=== PATIENT | female | born 1945 | race Caucasian/White ===

== ENCOUNTER 2019-08-15 11:58 | Outpatient (CLI) | payer MEDICARE, SELFPAY ==
--- NOTE | 2019-08-21 12:35 | WPDHOLTEREM ---
Holter/Event Monitor Holter/Event Monitor Date of procedure: 08/15/19 Procedure Type: 48 hour holter monitor Indications: Edema, weakness Conclusion: 1. 48 hour holter monitor on 08/15/19. 2. Predominant rhythm is sinus rhythm. HR range 50-121 bpm; average HR 71 bpm. 3. There are 1,362 premature supraventricular complexes, 82 supraventricular couplets, 32 supraventricular bigeminy and 55 supraventricular trigeminy. There are 37 runs of atrial tachycardia, fastest at 171 bpm and longest lasting 33 beats. 4. There are 56 premature ventricular complexes, 1 ventricular couplet and 1 ventricular triplet. No ventricular tachycardia. 5. No sinoatrial or atrioventricular blocks. No significant pauses greater than 2 seconds. 6. Patient reports lightheadedness/dizziness which demonstrate sinus rhythm at 63 bpm.
== END 2019-08-15 11:59 | disposition home or self-care (01) ==
PROVIDERS: PCP Family Medicine; Visit Provider Nurse Practitioner Family
DX: R60.9 Edema, unspecified (principal); R53.1 Weakness; R42 Dizziness and giddiness
CPT/HCPCS: 93225; 93226

== ENCOUNTER 2021-01-16 15:38 | Emergency (ER) | payer MEDICARE, SELFPAY ==
--- NOTE | ~2021-01-16 | XR_ITS ---
EXAMINATION: XR elbow RT min 3V DATE: 01/16/2021 17:23 INDICATION: Right elbow pain and limited range of motion post fall TECHNIQUE: Anteroposterior, two oblique and lateral views of the right elbow were obtained. COMPARISON: None. FINDINGS: Alignment is normal. No fracture or joint effusion. Joint spaces are normal. Mild soft tissue swellin g posterior to the proximal ulna. IMPRESSION: 1. No right elbow joint effusion or osseous abnormality. Reviewed, dictated and finalized at location A.
--- NOTE | ~2021-01-16 | CT_ITS ---
EXAMINATION: CT brain wo con DATE: 01/16/2021 17:18 INDICATION: Fall with head injury and laceration to the right eye TECHNIQUE: Computed tomography (CT) of the head was performed without intravenous contrast. Sagittal and coronal reconstructions were performed. The mA was adjusted according to patient size. Iterative reconstruction technique was employed. The dose-length product was 681.00 mGy-cm. COMPARISON: head CT dated 12/06/2016 FINDINGS: Small right supraorbital scalp hematoma. No fracture. No acute intracranial hemorrhage, acute infarct ion or abnormal extra axial fluid collection. There is mild to moderate scattered periventricular pre dominant white matter hypoattenuation. Symmetric prominence of the sulci and and subarachnoid spaces overlying the convexities consistent with mild to moderate age-appropriate diffuse cerebral volume lo ss. Ventricles are normal and symmetric. No mass/mass effect. Changes of bilateral intraocular lens r eplacement. The orbits, paranasal sinuses and mastoid air cells are normal. Intracranial calcified ce rebral atherosclerosis is noted. IMPRESSION: 1. No fracture or acute intracranial process. 2. Mild to moderate scattered white matter hypoattenuation consistent with chronic small vessel ische ninfa disease and/or multiple sclerosis. Reviewed, dictated and finalized at location A. IMPRESSION: 1. No fracture or acute intracranial process. 2. Mild to moderate scattered white matter hypoattenuation consistent with net ui [employer] alley small vessel ischemic disease and/or multiple sclerosis.
--- NOTE | ~2021-01-16 | CT_ITS ---
EXAMINATION: CT cervical spine wo con DATE: 01/16/2021 17:18 INDICATION: Neck pain post fall with head injury TECHNIQUE: Computed tomography (CT) of the cervical spine was performed without intravenous contrast. Automated exposure control and iterative reconstruction technique were employed. The dose-length pro duct was 110.55 mGy-cm. COMPARISON: 12/06/2016 FINDINGS: Mild cervical dextrocurvature. Unchanged 2 mm anterolisthesis C3 on C4. Vertebral body heights are no rmal. No fracture. Severe disc height loss at C4-C5, C5-C6 and T1-T2, moderate disc height loss at C 6-C7 and mild disc height loss at the remaining cervical levels. There is prominent ossification of t he posterior longitudinal ligament at C5 through C7 contributing to unchanged moderate central canal stenosis at C4-C5 and C5-6. Minimal change in multilevel bilateral moderate to severe uncovertebral a nd facet osteoarthritis resulting in mild to moderate neural foraminal stenosis throughout the cervic al spine atherosclerotic calcific lesions at the bilateral carotid bulbs and common carotid arteries. Chronic enlargement of the left thyroid lobe. Cervical soft tissues are otherwise unremarkable. Visu alized airway and apices of lungs are clear.. IMPRESSION: 1. Severe cervical spondylosis. No acute osseous abnormality. Reviewed, dictated and finalized at location A.
[2021-01-16 15:42] VITALS: BP 154/51; PULSE 72; RESP 16; TEMP 36.9; O2SAT 100
--- NOTE | 2021-01-16 18:24 | ED.FALL ---
HPI - Fall General Chief Complaint: Fall Stated Complaint: Fall Time Seen by Provider: 01/16/21 16:49 Source: patient Mode of arrival: EMS Limitations: no limitations History of Present Illness HPI Narrative: 75-year-old female Patient states that she has a history of balance troubles and was in her bathroom at home when she lost balance and stumbled and fell and hit the right side of her head on the vanity There was no loss of consciousness and she does not complain of any neck pain and did not injure anything else She reported no symptoms of dizziness or chest pain or weakness prior to falling She has not been ill She does have a small cut near her right eye and reports no vision issues Related Data Allergies Allergy/AdvReac Type Severity Reaction Status Date / Time codeine Allergy Unknown Unknown Verified 05/06/20 12:53 erythromycin base Allergy Unknown Unknown Verified 05/06/20 12:53 nitrofurantoin Allergy Unknown Unknown Verified 05/06/20 12:53 sulfisoxazole Allergy Unknown Unknown Verified 05/06/20 12:53 SULFISOXAZOLE ACETYL Allergy Unknown Unknown Uncoded 05/06/20 12:53 Review of Systems Review of Systems: All systems reviewed & are unremarkable except as noted in HPI and below Constitutional: Constitutional: Reports no additional constitutional complaints, Denies chills, Denies fatigue, Denies fever(s), Denies headache(s) and Denies weakness Eyes: Eyes: Reports no additional eye complaints and Denies change in vision ENT: Denies headache(s) and Denies sore throat Cardiovascular: Cardiovascular: Denies chest pain and Denies dyspnea Respiratory: Respiratory: Denies cough and Denies dyspnea Gastrointestinal: Gastrointestinal: Denies abdominal pain, Denies diarrhea and Denies vomiting Genitourinary: Genitourinary: Denies urinary frequency and Denies dysuria Musculoskeletal: Musculoskeletal: Reports back pain (chronic), Denies deformity, Denies arthralgias, Denies joint swelling and Denies numbness Integumentary/Breasts: Skin/Breast: Denies rash and Denies wounds Neurologic: Denies headache(s), Denies focal weakness and Denies numbness Psychiatric: Psychiatric: Reports no additional psychiatric complaints Endocrine: Endocrine: Reports no additional endocrine complaints Hematologic/Lymphatic: Hematologic/Lymphatic: Reports no additional hematologic/lymphatic complaints Allergic/Immunologic: Allergic/Immunologic: Reports no additional allergic/immunologic complaints PMFSH Past Medical History Medical History (Updated 01/16/21 @ 18:35 by Amrik Coats MD) Ataxia BMI 25.0-25.9,adult Spinal stenosis, lumbar Weight loss Family History Family History Son Diabetes mellitus Social History Social History (Updated 05/06/20 @ 12:58 by Hayley Alva CMA) Smoking status: Former smoker Second hand tobacco smoke exposure: No Alcohol intake: never Exam Const: General: cooperative, no acute distress and alert Orientation/consciousness: patient oriented x3 (alert) HENMT: Head: normocephalic, atraumatic, contusion and laceration Ears: external ears normal General nose exam: no epistaxis Other: Small contusion lateral to right eye, there is a approximately 2 mm laceration to the superior part of the eyelid which is well opposed and not gapping open or bleeding Eyes: Conjunctivae: conjunctivae normal Pupils: Equal, round and reactive pupils present EOM: EOMs intact bilaterally Neck: Neck: normal visual inspection, supple and no JVD Other: Nontender Resp: Effort & Inspection: normal respiratory effort and not labored Auscultation: clear to auscultation bilaterally and other (BS =) Cardio: Rate: regular rate Rhythm: regular rhythm Skin: General skin exam: normal color and no rashes or lesions noted Neuro: General: patient oriented x3 (alert) and moves all extremities Speech: normal speech Extrem: General: normal to inspecti
[2021-01-16] MEDS: ONDANSETRON HCL ODT 4 MG TABLET PO (18:36)
[2021-01-16] MEDS: TETANUS,DIPHTHERIA,AC PERTUSSIS ADULT (0.5 ML) BOOSTRIX IM (18:36)
[2021-01-16 19:21] VITALS: BP 161/56; PULSE 77; RESP 14; O2SAT 99
== END 2021-01-16 19:21 | disposition home or self-care (01) ==
PROVIDERS: Emergency Provider Emergency Medicine; PCP Family Medicine
DX: S01.111A Laceration without foreign body of right eyelid and periocular area, initial encounter (principal); Z23 Encounter for immunization; Z87.891 Personal history of nicotine dependence; W01.198A Fall on same level from slipping, tripping and stumbling with subsequent striking against other object, initial encounter
CPT/HCPCS: 70450; 72125; 73080; 90471; 90715; 99284; A9270

== ENCOUNTER 2021-04-08 10:34 | Outpatient (CLI) | payer MEDICARE, SELFPAY ==
--- NOTE | ~2021-04-08 | US_ITS ---
EXAMINATION: US venous doppler [facility] DATE: 04/08/2021 11:29 INDICATION: Right lower limb swelling TECHNIQUE: Grayscale ultrasound images without and with compression and Doppler ultrasound images of the bilateral lower extremity veins were obtained. COMPARISON: None. FINDINGS: The visualized portions of right common femoral vein, profunda (deep) femoral vein, femoral vein, pop liteal vein, posterior tibial veins, peroneal veins, gastrocnemius vein and greater saphenous vein ou tflow are patent. The visualized portions of left common femoral vein, profunda femoral vein, femoral vein, popliteal v ein, posterior tibial veins, peroneal veins, gastrocnemius vein and greater saphenous vein outflow ar e patent. IMPRESSION: 1. No deep venous thrombosis in either lower limb. Reviewed, dictated and finalized at location B.
== END 2021-04-08 10:35 | disposition home or self-care (01) ==
LOC: ANHIMG 10:39
PROVIDERS: PCP Family Medicine; Visit Provider Nurse Practitioner Family
DX: R22.41 Localized swelling, mass and lump, right lower limb (principal)
CPT/HCPCS: 93970

== ENCOUNTER 2021-04-10 11:52 | Inpatient (IN) | payer MEDICARE, SELFPAY ==
[2021-04-10] VITALS (17 sets, daily range): BP systolic 103–136; BP diastolic 48–84; PULSE 108–133; RESP 15–24; TEMP 36.2–36.6; O2SAT 91–98; BMI 25.7
--- NOTE | ~2021-04-10 | XR_ITS ---
XR chest 1V portable DATE: 04/10/2021 12:19 INDICATION: Multiple falls. Weakness. TECHNIQUE: Portable upright AP views on 04/20/2021 at 1211 and 1213 hours COMPARISON: 06/14/2013 two-view chest FINDINGS: There is mild/moderate right pleural effusion and right lower lung infiltrate and/or atelec tasis. Possible left upper lobe approximately 12 mm lung mass. Cardiac megaly. Aortic calcification and unfolding. No left pleural effusion. No pulmonary vascular congestion. No pneumothorax. Diffuse osteopenia. IMPRESSION: Right lower lung infiltrate and/atelectasis and mild to moderate right pleural effusion Possible approximately 12 mm left upper lobe mass Cardiac megaly, aortic atherosclerosis Diffuse osteopenia Reviewed, dictated and finalized at location A. IMPRESSION: Right lower lung infiltrate and/atelectasis and mild to moderate ri ght pleural effusion Possible approximately 12 mm left upper lobe mass Cardiac megaly, aortic atherosclerosis Diffuse osteopenia
--- NOTE | ~2021-04-10 | XR_ITS ---
EXAMINATION: XR chest 1V portable EXAM DATE: 04/14/2021 05:58 INDICATION: Right effusion. TECHNIQUE: Portable AP frontal chest x-ray was obtained. Comparison is made to prior examination from 04/13/2021. FINDINGS: Left upper lobe nodule, most consistent with lung cancer. There are layering pleural effusi ons causing some increased density over the lower lung zones. Superimposed atelectasis. Edema or pneu monia not excludable. Cardiomegaly and pulmonary vascular congestion. There are no osseous abnormalit ies identified. IMPRESSION: 1. Left upper lobe nodule. 2. Layering small to moderate pleural effusions, adjacent atelectasis. 3. Cardiomegaly, pulmonary vascular congestion. 4. Pneumonia and edema not excludable. Reviewed, dictated and finalized at location A.
--- NOTE | ~2021-04-10 | XR_ITS ---
XR chest 1V portable DATE: 04/12/2021 09:58 INDICATION: Right pleural effusion TECHNIQUE: Portable AP chest on 04/12/2021 at 0953 hours COMPARISON: 04/10/2021 CT pulmonary scan 04/10/2021 portable AP chest FINDINGS: Left upper lobe lung mass is again noted. Moderately large right pleural effusion and infiltrate and/atelectasis in the right mid and lower natalie g zones. No left pleural effusion is evident. Cardiomegaly. Aortic arch calcification. Diffuse osteopenia. IMPRESSION: Moderate right pleural effusion and right mid and lower lung infiltrate/atelectasis Left upper lobe lung mass, most likely primary lung carcinoma Cardiomegaly Aortic atherosclerosis Reviewed, dictated and finalized at location B. IMPRESSION: Moderate right pleural effusion and right mid and lower lung infilt rate/atelectasis Left upper lobe lung mass, most likely primary lung carcinoma Cardiomegaly Aortic atherosclerosis
--- NOTE | ~2021-04-10 | US_ITS ---
EXAMINATION: US thoracentesis DATE: 04/12/2021 12:55 INDICATION: Right pleural effusion TECHNIQUE: The procedure and its risks and benefits were discussed with the patient. Potential risks discussed included bleeding, infection, and pneumothorax. The patient understood the risks and agreed to proceed. The skin was prepped and draped in sterile fashion. 1% lidocaine was used for local anes thesia. Under ultrasound guidance, a 5 Fr catheter with trochar was advanced into the right pleural e ffusion. Fluid was aspirated. The catheter was removed, and a dressing was applied. There were no imm ediate complications. FINDINGS: Ultrasound images demonstrate a moderate-sized right pleural effusion and the catheter within the flu id. IMPRESSION: 1. Successful ultrasound-guided thoracentesis yielding 1000 mL of clear yellow fluid. Reviewed, dictated and finalized at location A.
--- NOTE | ~2021-04-10 | XR_ITS ---
XR chest 1V DATE: 04/13/2021 14:25 INDICATION: Biopsy of left upper lobe lung TECHNIQUE: Portable upright AP views on 04/13/2021 at 1420 hours COMPARISON: 04/13/2021 CT biopsy lung 04/12/2021 portable AP chest FINDINGS: There is no evidence of left pneumothorax following CT guided biopsy. The left upper lobe mass is somewhat ill-defined. There is increased density overlying the right mid and lower chest due to pleural effusion and atelectasis. IMPRESSION: No evidence of iatrogenic left [id number] percutaneous lung needle biopsy Reviewed, dictated and finalized at location B. IMPRESSION: No evidence of iatrogenic left [id number] percutaneous lung nee dle biopsy
--- NOTE | ~2021-04-10 | CT_ITS ---
EXAMINATION: CT brain wo con DATE: 04/13/2021 17:04 INDICATION: Confusion TECHNIQUE: Computed tomography (CT) of the head was performed without intravenous contrast. The mA wa s adjusted according to patient size. Iterative reconstruction technique was employed. Exam dose: 68 1.00 mGy-cm total exam DLP. COMPARISON: 01/16/2021 CT brain FINDINGS: There is cerebral and cerebellar volume loss. Prominent bilateral carotid siphon internal carotid artery calcification. No intracranial mass lesion or hemorrhage or cerebrovascular accident. No midline shift or mass effec t. No subdural or epidural hematoma. No fracture or bone destruction of the cranial vault. The mastoid air cells and paranasal sinuses are normally developed and aerated. IMPRESSION: Cerebral cerebellar volume loss Cerebral atherosclerosis No acute intracranial finding Reviewed, dictated and finalized at Location A. Reviewed, dictated and finalized at location B.
--- NOTE | ~2021-04-10 | CT_ITS ---
EXAMINATION: CT biopsy lung w/imaging DATE: 04/13/2021 14:23 INDICATION: Left lung nodule TECHNIQUE: The procedure including the risks and benefits was discussed with the patient's . R isks discussed included infection, approximately 1/20 risk of symptomatic hemorrhage beyond mild hemo ptysis, approximately 1/3 risk of pneumothorax, and approximately 1/10 risk of pneumothorax severe en ough to warrant chest tube placement. The patient understood the risks and agreed to proceed. The pat ient was placed prone. The skin overlying the posterior left upper chest was prepped and draped in s terile fashion. Anesthetic was administered with 1% lidocaine subcutaneously. A 19 gauge outer need le was advanced under CT guidance to the lesion of interest. A 20 gauge core biopsy needle was then u sed to obtain 4 core biopsy specimens. The needle was removed and the entry site was cleaned and dres sed. There were no immediate complications. The dose-length product was 109.67 mGy-cm. FINDINGS: CT images demonstrate the outer needle tip adjacent to a 2.4 cm spiculated nodule at the po sterior left upper lobe. There are anterior layering small right and [id number] left pleural e ffusions. IMPRESSION: 1. Successful CT-guided biopsy of a 2.4 cm spiculated left upper lobe nodule. 2. Small left and small to moderate right pleural effusions. Reviewed, dictated and finalized at location A.
--- NOTE | ~2021-04-10 | CT_ITS ---
EXAMINATION: CTA chest PE protocol DATE: 04/10/2021 14:04 INDICATION: Atrial fibrillation with rapid ventricular response TECHNIQUE: Computed tomography (CT) pulmonary angiogram of the chest was performed with 100 mL Omnipa que-350 intravenous contrast. Additional 3D reconstructions utilizing coronal maximum intensity proje ction (MIP) were performed. Automated exposure control and iterative reconstruction technique were em ployed. The dose-length product was 546.01 mGy-cm. COMPARISON: None FINDINGS: Excellent contrast opacification of the pulmonary arteries. There is mild streak artifact from dense contrast in the superior vena cava and right atrium. Mild scattered respiratory motion artifact which does not significantly limit evaluation. No pulmonary embolism. Moderate-sized right pleural effusio n with dependent compressive atelectasis in the right middle and lower lobes. Additional mild depende nt atelectasis in the left lower lobe. 2.7 x 1.8 cm spiculated mass in the posterior segment of the l eft upper lobe there is a second 13 x 7 mm solid nodule with 4 mm solid component also in the more ca udal posterior segment of the left upper lobe. Cardiomegaly with biatrial enlargement. Atheroscleroti c coronary artery calcifications. Thoracic aorta is normal in caliber with no dissection. 2 mm stone in upper pole calyx of the left kidney. Chronic mild anterior wedging at T11 and L1. Severe upper tho racic spondylosis including anterior fusion at T2-T3. IMPRESSION: 1. No pulmonary embolism. 2. 2.7 x 1.8 cm spiculated mass as well as a second 13 x 7 mm subtle solid nodule in the left upper l obe which are concerning for malignancy with differential including pneumonia. Would recommend CT-santhosh ded percutaneous biopsy when clinically improved. 3. Unilateral moderate-sized posterior layering right pleural effusion with compressive atelectasis i n the right middle and lower lobes. 4. Cardiomegaly with biatrial enlargement. 5. 2 mm nonobstructing left renal stone. Reviewed, dictated and finalized at location A. IMPRESSION: 1. No pulmonary embolism. 2. 2.7 x 1.8 cm spiculated mass as well as a second 13 x 7 mm subtle solid nodu le in the left upper lobe which are concerning for malignancy with differential including pneumonia. Would recommend CT-guided percutaneous biopsy when clinic ally improved. 3. Unilateral moderate-sized posterior layering right pleural effusion with com pressive atelectasis in the right middle and lower lobes. 4. Cardiomegaly with biatrial enlargement. 5. 2 mm nonobstructing left renal stone.
--- NOTE | ~2021-04-10 | XR_ITS ---
XR chest 2V DATE: 04/16/2021 10:33 INDICATION: Worsening cough TECHNIQUE: AP and lateral views COMPARISON: 04/14/2021 portable AP chest FINDINGS: There is persistent infiltrate or atelectasis in the right lower lung and: Mild right pleur al effusion. Cardiomegaly. Aortic calcification and tortuosity. Diffuse osteopenia. IMPRESSION: Right lower lobe infiltrate and/atelectasis and mild right pleural effusion Cardiomegaly, aortic atherosclerosis Diffuse osteopenia Reviewed, dictated and finalized at location A.
--- NOTE | ~2021-04-10 | XR_ITS ---
EXAMINATION: [id number] DATE: 04/12/2021 12:51 INDICATION: Status post thoracentesis for right pleural effusion. TECHNIQUE: frontal and lateral views of the chest were obtained. COMPARISON: Chest radiograph dated 04/10/2021 FINDINGS: Significant decrease in size of a now very small right pleural effusion. Persistent nodular opacity i n the left upper lung zone which is suspicious for lung cancer. No pulmonary edema, pneumothorax or l eft-sided pleural effusion. Cardiomegaly. IMPRESSION: 1. No pneumothorax or other acute cardiopulmonary disease post thoracentesis with very small residual right pleural effusion. 2. Left upper lobe nodule suspicious for malignancy. 3. Cardiomegaly. Reviewed, dictated and finalized at location A. IMPRESSION: 1. No pneumothorax or other acute cardiopulmonary disease post thoracentesis wi th very small residual right pleural effusion. 2. Left upper lobe nodule suspicious for malignancy. 3. Cardiomegaly.
--- NOTE | ~2021-04-10 | CT_ITS ---
EXAMINATION: CTA chest PE protocol DATE: 04/18/2021 16:12 INDICATION: Shortness of breath. TECHNIQUE: Computed tomography angiography (CTA) of the chest was performed with 100 mL Omnipaque-350 intravenous contrast timed to evaluate the pulmonary arteries. Coronal maximum intensity projection 3D-reconstructions were created by the technologist. Automated exposure control and iterative reconst ruction technique were employed. The dose-length product was 600.18 mGy-cm. COMPARISON: Chest CT 04/10/2021 FINDINGS: There is a 2.1 cm nodule in left lung upper lobe with nearby 5 mm nodule and groundglass op acities. There are moderate-sized right and small left pleural effusions. There is dependent atelecta sis bilaterally. There is biatrial enlargement of the heart. There are coronary artery calcifications . No pericardial effusion. There is no pulmonary embolus. There is a 9 mm cyst in right kidney. There is a 3 mm stone in left kidney. There are healing fractures of anterior right third-sixth ribs. Ther e is kyphosis of thoracic spine. There is severe thoracic spondylosis. IMPRESSION: 1. No pulmonary embolus. 2. 2.1 cm nodule in left lung upper lobe, consistent with biopsy-proven adenocarcinoma. 3. Moderate-sized right and small left pleural effusions. 4. Cardiomegaly. Reviewed, dictated and finalized at location A. IMPRESSION: 1. No pulmonary embolus. 2. 2.1 cm nodule in left lung upper lobe, consistent with biopsy-proven adenoca rcinoma. 3. Moderate-sized right and small left pleural effusions. 4. Cardiomegaly.
--- NOTE | 2021-04-10 12:07 | ECG_ITS ---
Measurements Intervals [place] Rate: 127 P: NM: 0 QRS: 99 QRSD: 84 T: 1 QT: 301 QTc: 438 Interpretive Statements ATRIAL FIBRILLATION WITH RAPID VENTRICULAR RESPONSE RIGHT AXIS DEVIATION INCOMPLETE RIGHT BUNDLE BRANCH BLOCK BORDERLINE T WAVE ABNORMALITY- INFERIOR LEADS BASELINE ARTIFACT- I, II, III, AVR, AVL, AVF, V1-V3, V5 ABNORMAL ECG Electronically Signed On 04-10-2021 13:56:40 CDT by Gunnar Aguilar D.O.
--- NOTE | 2021-04-10 12:09 | ED.WEAKNESS ---
HPI - Weakness General Chief complaint: Fall Stated complaint: falls, leg weakness Time Seen by Provider: 04/10/21 12:00 Source: patient Mode of arrival: EMS Limitations: no limitations History of Present Illness HPI Narrative: 75-year-old female with history of spinal stenosis frequent falls, usually uses a walker to get around cannot get out of bed this morning due to generalized weakness. On arrival patient was in A. fib with RVR with no previous history of same. No fever, no chest pain, no vomiting. No new onset of focal weakness, patient last saw her primary care doctor on the and diagnosed with a UTI. Currently taking antibiotics for same. Additionally patient states she has a history of MS for over 30 years she gets injections weekly. MD Complaint: generalized weakness Onset (ago): day(s) (1) Duration: constant Location: generalized Severity: severe Relieving factors: rest Exacerbating factors: movement and exertion Context: recent illness and history of similar Associated symptoms: denies other symptoms Related Data Home Medications Medication Instructions Recorded Confirmed cefuroxime axetil 500 mg PO TID 04/10/21 04/10/21 folic acid 1 mg PO TID 04/10/21 04/10/21 sulfasalazine 500 mg PO TID 04/10/21 04/10/21 glatiramer 40 mg SUBCUT QMWF 04/14/21 04/14/21 Allergies Allergy/AdvReac Type Severity Reaction Status Date / Time codeine Allergy Unknown Unknown Verified 04/10/21 12:22 erythromycin base Allergy Unknown Unknown Verified 04/10/21 12:22 nitrofurantoin Allergy Unknown Unknown Verified 04/10/21 12:22 sulfisoxazole Allergy Unknown Unknown Verified 04/10/21 12:22 Review of Systems Review of Systems: CONSTITUTIONAL: no fever,no confusion EYES: no vision changes, no eye pain, periorbital contusion ENT: no rhinorrhea, no sore throat, no difficulty swallowing CARDIOVASCULAR: no chest pain, denies palpitations RESPIRATORY: no cough, no shortness of breath, no hemoptysis GASTROINTESTINAL: no abdominal pain, no nausea, no vomiting, no diarrhea GENITOURINARY: no flank pain, no dysuria, no hematuria SKIN: no rash, no jaundice MUSCULOSKELETAL: no back pain, no trauma. NEUROLOGIC: No headache, no dizziness, no focal weakness PSYCHIATRIC: No hallucinations, no suicidal ideation PMFSH Past Medical History Medical History Anemia, unspecified Ataxia BMI 25.0-25.9,adult Crohn's disease Essential (primary) hypertension Mixed hyperlipidemia Multiple sclerosis Spinal stenosis, lumbar Weight loss Surgical History Surgical History History of carpal tunnel release History of cataract extraction History of colonoscopy Family History Family History Son Diabetes mellitus Father No problems noted. Mother No problems noted. Sibling Heart disease Social History Social History Social History: The patient is a former smoker. The patient stated that she never use marijuana but uses CBD. She only has 1 son. She lives with her . Her and son of the durable power sap bw consultant for healthcare. The patient is a full code. 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 ENT: dry mucous membranes, oropharynx patent, no rhinorrhea Neck: supple, trachea midline
[2021-04-10] MEDS: SODIUM CHLORIDE 0.9% IV 1,000 ML 999 ML IV CONT ×2 (12:24→16:10)
[2021-04-10 12:46] LABS: Basophils Percent Auto 0.5 % (0.2-1.2); Eosinophils Absolute Auto 0.2 K/mm3 (0-0.3); Eosinophils Percent Auto 2.8 % (0-4.4); Hematocrit 32.9 % (37.0-47.0); Hemoglobin 10.8 g/dL (12.0-15.0); Immature Granulocyte Absolute 0.01 K/mm3 (0.00-0.031); Immature Granulocyte Percent A 0.2 % (0-0.5); Lymphocytes Absolute Auto 1.87 K/mm3 (0.9-3.2); Mean Corpuscular HGB Conc 32.8 g/dl (32-36); Mean Corpuscular Hemoglobin 29.6 pg (26-34); Mean Corpuscular Volume 90.1 fl (80-100); Monocytes Absolute Auto 0.7 K/mm3 (0.1-0.6); Monocytes Percent Auto 10.1 % (2.6-8.5); Neutrophils Absolute Auto 3.7 K/mm3 (1.3-6.7); Neutrophils Percent Auto 57.4 % (45.5-73.1); Platelet Count Result 260 k/mm3 (150-375); Red Blood Count 3.65 M/mm3 (4.2-5.4); Red Cell Distribution Width 15.2 % (11.5-14.5); White Blood Count 6.5 K/mm3 (4.5-10.0)
[2021-04-10 12:56] LABS: Partial Thromboplastin Time 30.2 SECONDS (22.3-36.8); Prothrombin Time 12.9 Seconds (11.1-14.7)
[2021-04-10 13:01] LABS: Lactic Acid Reflex 1.1 mmol/L (0.7-2.1)
[2021-04-10 13:02] LABS: Alanine Aminotransferase 19 U/L (4-35); Albumin Level 4.3 g/dL (3.5-5.1); Alkaline Phosphatase 79 U/L (38-126); Anion Gap 8 mmol/L (8-16); Aspartate Amino Transferase 32 U/L (14-36); Bilirubin,Total 0.7 mg/dL (0.2-1.3); Blood Urea Nitrogen 12 mg/dL (7-17); Calcium 9.5 mg/dL (8.4-10.2); Carbon Dioxide 24 mmol/L (22-30); Chloride 104 mmol/L (98-107); Estimated CRCL calculation 48 ml/min; Estimated Glomerular Filt Rate > 60; Glucose 98 mg/dL (65-110); Magnesium 1.8 mg/dL (1.6-2.3); Potassium 3.7 mmol/L (3.4-5.0); Sodium 136 mmol/L (137-145)
[2021-04-10 13:12] LABS: Troponin I < 0.012 ng/mL (0.000-0.034)
[2021-04-10 13:18] LABS: Add Urine Microscopic? YES; Appearance Urine Cloudy (Clear); Bilirubin Urine Negative (Negative); Blood Urine Negative (Negative); Color Urine Yellow (Yellow); Glucose Urine UA Negative (Negative); Ketones Urine Negative (Negative); Leukocyte Esterase Ur 3+ LEU/UL (Negative); Mucus Urine Rare /lpf; Nitrate Urine Negative (Negative); Protein Urine 2+ mg/dL (Negative); RBC Urine 21-50 /hpf (0-2); Specific Grav Ur 1.017 (1.001-1.035); Squamous Epithelial Cell Urine Occasional /hpf (Few); Urobilinogen Urine Negative mg/dL (<2.0); WBC Urine >75 /hpf
[2021-04-10] MEDS: dilTIAZem HCl INJ 25 MG/5 ML VIAL 20 MG IV PUSH (16:07)
--- NOTE | 2021-04-10 18:26 | ADMGEN ---
This patient, Radha Pineda, was admitted to IMU Room 211-01. Patient/family oriented to hospital policies and general routines including ID bracelet, bed and alarms, visiting hours, pain management, procedures, bathroom and other care routines, personal items, smoking policy, room service/diet, and visiting hours. Information on how to activate the Rapid Response Team has been discussed. Patient/Family are encouraged to report perceived risks to care and to ask questions if they do not understand what they are told or what they should do.
[2021-04-10 18:36] LABS: Troponin I < 0.012 ng/mL (0.000-0.034)
--- NOTE | 2021-04-10 19:21 | PM.IMHP ---
H&P: HPI History of Present Illness Date/Time: 04/10/21 19:21 this is a 75-year-old female patient who has a history of MS. She does walk around with a walker. The patient has had multiple falls. She lives with her . She also has spinal stenosis. The patient stated that she could get out of bed this morning due to generalized weakness. The patient has no prior history of atrial fibrillation. Today she was found to have AFib with RVR. She had no fever chills or chest pain. No nausea vomiting or or diarrhea. The patient saw her primary care doctor diagnosed her with a urinary tract infection 2 days ago. The patient has a black eye to the left side of her face status purple. She said she did not have a fall today but it from a previous fall. She denies any abuse in the home. H&H is 10.8 and 32.9. Sodium 136. Her troponin is negative. Greater than 75 wbc's. The patient was started on ceftriaxone, IV fluids, and Cardizem IV push and then a Cardizem drip. Patient's heart rate remains in the 120s. Chest CTA was read as the following.: 1.No pulmonary embolism. 2. 2.7 x 1.8 cm spiculated mass as well as a second 13 x 7 mm subtle solid nodule in the left upper lobe which are concerning for malignancy with differential including pneumonia. Would recommend CT-guided percutaneous biopsy when clinically improved. 3. Unilateral moderate-sized posterior layering right pleural effusion with compressive atelectasis in the right middle and lower lobes. 4. Cardiomegaly with biatrial enlargement. 5. 2 mm nonobstructing left renal stone. I discussed the CT scan with the patient and she stated she did not know anything about any pulmonary nodules. I also discussed possibly getting a biopsy while she is here. Also we decided that we would wait till she is feeling somewhat better and perhaps have this done prior to her being discharged to home. She would like a biopsy however she would like to wait till she is feeling a little bit better. Patient is being admitted to observation status on 04/10/2021 Chief Complaint: Generalized weakness Review of Systems Review of Systems: All systems reviewed & are unremarkable except as noted in HPI and below Constitutional: Constitutional: Reports as per HPI and Reports no additional constitutional complaints Eyes: Eyes: Reports as per HPI and Reports no additional eye complaints ENT: Reports system reviewed and no additional complaints, except as documented and Reports Normal hearing present Cardiovascular: Cardiovascular: Reports no additional cardiovascular complaints Respiratory: Respiratory: Reports no additional respiratory complaints and Reports no additional respiratory complaints Gastrointestinal: Gastrointestinal: Reports as per HPI and Reports no additional gastrointestinal complaints Musculoskeletal: Musculoskeletal: Reports no additional musculoskeletal complaints Integumentary/Breasts: Skin/Breast: Reports system reviewed and no additional complaints, except as docu and Reports as per HPI Neurologic: Reports system reviewed and no additional complaints, except as documented, Reports as per HPI and Reports Normal hearing present Psychiatric: Psychiatric: Reports no additional psychiatric complaints and Reports as per HPI Endocrine: Endocrine: Reports no additional endocrine complaints Hematologic/Lymphatic: Hematologic/Lymphatic: Reports no additional hematologic/lymphatic complaints Allergic/Immunologic: Allergic/Immunologic: Reports no additional allergic/immunologic complaints [facility] Past Medical History Medical History (Updated 04/10/21 @ 19:33 by Sanaz Cardoza NP) Anemia, unspecified Ataxia BMI 25.0-25.9,adult Crohn's disease Essential (primary) hypertension Mixed hyperlipidemia Multiple sclerosis Spinal stenosis, lumbar Weight loss Surgical History Surgical History (Updated 04/10/21 @ 19:33 by Sanaz Cardoza NP) H
[2021-04-10] MEDS: FOLIC ACID 1 MG TABLET PO (22:57)
[2021-04-10] MEDS: sulfaSALAzine 500 MG TABLET PO (22:57)
[2021-04-10] MEDS: ENOXAPARIN 80 MG/0.8 ML SYRINGE 70 MG SUB-Q (22:58)
[2021-04-11] VITALS (20 sets, daily range): BP systolic 99–123; BP diastolic 38–62; PULSE 79–123; RESP 14–20; TEMP 36.1–37.1; O2SAT 92–98
[2021-04-11 04:53] LABS: Basophils Percent Auto 0.5 % (0.2-1.2); Eosinophils Absolute Auto 0.1 K/mm3 (0-0.3); Eosinophils Percent Auto 2.2 % (0-4.4); Hematocrit 29.2 % (37.0-47.0); Hemoglobin 9.5 g/dL (12.0-15.0); Immature Granulocyte Absolute 0.01 K/mm3 (0.00-0.031); Immature Granulocyte Percent A 0.2 % (0-0.5); Lymphocytes Absolute Auto 1.68 K/mm3 (0.9-3.2); Lymphocytes Percent Auto 26.9 % (18.3-44.2); Mean Corpuscular HGB Conc 32.5 g/dl (32-36); Mean Corpuscular Hemoglobin 29.4 pg (26-34); Mean Corpuscular Volume 90.4 fl (80-100); Mean Platelet Volume 10.9 fl (7.4-10.4); Monocytes Absolute Auto 0.6 K/mm3 (0.1-0.6); Monocytes Percent Auto 9.9 % (2.6-8.5); Neutrophils Absolute Auto 3.8 K/mm3 (1.3-6.7); Neutrophils Percent Auto 60.3 % (45.5-73.1); Platelet Count Result 221 k/mm3 (150-375); Red Blood Count 3.23 M/mm3 (4.2-5.4); Red Cell Distribution Width 15.3 % (11.5-14.5); White Blood Count 6.3 K/mm3 (4.5-10.0)
[2021-04-11 05:47] LABS: Alanine Aminotransferase 18 U/L (4-35); Albumin Level 3.6 g/dL (3.5-5.1); Alkaline Phosphatase 71 U/L (38-126); Anion Gap 10 mmol/L (8-16); Aspartate Amino Transferase 33 U/L (14-36); Bilirubin,Total 0.5 mg/dL (0.2-1.3); Blood Urea Nitrogen 7 mg/dL (7-17); Calcium 8.8 mg/dL (8.4-10.2); Carbon Dioxide 20 mmol/L (22-30); Chloride 106 mmol/L (98-107); Estimated CRCL calculation 60 ml/min; Estimated Glomerular Filt Rate > 60; Glucose 96 mg/dL (65-110); Magnesium 1.8 mg/dL (1.6-2.3); Potassium 3.6 mmol/L (3.4-5.0); Sodium 136 mmol/L (137-145)
[2021-04-11 05:58] LABS: Lactate Dehydrogenase 417 U/L (313-618)
[2021-04-11 06:30] LABS: Thyroid Stimulating Hormone Reflex 0.914 uIU/mL (0.465-4.68)
[2021-04-11] MEDS: ENOXAPARIN 80 MG/0.8 ML SYRINGE 70 MG SUB-Q ×2 (08:09→21:03)
[2021-04-11] MEDS: sulfaSALAzine 500 MG TABLET PO ×4 (08:09→21:03)
[2021-04-11] MEDS: FOLIC ACID 1 MG TABLET PO ×3 (08:09→16:33)
[2021-04-11] MEDS: ATORVASTATIN 20 MG TABLET PO (08:09)
[2021-04-11] MEDS: allopurinoL 100 MG TABLET PO (08:09)
--- NOTE | 2021-04-11 09:31 | PM.CNCAR ---
Assessment and Plan Assessment and plan (1) Atrial fibrillation with RVR: Code(s): I48.91 - Unspecified atrial fibrillation Status: Acute Assessment and Plan: AFib with RVR new diagnosis, duration unknown as patient is otherwise asymptomatic. Heart rate reasonably controlled low 80s to 100s on diltiazem infusion. Oral Toprol had not been restarted. Patient has multiple frequent falls with recurrent head injury and is not a reasonable candidate for systemic anticoagulation. Discussed at length embolic stroke risk with atrial fibrillation and bleeding complication. Patient agrees she is not a candidate for anticoagulation and admits that she has unstable with any activity despite using her Rollator and walker. Aspirin 325 mg daily as tolerated most reasonable option. Continue anticoagulation for the immediate time. Pending control her heart rate on oral medications. Patient is well aware of the stroke risk and accepts this due to unacceptably high bleeding risk due for her falls. Reduce diltiazem infusion with plan to discontinue with concomitant metoprolol tartrate 25 mg p.o. q.8 hours initially. Up titrate as BP and heart rate permit. Discussed at length pathophysiology with atrial fibrillation, embolic stroke risk. CHADS2 Vasc score at least 4. Electrolytes and TSH stable. Clearly, rate control strategy is best management for the patient given her history and tolerance of atrial fibrillation. Patient agrees with plan of care as discussed and outlined. 2D echocardiogram to assess LV size and function, valve pathology, chamber size, and pulmonary pressures. Recommendation to follow particularly given cardiomegaly and biatrial enlargement noted on CT of the chest. Patient does not appear to be in acute decompensated heart failure or and or symptoms of myocardial ischemia and with negative troponin thus far. (2) Frequent falls: Code(s): R29.6 - Repeated falls Status: Acute Assessment and Plan: As above, unfortunately patient is a poor candidate for anticoagulation due to frequent recurrent falls with head injury. (3) Lung mass: Code(s): R91.8 - Other nonspecific abnormal finding of lung field Status: Acute Assessment and Plan: New diagnosis. Workup per primary service. Findings concerning for malignancy. (4) Anemia, unspecified: Code(s): D64.9 - Anemia, unspecified Status: Chronic Assessment and Plan: Follow H& H. Stable at this time. No evidence of bleeding. (5) Essential (primary) hypertension: Code(s): I10 - Essential (primary) hypertension Status: Chronic Assessment and Plan: Stable at this time. Hold off on resumption of amlodipine and losartan now. (6) Mixed hyperlipidemia: Code(s): E78.2 - Mixed hyperlipidemia Status: Chronic Assessment and Plan: Continue atorvastatin. (7) Multiple sclerosis: Code(s): G35 - Multiple sclerosis Status: Chronic Assessment and Plan: Per primary service. History of Present Illness History of Present Illness Consult date/time: Date of service: 04/11/21 09:31 Cardiology consultation at the request of Sanaz Cardoza APN for opinion regarding atrial fibrillation with rapid ventricular response Requesting physician: Sanaz Cardoza NP Consult reason: atrial fibrillation Reason For Visit: atrial fibrillation with RVR, UTI, lung mass Narrative: Patient is a very pleasant 75-year-old female with a past medical history significant for multiple sclerosis, hypertension, dyslipidemia, Crohn disease, history of multiple frequent falls with head injury who presented to the emergency department due to generalized weakness and inability to get out of bed. She denies palpitations, rapid heart rate, chest pain, near-syncope or syncope. She denies recent illnesses, fevers or chills. She notes she has been dealing with a urinary tract infection for least the p
[2021-04-11] MEDS: METOPROLOL TARTRATE 25 MG TABLET PO ×3 (10:00→21:02)
--- NOTE | 2021-04-11 11:47 | PM.IMPN ---
Progress Note: A&P Assessment and Plan (1) Atrial fibrillation with RVR: Code(s): I48.91 - Unspecified atrial fibrillation Status: Acute Assessment and Plan: Currently on Cardizem drip. She is being transitioned to p.o. metoprolol with the a.m. for weaning her off Cardizem drip. Titrate metoprolol dose if blood pressure and heart rate allows. Patient's chads vas score is 4 which makes her at high risk for stroke. Considering her significant falls, she is not a candidate for long-term anticoagulation. I myself and orchid grower discuss it with her and she understand the risk for stroke but at the same time thinks that she may get life-threatening bleeding if she continues to fall. Continue Lovenox for the next few days but will not be discharged home on oral anticoagulation. She may need a CT-guided biopsy of the lung mass as well for which Lovenox will be stopped. She will be started on aspirin once she is getting off Lovenox. Cardiology consult recommendations appreciated. Echo is pending. Continue to monitor her on telemetry. (2) Acute UTI: Code(s): N39.0 - Urinary tract infection, site not specified Status: Acute Assessment and Plan: Continue with Rocephin. Follow cultures. (3) Anemia, unspecified: Code(s): D64.9 - Anemia, unspecified Status: Chronic Assessment and Plan: She is at her baseline. Continue to monitor. No active bleeding. (4) Essential (primary) hypertension: Code(s): I10 - Essential (primary) hypertension Status: Chronic Assessment and Plan: Currently on Cardizem drip. Metoprolol is being restarted at a dose of 25 mg p.o. q.8 hours. It will be titrated up based on her heart rate and blood pressure. She normally takes 100 mg extended release once a day. Some of the blood pressure readings were a bit on the lower side. Will hold amlodipine and losartan for now and resume if her blood pressure started to trend up. (5) Mixed hyperlipidemia: Code(s): E78.2 - Mixed hyperlipidemia Status: Chronic Assessment and Plan: Continue with atorvastatin (6) Multiple sclerosis: Code(s): G35 - Multiple sclerosis Status: Chronic Assessment and Plan: Consult neurology for significant weakness especially in the bilateral lower extremity. At baseline she is on glatiramer. (7) Crohn's disease: Code(s): K50.90 - Crohn's disease, unspecified, without complications Status: Chronic Assessment and Plan: Continue with home medications. (8) Lung mass: Code(s): R91.8 - Other nonspecific abnormal finding of lung field Status: Acute Assessment and Plan: We had a long discussion about a biopsy. I explained that she could have a fine needle biopsy while she is here. However the patient has a UTI in his AFib with RVR. The patient stated that she would like to wait until she feels better. Pulmonary has been consulted for their inputs for the left lung mass as well as right-sided pleural effusion. She is currently on Lovenox which will be put on hold before biopsy can be attempted. Additional Plan PT OT has been consulted because of her repeated falls. DVT prophylaxis with therapeutic Lovenox dose Subjective Date/time seen: 04/11/21 11:47 She remained on Cardizem drip with heart rate in 80s to 100s. She is started on metoprolol with the a.m. to wean off Cardizem drip. She is complaining of generalized weakness specially bilateral lower extremity. She does have some cough with postnasal drip. She denied have any shortness of breath. She denied have any hemoptysis. Does have some weight loss but attributed it to her not eating well. Review of Systems Review of Systems: All systems reviewed & are unremarkable except as noted in HPI and below Exam Narrative: General awake and alert not in acute distress chronic ill-looking phase Neck supple
[2021-04-12] VITALS (22 sets, daily range): BP systolic 93–138; BP diastolic 54–75; PULSE 89–126; RESP 16–24; TEMP 36.3–37.2; O2SAT 95–99
--- NOTE | 2021-04-12 | ECHO_ITS ---
Patient Info Name: Radha Pineda Age: 75 years : 1945 Gender: Female Ht: 65 in Wt: 157 lbs BSA: 1.82 m2 BP: 121 / 81 mmHg Heart Rhythm: Atrial Fibrillation Exam Date: 04/12/2021 9:17 AM Exam Location: [facility] Patient Status: Inpatient Admit Date: 04/10/2021 Staff Ordering Physician: Sanaz Cardoza NP Category Planner: Iam Willingham RDCS, RT Attending Provider: Radu Donovan MD Referring Physician: Nani COTTO; Exam Type: CA echo doppler color flow Study Info Indications I21.29 - ST elevation (STEMI) myocardial infarction involving other sites Complete two-dimensional, color flow and Doppler transthoracic echocardiogram is performed. Strain analysis performed. Summary 1. Complete two-dimensional, color flow and Doppler transthoracic echocardiogram is performed. 2. Left ventricular chamber dimension is normal. 3. Left ventricular systolic function is normal, estimated at 60-65%. 4. There is moderately increased left ventricular wall thickness. 5. There is mild mitral valve regurgitation. 6. There is mild to moderate tricuspid valve regurgitation. 7. Moderate pulmonary hypertension, estimated pulmonary arterial systolic pressure is 48 mmHg. Left Ventricle Left ventricular chamber dimension is normal. Left ventricular systolic function is normal, estimated at 60-65%. There is moderately increased left ventricular wall thickness. The left ventricular diastolic function is indeterminate. Global longitudinal strain is moderately elevated at -12 %. Right Ventricle Right ventricular chamber dimension is normal. Right ventricular systolic function is normal. Left Atria Left atrial chamber dimension is mildly enlarged. Right Atria Right atrial chamber dimension is mildly enlarged. Aortic Valve The aortic valve is trileaflet. There is mild aortic valve sclerosis. There is no aortic valve stenosis. There is no aortic valve regurgitation. Pulmonic Valve The pulmonic valve is not well visualized. Mitral Valve The mitral valve has normal leaflets. There is mild mitral valve regurgitation. Tricuspid Valve The tricuspid valve leaflets are normal. There is mild to moderate tricuspid valve regurgitation. Moderate pulmonary hypertension, estimated pulmonary arterial systolic pressure is 48 mmHg. Pericardium/Pleural The pericardium appears normal. There is small pericardial effusion. Inferior Vena Cava Normal inferior vena cava with <50% collapse upon inspiration consistent with elevated right atrial pressure, 10 mmHg. Aorta The aortic root size at the sinus of Valsalva is normal. There is mild aortic atherosclerosis. Left Ventricular Outflow Tract Name Value Normal LVOT 2D LVOT Diameter 2.0 cm LVOT Doppler LVOT Peak Gradient 5 mmHg LVOT Mean Gradient 3 mmHg LVOT VTI 22 cm LVOT VTI/AV VTI Ratio 0.6 LVOT Stroke Volume 70 ml LVOT CO 8.4 l/min LVOT CI
[2021-04-12 04:42] LABS: Basophils Percent Auto 0.3 % (0.2-1.2); Eosinophils Absolute Auto 0.2 K/mm3 (0-0.3); Eosinophils Percent Auto 2.5 % (0-4.4); Hematocrit 30.9 % (37.0-47.0); Immature Granulocyte Absolute 0.02 K/mm3 (0.00-0.031); Immature Granulocyte Percent A 0.3 % (0-0.5); Lymphocytes Absolute Auto 2.01 K/mm3 (0.9-3.2); Mean Corpuscular HGB Conc 32.4 g/dl (32-36); Mean Corpuscular Hemoglobin 29.7 pg (26-34); Mean Corpuscular Volume 91.7 fl (80-100); Mean Platelet Volume 10.8 fl (7.4-10.4); Monocytes Absolute Auto 0.8 K/mm3 (0.1-0.6); Monocytes Percent Auto 10.8 % (2.6-8.5); Neutrophils Percent Auto 57.1 % (45.5-73.1); Platelet Count Result 231 k/mm3 (150-375); Red Blood Count 3.37 M/mm3 (4.2-5.4); Red Cell Distribution Width 15.4 % (11.5-14.5); White Blood Count 6.9 K/mm3 (4.5-10.0)
[2021-04-12 05:00] LABS: Anion Gap 7 mmol/L (8-16); Blood Urea Nitrogen 8 mg/dL (7-17); Calcium 8.7 mg/dL (8.4-10.2); Carbon Dioxide 22 mmol/L (22-30); Chloride 105 mmol/L (98-107); Estimated CRCL calculation 52 ml/min; Estimated Glomerular Filt Rate > 60; Glucose 89 mg/dL (65-110); Magnesium 1.7 mg/dL (1.6-2.3); Potassium 3.3 mmol/L (3.4-5.0); Sodium 134 mmol/L (137-145)
[2021-04-12] MEDS: METOPROLOL TARTRATE 25 MG TABLET PO (05:59)
--- NOTE | 2021-04-12 08:14 | PM.IMPN ---
Progress Note: A&P Additional Plan START OF DOCTOR EMMIE?S PROGRESS NOTE Subjective: The patient offers no complaints at this time. She denies fever, rigors, nausea, vomiting, cough, wheeze, abdominal pain, chest pain, lightheadedness, dizziness, diaphoresis, palpitations, since rapid heartbeat, sensation irregular heartbeat. I have explained to the patient her current medical condition plan of care. I spoke with her further about her pulmonary mass and she has indicated that she would not like to undergo any further testing as she probably would not undergo surgery, chemotherapy, or radiation therapy. I have answered all the patient's questions Objective: General: -Alert -No acute distress -No dyspnea -No tachypnea Heart: -Regular rate -iRegular rhythm -No murmurs -No gallops -No rubs Lungs: -No wheeze -No rhonchi -trace bilateral rales present Abdomen: -Normal bowel sounds in all four quadrants -No rebound -No guarding -No tenderness Extremities: -2/4 pulse in all four extremities -No clubbing -No cyanosis -No edema Additional Details / Additional Findings / Exceptions / Miscellaneous: Pertinent Laboratory Results / Pertinent Radiology Results / Pertinent Diagnostic Results / Pertinent Vital Signs: Blood pressure 93/54, hemoglobin 10, sodium 134 Assessment / Plan: Left upper lobe pulmonary mass including 2.7 cm x 1.8 cm spiculated mass and 13 mm by 7 mm lesion. The patient has indicated that she 2 would not like to undergo any sort of treatment even if malignancy was detected in the stool we will cancel any request for biopsy Atrial fibrillation. Telemetry monitoring. TSH within normal limits. Magnesium level within normal limits. Echocardiogram pending. Metoprolol 25 mg p.o. q.8 hours plus Lovenox 70 mg subcutaneously q.12 hours plus IV Cardizem drip which we will attempt to wean the patient off of Urinary tract infection. Rocephin 1 g IV daily Multiple sclerosis. Outpatient follow-up with Neurology Nephrolithiasis, asymptomatic Crohn's disease. Sulfasalazine 500 mg p.o. q.i.d. Hypertension metoprolol 25 mg p.o. q.8 hours post IV Cardizem drip which will attempt to wean the patient off of Hyperlipidemia. Lipitor 20 mg p.o. q.h.s. Spinal stenosis Gout. Allopurinol 100 mg p.o. daily Anemia. Will monitor hemoglobin level intermittently. Check serum ferritin, iron panel, fecal occult blood Hyponatremia. Will monitor sodium levels intermittently Hypokalemia. Will monitor potassium levels intermittently supplements as necessary Right pleural effusion. Patient oxygenating adequately. Echocardiogram pending DVT prophylaxis. Lovenox 70 mg subcutaneously q.12 hours Disposition: Anticipate discharge within 24 hours if we are able to adequately control the patient's heart rate END OF DOCTOR EMMIE?S PROGRESS NOTE Subjective Date/time seen: 04/12/21 08:14 Objective Data Vital Signs Vital Signs: Vital Signs - 24 hr 04/11/21 09:08 04/11/21 10:00 04/11/21 12:00 Temperature 98.0 F Pulse Rate 111 H 85 Respiratory Rate 18 Blood Pressure 103/45 L Pulse Oximetry 98 95 04/11/21 14:00 04/11/21 14:47 04/11/21 16:00 Temperature 98.7 F Pulse Rate 96 85 80 Respiratory Rate 14 Blood Pressure 111/56 L Pulse Oximetry 92 04/11/21 17:29 04/11/21 18:00 04/11/21 20:00 Temperature 97.9 F Pulse Rate 88 123 H 93 Respiratory Rate 18 Blood Pressure 99/51 L Pulse Oximetry 97 04/11/21 21:02 04/11/21 22:00 04/11/21 23:48 Temperature 97.1 F L Pulse Rate 106 H 96 87 Respiratory Rate 18 Blood Pressure 123/62 Pulse Oximetry 97 04/11/21 23:57 04/12/21 01:41 04/12/21 03:12 Temperature Pulse Rate 100 110 H 107 H Respiratory Rate 18 Blood Pressure Pulse Oximetry 97 04/12/21 03:58 04/12/21 04:00 04/12/21 05:59 Temperature 97.4 F L Pulse Rate 102 H 111 H 94 Respiratory Rate 18 18
[2021-04-12 09:33] LABS: NT Pro B Type Natriuretic Pept 1900 pg/mL (5-100)
[2021-04-12 09:41] LABS: Iron 25 ug/dL (37-170)
[2021-04-12] MEDS: sulfaSALAzine 500 MG TABLET PO ×3 (09:46→21:10)
[2021-04-12] MEDS: POTASSIUM CHLORIDE 20 MEQ TABLET 40 MEQ PO (09:46)
[2021-04-12] MEDS: FOLIC ACID 1 MG TABLET PO ×2 (09:46→16:55)
[2021-04-12] MEDS: allopurinoL 100 MG TABLET PO (09:46)
[2021-04-12] MEDS: ATORVASTATIN 20 MG TABLET PO (09:46)
[2021-04-12 09:56] LABS: Percent Iron Saturation 11 % (20-50)
--- NOTE | 2021-04-12 10:53 | WPDNEURCNPN ---
Assessment and Plan Additional Plan 75 years old lady with gait dysfunction, documented pulmonary pathology suggestive of malignancy, with underlying atrial fibrillation and abnormal neurological examination will need of [facility] consultation on the long-term basis while being treated acutely here will need the scanning of the brain for further delineation Consult date: 04/12/21 Time Seen: 11:30 HPI: Radha Pineda is a 75 year old female admitted to the hospital with the ongoing diagnosis of multiple sclerosis. Patient has been walking around in the house with a walker with resultant multiple falls, she lives with her and also has history of spinal stenosis. Reportedly she was able to get out of the bed but not today because of the complaints of generalized weakness on evaluation she was found to have atrial fibrillation with rapid ventricular response she was seen by a primary care physician and was treated for the UTI about 2 days ago she was noted to have black eye on the left side though she was unable to say that whether she fell or not she was also found to have spiculated mass in the left upper lobe suggestive of underlying malignancy for which CT guided biopsy was suggested his spiculated mass 2.7x1.8 and a 2nd [id number] solid nodule in the left upper lobe she has been also noted to have unilateral moderate size posterior layering right pleural effusion compressive atelectasis in the right middle and lower lobes along with the cardiomegaly and biatrial enlargement, 5.2mm nonobstructing left renal stone, her additional past history is consistent with Crohn's disease, hypertension, multiple sclerosis, spinal stenosis of the lumbar spine, anemia, ataxia, and weight loss, she is a former smoker not a drinker Review of Systems Review of Systems: All systems reviewed & are unremarkable except as noted in HPI and below PMFSH Past Medical History Medical History Anemia, unspecified Ataxia BMI 25.0-25.9,adult Crohn's disease Essential (primary) hypertension Mixed hyperlipidemia Multiple sclerosis Spinal stenosis, lumbar Weight loss Surgical History Surgical History History of carpal tunnel release History of cataract extraction History of colonoscopy Family History Family History Son Diabetes mellitus Father No problems noted. Mother No problems noted. Sibling Heart disease Social History Social History Social History: The patient is a former smoker. The patient stated that she never use marijuana but uses CBD. She only has 1 son. She lives with her . Her and son of the durable power collections attorney for healthcare. The patient is a full code. 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 Gender identity (if verbalized by the patient): Female Spiritual care concerns: No Meds Home Medications and Allergies Home Medications Medication Instructions Recorded Confirmed Type furosemide 20 mg tablet 20 mg PO QAM #90 tablet 01/17/21 04/10/21 Rx losartan 50 mg tablet See Rx Instructions .ROUTE 01/17/21 04/10/21 Rx .COMPLEX #30 tablet allopurinol 100 mg tablet 100 mg PO DAILY #90 tablet 01/22/21 04/10/21 Rx atorvastatin 20 mg tablet 20 mg PO DAILY #90 tablet 01/22/21 04/10/21 Rx potassium chloride 10 mEq 10 meq PO DAILY #90 tablet 01/22/21 04/10/21 Rx tablet,extended release amlodipine 10 mg tablet 10 mg PO DAILY #90 tablet 01/27/21 04/10/21 Rx metoprolol succinate 100 mg See Rx Instructions .ROUTE 03/02/21 04/10/21 Rx tablet,extended release 24 hr .COMPLEX #30 tab
[2021-04-12 11:07] LABS: Lactate Dehydrogenase 414 U/L (313-618)
--- NOTE | 2021-04-12 11:42 | PM.CNPUL ---
Assessment and Plan Assessment and plan (1) Lung mass: Code(s): R91.8 - Other nonspecific abnormal finding of lung field Status: Acute Assessment and Plan: Patient is a former smoker who quit at the age of 35 but has been exposed to secondhand smoke through her . Currently she has no respiratory complaints and her saturations are 98% on room air. She does have a right pleural effusion and this will be sampled and sent for chemistries and cytology. The patient has no infectious complaints and I see no need for antibiotics at this time. The patient has no wheezing or evidence of a COPD exacerbation and I feel no need for systemic steroids or antibiotics. Patient has no respiratory limitations from her lung disease at this time and I feel no need to initiate bronchodilators. If the right pleural effusion is negative for cytology the patient is in agreement to undergo a CT-guided biopsy of the left upper lobe spiculated mass. (2) Pleural effusion, right: Code(s): J90 - Pleural effusion, not elsewhere classified Status: Acute Assessment and Plan: The only other chest imaging in our system is a chest x-ray from 06/14/2013 that demonstrates no right pleural effusion and known left upper lobe lung nodule. Patient has agreed to right ultrasound-guided thoracentesis and I have discontinued her Lovenox so that this procedure can't be performed later today. I have ordered serum LDH, pleural chemistries, cytology, cell count and bacterial, fungal and AFB cultures. Her TSH is 0.914 which is normal. Her BNP is 1900. Will follow with you. History of Present Illness History of Present Illness Consult date: 04/12/21 Requesting physician: Tyrell Rodriges DO Chief complaint: atrial fibrillation with RVR, UTI, lung mass Narrative: 75-year-old female patient who has a history of MS, Crohn's, HTN, spinal stenosis and cataracts extraction. She does walk around with a walker and has recent falls with a current black eye. Admitted to hospital on 04/10/2021 with weakness and falls and found to have AFib with RVR and a CT angiogram of the chest with no pulmonary embolism but a 2.7 x 1.8 cm spiculated mass as well as a second 13 x 7 mm subtle solid nodule in the left upper lobe which are concerning for malignancy with differential including pneumonia, Unilateral moderate-sized posterior layering right pleural effusion with compressive atelectasis in the right middle and lower lobes. Patient with an E coli UTI sensitive to ceftriaxone and has been on ceftriaxone. Repeat urine culture on 04/10 was negative. On 04/08/2021 patient had negative lower extremity Dopplers. Patient was started on full-dose Lovenox in the hospital and both the hospitalist and management development specialist agreed she would not be discharged on this medicine given her recent history of falls. Patient tells me she had no respiratory issues on admission or since admission and that her breathing is normal without any shortness of breath or dyspnea on exertion. She does state that she has had a dry cough for 6 months with only occasional clear white phlegm and no hemoptysis. At baseline she can walk 10-15 feet with a walker and then gets tired legs. Patient denies any pedal edema or abdominal swelling. At home she is on Lasix 20 mg p.o. q.a.m. but no inhalers. Patient tells me there is no family history of lung cancer. Patient has never been told she had fluid around her right lung or nodules in her left lung. Patient tells me she smokes cigarettes from age [age] at 1 pack per day for 19 pack years. Her does smoke and she is exposed to his secondhand smoke up until 5-6 months ago when she told him to smoke in the garage. Her parents did not smoke. 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 I dis
[2021-04-12 13:01] LABS: pH Pleural Fluid 7.494 (7.210-7.500)
[2021-04-12 13:59] LABS: Appearance Pleural Fluid Clear (Clear); Color Pleural Fluid Yellow (Colorless); Pleural fluid source Pleural fluid
[2021-04-12 14:00] LABS: Lymphocytes Pleural Fluid 67 %; Neutrophils Pleural Fluid 7 % (0-25)
[2021-04-12 14:01] LABS: Macrophages Pleural Fluid 23 %; Monocytes Pleural Fluid 3 %
--- NOTE | 2021-04-12 15:26 | PM.PNCARD ---
Progress Note: A&P Assessment and Plan (1) Atrial fibrillation with RVR: Code(s): I48.91 - Unspecified atrial fibrillation Status: Acute Assessment and Plan: AFib with RVR new diagnosis, duration unknown as patient is otherwise asymptomatic. Heart rate reasonably controlled low 80s to 100s on diltiazem infusion. Oral Toprol had not been restarted. Patient has multiple frequent falls with recurrent head injury and is not a reasonable candidate for systemic anticoagulation. Discussed at length embolic stroke risk with atrial fibrillation and bleeding complication. Patient agrees she is not a candidate for anticoagulation and admits that she has unstable with any activity despite using her Rollator and walker. Aspirin 325 mg daily as tolerated most reasonable option. Continue anticoagulation for the immediate time. Pending control her heart rate on oral medications. Patient is well aware of the stroke risk and accepts this due to unacceptably high bleeding risk due for her falls. Patient not tolerating down titration of diltiazem infusion. Up titrate oral beta-anjali likely will need to transition to oral diltiazem in addition to beta-anjali therapy for adequate heart rate control. Increase metoprolol 75 mg p.o. q.8 hours. Monitor BP closely. CHADS2 Vasc score at least 4. Electrolytes and TSH stable. Clearly, rate control strategy is best management for the patient given her history and tolerance of atrial fibrillation. Patient agrees with plan of care as discussed and outlined. far. (2) Frequent falls: Code(s): R29.6 - Repeated falls Status: Acute Assessment and Plan: As above, unfortunately patient is a poor candidate for anticoagulation due to frequent recurrent falls with head injury. (3) Lung mass: Code(s): R91.8 - Other nonspecific abnormal finding of lung field Status: Acute Assessment and Plan: New diagnosis. Workup per primary service. Findings concerning for malignancy. (4) Anemia, unspecified: Code(s): D64.9 - Anemia, unspecified Status: Chronic Assessment and Plan: Follow H& H. Stable at this time. No evidence of bleeding. (5) Essential (primary) hypertension: Code(s): I10 - Essential (primary) hypertension Status: Chronic Assessment and Plan: Stable at this time. Hold off on resumption of amlodipine and losartan now. (6) Mixed hyperlipidemia: Code(s): E78.2 - Mixed hyperlipidemia Status: Chronic Assessment and Plan: Continue atorvastatin. (7) Multiple sclerosis: Code(s): G35 - Multiple sclerosis Status: Chronic Assessment and Plan: Per primary service. Subjective Date/time seen: Date of service: 04/12/21 15:26 Follow-up for atrial fibrillation with rapid ventricular response, frequent falls Patient had thoracentesis today feels much better, breathing significantly improved. No palpitations. Remains in atrial fibrillation with rapid ventricular response. No chest pain. Review of Systems Review of Systems: All systems reviewed & are unremarkable except as noted in HPI and below Constitutional: Constitutional: Reports as per HPI, Reports no additional constitutional complaints, Reports fatigue and Reports weakness Eyes: Eyes: Reports as per HPI and Reports no additional eye complaints ENT: Reports system reviewed and no additional complaints, except as documented and Reports as per HPI Cardiovascular: Cardiovascular: Reports as per HPI, Reports no additional cardiovascular complaints, Denies chest pain, Denies diaphoresis, Reports leg edema, Denies lightheadedness, Denies palpitations, Reports dyspnea and Reports dyspnea on exertion Respiratory: Respiratory: Reports as per HPI, Reports no additional respiratory complaints, Denies hemoptysis, Reports dyspnea, Reports dyspnea on exertion and Denies wheezing Gastrointestinal: Gastrointestinal: Reports as per
[2021-04-12] MEDS: METOPROLOL TARTRATE 25 MG TABLET 75 MG PO ×2 (16:55→21:10)
[2021-04-13] VITALS (26 sets, daily range): BP systolic 108–132; BP diastolic 50–113; PULSE 82–154; RESP 13–24; TEMP 36.6–37.4; O2SAT 92–99
[2021-04-13 05:37] LABS: Anion Gap 9 mmol/L (8-16); Blood Urea Nitrogen 11 mg/dL (7-17); Calcium 8.8 mg/dL (8.4-10.2); Carbon Dioxide 21 mmol/L (22-30); Chloride 103 mmol/L (98-107); Estimated CRCL calculation 41 ml/min; Estimated Glomerular Filt Rate > 60; Glucose 120 mg/dL (65-110); Potassium 3.6 mmol/L (3.4-5.0); Sodium 133 mmol/L (137-145)
[2021-04-13] MEDS: METOPROLOL TARTRATE 25 MG TABLET 75 MG PO ×3 (05:37→20:26)
--- NOTE | 2021-04-13 07:58 | PM.PNPUL ---
Progress Note: A&P Assessment and Plan (1) Lung mass: Code(s): R91.8 - Other nonspecific abnormal finding of lung field Status: Acute Assessment and Plan: 04/12 Patient is a former smoker who quit at the age of 35 but has been exposed to secondhand smoke through her . Currently she has no respiratory complaints and her saturations are 98% on room air. She does have a right pleural effusion and this will be sampled and sent for chemistries and cytology. The patient has no infectious complaints and I see no need for antibiotics at this time. The patient has no wheezing or evidence of a COPD exacerbation and I feel no need for systemic steroids or antibiotics. Patient has no respiratory limitations from her lung disease at this time and I feel no need to initiate bronchodilators. If the right pleural effusion is negative for cytology the patient is in agreement to undergo a CT-guided biopsy of the left upper lobe spiculated mass. 04/13 Patient states she continues to breathe at her baseline. Room air saturations are 95%. Stable from pulmonary perspective, remains in AFIB with RVR on dilt drip. Cytospin was with no malignant cells. The cell block specimen should be available later today and if this is negative will proceed with CT-guided biopsy of the left upper lobe mass. (2) Pleural effusion, right: Code(s): J90 - Pleural effusion, not elsewhere classified Status: Acute Assessment and Plan: 04/12 The only other chest imaging in our system is a chest x-ray from 06/14/2013 that demonstrates no right pleural effusion and known left upper lobe lung nodule. Patient has agreed to right ultrasound-guided thoracentesis and I have discontinued her Lovenox so that this procedure can't be performed later today. I have ordered serum LDH, pleural chemistries, cytology, cell count and bacterial, fungal and AFB cultures. Her TSH is 0.914 which is normal. Her BNP is 1900. Later in day patient had right thoracentesis with 1000 mL of clear yellow fluid removed, Gram stain with few white blood cells and no organisms seen, pH 7.49. Cytospin was with no malignant cells. Cell count differential is neutrophils 7%, lymphocytes 67%, monocytes 3%, macrophages 23%. 04/13 There is no evidence of an empyema or a complicated parapneumonic process. Cell block specimen for malignancy is pending. Chemistries To determine if this is a transudate or an exudate are pending. Cultures on the pleural fluid are pending. Patient will need follow-up CXR prior to discharge to assess for reaccumulation of this right pleural effusion Will follow with you. Subjective Date/time seen: 04/13/21 07:58 Interval history: 04/12 New Pulmonary consult for left lung mass and right pleural effusion 75-year-old female patient who has a history of MS, Crohn's, HTN, spinal stenosis and cataracts extraction. She does walk around with a walker and has recent falls with a current black eye. Admitted to hospital on 04/10/2021 with weakness and falls and found to have AFib with RVR and a CT angiogram of the chest with no pulmonary embolism but a 2.7 x 1.8 cm spiculated mass as well as a second 13 x 7 mm subtle solid nodule in the left upper lobe which are concerning for malignancy with differential including pneumonia, Unilateral moderate-sized posterior layering right pleural effusion with compressive atelectasis in the right middle and lower lobes. Patient with an E coli UTI sensitive to ceftriaxone and has been on ceftriaxone. Repeat urine culture on 04/10 was negative. On 04/08/2021 patient had negative lower extremity Dopplers. Patient was started on full-dose Lovenox in the hospital and both the hospitalist and family and consumer sciences professor agreed she would not be discharged on this medicine given her recent history of falls. Patient tells me she had no respiratory issues on admission or since admission and that her breathing is normal without
[2021-04-13] MEDS: allopurinoL 100 MG TABLET PO (09:00)
[2021-04-13] MEDS: sulfaSALAzine 500 MG TABLET PO ×4 (09:00→20:25)
[2021-04-13] MEDS: FOLIC ACID 1 MG TABLET PO ×3 (09:00→17:43)
[2021-04-13] MEDS: ATORVASTATIN 20 MG TABLET PO (09:00)
--- NOTE | 2021-04-13 11:28 | PM.PNCARD ---
Progress Note: A&P Assessment and Plan (1) Atrial fibrillation with RVR: Code(s): I48.91 - Unspecified atrial fibrillation Status: Acute Assessment and Plan: AFib with RVR new diagnosis, duration unknown as patient is otherwise asymptomatic. Heart rate refractory necessitating continue diltiazem infusion at 15 milligram/hour as well as metoprolol 75 mg p.o. q.8 hours. Will further up titrate beta-anjali and down titrate diltiazem infusion anticipating initiation of oral diltiazem for adequate heart rate control. Will attempt to begin weaning after CT-guided biopsy as appropriate. This is a very difficult situation. -Cardioversion to restore sinus rhythm highly problematic given high fall risk and multiple falls an outpatient even if anticoagulation continue for 30 days post cardioversion. Patient has multiple frequent falls with recurrent head injury and is not a reasonable candidate for systemic anticoagulation. Discussed at length embolic stroke risk with atrial fibrillation and bleeding complication. -Enoxaparin discontinued yesterday morning. Begin ASA 325mg daily. She needs DVT prophylaxis. -CHADS2 Vasc score at least 4. Clearly, rate control strategy is best management for the patient given her history and tolerance of atrial fibrillation. Patient agrees with plan of care as discussed and outlined. Monitor renal function and electrolytes. Stable thus far. PT is at high risk for complications including bleeding and embolic stroke. Her management may be complicated further depending upon results of CT-guided biopsy and cytology. Prognosis guarded. (2) Frequent falls: Code(s): R29.6 - Repeated falls Status: Acute Assessment and Plan: As above, unfortunately patient is a poor candidate for anticoagulation due to frequent recurrent falls with head injury. (3) Altered mental status: Code(s): R41.82 - Altered mental status, unspecified Status: Acute Assessment and Plan: Worse yesterday and overnight but improving this morning. Antibiotics have been discontinued, UA suggestive of UTI presentation. Antibiotic/infectious management per primary service. If confusion continues or worsens without identified etiology, CT head should be considered. Defer to primary service. Pt at high risk for CVA. (4) Lung mass: Code(s): R91.8 - Other nonspecific abnormal finding of lung field Status: Acute Assessment and Plan: New diagnosis. Workup per primary service. Findings concerning for malignancy. CT-guided biopsy scheduled for later today. Pulmonary consultation appreciated. (5) Anemia, unspecified: Code(s): D64.9 - Anemia, unspecified Status: Chronic Assessment and Plan: Follow H& H. Stable at this time. No evidence of bleeding. Iron deficient. (6) Essential (primary) hypertension: Code(s): I10 - Essential (primary) hypertension Status: Chronic Assessment and Plan: Stable at this time. Hold off on resumption of amlodipine and losartan now. (7) Mixed hyperlipidemia: Code(s): E78.2 - Mixed hyperlipidemia Status: Chronic Assessment and Plan: Continue atorvastatin. (8) Multiple sclerosis: Code(s): G35 - Multiple sclerosis Status: Chronic Assessment and Plan: Per primary service. Subjective Date/time seen: Date of service: 04/13/21 11:28 Follow-up for atrial fibrillation with rapid ventricular response More confused overnight and this morning. Improved at this time but kept asking the nurse to get her back to bed as she had been standing all night when in fact she was lying in bed. She denies chest pain, shortness of breath or palpitations. She states she is tired, did not sleep well at all last night. She is scheduled for CT guided biopsy of lung mass later today. Heart rate sustained rapid ventricular response in AFib last night necessitating increase in diltiazem infusio
--- NOTE | 2021-04-13 13:24 | PCPTNOTE ---
Attempted to see patient for PT at this time, however unable to see patient due to patient leaving room for testing.
--- NOTE | 2021-04-13 15:04 | PCOTNOTE ---
Attempted to see pt. for OT treatment, pt. on bedrest orders for 4 hours pot biopsy. Will continue with plan of care tomorrow
--- NOTE | 2021-04-13 16:17 | PM.IMPN ---
Progress Note: A&P Assessment and Plan (1) Altered mental status: Code(s): R41.82 - Altered mental status, unspecified Status: Acute Assessment and Plan: The patient is a 75-year-old woman with a history of MS, who presented to the emergency room with multiple falls at home, generalized weakness, confusion and recently diagnosed with a UTI 2 days prior to arrival. She was started on oral antibiotics but continued to have issues and was brought to the emergency room by her family. Initial vitals showed blood pressure 124/74, tachycardic heart rate 124, afebrile, normal oxygenation on room air. Initial chest x-ray showed moderate right pleural effusion and right mid and lower lung infiltrate/atelectasis. 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 She was admitted into the hospital with IV antibiotics Rocephin for UTI and further workup and evaluation of her lung mass and pleural effusion. Patient continues to have some altered mental status changes even despite IV antibiotics, most likely hospital delirium Patient is not respiratory symptoms since to suggest pneumonia and has remained afebrile, normal respiratory rate and oxygenation on room air. Blood cultures are negative today. UTI from primaries office on 04/08/2021 grew greater than 100,000 E coli with sensitivity to Rocephin. Due to altered mental status possible slurred speech and decreased range of motion will order a stat CT brain Continue monitoring mental status (2) Pleural effusion, right: Code(s): J90 - Pleural effusion, not elsewhere classified Status: Acute Assessment and Plan: Patient had a right thoracentesis on 04/12/2021 which drained 1000 mils of clear yellow fluid. right pleural effusion is negative for cytology as per Pulmonology Pleural fluid shows no organisms seen, few white blood cells Aerobic culture shows no growth, anaerobic rare white blood cells seen, no organism seen Repeat chest x-ray showed mild pleural effusion and no pneumothorax after thoracentesis Continue monitoring. Appreciate accounts payable administrator input. (3) Lung mass: Code(s): R91.8 - Other nonspecific abnormal finding of lung field Status: Acute Assessment and Plan: Pulmonary ordered a biopsy of her lung mass today which was just completed. Lovenox was held (4) Atrial fibrillation with RVR: Code(s): I48.91 - Unspecified atrial fibrillation Status: Acute Assessment and Plan: Patient was found to be in atrial fibrillation with RVR and started on a diltiazem drip on arrival. Cardiology was consulted and are making adjustments to her metoprolol and Dilt drip Patient's chads vas score is 4 which makes her at high risk for stroke. Considering her significant falls, she is not a candidate for long-term anticoagulation. She will be started on aspirin once she is getting off Lovenox. Cardiology recommendations appreciated. Echo Left ventricular chamber dimension is normal. Left ventricular systolic function is normal, estimated at 60-65%. There is moderately increased left ventricular wall thickness. There is mild mitral valve regurgitation. There is mild to moderate tricuspid valve regurgitation. Moderate pulmonary hypertension, estimated pulmonary arterial systolic pressure is 48 mmHg. Continue to monitor her on telemetry. (5) Acute UTI: Code(s): N39.0 - Urinary tract infection, site not specified Status: Acute Assessment and Plan: Urine 04/08/21 grew E. coli, will continue with Rocephin. (6) Anemia, unspecified: Code(s): D64.9 - Anemia, unspecified Status: Chronic Assessment and Plan: She is at her baseline, Hgb 10. Continue to monitor. No active bleeding. (7) Essential (primary) hypertension: Code(s): I10 - Essential (primary) hypertension Status: Chronic Assessment and Plan: BP Stable 130/50. Currently on Cardizem drip and
[2021-04-14] VITALS (20 sets, daily range): BP systolic 99–145; BP diastolic 50–76; PULSE 63–109; RESP 12–20; TEMP 36.4–36.9; O2SAT 95–97
[2021-04-14 05:14] LABS: Hematocrit 32.2 % (37.0-47.0); Hemoglobin 10.5 g/dL (12.0-15.0); Mean Corpuscular HGB Conc 32.6 g/dl (32-36); Mean Corpuscular Hemoglobin 29.7 pg (26-34); Mean Corpuscular Volume 91.2 fl (80-100); Mean Platelet Volume 10.7 fl (7.4-10.4); Platelet Count Result 267 k/mm3 (150-375); Red Blood Count 3.53 M/mm3 (4.2-5.4); Red Cell Distribution Width 15.6 % (11.5-14.5); White Blood Count 7.4 K/mm3 (4.5-10.0)
[2021-04-14 05:23] LABS: Anion Gap 9 mmol/L (8-16); Blood Urea Nitrogen 8 mg/dL (7-17); Calcium 8.6 mg/dL (8.4-10.2); Carbon Dioxide 21 mmol/L (22-30); Chloride 102 mmol/L (98-107); Estimated CRCL calculation 46 ml/min; Estimated Glomerular Filt Rate > 60; Glucose 101 mg/dL (65-110); Magnesium 1.6 mg/dL (1.6-2.3); Potassium 3.6 mmol/L (3.4-5.0); Sodium 132 mmol/L (137-145)
[2021-04-14] MEDS: METOPROLOL TARTRATE 25 MG TABLET 75 MG PO ×3 (05:31→21:00)
--- NOTE | 2021-04-14 08:27 | PM.PNPUL ---
Progress Note: A&P Assessment and Plan (1) Lung mass: Code(s): R91.8 - Other nonspecific abnormal finding of lung field Status: Acute Assessment and Plan: 04/12 Patient is a former smoker who quit at the age of 35 but has been exposed to secondhand smoke through her . Currently she has no respiratory complaints and her saturations are 98% on room air. She does have a right pleural effusion and this will be sampled and sent for chemistries and cytology. The patient has no infectious complaints and I see no need for antibiotics at this time. The patient has no wheezing or evidence of a COPD exacerbation and I feel no need for systemic steroids or antibiotics. Patient has no respiratory limitations from her lung disease at this time and I feel no need to initiate bronchodilators. If the right pleural effusion is negative for cytology the patient is in agreement to undergo a CT-guided biopsy of the left upper lobe spiculated mass. 04/13 Patient states she continues to breathe at her baseline. Room air saturations are 95%. Stable from pulmonary perspective, remains in AFIB with RVR on dilt drip. Cytospin was with no malignant cells. The cell block specimen should be available later today and if this is negative will proceed with CT-guided biopsy of the left upper lobe mass. Cell block specimen was negative for malignancy and underwent CT-guided biopsy later in the day. 04/[address]-guided biopsy is pending. (2) Pleural effusion, right: Code(s): J90 - Pleural effusion, not elsewhere classified Status: Acute Assessment and Plan: 04/12 The only other chest imaging in our system is a chest x-ray from 06/14/2013 that demonstrates no right pleural effusion and known left upper lobe lung nodule. Patient has agreed to right ultrasound-guided thoracentesis and I have discontinued her Lovenox so that this procedure can't be performed later today. I have ordered serum LDH, pleural chemistries, cytology, cell count and bacterial, fungal and AFB cultures. Her TSH is 0.914 which is normal. Her BNP is 1900. Later in day patient had right thoracentesis with 1000 mL of clear yellow fluid removed Gram stain with few white blood cells and no organisms seen pH 7.49. Cytospin was with no malignant cells. Cell block with no malignant cells Cell count differential is neutrophils 7%, lymphocytes 67%, monocytes 3%, macrophages 23%. Fungal stain negative 04/13 There is no evidence of an empyema or a complicated parapneumonic process. Cell block specimen for malignancy is pending. Chemistries To determine if this is a transudate or an exudate are pending. Cultures on the pleural fluid are pending. Patient will need follow-up CXR prior to discharge to assess for reaccumulation of this right pleural effusion. 04/14 Culture pleural fluid is negative. Repeat chest x-ray shows minimal increase in right pleural effusion. Chemistries to determine transudate versus exudate are pending. Will follow with you. Subjective Date/time seen: 04/14/21 08:27 Interval history: 04/12 New Pulmonary consult for left lung mass and right pleural effusion 75-year-old female patient who has a history of MS, Crohn's, HTN, spinal stenosis and cataracts extraction. She does walk around with a walker and has recent falls with a current black eye. Admitted to hospital on 04/10/2021 with weakness and falls and found to have AFib with RVR and a CT angiogram of the chest with no pulmonary embolism but a 2.7 x 1.8 cm spiculated mass as well as a second 13 x 7 mm subtle solid nodule in the left upper lobe which are concerning for malignancy with differential including pneumonia, Unilateral moderate-sized posterior layering right pleural effusion with compressive atelectasis in the right middle and lower lobes. Patient with an E coli UTI sensitive to ceftriaxone and has been on ceftriaxone. Repeat urine culture on
[2021-04-14] MEDS: ATORVASTATIN 20 MG TABLET PO (09:22)
[2021-04-14] MEDS: methylPREDNISolone SOD SUCC 40 MG VIAL IV PUSH ×3 (09:22→21:01)
[2021-04-14] MEDS: FOLIC ACID 1 MG TABLET PO ×3 (09:22→17:21)
[2021-04-14] MEDS: sulfaSALAzine 500 MG TABLET PO ×4 (09:22→21:00)
[2021-04-14] MEDS: allopurinoL 100 MG TABLET PO (09:22)
[2021-04-14] MEDS: MAGNESIUM SULFATE 3GM/D5W100ML 3 GM/100 ML BAG IVPB (11:13)
--- NOTE | 2021-04-14 11:22 | PM.PNCARD ---
Progress Note: A&P Assessment and Plan (1) Atrial fibrillation with RVR: Code(s): I48.91 - Unspecified atrial fibrillation Status: Acute Assessment and Plan: AFib with RVR new diagnosis, duration unknown as patient is otherwise asymptomatic. -Heart rate refractory necessitating continue diltiazem infusion at 15 milligram/hour as well as metoprolol 75 mg p.o. q.8 hours. -Reduce diltiazem to 10 milligram/hour, add oral diltiazem 60 mg p.o. q.8 hours, wean diltiazem infusion off today as heart rate permits. Monitor BP very closely to avoid symptomatic hypotension. Will simplify beta-anjali regimen once off diltiazem infusion. Change to long-acting diltiazem as tolerated prior to discharge. -Unable to safely proceed with Cardioversion to restore sinus rhythm given inability to safely anticoagulate as she is a high fall risk with multiple falls including recurrent head injury. Patient is aware and agrees with plan of care. - Begin ASA 325mg daily. She needs DVT prophylaxis. Resume enoxaparin at 40 mg subcutaneous daily. -CHADS2 Vasc score at least 4 but she is not a candidate for anticoagulation. Clearly, rate control strategy is best management for the patient given her history and tolerance of atrial fibrillation. Patient agrees with plan of care as discussed and outlined. Monitor renal function and electrolytes. Stable thus far. PT is at high risk for complications including bleeding and embolic stroke. Her management may be complicated further depending upon results of CT-guided biopsy and cytology. Prognosis guarded. (2) Frequent falls: Code(s): R29.6 - Repeated falls Status: Acute Assessment and Plan: As above, unfortunately patient is a poor candidate for anticoagulation due to frequent recurrent falls with head injury. (3) Altered mental status: Code(s): R41.82 - Altered mental status, unspecified Status: Acute Assessment and Plan: Much improved. CT head negative for acute intracranial process. Further management per primary service. (4) Lung mass: Code(s): R91.8 - Other nonspecific abnormal finding of lung field Status: Acute Assessment and Plan: New diagnosis. Workup per primary service. Findings concerning for malignancy pro fluid cytology negative for malignancy thus far. Awaiting pathology from CT-guided biopsy of left lung. Pulmonary consultation appreciated. (5) Anemia, unspecified: Code(s): D64.9 - Anemia, unspecified Status: Chronic Assessment and Plan: Follow H& H. Stable at this time. No evidence of bleeding. Iron deficient. (6) Essential (primary) hypertension: Code(s): I10 - Essential (primary) hypertension Status: Chronic Assessment and Plan: Stable at this time. Hold off on resumption of amlodipine and losartan now. (7) Mixed hyperlipidemia: Code(s): E78.2 - Mixed hyperlipidemia Status: Chronic Assessment and Plan: Continue atorvastatin. (8) Multiple sclerosis: Code(s): G35 - Multiple sclerosis Status: Chronic Assessment and Plan: Per primary service. Subjective Date/time seen: Date of service: 04/14/21 11:22 Follow-up for atrial fibrillation with rapid ventricular response, status post fall, UTI Feels much better this morning. Much more alert. She believes steroids helped her tremendously. She remains in atrial fibrillation heart rate reasonably controlled 90s-100 in general on diltiazem 15 milligrams/hour and oral metoprolol tartrate 75 mg q.[address]-guided biopsy of left lung yesterday. Cytology negative for malignancy, pathology pending. She denies palpitations, shortness of breath or chest pain. She notes she still somewhat fatigued but improving now. She even asked me about clarification a prescription for her he received from another physician. Review of Systems Review of Systems: All syste
--- NOTE | 2021-04-14 11:55 | PM.IMPN ---
Progress Note: A&P Assessment and Plan (1) Altered mental status: Code(s): R41.82 - Altered mental status, unspecified Status: Acute Assessment and Plan: The patient is a 75-year-old woman with a history of MS, who presented to the emergency room with multiple falls at home, generalized weakness, confusion and recently diagnosed with a UTI 2 days prior to arrival. She was started on oral antibiotics but continued to have issues and was brought to the emergency room by her family. Initial vitals showed blood pressure 124/74, tachycardic heart rate 124, afebrile, normal oxygenation on room air. Initial chest x-ray showed moderate right pleural effusion and right mid and lower lung infiltrate/atelectasis. 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 She was admitted into the hospital with IV antibiotics Rocephin for UTI and further workup and evaluation of her lung mass and pleural effusion. Patient is feeling much better today, started IV Solu-medrol 40 mg Q6hr for MS flare and will get her started on her MS medications Copaxone (Glatiramer) three times per week, and family has brought this medication in and hope to be restarted today. Patient is not having respiratory symptoms to suggest pneumonia and has remained afebrile, normal respiratory rate and oxygenation on room air, 97%. Blood cultures are negative today. UTI from [facility] office on 04/08/2021 grew greater than 100,000 E coli with sensitivity to Rocephin. CT Brain showed Cerebral cerebellar volume loss, Cerebral atherosclerosis, No acute intracranial finding. Continue monitoring mental status (2) Pleural effusion, right: Code(s): J90 - Pleural effusion, not elsewhere classified Status: Acute Assessment and Plan: Patient had a right thoracentesis on 04/12/2021 which drained 1000 mils of clear yellow fluid. right pleural effusion is negative for cytology as per Pulmonology Pleural fluid shows no organisms seen, few white blood cells Aerobic culture shows no growth, anaerobic rare white blood cells seen, no organism seen Repeat chest x-ray showed mild pleural effusion and no pneumothorax after thoracentesis Continue monitoring. Appreciate environmental services worker input. (3) Lung mass: Code(s): R91.8 - Other nonspecific abnormal finding of lung field Status: Acute Assessment and Plan: Pulmonary ordered a biopsy of her lung mass 04/13/21 which was just completed. Lovenox was held (4) Atrial fibrillation with RVR: Code(s): I48.91 - Unspecified atrial fibrillation Status: Acute Assessment and Plan: Patient was found to be in atrial fibrillation with RVR and started on a diltiazem drip on arrival. Cardiology was consulted and are making adjustments to her metoprolol and Dilt drip Patient's chads vas score is 4 which makes her at high risk for stroke. Considering her significant falls, she is not a candidate for long-term anticoagulation. She will be started on aspirin once she is getting off Lovenox. Cardiology recommendations appreciated. Echo Left ventricular chamber dimension is normal. Left ventricular systolic function is normal, estimated at 60-65%. There is moderately increased left ventricular wall thickness. There is mild mitral valve regurgitation. There is mild to moderate tricuspid valve regurgitation. Moderate pulmonary hypertension, estimated pulmonary arterial systolic pressure is 48 mmHg. Continue to monitor her on telemetry. (5) Acute UTI: Code(s): N39.0 - Urinary tract infection, site not specified Status: Acute Assessment and Plan: Urine 04/08/21 grew E. coli, will continue with Rocephin. (6) Anemia, unspecified: Code(s): D64.9 - Anemia, unspecified Status: Chronic Assessment and Plan: She is at her baseline, Hgb 10. Continue to monitor. No active bleeding. (7) Essential (primary) hypertension: Code(s): I
--- NOTE | 2021-04-14 13:17 | PHAR ---
HOMEMED VERIFIED = GLATIRAMER 40 MG 1 ML SC PREFILLED SYRINGE. NO RX LABEL
[2021-04-14] MEDS: dilTIAZem HCL 60 MG TABLET PO ×2 (13:33→21:00)
[2021-04-14] MEDS: PHARMACIST COMMUNICATION ORDER 1 EACH XX (14:57)
[2021-04-14] MEDS: FERROUS SULFATE 324 MG TABLET PO (17:20)
[2021-04-14] MEDS: PANTOPRAZOLE SODIUM IV 40 MG VIAL IV PUSH (21:00)
[2021-04-14 21:17] LABS: Glucose Pleural Fluid 129 mg/dL; LDH Pleural Fluid 139 U/L; Total Protein Pleural Fluid <3.0 g/dL
[2021-04-15] VITALS (19 sets, daily range): BP systolic 109–134; BP diastolic 47–61; PULSE 63–123; RESP 18–20; TEMP 36.1–36.6; O2SAT 80–99
[2021-04-15] MEDS: methylPREDNISolone SOD SUCC 40 MG VIAL IV PUSH ×4 (01:23→21:26)
[2021-04-15 05:11] LABS: Hematocrit 32.4 % (37.0-47.0); Hemoglobin 10.7 g/dL (12.0-15.0); Mean Corpuscular Hemoglobin 29.8 pg (26-34); Mean Corpuscular Volume 90.3 fl (80-100); Mean Platelet Volume 11.1 fl (7.4-10.4); Platelet Count Result 321 k/mm3 (150-375); Red Blood Count 3.59 M/mm3 (4.2-5.4); Red Cell Distribution Width 15.4 % (11.5-14.5); White Blood Count 9.3 K/mm3 (4.5-10.0)
[2021-04-15 05:28] LABS: Anion Gap 8 mmol/L (8-16); Blood Urea Nitrogen 13 mg/dL (7-17); Calcium 8.8 mg/dL (8.4-10.2); Carbon Dioxide 22 mmol/L (22-30); Chloride 103 mmol/L (98-107); Estimated CRCL calculation 41 ml/min; Estimated Glomerular Filt Rate > 60; Glucose 188 mg/dL (65-110); Magnesium 2.2 mg/dL (1.6-2.3); Potassium 4.3 mmol/L (3.4-5.0); Sodium 133 mmol/L (137-145)
[2021-04-15] MEDS: dilTIAZem HCL 60 MG TABLET PO ×3 (05:43→21:27)
[2021-04-15] MEDS: METOPROLOL TARTRATE 25 MG TABLET 75 MG PO (05:43)
--- NOTE | 2021-04-15 08:59 | PM.PNPUL ---
Progress Note: A&P Assessment and Plan (1) Lung mass: Code(s): R91.8 - Other nonspecific abnormal finding of lung field Status: Acute Assessment and Plan: 04/12 Patient is a former smoker who quit at the age of 35 but has been exposed to secondhand smoke through her . Currently she has no respiratory complaints and her saturations are 98% on room air. She does have a right pleural effusion and this will be sampled and sent for chemistries and cytology. The patient has no infectious complaints and I see no need for antibiotics at this time. The patient has no wheezing or evidence of a COPD exacerbation and I feel no need for systemic steroids or antibiotics. Patient has no respiratory limitations from her lung disease at this time and I feel no need to initiate bronchodilators. If the right pleural effusion is negative for cytology the patient is in agreement to undergo a CT-guided biopsy of the left upper lobe spiculated mass. 04/13 Patient states she continues to breathe at her baseline. Room air saturations are 95%. Stable from pulmonary perspective, remains in AFIB with RVR on dilt drip. Cytospin was with no malignant cells. The cell block specimen should be available later today and if this is negative will proceed with CT-guided biopsy of the left upper lobe mass. Cell block specimen was negative for malignancy and underwent CT-guided biopsy later in the day. 04/[address]-guided biopsy is pending. 04/[address]-guided biopsy left upper lobe mass is pending (2) Pleural effusion, right: Code(s): J90 - Pleural effusion, not elsewhere classified Status: Acute Assessment and Plan: 04/12 The only other chest imaging in our system is a chest x-ray from 06/14/2013 that demonstrates no right pleural effusion and known left upper lobe lung nodule. Patient has agreed to right ultrasound-guided thoracentesis and I have discontinued her Lovenox so that this procedure can't be performed later today. I have ordered serum LDH, pleural chemistries, cytology, cell count and bacterial, fungal and AFB cultures. Her TSH is 0.914 which is normal. Her BNP is 1900. Later in day patient had right thoracentesis with 1000 mL of clear yellow fluid removed Gram stain with few white blood cells and no organisms seen pH 7.49. Cytospin was with no malignant cells. Cell block with no malignant cells Cell count differential is neutrophils 7%, lymphocytes 67%, monocytes 3%, macrophages 23%. Fungal stain negative LDH pleural 139:serum 414, ratio 0.36 T prot <3.0:serum 6.0, ratio < 0.5 Glucose 129, Tg 15. 04/13 There is no evidence of an empyema or a complicated parapneumonic process. Cell block specimen for malignancy is pending. Chemistries To determine if this is a transudate or an exudate are pending. Cultures on the pleural fluid are pending. Patient will need follow-up CXR prior to discharge to assess for reaccumulation of this right pleural effusion. 04/14 Culture pleural fluid is negative. Repeat chest x-ray shows minimal increase in right pleural effusion. Chemistries to determine transudate versus exudate are pending. 04/15 Patient with right transudative effusion, was on lasix 20 PO Q day at home, BNP now 1900, diuresis per cardiology and hospitalist teams. Will follow with you. time spent 28 minutes Subjective Date/time seen: 04/15/21 08:59 Interval history: 04/12 New Pulmonary consult for left lung mass and right pleural effusion 75-year-old female patient who has a history of MS, Crohn's, HTN, spinal stenosis and cataracts extraction. She does walk around with a walker and has recent falls with a current black eye. Admitted to hospital on 04/10/2021 with weakness and falls and found to have AFib with RVR and a CT angiogram of the chest with no pulmonary embolism but a 2.7 x 1.8 cm spiculated mass as well as a second 13 x 7 mm subtle solid nodule in th
[2021-04-15] MEDS: FERROUS SULFATE 324 MG TABLET PO ×2 (09:32→18:03)
[2021-04-15] MEDS: sulfaSALAzine 500 MG TABLET PO ×4 (09:33→21:27)
[2021-04-15] MEDS: ASPIRIN 325 MG ENTERIC TABLET PO (09:34)
[2021-04-15] MEDS: FOLIC ACID 1 MG TABLET PO ×3 (09:34→18:04)
[2021-04-15] MEDS: ATORVASTATIN 20 MG TABLET PO (09:34)
[2021-04-15] MEDS: PANTOPRAZOLE SODIUM IV 40 MG VIAL IV PUSH ×2 (09:35→21:27)
[2021-04-15] MEDS: allopurinoL 100 MG TABLET PO (09:35)
[2021-04-15] MEDS: ENOXAPARIN 40 MG/0.4 ML SYRINGE SUB-Q (10:02)
--- NOTE | 2021-04-15 12:43 | PM.PNCARD ---
Progress Note: A&P Assessment and Plan (1) Atrial fibrillation with RVR: Code(s): I48.91 - Unspecified atrial fibrillation Status: Acute Assessment and Plan: AFib with RVR new diagnosis, duration unknown as patient is otherwise asymptomatic. - She has been quite refractory to medical therapy. She is now off diltiazem infusion. -Will change metoprolol tartrate to 150 mg p.o. q.12 hours today. Given additional 75 mg p.o. x1 this morning to equal 150 mg. -Transition to long-acting diltiazem CD 180 mg daily and Toprol XL 150 mg daily starting tomorrow morning to simplify her medical therapy as heart rate and BP permit. - ASA 325mg daily. DVT prophylaxis Enoxaparin at 40 mg subcutaneous daily. -CHADS2 Vasc score at least 4 but she is not a candidate for anticoagulation. Clearly, rate control strategy is best management for the patient. PT is at high risk for complications including bleeding and embolic stroke. (2) Frequent falls: Code(s): R29.6 - Repeated falls Status: Acute Assessment and Plan: As above, unfortunately patient is a poor candidate for anticoagulation due to frequent recurrent falls with head injury. (3) Altered mental status: Code(s): R41.82 - Altered mental status, unspecified Status: Acute Assessment and Plan: Resolved. CT head negative for acute intracranial process. Further management per primary service. (4) Lung mass: Code(s): R91.8 - Other nonspecific abnormal finding of lung field Status: Acute Assessment and Plan: New diagnosis. Workup per primary service. 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 This is very disappointing. (5) Anemia, unspecified: Code(s): D64.9 - Anemia, unspecified Status: Chronic Assessment and Plan: Follow H& H. Stable at this time. No evidence of bleeding. Iron deficient. (6) Essential (primary) hypertension: Code(s): I10 - Essential (primary) hypertension Status: Chronic Assessment and Plan: Stable at this time. Hold off on resumption of amlodipine and losartan now. (7) Mixed hyperlipidemia: Code(s): E78.2 - Mixed hyperlipidemia Status: Chronic Assessment and Plan: Continue atorvastatin. (8) Multiple sclerosis: Code(s): G35 - Multiple sclerosis Status: Chronic Assessment and Plan: Per primary service. Subjective Date/time seen: date of service:04/15/21 12:43 Follow-up for atrial fibrillation with rapid ventricular response patient states again she feels much better today. Was able to stand on the 1st try with physical therapy. Patient is currently off diltiazem infusion tolerating oral medications. Atrial fibrillation persists with heart rates in the low 100s generally. She denies shortness of breath, dizziness or chest pain. At time of my interview she was awaiting results CT-guided biopsy performed. Review of Systems Review of Systems: All systems reviewed & are unremarkable except as noted in HPI and below Constitutional: Constitutional: Reports as per HPI, Reports no additional constitutional complaints, Reports difficulty sleeping, Reports fatigue and Reports weakness Eyes: Eyes: Reports as per HPI and Reports no additional eye complaints ENT: Reports system reviewed and no additional complaints, except as documented and Reports as per HPI Cardiovascular: Cardiovascular: Reports as per HPI, Reports no additional cardiovascular complaints, Denies chest pain, Denies diaphoresis, Reports leg edema, Denies lightheadedness, Denies palpitations, Denies dyspnea and Denies dyspnea on exertion Respiratory: Respiratory: Reports as per HPI, Reports no additional respiratory complaints, Denies hemoptysis, Denies dyspnea, Denies dyspnea on exertion and Denies wheezing Gastrointestinal: Gastrointestinal: Reports as per HPI, Reports n
[2021-04-15] MEDS: METOPROLOL TARTRATE TAB 25 MG, METOPROLOL TARTRATE TAB 50 MG 75 MG PO (13:20)
--- NOTE | 2021-04-15 13:37 | PM.IMPN ---
Progress Note: A&P Assessment and Plan (1) Atrial fibrillation with RVR: Code(s): I48.91 - Unspecified atrial fibrillation Status: Acute Assessment and Plan: The patient is a 75-year-old woman with a history of MS, who presented to the emergency room with multiple falls at home, generalized weakness, confusion and recently diagnosed with a UTI 2 days prior to arrival. She was started on oral antibiotics but continued to have issues and was brought to the emergency room by her family. Initial vitals showed blood pressure 124/74, tachycardic heart rate 124, afebrile, normal oxygenation on room air. Initial chest x-ray showed moderate right pleural effusion and right mid and lower lung infiltrate/atelectasis. 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 She was admitted into the hospital with IV antibiotics Rocephin for UTI and further workup and evaluation of her lung mass and pleural effusion. Patient was found to be in atrial fibrillation with RVR and started on a diltiazem drip on arrival. Cardiology was consulted and are making adjustments to her metoprolol and diltiazem. Patient's chads vas score is 4 which makes her at high risk for stroke. Considering her significant falls, she is not a candidate for long-term anticoagulation. She will be started on aspirin and Lovenox for DVT prophylaxis while here. Cardiology recommendations appreciated. Echo Left ventricular chamber dimension is normal. Left ventricular systolic function is normal, estimated at 60-65%. There is moderately increased left ventricular wall thickness. There is mild mitral valve regurgitation. There is mild to moderate tricuspid valve regurgitation. Moderate pulmonary hypertension, estimated pulmonary arterial systolic pressure is 48 mmHg. May be able to be discharged tomorrow if HR stable. Continue to monitor her on telemetry. (2) Lung mass: Code(s): R91.8 - Other nonspecific abnormal finding of lung field Status: Acute Assessment and Plan: Pulmonary ordered a biopsy of her lung mass 04/13/21 Biopsy results shows Adenocarcinoma Oncology was consulted Dr. Almodovar who will evaluate the patient and come up with a plan after discharge. (3) Altered mental status: Code(s): R41.82 - Altered mental status, unspecified Status: Acute Assessment and Plan: Patient is feeling much better today, started IV Solu-medrol 40 mg Q6hr for MS flare and will get her started on her MS medications Copaxone (Glatiramer) three times per week (continued on 04/14/21 - given MWF) Patient is not having respiratory symptoms to suggest pneumonia and has remained afebrile, normal respiratory rate and oxygenation on room air, 97%. Blood cultures are negative today. UTI from primary's office on 04/08/2021 grew greater than 100,000 E coli with sensitivity to Rocephin. CT Brain showed Cerebral cerebellar volume loss, Cerebral atherosclerosis, No acute intracranial finding. Continue monitoring mental status (4) Pleural effusion, right: Code(s): J90 - Pleural effusion, not elsewhere classified Status: Acute Assessment and Plan: Patient had a right thoracentesis on 04/12/2021 which drained 1000 mils of clear yellow fluid. right pleural effusion is negative for cytology as per Pulmonology Pleural fluid shows TRANSUDATIVE effusion, no organisms seen, few white blood cells Aerobic culture shows no growth, anaerobic rare white blood cells seen, no organism seen Repeat chest x-ray showed mild pleural effusion and no pneumothorax after thoracentesis (5) Acute UTI: Code(s): N39.0 - Urinary tract infection, site not specified Status: Acute Assessment and Plan: Urine 04/08/21 grew E. coli, will continue with Rocephin #6, last dose tomorrow prior to discharge . (6) Anemia, unspecified: Code(s): D64.9 - Anemia, unspecified Status: Chronic Assessment and
[2021-04-15] MEDS: FUROSEMIDE INJ 40 MG/4 ML VIAL 20 MG IV PUSH (18:08)
--- NOTE | 2021-04-15 18:40 | PDONCCN ---
HPI - Date of Consult Date/Time: 04/15/21 18:40 Requesting Physician: Rima Bowers PA-C Primary Care Provider: Jerome Owusu MD - Consult Narrative Reason for consult: Non-small cell lung cancer Narrative: Radha Pineda is a 75 year old female with history of smoking but quit almost 35 years ago along with history of hypertension, multiple sclerosis and hyperlipidemia came into the hospital status post fall. Patient has been complaining of generalized weakness. She has lost intentionally about 35 lb weight in last 3 months duration. She does have some cough without any hemoptysis. Denies any fevers and chills. No nausea vomiting. CTA chest was done that showed no evidence of pulmonary embolism but 2.7 x 1.8 cm mass as well as 13 x 7 mm solid nodule in the left upper lobe concerning for malignancy. There was unilateral moderate size right-sided pleural effusion. Patient had right-sided thoracentesis done and showed no evidence of malignancy. Patient had CT-guided biopsy of the left upper lobe lung mass done on April 13 that showed moderately differentiated adenocarcinoma of lung. She denies any previous history of malignancy. Patient is also my patient. Review of Systems - Review of Systems All systems reviewed & are unremarkable except as noted in HPI and bel - Neurologic Reports system reviewed and no additional complaints, except as documented, Reports hearing normal, Reports abnormal gait, Reports confusion, Reports sensory deficit, Reports weakness PMFSH Medical History: Medical History (Last Reviewed 04/12/21 @ 10:58 by Marcel Sterling MD) Anemia, unspecified Ataxia BMI 25.0-25.9,adult Crohn's disease Essential (primary) hypertension Mixed hyperlipidemia Multiple sclerosis Spinal stenosis, lumbar Weight loss Surgical History: Surgical History (Last Reviewed 04/12/21 @ 10:58 by Marcel Sterling MD) History of carpal tunnel release History of cataract extraction History of colonoscopy Family History: Family History (Last Reviewed 04/12/21 @ 10:58 by Marcel Sterling MD) Son Diabetes mellitus Father No problems noted. Mother No problems noted. Sibling Heart disease - Social History Social History: Social History (Last Reviewed 04/12/21 @ 10:58 by Marcel Sterling MD) Gender Identity: Gender identity (if verbalized by the patient): Female Alcohol Use: Alcohol intake: never Substance Use: Substance use: never Substance use type: does not use Others: Spiritual care concerns: No Smoking Status: Smoking status: Former smoker Tobacco type: cigarettes Second hand tobacco smoke exposure: No Meds Home Medications Medication Instructions Recorded Confirmed Type furosemide 20 mg tablet 20 mg PO QAM #90 tablet 01/17/21 04/10/21 Rx losartan 50 mg tablet See Rx Instructions .ROUTE 01/17/21 04/10/21 Rx .COMPLEX #30 tablet allopurinol 100 mg tablet 100 mg PO DAILY #90 tablet 01/22/21 04/10/21 Rx atorvastatin 20 mg tablet 20 mg PO DAILY #90 tablet 01/22/21 04/10/21 Rx potassium chloride 10 mEq 10 meq PO DAILY #90 tablet 01/22/21 04/10/21 Rx tablet,extended release amlodipine 10 mg tablet 10 mg PO DAILY #90 tablet 01/27/21 04/10/21 Rx metoprolol succinate 100 mg See Rx Instructions .ROUTE 03/02/21 04/10/21 Rx tablet,extended release 24 hr .COMPLEX #30 tablet cefuroxime axetil 500 mg PO TID 04/10/21 04/10/21 History folic acid 1 mg PO TID 04/10/21 04/10/21 History sulfasalazine 500 mg PO TID 04/10/21 04/10/21 History glatiramer 40 mg SUBCUT QMWF 04/14/21 04/14/21 History Allergies Allergy/AdvReac Type Severity Reaction Status Date / Time codeine Allergy Unknown Unknown Verified 04/10/21 12:22 erythromycin base Allergy Unknown Unknown Verified 04/10/21 12:22 nitrofurantoin Allergy Unknown Unknown Verified 04/10/21 12:22 sulfisoxazole Allergy Unknown Unknown Verified 04/10/21 12:22
[2021-04-15] MEDS: METOPROLOL TARTRATE 50 MG TAB 150 MG PO (21:26)
[2021-04-15] MEDS: MELATONIN 5 MG TABLET PO (23:59)
[2021-04-16] VITALS (20 sets, daily range): BP systolic 95–123; BP diastolic 53–83; PULSE 78–132; RESP 16–28; TEMP 36.1–36.9; O2SAT 96–99
[2021-04-16] MEDS: methylPREDNISolone SOD SUCC 40 MG VIAL IV PUSH (01:25)
[2021-04-16 06:35] LABS: Hematocrit 31.1 % (37.0-47.0); Hemoglobin 10.3 g/dL (12.0-15.0); Mean Corpuscular HGB Conc 33.1 g/dl (32-36); Mean Corpuscular Hemoglobin 29.9 pg (26-34); Mean Corpuscular Volume 90.1 fl (80-100); Mean Platelet Volume 11.1 fl (7.4-10.4); Platelet Count Result 355 k/mm3 (150-375); Red Blood Count 3.45 M/mm3 (4.2-5.4); Red Cell Distribution Width 15.5 % (11.5-14.5); White Blood Count 13.2 K/mm3 (4.5-10.0)
[2021-04-16 06:46] LABS: Anion Gap 11 mmol/L (8-16); Blood Urea Nitrogen 22 mg/dL (7-17); Carbon Dioxide 23 mmol/L (22-30); Chloride 102 mmol/L (98-107); Estimated CRCL calculation 37 ml/min; Estimated Glomerular Filt Rate 54; Glucose 155 mg/dL (65-110); Potassium 3.9 mmol/L (3.4-5.0); Sodium 136 mmol/L (137-145)
[2021-04-16] MEDS: PANTOPRAZOLE SODIUM IV 40 MG VIAL IV PUSH ×2 (09:19→21:15)
[2021-04-16] MEDS: sulfaSALAzine 500 MG TABLET PO ×4 (09:19→21:15)
[2021-04-16] MEDS: METOPROLOL SUCCINATE EXT REL 50 MG TABCR 150 MG PO (09:19)
[2021-04-16] MEDS: FERROUS SULFATE 324 MG TABLET PO ×2 (09:48→16:44)
[2021-04-16] MEDS: ATORVASTATIN 20 MG TABLET PO (09:48)
[2021-04-16] MEDS: allopurinoL 100 MG TABLET PO (09:48)
[2021-04-16] MEDS: ASPIRIN 325 MG ENTERIC TABLET PO (09:48)
[2021-04-16] MEDS: ENOXAPARIN 40 MG/0.4 ML SYRINGE SUB-Q (09:48)
[2021-04-16 09:49] LABS: Lymphocytes Absolute Manual 0.39 K/mm3 (1.1-4.5); Monocytes Absolute Manual 0.26 K/mm3 (0.1-0.90); Monocytes Percent Manual 2 % (3-9); Neutrophils Percent Manual 95 % (46-73); Platelet Estimate Adequate (Adequate); Total Cells Counted 100
[2021-04-16] MEDS: dilTIAZem HCL CD 180 MG CAP.ER.24H PO (09:49)
[2021-04-16] MEDS: FOLIC ACID 1 MG TABLET PO ×3 (09:49→16:44)
[2021-04-16] MEDS: methylPREDNISolone (MEDROL) DOSEPACK 4 MG TABLETS PO ×4 (10:50→21:15)
[2021-04-16] MEDS: DIGOXIN INJ 250 MCG/ML 2 ML AMP (*BKC) IV PUSH (12:04)
--- NOTE | 2021-04-16 12:13 | PM.PNCARD ---
Progress Note: A&P Assessment and Plan (1) Atrial fibrillation with RVR: Code(s): I48.91 - Unspecified atrial fibrillation Status: Acute Assessment and Plan: AFib with RVR new diagnosis, duration unknown as patient is otherwise asymptomatic. - She has been quite refractory to medical therapy. -Diltiazem CD 180 mg daily and Toprol XL 150 mg daily not controlling heart rate. Up titrate as tolerated although relatively hypotensive at times. Unfortunately, will need to add digoxin to regimen. I explained my concern with regards to concomitant use of BB, CCB, and digoxin with regards to bradycardia and or higher grade AV block. Preference to use amiodarone, however, given inability anticoagulate and unknown duration elevated risk for embolic stroke if chemical cardioversion discussed at length. Contraindication anticoagulation. Fortunately, patient is tolerating well. Concern with regards to tachycardia induced cardiomyopathy if AFib rate is not adequately controlled. -Will load digoxin 0.25 mg IV x1 then repeat in 6 hours to start 0.125 mg daily beginning tomorrow morning. -Monitor electrolytes and renal function closely. Check BMP, magnesium in a.m.. -She is currently stable otherwise and not in decompensated heart failure at this time. - ASA 325mg daily. DVT prophylaxis Enoxaparin at 40 mg subcutaneous daily. -CHADS2 Vasc score at least 4 but she is not a candidate for anticoagulation. Clearly, rate control strategy is best management for the patient. PT is at high risk for complications including bleeding and embolic stroke. (2) Frequent falls: Code(s): R29.6 - Repeated falls Status: Acute Assessment and Plan: As above, unfortunately patient is a poor candidate for anticoagulation due to frequent recurrent falls with head injury. (3) Altered mental status: Code(s): R41.82 - Altered mental status, unspecified Status: Acute Assessment and Plan: Resolved. CT head negative for acute intracranial process. Further management per primary service. (4) Lung mass: Code(s): R91.8 - Other nonspecific abnormal finding of lung field Status: Acute Assessment and Plan: New diagnosis. Workup per primary service. 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 This is very disappointing. (5) Anemia, unspecified: Code(s): D64.9 - Anemia, unspecified Status: Chronic Assessment and Plan: Follow H& H. Stable at this time. No evidence of bleeding. Iron deficient. (6) Essential (primary) hypertension: Code(s): I10 - Essential (primary) hypertension Status: Chronic Assessment and Plan: Stable at this time. Hold off on resumption of amlodipine and losartan now. (7) Mixed hyperlipidemia: Code(s): E78.2 - Mixed hyperlipidemia Status: Chronic Assessment and Plan: Continue atorvastatin. (8) Multiple sclerosis: Code(s): G35 - Multiple sclerosis Status: Chronic Assessment and Plan: Per primary service. Subjective Date/time seen: Date of service: 04/16/21 12:13 Follow-up for atrial fibrillation with rapid ventricular response Patient feels fine this morning. Denies palpitations, chest pain or shortness of breath. Despite bed news with adenocarcinoma of the lung biopsy she is very thankful that we convinced her to proceed with biopsy at this time. No new issues overnight. However, nursing notes that yesterday she choked on chicken while eating that was dislodged with variant Heimlich successfully. Heart rate remains rapid with heart rates in low 100s to 140s rarely up to 160 with activity. Review of Systems Review of Systems: All systems reviewed & are unremarkable except as noted in HPI and below Constitutional: Constitutional: Reports as per HPI, Reports no additional constitutional complaints, Reports difficult
--- NOTE | 2021-04-16 13:28 | PM.IMPN ---
Progress Note: A&P Assessment and Plan (1) Atrial fibrillation with RVR: Code(s): I48.91 - Unspecified atrial fibrillation Status: Acute Assessment and Plan: The patient is a 75-year-old woman with a history of MS, who presented to the emergency room with multiple falls at home, generalized weakness, confusion and recently diagnosed with a UTI 2 days prior to arrival. She was started on oral antibiotics but continued to have issues and was brought to the emergency room by her family. Initial vitals showed blood pressure 124/74, tachycardic heart rate 124, afebrile, normal oxygenation on room air. Initial chest x-ray showed moderate right pleural effusion and right mid and lower lung infiltrate/atelectasis. 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 She was admitted into the hospital with IV antibiotics Rocephin for UTI and further workup and evaluation of her lung mass and pleural effusion. Patient was found to be in atrial fibrillation with RVR and started on a diltiazem drip on arrival. Cardiology was consulted and are making adjustments to her metoprolol and diltiazem. Patient's chads vas score is 4 which makes her at high risk for stroke. Considering her significant falls, she is not a candidate for long-term anticoagulation. She will be started on aspirin and Lovenox for DVT prophylaxis while here. Cardiology recommendations appreciated. Echo Left ventricular chamber dimension is normal. Left ventricular systolic function is normal, estimated at 60-65%. There is moderately increased left ventricular wall thickness. There is mild mitral valve regurgitation. There is mild to moderate tricuspid valve regurgitation. Moderate pulmonary hypertension, estimated pulmonary arterial systolic pressure is 48 mmHg. May be able to be discharged tomorrow if HR stable. Continue to monitor her on telemetry. (2) Lung mass: Code(s): R91.8 - Other nonspecific abnormal finding of lung field Status: Acute Assessment and Plan: Pulmonary ordered a biopsy of her lung mass 04/13/21 Biopsy results shows Adenocarcinoma Oncology Dr. Almodovar evaluated the patient who will set up PET Scan as outpatient and have her follow up in the office. (3) Altered mental status: Code(s): R41.82 - Altered mental status, unspecified Status: Acute Assessment and Plan: Believe from mild MS flare and UTI. Patient is not having respiratory symptoms to suggest pneumonia and has remained afebrile, normal respiratory rate and oxygenation on room air, 97%. Blood cultures are negative today. UTI from primary's office on 04/08/2021 grew greater than 100,000 E coli with sensitivity to Rocephin, last dose of IV Rocephin 04/16/21 CT Brain showed Cerebral cerebellar volume loss, Cerebral atherosclerosis, No acute intracranial finding. Continue monitoring mental status (4) Pleural effusion, right: Code(s): J90 - Pleural effusion, not elsewhere classified Status: Acute Assessment and Plan: Patient had a right thoracentesis on 04/12/2021 which drained 1000 mils of clear yellow fluid. right pleural effusion is negative for cytology as per Pulmonology Pleural fluid shows TRANSUDATIVE effusion, no organisms seen, few white blood cells Aerobic culture shows no growth, anaerobic rare white blood cells seen, no organism seen 04/16/21 Repeat chest x-ray showed mild pleural effusion (5) Acute UTI: Code(s): N39.0 - Urinary tract infection, site not specified Status: Acute Assessment and Plan: Urine 04/08/21 grew E. coli, will continue with Rocephin #7, last dose tonight. (6) Anemia, unspecified: Code(s): D64.9 - Anemia, unspecified Status: Chronic Assessment and Plan: She is at her baseline, Hgb 10. Continue to monitor. No active bleeding. (7) Essential (primary) hypertension: Code(s): I10 - Essential (primary) hype
[2021-04-16] MEDS: METOPROLOL SUCCINATE EXT REL 50 MG TABCR PO (14:24)
[2021-04-16 16:21] LABS: Amylase, Pleural Fluid 13 U/L
[2021-04-17] VITALS (15 sets, daily range): BP systolic 108–129; BP diastolic 57–95; PULSE 54–138; RESP 16–22; TEMP 35.5–36.6; O2SAT 96–98
[2021-04-17 05:28] LABS: Anion Gap 7 mmol/L (8-16); Blood Urea Nitrogen 27 mg/dL (7-17); Calcium 8.9 mg/dL (8.4-10.2); Carbon Dioxide 29 mmol/L (22-30); Chloride 100 mmol/L (98-107); Estimated CRCL calculation 41 ml/min; Estimated Glomerular Filt Rate > 60; Glucose 132 mg/dL (65-110); Potassium 4.3 mmol/L (3.4-5.0); Sodium 136 mmol/L (137-145)
[2021-04-17] MEDS: methylPREDNISolone (MEDROL) DOSEPACK 4 MG TABLETS PO ×4 (05:50→20:38)
[2021-04-17] MEDS: sulfaSALAzine 500 MG TABLET PO ×4 (08:25→20:38)
[2021-04-17] MEDS: ATORVASTATIN 20 MG TABLET PO (08:26)
[2021-04-17] MEDS: ASPIRIN 325 MG ENTERIC TABLET PO (08:26)
[2021-04-17] MEDS: allopurinoL 100 MG TABLET PO (08:26)
[2021-04-17] MEDS: DIGOXIN TAB 125 MCG TABLET PO (08:26)
[2021-04-17] MEDS: FERROUS SULFATE 324 MG TABLET PO ×2 (08:26→17:29)
[2021-04-17] MEDS: dilTIAZem HCL CD 180 MG CAP.ER.24H PO (08:27)
[2021-04-17] MEDS: FOLIC ACID 1 MG TABLET PO ×3 (08:28→17:29)
[2021-04-17] MEDS: PANTOPRAZOLE SODIUM IV 40 MG VIAL IV PUSH ×2 (08:28→20:38)
[2021-04-17] MEDS: METOPROLOL SUCCINATE EXT REL 100 MG TABCR 200 MG PO (08:28)
[2021-04-17] MEDS: ENOXAPARIN 40 MG/0.4 ML SYRINGE SUB-Q (08:31)
--- NOTE | 2021-04-17 11:47 | PM.PNCARD ---
Progress Note: A&P Additional Plan 75-year-old lady with: Atrial fibrillation appears to be chronically this will be accepted and she is being treated with rate control. As detailed above in my partner's notes she is not a safe candidate for anticoagulation. Sadly the patient was also found to have adenocarcinoma over the long during this hospitalization. Was a smoker in the remote past exposed to secondhand smoke with her for many years however. Would continue the regimen of metoprolol diltiazem and digoxin at this time. She has good rate control and no cardiac adjustments are necessary today. I have no cardiac reason she cannot be dismissed to the rehab facility whenever the primary team determines that is appropriate Emily CHAKRABORTY [facility] Subjective Date/time seen: Date of service: 04/17/21 11:48 Interval history: Follow-up visit in this 75-year-old lady with: Atrial fibrillation of unknown chronicity. Asked to see the patient on admission for assistance with treatment. Rate control strategy was recommended as she is asymptomatic and not hemodynamically embarrassed of this arrhythmia. She is currently taking a regimen of high-dose metoprolol, diltiazem and digoxin that was started yesterday. Heart rate is in the low 100s which is acceptable she is certainly not embarrassed by this. She is not felt to be a candidate for anticoagulation because of frequent falling. 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 Oncology follow-up of this is being arranged after discharge. Patient states she is anticipating going to [facility] for rehab before going home with her . Exam Narrative: General: Very pleasant elderly female, well developed, alert and oriented x3 much more alert and interactive. No apparent distress, comfortable, and cooperative. Head: bruising above L eye, normocephalic Eyes: EOM intact, sclerae anicteric, conjunctivae unremarkable Ears/Nose: external inspection of ears and nose were grossly normal Mouth/Throat: oral mucosa pink and moist Neck: supple, normal range of motion, no jugular venous distention or carotid bruits, thyroid nonpalpable, trachea midline. Cardiac: Tachycardic, irregularly irregular rate and rhythm, normal S1-S2, Lungs: Diminished breath sounds at bases, no rales, wheezes, or rhonchi. Abdomen: Soft, nontender, nondistended, positive bowel sounds throughout. No appreciable hepatosplenomegaly, no rebound guarding or rigidity noted. Abdominal aorta nonpalpable, no appreciable bruits. Extremities: trace RLE edema, no clubbing, and or cyanosis. Extremities warm and well perfused. Skin: Warm and dry with ecchymoses and bruising over L eye, hands, arms, no rashes, and/or petechiae. Musculoskeletal: Muscle strength and tone intact throughout without obvious deformities. Vascular: Carotid upstrokes 2+ bilaterally, radial pulses 2+ bilaterally, dorsalis pedis pulses 2+ bilaterally, Neurologic: Cranial nerves 2-12 grossly intact, examination grossly nonfocal Pscyhiatric: Mood calm and appropriate. Const: General: confusion Orientation/consciousness: confusion Neuro: General: confusion Objective Data Vital Signs Vital Signs: Vital Signs - 24 hr 04/16/21 12:00 04/16/21 12:04 04/16/21 12:43 Temperature 36.6 C Pulse Rate 113 H 122 H 102 H Respiratory Rate 20 Blood Pressure 105/83 Pulse Oximetry 98 98 04/16/21 14:00 04/16/21 14:24 04/16/21 16:00 Temperature Pulse Rate 123 H 123 H 111 H Respiratory Rate 16 Blood Pressure Pulse Oximetry 99 04/16/21 17:31 04/16/21 18:00 04/16/21 20:00 Temperature 36.9 C 36.1 C L Pulse Rate 83 94 90 Respiratory Rate 20 16 Blood Pressure 123/69 118/73 Pulse Oximetry 99 99 04/16/21 21:06 04/16/21 22:00 04/17/21 00:00 Temperature 36.2 C L Pulse Rate 90 80 77 Respiratory Rate 18 16 Blood Pr
--- NOTE | 2021-04-17 17:10 | P.PNIM_ITS ---
Progress Note: A&P Assessment and Plan (1) Atrial fibrillation with RVR: Code(s): I48.91 - Unspecified atrial fibrillation Status: Acute Assessment and Plan: The patient is a 75-year-old woman with a history of MS, who presented to the emergency room with multiple falls at home, generalized weakness, confusion and recently diagnosed with a UTI 2 days prior to arrival. She was started on oral antibiotics but continued to have issues and was brought to the emergency room by her family. Initial vitals showed blood pressure 124/74, tachycardic heart rate 124, afebrile, normal oxygenation on room air. Initial chest x-ray showed moderate right pleural effusion and right mid and lower lung infiltrate/atelectasis. 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 She was admitted into the hospital with IV antibiotics Rocephin for UTI and further workup and evaluation of her lung mass and pleural effusion. Patient was found to be in atrial fibrillation with RVR and started on a diltiaz em drip on arrival. * Cardiology was consulted and are making adjustments to her metoprolol and diltiazem and increasing Digoxin to 250 mcg. * Patient's chads vas score is 4 which makes her at high risk for stroke. Considering her significant falls, she is not a candidate for long-term anticoagulation. * She will be started on aspirin and Lovenox for DVT prophylaxis while here. * Cardiology recommendations appreciated. * Echo Left ventricular chamber dimension is normal. Left ventricular systolic function is normal, estimated at 60-65%. There is moderately increased left ventricular wall thickness. There is mild mitral valve regurgitation. There is mild to moderate tricuspid valve regurgitation. Moderate pulmonary hypertension, estimated pulmonary arterial systolic pressure is 48 mmHg. * May be able to be discharged tomorrow if HR stable. Continue to monitor her on telemetry. (2) Lung mass: Code(s): R91.8 - Other nonspecific abnormal finding of lung field Status: Acute Assessment and Plan: Pulmonary ordered a biopsy of her lung mass 04/13/21 * Biopsy results shows Adenocarcinoma * Oncology Dr. Almodovar evaluated the patient who will set up PET Scan as outpatient and have her follow up in the office. (3) Altered mental status: Code(s): R41.82 - Altered mental status, unspecified Status: Acute Assessment and Plan: * Believe from mild MS flare and UTI. * Patient is not having respiratory symptoms to suggest pneumonia and has remained afebrile, normal respiratory rate and oxygenation on room air, 97%. * Blood cultures are negative today. * UTI from primary's office on 04/08/2021 grew greater than 100,000 E coli with sensitivity to Rocephin, last dose of IV Rocephin 04/16/21 * CT Brain showed Cerebral cerebellar volume loss, Cerebral atherosclerosis, No acute intracranial finding. Continue monitoring mental status (4) Pleural effusion, right: Code(s): J90 - Pleural effusion, not elsewhere classified Status: Acute Assessment and Plan: Patient had a right thoracentesis on 04/12/2021 which drained 1000 mils of clear yellow fluid. * right pleural effusion is negative for cytology as per Pulmonology * Pleural fluid shows TRANSUDATIVE effusion, no organisms seen, few white blood cells * Aerobic culture shows no growth, anaerobic rare white blood cells seen, no organism seen * 04/16/21 Repeat chest x-ray showed mild pleural effusion (5) Acute UTI: Code(s): N39.0 - Urinary tract infection, site not specified Status: Acute A
[2021-04-17 20:31] LABS: Albumin Pleural Fluid 1.6 g/dL
[2021-04-18] VITALS (18 sets, daily range): BP systolic 108–129; BP diastolic 48–94; PULSE 66–141; RESP 16–20; TEMP 36.2–36.8; O2SAT 96–98
[2021-04-18] MEDS: methylPREDNISolone (MEDROL) DOSEPACK 4 MG TABLETS PO ×4 (06:06→20:24)
[2021-04-18] MEDS: allopurinoL 100 MG TABLET PO (09:55)
[2021-04-18] MEDS: METOPROLOL SUCCINATE EXT REL 100 MG TABCR 200 MG PO (09:55)
[2021-04-18] MEDS: dilTIAZem HCL CD 180 MG CAP.ER.24H PO (09:55)
[2021-04-18] MEDS: DIGOXIN 250 MCG TABLET PO ×2 (09:55→15:35)
[2021-04-18] MEDS: FOLIC ACID 1 MG TABLET PO ×3 (10:17→17:07)
[2021-04-18] MEDS: ATORVASTATIN 20 MG TABLET PO (10:17)
[2021-04-18] MEDS: ASPIRIN 325 MG ENTERIC TABLET PO (10:17)
[2021-04-18] MEDS: FERROUS SULFATE 324 MG TABLET PO ×2 (10:17→17:07)
[2021-04-18] MEDS: sulfaSALAzine 500 MG TABLET PO ×4 (10:17→20:26)
[2021-04-18] MEDS: FUROSEMIDE 20 MG TABLET PO (10:17)
[2021-04-18] MEDS: ENOXAPARIN 40 MG/0.4 ML SYRINGE SUB-Q (10:17)
[2021-04-18] MEDS: PANTOPRAZOLE SODIUM IV 40 MG VIAL IV PUSH ×2 (10:17→20:26)
--- NOTE | 2021-04-18 11:26 | PM.PNCARD ---
Progress Note: A&P Additional Plan Follow-up visit in this 75-year-old lady with complex situation cardiac problem is atrial fibrillation with RVR. Plan is rate control without anticoagulation because of fall risk. Despite high dose of metoprolol, starting digoxin and moderate dose of diltiazem heart rate control is not optimal. Today I will increase her diltiazem dosage to 360 mg and give her an extra 60 mg this morning. She is not hemodynamically unstable with this but we need to achieve better heart rate control than this before she is a reasonable candidate for going to rehab. Waqas Diaz MD [facility] Subjective Date/time seen: Date of service: 04/18/21 11:26 Interval history: Follow-up visit in this 75-year-old lady with: Atrial fibrillation of unknown chronicity. Asked to see the patient on admission for assistance with treatment. Rate control strategy was recommended as she is asymptomatic and not hemodynamically embarrassed of this arrhythmia. She is currently taking a regimen of high-dose metoprolol, diltiazem and digoxin that was started yesterday. Heart rate is in the low 100s which is acceptable she is certainly not embarrassed by this. She is not felt to be a candidate for anticoagulation because of frequent falling. 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 Oncology follow-up of this is being arranged after discharge. Patient states she is anticipating going to [place] for rehab before going home with her . Date of service 04/18/2021: Patient comfortable asymptomatic sitting in her chair watching television. Telemetry still shows that her average heart rate control is not good with heart rates between 120-130 much of the time. Exam Narrative: General: Very pleasant elderly female, well developed, alert and oriented x3 much more alert and interactive. No apparent distress, comfortable, and cooperative. Head: bruising above L eye, normocephalic Eyes: EOM intact, sclerae anicteric, conjunctivae unremarkable Ears/Nose: external inspection of ears and nose were grossly normal Mouth/Throat: oral mucosa pink and moist Neck: supple, normal range of motion, no jugular venous distention or carotid bruits, thyroid nonpalpable, trachea midline. Cardiac: Tachycardic, irregularly irregular rate and rhythm, normal S1-S2, Lungs: Diminished breath sounds at bases, no rales, wheezes, or rhonchi. Abdomen: Soft, nontender, nondistended, positive bowel sounds throughout. No appreciable hepatosplenomegaly, no rebound guarding or rigidity noted. Abdominal aorta nonpalpable, no appreciable bruits. Extremities: trace RLE edema, no clubbing, and or cyanosis. Extremities warm and well perfused. Skin: Warm and dry with ecchymoses and bruising over L eye, hands, arms, no rashes, and/or petechiae. Musculoskeletal: Muscle strength and tone intact throughout without obvious deformities. Vascular: Carotid upstrokes 2+ bilaterally, radial pulses 2+ bilaterally, dorsalis pedis pulses 2+ bilaterally, Neurologic: Cranial nerves 2-12 grossly intact, examination grossly nonfocal Pscyhiatric: Mood calm and appropriate. Const: General: confusion Orientation/consciousness: confusion Neuro: General: confusion Objective Data Vital Signs Vital Signs: Vital Signs - 24 hr 04/17/21 12:00 04/17/21 14:00 04/17/21 16:00 Temperature 36.6 C 35.5 C L Pulse Rate 54 L 118 H 117 H Respiratory Rate 20 22 H Blood Pressure 127/86 129/95 H Pulse Oximetry 97 98 04/17/21 18:00 04/17/21 19:46 04/17/21 20:00 Temperature 35.9 C L Pulse Rate 118 H 101 H 108 H Respiratory Rate 16 Blood Pressure 129/57 L Pulse Oximetry 96 96 04/17/21 22:00 04/18/21 00:00 04/18/21 02:00 Temperature 36.2 C L Pulse Rate 97 66 100 Respiratory Rate 16 Blood Pressure 123/59 L Pulse Oximetry 97 04/18/21 04:00
[2021-04-18] MEDS: dilTIAZem HCL 60 MG TABLET PO (12:28)
--- NOTE | 2021-04-18 12:54 | P.PNIM_ITS ---
Progress Note: A&P Assessment and Plan (1) Atrial fibrillation with RVR: Code(s): I48.91 - Unspecified atrial fibrillation Status: Acute Assessment and Plan: The patient is a 75-year-old woman with a history of MS, who presented to the emergency room with multiple falls at home, generalized weakness, confusion and recently diagnosed with a UTI 2 days prior to arrival. She was started on oral antibiotics but continued to have issues and was brought to the emergency room by her family. Initial vitals showed blood pressure 124/74, tachycardic heart rate 124, afebrile, normal oxygenation on room air. Initial chest x-ray showed moderate right pleural effusion and right mid and lower lung infiltrate/atelectasis. 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 She was admitted into the hospital with IV antibiotics Rocephin for UTI and further workup and evaluation of her lung mass and pleural effusion. Patient was found to be in atrial fibrillation with RVR and started on a diltiaz em drip on arrival. * Cardiology was consulted and are making adjustments to her metoprolol and increasing diltiazem 360 mg and Digoxin to 250 mcg. * Patient's chads vas score is 4 which makes her at high risk for stroke. Considering her significant falls, she is not a candidate for long-term anticoagulation. * She will be started on aspirin and Lovenox for DVT prophylaxis while here. * Cardiology recommendations appreciated. * Echo Left ventricular chamber dimension is normal. Left ventricular systolic function is normal, estimated at 60-65%. There is moderately increased left ventricular wall thickness. There is mild mitral valve regurgitation. There is mild to moderate tricuspid valve regurgitation. Moderate pulmonary hypertension, estimated pulmonary arterial systolic pressure is 48 mmHg. * May be able to be discharged tomorrow if HR stable. * * Since the patients AFIB RVR is still a problem will order a D-dimer to make sure we are not missing a PE/DVT that could make her heart rate more difficult to control. * Continue to monitor her on telemetry. (2) Lung mass: Code(s): R91.8 - Other nonspecific abnormal finding of lung field Status: Acute Assessment and Plan: Pulmonary ordered a biopsy of her lung mass 04/13/21 * Biopsy results shows Adenocarcinoma * Oncology Dr. Almodovar evaluated the patient who will set up PET Scan as outpatient and have her follow up in the office. (3) Altered mental status: Code(s): R41.82 - Altered mental status, unspecified Status: Acute Assessment and Plan: * Believe from mild MS flare and UTI. * Patient is not having respiratory symptoms to suggest pneumonia and has remained afebrile, normal respiratory rate and oxygenation on room air, 97%. * Blood cultures are negative today. * UTI from primary's office on 04/08/2021 grew greater than 100,000 E coli with sensitivity to Rocephin, last dose of IV Rocephin 04/16/21 * CT Brain showed Cerebral cerebellar volume loss, Cerebral atherosclerosis, No acute intracranial finding. Continue monitoring mental status (4) Pleural effusion, right: Code(s): J90 - Pleural effusion, not elsewhere classified Status: Acute Assessment and Plan: Patient had a right thoracentesis on 04/12/2021 which drained 1000 mils of clear yellow fluid. * right pleural effusion is negative for cytology as per Pulmonology * Pleural fluid shows TRANSUDATIVE effusion, no organisms seen, few white blood cells * Aerobic culture shows no growth, anaerobic rare white blood cells seen, no organism seen
[2021-04-18 13:20] LABS: D Dimer 0.91 ug/mL (<0.48)
[2021-04-19] VITALS (15 sets, daily range): BP systolic 115–133; BP diastolic 48–94; PULSE 69–132; RESP 18–24; TEMP 36.2–36.9; O2SAT 96–100
[2021-04-19 04:55] LABS: Basophils Percent Auto 0.1 % (0.2-1.2); Eosinophils Percent Auto 0.2 % (0-4.4); Hematocrit 38.3 % (37.0-47.0); Hemoglobin 12.5 g/dL (12.0-15.0); Immature Granulocyte Absolute 0.07 K/mm3 (0.00-0.031); Immature Granulocyte Percent A 0.8 % (0-0.5); Lymphocytes Absolute Auto 1.32 K/mm3 (0.9-3.2); Mean Corpuscular HGB Conc 32.6 g/dl (32-36); Mean Corpuscular Hemoglobin 29.2 pg (26-34); Mean Corpuscular Volume 89.5 fl (80-100); Mean Platelet Volume 11.8 fl (7.4-10.4); Monocytes Percent Auto 11.5 % (2.6-8.5); Neutrophils Absolute Auto 6.4 K/mm3 (1.3-6.7); Neutrophils Percent Auto 72.4 % (45.5-73.1); Platelet Count Result 304 k/mm3 (150-375); Red Blood Count 4.28 M/mm3 (4.2-5.4); Red Cell Distribution Width 15.8 % (11.5-14.5); White Blood Count 8.8 K/mm3 (4.5-10.0)
[2021-04-19 05:16] LABS: Anion Gap 6 mmol/L (8-16); Blood Urea Nitrogen 24 mg/dL (7-17); Calcium 8.6 mg/dL (8.4-10.2); Carbon Dioxide 31 mmol/L (22-30); Chloride 98 mmol/L (98-107); Estimated CRCL calculation 46 ml/min; Estimated Glomerular Filt Rate > 60; Glucose 99 mg/dL (65-110); Potassium 4.6 mmol/L (3.4-5.0); Sodium 135 mmol/L (137-145)
[2021-04-19] MEDS: methylPREDNISolone (MEDROL) DOSEPACK 4 MG TABLETS PO ×3 (05:57→20:32)
[2021-04-19] MEDS: FOLIC ACID 1 MG TABLET PO ×2 (08:15→18:31)
[2021-04-19] MEDS: PANTOPRAZOLE SODIUM IV 40 MG VIAL IV PUSH ×2 (08:15→20:33)
[2021-04-19] MEDS: dilTIAZem HCL CD 180 MG CAP.ER.24H 360 MG PO (08:15)
[2021-04-19] MEDS: FUROSEMIDE 20 MG TABLET PO (08:15)
[2021-04-19] MEDS: METOPROLOL SUCCINATE EXT REL 100 MG TABCR 200 MG PO (08:15)
[2021-04-19] MEDS: allopurinoL 100 MG TABLET PO (08:16)
[2021-04-19] MEDS: ASPIRIN 325 MG ENTERIC TABLET PO (08:16)
[2021-04-19] MEDS: ATORVASTATIN 20 MG TABLET PO (08:16)
[2021-04-19] MEDS: sulfaSALAzine 500 MG TABLET PO ×4 (08:16→20:30)
[2021-04-19] MEDS: FERROUS SULFATE 324 MG TABLET PO ×2 (08:16→18:32)
[2021-04-19] MEDS: ENOXAPARIN 40 MG/0.4 ML SYRINGE SUB-Q (08:16)
[2021-04-19] MEDS: DIGOXIN 250 MCG TABLET PO (08:16)
--- NOTE | 2021-04-19 09:14 | PCDIET ---
Weekly nutritional screen. Patient is tolerating current diet with adequate intake (average ~80% of meals since admission with Ensure Compact BID). No weight loss reported. No nutritional needs at this time.
--- NOTE | 2021-04-19 13:30 | PM.IMPN ---
Progress Note: A&P Assessment and Plan (1) Atrial fibrillation with RVR: Code(s): I48.91 - Unspecified atrial fibrillation Status: Acute Assessment and Plan: The patient is a 75-year-old woman with a history of MS, who presented to the emergency room with multiple falls at home, generalized weakness, confusion and recently diagnosed with a UTI 2 days prior to arrival. She was started on oral antibiotics but continued to have issues and was brought to the emergency room by her family. Initial vitals showed blood pressure 124/74, tachycardic heart rate 124, afebrile, normal oxygenation on room air. Initial chest x-ray showed moderate right pleural effusion and right mid and lower lung infiltrate/atelectasis. 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 She was admitted into the hospital with IV antibiotics Rocephin for UTI and further workup and evaluation of her lung mass and pleural effusion. Patient was found to be in atrial fibrillation with RVR and started on a diltiazem drip on arrival. Cardiology was consulted and are making adjustments to her metoprolol and increasing diltiazem 360 mg and Digoxin to 250 mcg. Patient's chads vas score is 4 which makes her at high risk for stroke. Considering her significant falls, she is not a candidate for long-term anticoagulation. She will be started on aspirin and Lovenox for DVT prophylaxis while here. Cardiology recommendations appreciated. Echo Left ventricular chamber dimension is normal. Left ventricular systolic function is normal, estimated at 60-65%. There is moderately increased left ventricular wall thickness. There is mild mitral valve regurgitation. There is mild to moderate tricuspid valve regurgitation. Moderate pulmonary hypertension, estimated pulmonary arterial systolic pressure is 48 mmHg. May be able to be discharged tomorrow if HR stable. Since the patients AFIB RVR is still a problem will order a D-dimer to make sure we are not missing a PE/DVT that could make her heart rate more difficult to control. Continue to monitor her on telemetry. (2) Lung mass: Code(s): R91.8 - Other nonspecific abnormal finding of lung field Status: Acute Assessment and Plan: Pulmonary ordered a biopsy of her lung mass 04/13/21 Biopsy results shows Adenocarcinoma Oncology Dr. Almodovar evaluated the patient who will set up PET Scan as outpatient and have her follow up in the office. (3) Altered mental status: Code(s): R41.82 - Altered mental status, unspecified Status: Acute Assessment and Plan: Believe from mild MS flare and UTI. Patient is not having respiratory symptoms to suggest pneumonia and has remained afebrile, normal respiratory rate and oxygenation on room air, 97%. Blood cultures are negative today. UTI from primary's office on 04/08/2021 grew greater than 100,000 E coli with sensitivity to Rocephin, last dose of IV Rocephin 04/16/21 CT Brain showed Cerebral cerebellar volume loss, Cerebral atherosclerosis, No acute intracranial finding. Continue monitoring mental status (4) Pleural effusion, right: Code(s): J90 - Pleural effusion, not elsewhere classified Status: Acute Assessment and Plan: Patient had a right thoracentesis on 04/12/2021 which drained 1000 mils of clear yellow fluid. right pleural effusion is negative for cytology as per Pulmonology Pleural fluid shows TRANSUDATIVE effusion, no organisms seen, few white blood cells Aerobic culture shows no growth, anaerobic rare white blood cells seen, no organism seen 04/16/21 Repeat chest x-ray showed mild pleural effusion (5) Acute UTI: Code(s): N39.0 - Urinary tract infection, site not specified Status: Acute Assessment and Plan: Urine 04/08/21 grew E. coli, received Rocephin #7, completed. (6) Anemia, unspecified: Code(s): D64.9 - Anemia, unspecified Status: [facility]
--- NOTE | 2021-04-19 15:14 | PM.PNCARD ---
Progress Note: A&P Additional Plan 75-year-old lady with: Persistent atrial fibrillation being managed with conservative rate control. We have the patient on 3 drug therapy with some improvement in heart rate but still too tachycardic at rest to consider her a good candidate for discharge. I am going to try transitioning her from diltiazem to verapamil. We will start that tomorrow and hopefully this will more effectively potentiate her AV node so that her heart rate improves. For now continue the beta-anjali and digoxin as well. Waqas Diaz MD [facility] Subjective Date/time seen: Date of service: 04/19/21 15:14 Interval history: Follow-up visit in this 75-year-old lady with: Atrial fibrillation of unknown chronicity. Asked to see the patient on admission for assistance with treatment. Rate control strategy was recommended as she is asymptomatic and not hemodynamically embarrassed of this arrhythmia. She is currently taking a regimen of high-dose metoprolol, diltiazem and digoxin that was started yesterday. Heart rate is in the low 100s which is acceptable she is certainly not embarrassed by this. She is not felt to be a candidate for anticoagulation because of frequent falling. 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 Oncology follow-up of this is being arranged after discharge. Patient states she is anticipating going to [place] for rehab before going home with her . Date of service 04/18/2021: Patient comfortable asymptomatic sitting in her chair watching television. Telemetry still shows that her average heart rate control is not good with heart rates between 120-130 much of the time. Date of service 04/19/2021: Patient continues to be stable clinically is asymptomatic in her room but still has no significant improvement in her average heart rate. Exam Narrative: General: Very pleasant elderly female, well developed, alert and oriented x3 much more alert and interactive. No apparent distress, comfortable, and cooperative. Head: bruising above L eye, normocephalic Eyes: EOM intact, sclerae anicteric, conjunctivae unremarkable Ears/Nose: external inspection of ears and nose were grossly normal Mouth/Throat: oral mucosa pink and moist Neck: supple, normal range of motion, no jugular venous distention or carotid bruits, thyroid nonpalpable, trachea midline. Cardiac: Tachycardic, irregularly irregular rate and rhythm, normal S1-S2, Lungs: Diminished breath sounds at bases, no rales, wheezes, or rhonchi. Abdomen: Soft, nontender, nondistended, positive bowel sounds throughout. No appreciable hepatosplenomegaly, no rebound guarding or rigidity noted. Abdominal aorta nonpalpable, no appreciable bruits. Extremities: trace RLE edema, no clubbing, and or cyanosis. Extremities warm and well perfused. Skin: Warm and dry with ecchymoses and bruising over L eye, hands, arms, no rashes, and/or petechiae. Musculoskeletal: Muscle strength and tone intact throughout without obvious deformities. Vascular: Carotid upstrokes 2+ bilaterally, radial pulses 2+ bilaterally, dorsalis pedis pulses 2+ bilaterally, Neurologic: Cranial nerves 2-12 grossly intact, examination grossly nonfocal Pscyhiatric: Mood calm and appropriate. Const: General: confusion Orientation/consciousness: confusion Neuro: General: confusion Objective Data Vital Signs Vital Signs: Vital Signs - 24 hr 04/18/21 15:35 04/18/21 16:00 04/18/21 18:00 Temperature 36.3 C L Pulse Rate 123 H 127 H 115 H Respiratory Rate 20 Blood Pressure 108/49 L Pulse Oximetry 98 04/18/21 19:37 04/18/21 20:00 04/18/21 20:36 Temperature 36.5 C Pulse Rate 112 H 104 H 103 H Respiratory Rate 18 20 Blood Pressure 115/48 L Pulse Oximetry 96 96 96 04/18/21 22:00 04/18/21 23:38 04/19/21 00:00 Temperature 36.7 C Pulse Rate 11
[2021-04-20] VITALS (15 sets, daily range): BP systolic 111–137; BP diastolic 48–87; PULSE 62–129; RESP 14–20; TEMP 36.2–36.6; O2SAT 97–100
[2021-04-20 05:53] LABS: Anion Gap 9 mmol/L (8-16); Blood Urea Nitrogen 27 mg/dL (7-17); Carbon Dioxide 29 mmol/L (22-30); Chloride 97 mmol/L (98-107); Estimated CRCL calculation 46 ml/min; Estimated Glomerular Filt Rate > 60; Glucose 102 mg/dL (65-110); Potassium 4.3 mmol/L (3.4-5.0); Sodium 135 mmol/L (137-145)
[2021-04-20] MEDS: methylPREDNISolone (MEDROL) DOSEPACK 4 MG TABLETS PO ×2 (06:15→21:08)
[2021-04-20] MEDS: ATORVASTATIN 20 MG TABLET PO (09:26)
[2021-04-20] MEDS: ASPIRIN 325 MG ENTERIC TABLET PO (09:26)
[2021-04-20] MEDS: FUROSEMIDE 20 MG TABLET PO (09:26)
[2021-04-20] MEDS: METOPROLOL SUCCINATE EXT REL 100 MG TABCR 200 MG PO (09:26)
[2021-04-20] MEDS: FERROUS SULFATE 324 MG TABLET PO ×2 (09:26→16:40)
[2021-04-20] MEDS: FOLIC ACID 1 MG TABLET PO ×3 (09:26→16:40)
[2021-04-20] MEDS: DIGOXIN 250 MCG TABLET PO (09:26)
[2021-04-20] MEDS: sulfaSALAzine 500 MG TABLET PO ×3 (09:27→16:40)
[2021-04-20] MEDS: VERAPAMIL HCL ER 240 MG TABLET.ER PO (09:27)
[2021-04-20] MEDS: PANTOPRAZOLE SODIUM IV 40 MG VIAL IV PUSH ×2 (09:27→21:08)
[2021-04-20] MEDS: allopurinoL 100 MG TABLET PO (09:27)
[2021-04-20] MEDS: ENOXAPARIN 40 MG/0.4 ML SYRINGE SUB-Q (09:27)
--- NOTE | 2021-04-20 11:53 | PCOTNOTE ---
Attempted OT treatment, patient reports does not want to participate with therapy at this time due to not feeling well and feeling light headed, RN notified.
--- NOTE | 2021-04-20 15:12 | PM.PNCARD ---
Progress Note: A&P Assessment and Plan (1) Atrial fibrillation with RVR: Code(s): I48.91 - Unspecified atrial fibrillation Status: Acute Assessment and Plan: AFib with RVR new diagnosis, duration unknown as patient is otherwise asymptomatic, probably persistent AFib. - She has been quite refractory to medical therapy, currently taking high-dose verapamil, metoprolol and digoxin. Verapamil is new this morning, will give it a couple of days to see how it works. -Monitor electrolytes and renal function closely. Check BMP, magnesium in a.m.. -She is currently stable otherwise and not in decompensated heart failure at this time. - ASA 325mg daily. DVT prophylaxis Enoxaparin at 40 mg subcutaneous daily. -CHADS2 Vasc score at least 4 but she is not a candidate for anticoagulation. -Clearly, rate control strategy is best management for the patient. -PT is at high risk for complications including bleeding and embolic stroke. -may need to try amiodarone simply for rate control other there is always the concern of a pharmacologic conversion and cardioembolic event in a patient was not anticoagulated. -Pt also c/o lightheadedness on current multirug tx, though her BP is not particularly low. (2) Frequent falls: Code(s): R29.6 - Repeated falls Status: Acute Assessment and Plan: As above, unfortunately patient is a poor candidate for anticoagulation due to frequent recurrent falls with head injury. (3) Altered mental status: Code(s): R41.82 - Altered mental status, unspecified Status: Acute Assessment and Plan: Resolved. CT head negative for acute intracranial process. Further management per primary service. (4) Lung mass: Code(s): R91.8 - Other nonspecific abnormal finding of lung field Status: Acute Assessment and Plan: New diagnosis. Workup per primary service. 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 This is very disappointing. (5) Anemia, unspecified: Code(s): D64.9 - Anemia, unspecified Status: Chronic Assessment and Plan: Follow H& H. Stable at this time. No evidence of bleeding. Iron deficient. (6) Essential (primary) hypertension: Code(s): I10 - Essential (primary) hypertension Status: Chronic Assessment and Plan: Stable at this time. Hold off on resumption of amlodipine and losartan now. (7) Mixed hyperlipidemia: Code(s): E78.2 - Mixed hyperlipidemia Status: Chronic Assessment and Plan: Continue atorvastatin. (8) Multiple sclerosis: Code(s): G35 - Multiple sclerosis Status: Chronic Assessment and Plan: Per primary service. (9) Pleural cavity effusion: Code(s): J90 - Pleural effusion, not elsewhere classified Status: Acute Assessment and Plan: Chest x-ray on the looked clear but the CT scan on the showed a moderate pleural effusion on the right despite furosemide 20 mg daily. Will increase furosemide to 20 mg BID for a few days for volume overload. Subjective Date/time seen: 04/20/21 15:12 Interval history: Follow-up visit in this 75-year-old lady with: Atrial fibrillation of unknown chronicity. Asked to see the patient on admission for assistance with treatment. Rate control strategy was recommended as she is asymptomatic and not hemodynamically embarrassed of this arrhythmia. She is currently taking a regimen of high-dose metoprolol, diltiazem and digoxin that was started yesterday. Heart rate is in the low 100s which is acceptable she is certainly not embarrassed by this. She is not felt to be a candidate for anticoagulation because of frequent falling. 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 Oncology follow-up of this is being arranged after discharge. Patient states she is anticipating going t
--- NOTE | 2021-04-20 16:21 | PM.IMPN ---
Progress Note: A&P Assessment and Plan (1) Atrial fibrillation with RVR: Code(s): I48.91 - Unspecified atrial fibrillation Status: Acute Assessment and Plan: The patient is a 75-year-old woman with a history of MS, who presented to the emergency room with multiple falls at home, generalized weakness, confusion and recently diagnosed with a UTI 2 days prior to arrival. She was started on oral antibiotics but continued to have issues and was brought to the emergency room by her family. Initial vitals showed blood pressure 124/74, tachycardic heart rate 124, afebrile, normal oxygenation on room air. Initial chest x-ray showed moderate right pleural effusion and right mid and lower lung infiltrate/atelectasis. 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 She was admitted into the hospital with IV antibiotics Rocephin for UTI and further workup and evaluation of her lung mass and pleural effusion. Patient was found to be in atrial fibrillation with RVR and started on a diltiazem drip on arrival. Cardiology was consulted and are making adjustments to her medications. She is maxed out on metoprolol, Cardizem, and digoxin. Cardiology plans to switch diltiazem to verapamil and re assess tomorrow. Patient's chads vas score is 4 which makes her at high risk for stroke. Considering her significant falls, she is not a candidate for long-term anticoagulation. She will be started on aspirin and Lovenox for DVT prophylaxis while here. Cardiology recommendations appreciated. Echo Left ventricular chamber dimension is normal. Left ventricular systolic function is normal, estimated at 60-65%. There is moderately increased left ventricular wall thickness. There is mild mitral valve regurgitation. There is mild to moderate tricuspid valve regurgitation. Moderate pulmonary hypertension, estimated pulmonary arterial systolic pressure is 48 mmHg. D-dimer positive. CTA negative for PE. May be able to be discharged tomorrow if HR stable. Continue to monitor her on telemetry. (2) Lung mass: Code(s): R91.8 - Other nonspecific abnormal finding of lung field Status: Acute Assessment and Plan: Pulmonary ordered a biopsy of her lung mass 04/13/21 Biopsy results shows Adenocarcinoma Oncology Dr. Almodovar evaluated the patient who will set up PET Scan as outpatient and have her follow up in the office. (3) Altered mental status: Code(s): R41.82 - Altered mental status, unspecified Status: Acute Assessment and Plan: Believe from mild MS flare and UTI. Patient is not having respiratory symptoms to suggest pneumonia and has remained afebrile, normal respiratory rate and oxygenation on room air, 97%. Blood cultures are negative today. UTI from primary's office on 04/08/2021 grew greater than 100,000 E coli with sensitivity to Rocephin, last dose of IV Rocephin 04/16/21 CT Brain showed Cerebral cerebellar volume loss, Cerebral atherosclerosis, No acute intracranial finding. Continue monitoring mental status (4) Pleural effusion, right: Code(s): J90 - Pleural effusion, not elsewhere classified Status: Acute Assessment and Plan: Patient had a right thoracentesis on 04/12/2021 which drained 1000 mils of clear yellow fluid. right pleural effusion is negative for cytology as per Pulmonology Pleural fluid shows TRANSUDATIVE effusion, no organisms seen, few white blood cells Aerobic culture shows no growth, anaerobic rare white blood cells seen, no organism seen 04/16/21 Repeat chest x-ray showed mild pleural effusion (5) Acute UTI: Code(s): N39.0 - Urinary tract infection, site not specified Status: Acute Assessment and Plan: Urine 04/08/21 grew E. coli, received Rocephin x7 days, completed. No urinary symptoms. (6) Anemia, unspecified: Code(s): D64.9 - Anemia, unspecified Status: Chronic Assessment and Pl
[2021-04-21] VITALS (10 sets, daily range): BP systolic 103–132; BP diastolic 40–75; PULSE 56–117; RESP 16–20; TEMP 36.3–36.5; O2SAT 97–99
[2021-04-21] MEDS: methylPREDNISolone (MEDROL) DOSEPACK 4 MG TABLETS PO (05:51)
[2021-04-21] MEDS: DIGOXIN 250 MCG TABLET PO (10:40)
[2021-04-21] MEDS: METOPROLOL SUCCINATE EXT REL 100 MG TABCR 200 MG PO (10:40)
[2021-04-21] MEDS: ASPIRIN 325 MG ENTERIC TABLET PO (10:40)
[2021-04-21] MEDS: FERROUS SULFATE 324 MG TABLET PO ×2 (10:40→17:35)
[2021-04-21] MEDS: FOLIC ACID 1 MG TABLET PO ×3 (10:40→17:35)
[2021-04-21] MEDS: allopurinoL 100 MG TABLET PO (10:40)
[2021-04-21] MEDS: ATORVASTATIN 20 MG TABLET PO (10:40)
[2021-04-21] MEDS: VERAPAMIL HCL ER 240 MG TABLET.ER PO (10:40)
[2021-04-21] MEDS: ENOXAPARIN 40 MG/0.4 ML SYRINGE SUB-Q (10:41)
[2021-04-21] MEDS: FUROSEMIDE 20 MG TABLET PO (10:41)
[2021-04-21] MEDS: PANTOPRAZOLE SODIUM IV 40 MG VIAL IV PUSH ×2 (10:41→20:31)
--- NOTE | 2021-04-21 10:51 | PM.IMPN ---
Progress Note: A&P Assessment and Plan (1) Atrial fibrillation with RVR: Code(s): I48.91 - Unspecified atrial fibrillation Status: Acute Assessment and Plan: The patient is a 75-year-old woman with a history of MS, who presented to the emergency room with multiple falls at home, generalized weakness, confusion and recently diagnosed with a UTI 2 days prior to arrival. She was started on oral antibiotics but continued to have issues and was brought to the emergency room by her family. Initial vitals showed blood pressure 124/74, tachycardic heart rate 124, afebrile, normal oxygenation on room air. Initial chest x-ray showed moderate right pleural effusion and right mid and lower lung infiltrate/atelectasis. 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 She was admitted into the hospital with IV antibiotics Rocephin for UTI and further workup and evaluation of her lung mass and pleural effusion. Patient was found to be in atrial fibrillation with RVR and started on a diltiazem drip on arrival. Cardiology was consulted and are making adjustments to her medications. She is maxed out on metoprolol, Cardizem, and digoxin. Cardiology plans to switch diltiazem to verapamil and re assess tomorrow. Patient's chads vas score is 4 which makes her at high risk for stroke. Considering her significant falls, she is not a candidate for long-term anticoagulation. She will be started on aspirin and Lovenox for DVT prophylaxis while here. Cardiology recommendations appreciated. Echo Left ventricular chamber dimension is normal. Left ventricular systolic function is normal, estimated at 60-65%. There is moderately increased left ventricular wall thickness. There is mild mitral valve regurgitation. There is mild to moderate tricuspid valve regurgitation. Moderate pulmonary hypertension, estimated pulmonary arterial systolic pressure is 48 mmHg. D-dimer positive. CTA negative for PE. May be able to be discharged tomorrow if HR stable. Continue to monitor her on telemetry. 04/21/21 Pt switched from diltiazem to verapamil w/ mild improvement in HR. Tele monitor showed bradycardia down to 49 last night, during the day yesterday had been up to 149. Today on my interview she was 115 bmp. Evaluated by cardiology today who is going to continue the verapamil today and re assess tomorrow. Hopefully she will continue to improve and will be set up to wear a home monitor. If she does not improve significantly, cardiology will consider pacemaker and AV node ablation. (2) Lung mass: Code(s): R91.8 - Other nonspecific abnormal finding of lung field Status: Acute Assessment and Plan: Pulmonary ordered a biopsy of her lung mass 04/13/21 Biopsy results shows Adenocarcinoma Oncology Dr. Almodovar evaluated the patient who will set up PET Scan as outpatient and have her follow up in the office. (3) Altered mental status: Code(s): R41.82 - Altered mental status, unspecified Status: Acute Assessment and Plan: Believe from mild MS flare and UTI. Patient is not having respiratory symptoms to suggest pneumonia and has remained afebrile, normal respiratory rate and oxygenation on room air, 97%. Blood cultures are negative today. UTI from primary's office on 04/08/2021 grew greater than 100,000 E coli with sensitivity to Rocephin, last dose of IV Rocephin 04/16/21 CT Brain showed Cerebral cerebellar volume loss, Cerebral atherosclerosis, No acute intracranial finding. Continue monitoring mental status 04/21/21 Pt A/Ox3 today. Slightly slowed speech but AMS has seemed to resolved at this time. (4) Pleural effusion, right: Code(s): J90 - Pleural effusion, not elsewhere classified Status: Acute Assessment and Plan: Patient had a right thoracentesis on 04/12/2021 which drained 1000 mils of clear yellow fluid. right pleural effusion is negative for cytology as
--- NOTE | 2021-04-21 11:03 | PM.PNCARD ---
Progress Note: A&P Assessment and Plan (1) Atrial fibrillation with RVR: Code(s): I48.91 - Unspecified atrial fibrillation Status: Acute Assessment and Plan: AFib with RVR new diagnosis, duration unknown as patient is otherwise asymptomatic, probably persistent AFib. - She has been quite refractory to medical therapy, currently taking high-dose verapamil, metoprolol and digoxin. Verapamil was started on 04/20/2021. -She is currently stable otherwise and not in decompensated heart failure at this time. - ASA 325mg daily. DVT prophylaxis Enoxaparin at 40 mg subcutaneous daily. -CHADS2 Vasc score at least 4 but she is not a candidate for anticoagulation. -Clearly, rate control strategy is best management for the patient. -PT is at high risk for complications including bleeding and embolic stroke. -tolerating multidrug therapy without significant bradycardia. Not perfect heart rate control but reasonable particularly in view of the patient's very sedentary lifestyle. Can be discharged tomorrow, and I will try to get outpatient monitoring so we can follow patient at [place]. -check digoxin level tomorrow (2) Frequent falls: Code(s): R29.6 - Repeated falls Status: Acute Assessment and Plan: As above, unfortunately patient is a poor candidate for anticoagulation due to frequent recurrent falls with head injury. (3) Altered mental status: Code(s): R41.82 - Altered mental status, unspecified Status: Acute Assessment and Plan: Resolved. CT head negative for acute intracranial process. Further management per primary service. 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 This is very disappointing. (5) Anemia, unspecified: Code(s): D64.9 - Anemia, unspecified Status: Chronic Assessment and Plan: Follow H& H. Stable at this time. No evidence of bleeding. Iron deficient. (6) Essential (primary) hypertension: Code(s): I10 - Essential (primary) hypertension Status: Chronic Assessment and Plan: Stable at this time. Hold off on resumption of amlodipine and losartan now. (7) Mixed hyperlipidemia: Code(s): E78.2 - Mixed hyperlipidemia Status: Chronic Assessment and Plan: Continue atorvastatin. (8) Multiple sclerosis: Code(s): G35 - Multiple sclerosis Status: Chronic Assessment and Plan: Per primary service. (9) Pleural cavity effusion: Code(s): J90 - Pleural effusion, not elsewhere classified Status: Acute Assessment and Plan: Chest x-ray on the looked clear but the CT scan on the showed a moderate pleural effusion on the right despite furosemide 20 mg daily. Increased furosemide to 20 mg BID on 04/20/2021 for a few days for volume overload. Subjective Date/time seen: 04/21/21 11:03 Interval history: Follow-up visit in this 75-year-old lady with: Atrial fibrillation of unknown chronicity. Asked to see the patient on admission for assistance with treatment. Rate control strategy was recommended as she is asymptomatic and not hemodynamically embarrassed of this arrhythmia. She is currently taking a regimen of high-dose metoprolol, diltiazem and digoxin that was started yesterday. Heart rate is in the low 100s which is acceptable she is certainly not embarrassed by this. She is not felt to be a candidate for anticoagulation because of frequent falling. 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 Oncology follow-up of this is being arranged after discharge. Patient states she is anticipating going to [place] for rehab before going home with her . Date of service 04/18/2021: Patient comfortable asymptomatic sitting in her chair watc
[2021-04-21 13:18] LABS: Digoxin 1.1 ng/mL (0.8-2.0)
[2021-04-22] VITALS: BP 125/39; PULSE 65; PULSE 74; RESP 18; TEMP 36.6; O2SAT 100
[2021-04-22 04:00] VITALS: BP 130/42; PULSE 64; PULSE 65; RESP 18; TEMP 36.4; O2SAT 97
[2021-04-22 08:00] VITALS: BP 111/44; PULSE 83; PULSE 87; RESP 20; TEMP 36.5; O2SAT 100
[2021-04-22 08:33] VITALS: PULSE 71; PULSE 78
[2021-04-22] MEDS: FERROUS SULFATE 324 MG TABLET PO (08:33)
[2021-04-22] MEDS: ASPIRIN 325 MG ENTERIC TABLET PO (08:33)
[2021-04-22] MEDS: PANTOPRAZOLE SODIUM IV 40 MG VIAL IV PUSH (08:33)
[2021-04-22] MEDS: DIGOXIN 250 MCG TABLET PO (08:33)
[2021-04-22] MEDS: FOLIC ACID 1 MG TABLET PO (08:33)
[2021-04-22] MEDS: ATORVASTATIN 20 MG TABLET PO (08:33)
[2021-04-22] MEDS: METOPROLOL SUCCINATE EXT REL 100 MG TABCR 200 MG PO (08:33)
[2021-04-22] MEDS: FUROSEMIDE 20 MG TABLET PO (08:33)
[2021-04-22] MEDS: VERAPAMIL HCL ER 240 MG TABLET.ER PO (08:33)
[2021-04-22] MEDS: ENOXAPARIN 40 MG/0.4 ML SYRINGE SUB-Q (08:33)
[2021-04-22] MEDS: allopurinoL 100 MG TABLET PO (08:33)
--- NOTE | 2021-04-22 11:02 | PM.PNCARD ---
Progress Note: A&P Assessment and Plan (1) Atrial fibrillation with RVR: Code(s): I48.91 - Unspecified atrial fibrillation Status: Acute Assessment and Plan: AFib with RVR new diagnosis, duration unknown as patient is otherwise asymptomatic, probably persistent AFib. - She has been quite refractory to medical therapy, currently taking high-dose verapamil, metoprolol and digoxin. Verapamil was started on 04/20/2021. -She is currently stable otherwise and not in decompensated heart failure at this time. - ASA 325mg daily. DVT prophylaxis Enoxaparin at 40 mg subcutaneous daily. -CHADS2 Vasc score at least 4 but she is not a candidate for anticoagulation. -tolerating multidrug therapy though some pauses were noted overnight. Heart rate control is much better. -I will reduce the metoprolol to: 150 mg daily I will try to get outpatient monitoring so we can follow patient at [place]. -digoxin level was in the therapeutic range -okay for discharge -recommend outpatient monitoring; if she can stop by our office on the way out we can provide a 30 day monitor. -Ordered a BMP and another digoxin level for 2 weeks (2) Frequent falls: Code(s): R29.6 - Repeated falls Status: Acute Assessment and Plan: As above, unfortunately patient is a poor candidate for anticoagulation due to frequent recurrent falls with head injury. (3) Altered mental status: Code(s): R41.82 - Altered mental status, unspecified Status: Acute Assessment and Plan: Resolved. CT head negative for acute intracranial process. Further management per primary service. 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 This is very disappointing. (5) Anemia, unspecified: Code(s): D64.9 - Anemia, unspecified Status: Chronic Assessment and Plan: Follow H& H. Stable at this time. No evidence of bleeding. Iron deficient. (6) Essential (primary) hypertension: Code(s): I10 - Essential (primary) hypertension Status: Chronic Assessment and Plan: Stable at this time. Hold off on resumption of amlodipine and losartan now. (7) Mixed hyperlipidemia: Code(s): E78.2 - Mixed hyperlipidemia Status: Chronic Assessment and Plan: Continue atorvastatin. (8) Multiple sclerosis: Code(s): G35 - Multiple sclerosis Status: Chronic Assessment and Plan: Per primary service. (9) Pleural cavity effusion: Code(s): J90 - Pleural effusion, not elsewhere classified Status: Acute Assessment and Plan: Chest x-ray on the looked clear but the CT scan on the showed a moderate pleural effusion on the right despite furosemide 20 mg daily. Increased furosemide to 20 mg BID on 04/20/2021 for a few days for volume overload. Will reduce to 20 mg Subjective Date/time seen: 04/22/21 11:02 Interval history: Follow-up visit in this 75-year-old lady with: Atrial fibrillation of unknown chronicity. Asked to see the patient on admission for assistance with treatment. Rate control strategy was recommended as she is asymptomatic and not hemodynamically embarrassed of this arrhythmia. She is currently taking a regimen of high-dose metoprolol, diltiazem and digoxin that was started yesterday. Heart rate is in the low 100s which is acceptable she is certainly not embarrassed by this. She is not felt to be a candidate for anticoagulation because of frequent falling. 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 Oncology follow-up of this is being arranged after discharge. Patient states she is anticipating going to [place] for rehab before going home with her . Date of service 04/18/2021: Patient comfortable asymptomatic si
--- NOTE | 2021-04-22 11:38 | PM.DS ---
DS: Admitting Diagnosis Discharge Date 04/22/21 Admitting Diagnosis UTI DS: Discharge Diagnosis Discharge Diagnosis (1) Atrial fibrillation with RVR: Code(s): I48.91 - Unspecified atrial fibrillation Status: Acute Assessment and Plan: The patient is a 75-year-old woman with a history of MS, who presented to the emergency room with multiple falls at home, generalized weakness, confusion and recently diagnosed with a UTI 2 days prior to arrival. She was started on oral antibiotics but continued to have issues and was brought to the emergency room by her family. Initial vitals showed blood pressure 124/74, tachycardic heart rate 124, afebrile, normal oxygenation on room air. Initial chest x-ray showed moderate right pleural effusion and right mid and lower lung infiltrate/atelectasis. 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 She was admitted into the hospital with IV antibiotics Rocephin for UTI and further workup and evaluation of her lung mass and pleural effusion. Patient was found to be in atrial fibrillation with RVR and started on a diltiazem drip on arrival. Cardiology was consulted and are making adjustments to her medications. She is maxed out on metoprolol, Cardizem, and digoxin. Cardiology plans to switch diltiazem to verapamil and re assess tomorrow. Patient's chads vas score is 4 which makes her at high risk for stroke. Considering her significant falls, she is not a candidate for long-term anticoagulation. She will be started on aspirin and Lovenox for DVT prophylaxis while here. Cardiology recommendations appreciated. Echo Left ventricular chamber dimension is normal. Left ventricular systolic function is normal, estimated at 60-65%. There is moderately increased left ventricular wall thickness. There is mild mitral valve regurgitation. There is mild to moderate tricuspid valve regurgitation. Moderate pulmonary hypertension, estimated pulmonary arterial systolic pressure is 48 mmHg. D-dimer positive. CTA negative for PE. May be able to be discharged tomorrow if HR stable. Continue to monitor her on telemetry. 04/21/21 Pt switched from diltiazem to verapamil w/ mild improvement in HR. Tele monitor showed bradycardia down to 49 last night, during the day yesterday had been up to 149. Today on my interview she was 115 bmp. Evaluated by cardiology today who is going to continue the verapamil today and re assess tomorrow. Hopefully she will continue to improve and will be set up to wear a home monitor. If she does not improve significantly, cardiology will consider pacemaker and AV node ablation. 04/22/21 Per cardiology: AFib with RVR new diagnosis, duration unknown as patient is otherwise asymptomatic, probably persistent AFib. - She has been quite refractory to medical therapy, currently taking high-dose verapamil, metoprolol and digoxin. Verapamil was started on 04/20/2021. -She is currently stable otherwise and not in decompensated heart failure at this time. - ASA 325mg daily. DVT prophylaxis Enoxaparin at 40 mg subcutaneous daily. -CHADS2 Vasc score at least 4 but she is not a candidate for anticoagulation. -tolerating multidrug therapy though some pauses were noted overnight. Heart rate control is much better. -I will reduce the metoprolol to: 150 mg daily I will try to get outpatient monitoring so we can follow patient at [place]. -digoxin level was in the therapeutic range -okay for discharge -recommend outpatient monitoring; if she can stop by our office on the way out we can provide a 30 day monitor. -Ordered a BMP and another digoxin level for 2 weeks (2) Lung mass: Code(s): R91.8 - Other nonspecific abnormal finding of lung field Status: Acute Assessment and Plan: Pulmonary ordered a biopsy of her lung mass 04/13/21 Biopsy results shows Adenocarcinoma Oncology Dr. Almodovar evaluated the patient who will set up PET Scan as outpatient a
[2021-04-22 12:00] VITALS: BP 121/56; PULSE 75; PULSE 90; RESP 20; TEMP 36.1; O2SAT 99
== END 2021-04-22 14:14 | DRG 309 ==
LOC: ANHED 16:37 → ANHIMU 17:32
PROVIDERS: Internal Medicine; Internal Medicine Cardiovascular Disease; Internal Medicine Pulmonary Disease; Nurse Practitioner; Physician Assistant; Admitting Provider Internal Medicine Critical Care Medicine; Emergency Provider Emergency Medicine; PCP Family Medicine; Visit Provider Physician Assistant
DX: I48.19 Other persistent atrial fibrillation (principal); C34.12 Malignant neoplasm of upper lobe, left bronchus or lung; N39.0 Urinary tract infection, site not specified; J90 Pleural effusion, not elsewhere classified; K50.90 Crohn's disease, unspecified, without complications; E87.1 Hypo-osmolality and hyponatremia; D64.9 Anemia, unspecified; I10 Essential (primary) hypertension; E78.2 Mixed hyperlipidemia; G35 Multiple sclerosis; R29.6 Repeated falls; M48.061 Spinal stenosis, lumbar region without neurogenic claudication; N20.0 Calculus of kidney; E87.6 Hypokalemia; Z98.42 Cataract extraction status, left eye; Z98.41 Cataract extraction status, right eye; Z87.891 Personal history of nicotine dependence
CPT/HCPCS: 32408; 32555; 36415; 70450; 71045; 71046; 71275; 80048; 80053; 80162; 81001; 82042; 82150; 82728; 82945; 83540; 83550; 83605; 83615; 83735; 83880; 83986; 84157; 84443; 84478; 84484; 85025; 85027; 85380; 85610; 85730; 87015; 87040; 87070; 87075; 87086; 87102; 87116; 87205; 87206; 88104; 88108; 88184; 88305; 88313; 88342; 89051; 93005; 93306; 96361; 96365; 96366; 96367; 96372; 96376; 97110; 97163; 97165; 97530; 97535; 99285; A9270; C9113; G0378; J0696; J1160; J1650; J1940; J2920; J3475; J7030; Q9967

== ENCOUNTER 2021-05-04 07:16 | Outpatient (CLI) | payer MEDICARE, SELFPAY ==
--- NOTE | ~2021-05-04 | PE_ITS ---
EXAMINATION: PET skull to mid thigh DATE: 05/04/2021 09:13 INDICATION: Lung cancer TECHNIQUE: Blood glucose level was 92 mg/dL. 10.523 mCi of 18-fluorodeoxyglucose (18-FDG) was adminis tered i.v. Low dose computed tomography (CT) images were acquired from the base of the brain to the p roximal thighs for attenuation correction and anatomic localization. Positron emission tomography (PE T) images were acquired in the same distribution beginning 51 minutes after injection. Images includi ng fused PET/CT images were reconstructed in axial, coronal, and sagittal planes. Automated exposure control technique was employed. The dose-length product was 567.74mGy-cm. COMPARISON: Chest CT dated 04/18/2021 FINDINGS: Head/neck: There is symmetric increased activity in the oral cavity, longus capitis, laryngeal and ocular muscle s without CT correlate, likely physiologic. Asymmetric enlargement of the left thyroid suggesting pre sence of a large nodule without abnormal FDG uptake. No pathologically enlarged cervical lymphadenopa thy or suspicious foci of increased FDG uptake in the visualized head or neck. Moderate cervical spon dylosis. Chest: Prominent increased FDG uptake associated with the 2 cm left apical nodule with maximal SUV of 9.3 an d biopsy-proven adenocarcinoma. No other suspicious pulmonary nodules, pathologically enlarged thorac ic lymphadenopathy or other abnormal FDG avid lesions in the thorax. Posterior layering small right p leural effusion with dependent atelectasis in the right lower lobe. Biatrial enlargement of the heart . Atherosclerotic coronary artery calcific location. No pericardial effusion. Increased FDG uptake in some of the muscles of the left shoulder girdle most prominent with maximal SUV of 3.9 extending ann ng the left supraspinatus muscle belly, all without radiologic correlate which is likely physiologic. Healing fractures of the anterior right third-sixth ribs. Moderate thoracic spondylosis. Abdomen/pelvis/proximal thighs: Physiologic renal accumulation and excretion of FDG activity in the kidneys, bladder and along portio ns of ureters. Normal degree and heterogenous pattern of increased uptake throughout the liver withou t radiologic correlate or dominant FDG avid lesion. The gallbladder, pancreas, spleen and bilateral a drenal glands are normal. Mild uptake scattered throughout the bowels without radiologic correlate, a lso likely physiologic. No other abnormal foci of increased FDG uptake or pathologically enlarged lym phadenopathy in the abdomen, pelvis or proximal thighs. Chronic L1 compression fracture. IMPRESSION: 1. Prominent FDG uptake associated with a 2 cm left upper lobe nodule consistent with biopsy-proven a denocarcinoma. No evident metastatic disease. 2. Small right pleural effusion. 3. Enlarged left thyroid lobe suggesting an underlying nodule but without evident increased FDG uptak e. Could consider thyroid ultrasound for risk stratification. Reviewed, dictated and finalized at location A. IMPRESSION: 1. Prominent FDG uptake associated with a 2 cm left upper lobe nodule consisten t with biopsy-proven adenocarcinoma. No evident metastatic disease. 2. Small right pleural effusion. 3. Enlarged left thyroid lobe suggesting an underlying nodule but without evide nt increased FDG uptake. Could consider thyroid ultrasound for risk stratificat ion.
[2021-05-04 07:54] LABS: Glucose Point of Care 92 mg/dl (65-105)
== END 2021-05-04 07:17 | disposition home or self-care (01) ==
PROVIDERS: PCP Family Medicine; Visit Provider Internal Medicine Hematology & Oncology
DX: C34.12 Malignant neoplasm of upper lobe, left bronchus or lung (principal); J90 Pleural effusion, not elsewhere classified
CPT/HCPCS: 78815; A9552

== ENCOUNTER 2021-05-20 09:25 | Outpatient (CLI) | payer MEDICARE, SELFPAY ==
[2021-05-20 10:30] LABS: Digoxin 1.6 ng/mL (0.8-2.0)
== END 2021-05-20 09:26 | disposition home or self-care (01) ==
PROVIDERS: PCP Family Medicine; Visit Provider Family Medicine
DX: T46.0X1A Poisoning by cardiac-stimulant glycosides and drugs of similar action, accidental (unintentional), initial encounter (principal)
CPT/HCPCS: 36415; 80162

== ENCOUNTER 2021-08-11 08:07 | Outpatient (CLI) | payer MEDICARE, SELFPAY ==
--- NOTE | ~2021-08-11 | CT_ITS ---
EXAMINATION: CT diagnostic chest w con EXAM DATE: 08/11/2021 08:58 INDICATION: Left upper lobe lung cancer. TECHNIQUE: Spiral CT of the chest following intravenous injection of 75 mL Omnipaque 350. Axial, cor onal and sagittal images of the chest were reviewed. Coronal maximum intensity pixel images of chest reviewed. The dose-length product (DLP) for this examination was 140.98 mGy-cm. The exposure was t ailored according to patient size (auto mA exposure control), and iterative reconstruction (ASIR) was used as additional dose reduction technique. Comparison is made to prior examination from 04/18/2021 . FINDINGS: Left upper lobe spiculated approximately 2 cm nodule appears stable or minimally decreased in volume compared to prior study, correlate with any history of radiation treatment. Mild emphysem a. No central pulmonary emboli. Trace bilateral pleural effusions, significant improvement compared t o prior study. Tracheobronchial tree is patent. There is no mediastinal, hilar or axillary lymphadenopathy. Ther e is no pneumothorax. Heart normal in size. There is mild to moderate coronary arterial calcifica tion, arterial sclerosis. Upper abdomen is unremarkable. There is mild to moderate thoracic spondy losis without osteoblastic or osteolytic lesions identified. IMPRESSION: 1. Left upper lobe adenocarcinoma, stable or very minimally decreased in volume. 2. Mild emphysema. 3. Trace pleural effusions. Reviewed, dictated and finalized at location B. T ASSIGNER IMPRESSION: 1. Left upper lobe adenocarcinoma, stable or very minimally decreased in volum e. 2. Mild emphysema. 3. Trace pleural effusions.
[2021-08-11 08:48] LABS: Estimated Glomerular Filt Rate > 60
== END 2021-08-11 08:08 | disposition home or self-care (01) ==
PROVIDERS: PCP Family Medicine; Visit Provider Internal Medicine Hematology & Oncology
DX: C34.12 Malignant neoplasm of upper lobe, left bronchus or lung (principal); J43.9 Emphysema, unspecified; I25.10 Atherosclerotic heart disease of native coronary artery without angina pectoris; M47.814 Spondylosis without myelopathy or radiculopathy, thoracic region
CPT/HCPCS: 71260; Q9967

== ENCOUNTER 2021-09-15 05:51 | Emergency (ER) | payer MEDICARE, SELFPAY ==
--- NOTE | ~2021-09-15 | XR_ITS ---
EXAMINATION: XR chest 2V DATE: 09/15/2021 06:49 INDICATION: Chest pain and shortness of breath TECHNIQUE: frontal and lateral views of the chest were obtained. COMPARISON: Chest radiograph dated 04/16/[address] dated 08/11/2021 FINDINGS: Again seen is a subtle approximately 2 cm left upper lobe nodule, biopsy-proven lung adenocarcinoma. Very small bilateral pleural effusions the posterior sulci. No other airspace opacities, pulmonary ed rickey or pneumothorax. The cardiomediastinal silhouette is normal. IMPRESSION: 1. 2 cm left upper lobe nodule consistent with biopsy-proven lung adenocarcinoma. 2. Very small bilateral pleural effusions. Reviewed, dictated and finalized at location A. IMPRESSION: 1. 2 cm left upper lobe nodule consistent with biopsy-proven lung adenocarcinom a. 2. Very small bilateral pleural effusions.
--- NOTE | ~2021-09-15 | CT_ITS ---
EXAMINATION: CTA chest PE protocol DATE: 09/15/2021 06:40 INDICATION: Tachycardia and stabbing chest pain TECHNIQUE: Computed tomography (CT) pulmonary angiogram of the chest was performed with 100 mL Omnipa que-350 intravenous contrast. Additional 3D reconstructions utilizing coronal maximum intensity proje ction (MIP) were performed. Automated exposure control and iterative reconstruction technique were em ployed. The dose-length product was 253.56 mGy-cm. COMPARISON: 08/11/2021 FINDINGS: Excellent contrast opacification of the pulmonary arteries. There is mild streak artifact from dense contrast in the superior vena cava and right atrium. Mild respiratory motion artifact at the lung bas es which mildly decreases sensitivity in some of the basilar subsegmental pulmonary arteries. No pulm onary embolism. Small bilateral pleural effusions. 1.9 x 1.3 cm left upper lobe nodule with lobular a nd spiculated margins concerning for primary bronchogenic carcinoma. Near this is a smaller more yuri pheral 10 x 6 mm nodule also in the left upper lobe. No pneumonia, pulmonary edema or pneumothorax. M ild cardiomegaly with mild biatrial enlargement. No pericardial effusion. Thoracic aorta is normal in caliber. No pathologically enlarged thoracic lymphadenopathy. Margin of the left thyroid lobe is sug gestion of a 3.9 x 2.6 cm mass. A few subcentimeter low-attenuation hepatic cysts. A few old healed a nterior rib fractures. Severe thoracic and lower cervical spondylosis. IMPRESSION: 1. No pulmonary embolism. 2. No significant change in a 1.9 x 1.3 cm left upper lobe mass, biopsy-proven adenocarcinoma with ad jacent 10 x 6 mm satellite nodule. 3. Very small bilateral pleural effusions. 4. Suspected 3.9 cm left thyroid mass. Consider thyroid ultrasound for confirmation and risk stratifi cation. Reviewed, dictated and finalized at location A. IMPRESSION: 1. No pulmonary embolism. 2. No significant change in a 1.9 x 1.3 cm left upper lobe mass, biopsy-proven adenocarcinoma with adjacent 10 x 6 mm satellite nodule. 3. Very small bilateral pleural effusions. 4. Suspected 3.9 cm left thyroid mass. Consider thyroid ultrasound for confirma tion and risk stratification.
[2021-09-15 05:55] VITALS: BP 120/70; PULSE 136; RESP 21; O2SAT 97
--- NOTE | 2021-09-15 06:01 | ECG_ITS ---
Measurements Intervals [place] Rate: 120 P: MD: 0 QRS: 52 QRSD: 79 T: -14 QT: 319 QTc: 451 Interpretive Statements ATRIAL FIBRILLATION WITH RAPID VENTRICULAR RESPONSE POSSIBLE RIGHT VENTRICULAR CONDUCTION DELAY [RSR (QR) IN V1/V2] NONSPECIFIC ST AND T ABNORMALITY ABNORMAL ECG COMPARED WITH 04/10/2021, NO DIFFERENCE Electronically Signed On 09-15-2021 7:34:14 CDT by Waqas Diaz M.D.
[2021-09-15 06:06] LABS: Basophils Percent Auto 0.4 % (0.2-1.2); Eosinophils Absolute Auto 0.3 K/mm3 (0-0.3); Eosinophils Percent Auto 2.3 % (0-4.4); Hematocrit 30.8 % (37.0-47.0); Hemoglobin 10.2 g/dL (12.0-15.0); Immature Granulocyte Absolute 0.03 K/mm3 (0.00-0.031); Immature Granulocyte Percent A 0.3 % (0-0.5); Lymphocytes Absolute Auto 2.18 K/mm3 (0.9-3.2); Lymphocytes Percent Auto 20.1 % (18.3-44.2); Mean Corpuscular HGB Conc 33.1 g/dl (32-36); Mean Corpuscular Hemoglobin 33.1 pg (26-34); Mean Platelet Volume 10.1 fl (7.4-10.4); Monocytes Percent Auto 9.1 % (2.6-8.5); Neutrophils Absolute Auto 7.4 K/mm3 (1.3-6.7); Neutrophils Percent Auto 67.8 % (45.5-73.1); Platelet Count Result 264 k/mm3 (150-375); Red Blood Count 3.08 M/mm3 (4.2-5.4); Red Cell Distribution Width 14.8 % (11.5-14.5); White Blood Count 10.9 K/mm3 (4.5-10.0)
[2021-09-15 06:16] LABS: Alanine Aminotransferase 10 U/L (4-35); Albumin Level 3.4 g/dL (3.5-5.1); Alkaline Phosphatase 74 U/L (38-126); Anion Gap 5 mmol/L (8-16); Aspartate Amino Transferase 31 U/L (14-36); Bilirubin,Total 0.5 mg/dL (0.2-1.3); Blood Urea Nitrogen 13 mg/dL (7-17); Calcium 8.5 mg/dL (8.4-10.2); Carbon Dioxide 25 mmol/L (22-30); Chloride 106 mmol/L (98-107); Estimated CRCL calculation 56 ml/min; Estimated Glomerular Filt Rate > 60; Glucose 85 mg/dL (65-110); Lipase 137 U/L (23-300); Potassium 3.9 mmol/L (3.4-5.0); Sodium 136 mmol/L (137-145)
[2021-09-15 06:26] LABS: Troponin I < 0.012 ng/mL (0.000-0.034)
[2021-09-15] MEDS: SODIUM CHLORIDE 0.9% IV 1,000 ML 999 ML IV CONT (06:28)
[2021-09-15 06:32] LABS: Prothrombin Time 12.8 Seconds (11.1-14.7)
[2021-09-15 06:33] LABS: Partial Thromboplastin Time 30.3 SECONDS (22.3-36.8)
[2021-09-15 07:48] VITALS: PULSE 99; RESP 18; O2SAT 100
[2021-09-15 07:50] VITALS: PULSE 116
[2021-09-15] MEDS: METOPROLOL SUCCINATE EXT REL 50 MG TABCR PO (07:50)
--- NOTE | 2021-09-15 07:59 | ED.CHESTPAIN ---
HPI - Chest Pain General Chief Complaint: Chest Pain Stated Complaint: CHEST PAIN Time Seen by Provider: 09/15/21 06:12 Source: patient History of Present Illness HPI narrative: Patient presents with left-sided chest pain that started this morning. Pain is sharp worse with deep inspiration is on the left side of her chest no radiation no change with physical activity. She denies any lightheadedness or shortness of breath denies any nausea vomiting or diarrhea she denies any fevers, cough, congestion. She does have a known malignancy which she has received radiation therapy for it on that area. Reports her lung masses have been stable. Related Data Home Medications Medication Instructions Recorded Confirmed glatiramer 40 mg SUBCUT QMWF 04/14/21 09/15/21 Allergies Allergy/AdvReac Type Severity Reaction Status Date / Time codeine Allergy Unknown Unknown Verified 09/15/21 07:52 erythromycin base Allergy Unknown Unknown Verified 09/15/21 07:52 nitrofurantoin Allergy Unknown Unknown Verified 09/15/21 07:52 sulfisoxazole Allergy Unknown Unknown Verified 09/15/21 07:52 Review of Systems Review of Systems: CONSTITUTIONAL: Denies fever, chills, or sweats. EYES: Denies visual changes, redness, or discharge. ENT: Denies rhinorrhea, congestion, sore throat, or otalgia. CARDIOVASCULAR: Denies chest pain, palpitations, or edema. RESPIRATORY: Denies cough or dyspnea. GASTROINTESTINAL: Denies abdominal pain, nausea, vomiting, or diarrhea. GENITOURINARY: Denies dysuria or hematuria. SKIN: Denies rash or itching. MUSCULOSKELETAL: Denies back pain, joint pain, or myalgia. NEUROLOGIC: Denies headache, numbness, dizziness, or weakness. PSYCHIATRIC: Denies anxiety or depression. All systems reviewed & are unremarkable except as noted in HPI and below PMFSH Past Medical History Medical History Anemia, unspecified Ataxia BMI 25.0-25.9,adult BMI 26.0-26.9,adult Crohn's disease Digoxin toxicity Essential (primary) hypertension Eustachian tube dysfunction FH: radiation therapy Left knee DJD Malignant neoplasm of upper lobe, left bronchus or lung Medication monitoring encounter Mixed hyperlipidemia Multiple sclerosis Otitis media Pleural cavity effusion Right knee DJD Spinal stenosis, lumbar Weight loss Surgical History Surgical History History of carpal tunnel release History of cataract extraction History of colonoscopy Family History Family History Son Diabetes mellitus Father Mother Sibling Heart disease Social History Social History Social History: The patient is a former smoker. The patient stated that she never use marijuana but uses CBD. She only has 1 son. She lives with her . Her and son of the durable power banking attorney for healthcare. The patient is a full code. 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 EYES: Denies visual changes, redness, or discharge. ENT: Denies rhinorrhea, congestion, sore throat, or otalgia. CARDIOVASCULAR: Denies palpitations, or edema. RESPIRATORY: Denies cough or dyspnea. GASTROINTESTINAL: Denies abdominal pain, nausea, vomiting, or diarrhea. GENITOURINARY: Denies dysuria or hematuria. SKIN: Denies rash or itching. MUSCULOSKELETAL: Denies back
== END 2021-09-15 08:35 ==
PROVIDERS: Emergency Provider Emergency Medicine; PCP Family Medicine
DX: R07.9 Chest pain, unspecified (principal); I48.91 Unspecified atrial fibrillation; Z87.891 Personal history of nicotine dependence; D64.9 Anemia, unspecified; I10 Essential (primary) hypertension; K50.90 Crohn's disease, unspecified, without complications; G35 Multiple sclerosis; C34.12 Malignant neoplasm of upper lobe, left bronchus or lung
CPT/HCPCS: 36415; 71046; 71275; 80053; 83690; 84484; 85025; 85610; 85730; 93005; 96360; 99284; A9270; J7030; Q9967

== ENCOUNTER 2021-09-24 10:22 | Outpatient (CLI) | payer MEDICARE, SELFPAY ==
[2021-09-24 10:43] LABS: Basophils Percent Auto 0.6 % (0.2-1.2); Eosinophils Absolute Auto 0.2 K/mm3 (0-0.3); Eosinophils Percent Auto 2.5 % (0-4.4); Hematocrit 37.1 % (37.0-47.0); Hemoglobin 11.3 g/dL (12.0-15.0); Immature Granulocyte Absolute 0.02 K/mm3 (0.00-0.031); Immature Granulocyte Percent A 0.3 % (0-0.5); Lymphocytes Absolute Auto 1.72 K/mm3 (0.9-3.2); Lymphocytes Percent Auto 25.3 % (18.3-44.2); Mean Corpuscular HGB Conc 30.5 g/dl (32-36); Mean Corpuscular Hemoglobin 32.7 pg (26-34); Mean Corpuscular Volume 107.2 fl (80-100); Mean Platelet Volume 10.9 fl (7.4-10.4); Monocytes Absolute Auto 0.6 K/mm3 (0.1-0.6); Monocytes Percent Auto 8.7 % (2.6-8.5); Neutrophils Absolute Auto 4.3 K/mm3 (1.3-6.7); Neutrophils Percent Auto 62.6 % (45.5-73.1); Platelet Count Result 269 k/mm3 (150-375); Red Blood Count 3.46 M/mm3 (4.2-5.4); Red Cell Distribution Width 14.6 % (11.5-14.5); White Blood Count 6.8 K/mm3 (4.5-10.0)
[2021-09-24 10:49] LABS: Blood Urea Nitrogen 9 mg/dL (8-26); Carbon Dioxide 29 mmol/L (22-30); Chloride 101 mmol/L (98-109); Estimated Glomerular Filt Rate > 60; Glucose 87 mg/dL (70-105); Potassium 3.8 mmol/L (3.5-4.9); Sodium 139 mmol/L (138-146)
[2021-09-24 11:58] LABS: Alanine Aminotransferase 16 U/L (4-35); Alkaline Phosphatase 83 U/L (38-126); Anion Gap 10 mmol/L (8-16); Aspartate Amino Transferase 35 U/L (14-36); Bilirubin,Total 0.5 mg/dL (0.2-1.3); Blood Urea Nitrogen 10 mg/dL (7-17); Calcium 8.9 mg/dL (8.4-10.2); Carbon Dioxide 25 mmol/L (22-30); Chloride 102 mmol/L (98-107); Estimated Glomerular Filt Rate > 60; Glucose 85 mg/dL (65-110); Potassium 3.8 mmol/L (3.4-5.0); Sodium 137 mmol/L (137-145)
[2021-09-24 12:02] LABS: Digoxin 1.3 ng/mL (0.8-2.0)
[2021-09-24 16:38] LABS: Free T4 Free Thyroxine 1.13 ng/mL (0.78-2.19)
[2021-09-26 05:27] LABS: Triiodothyronine T3 Free 2.4 pg/mL (2.3-4.2)
== END 2021-09-24 10:23 | disposition home or self-care (01) ==
PROVIDERS: Nurse Practitioner Adult Health; PCP Family Medicine; Visit Provider Internal Medicine Hematology & Oncology
DX: C34.12 Malignant neoplasm of upper lobe, left bronchus or lung (principal); I48.19 Other persistent atrial fibrillation
CPT/HCPCS: 36415; 80053; 80162; 84439; 84443; 84481; 85025

== ENCOUNTER 2021-10-09 22:19 | Emergency (ER) | payer MEDICARE, SELFPAY ==
[2021-10-09] VITALS (11 sets, daily range): BP systolic 117–140; BP diastolic 54–88; PULSE 85–107; RESP 14–20; TEMP 36.2; O2SAT 98–99
[2021-10-09 22:41] LABS: Basophils Percent Auto 0.7 % (0.2-1.2); Eosinophils Absolute Auto 0.2 K/mm3 (0-0.3); Eosinophils Percent Auto 3.1 % (0-4.4); Hematocrit 31.7 % (37.0-47.0); Hemoglobin 10.2 g/dL (12.0-15.0); Immature Granulocyte Absolute 0.02 K/mm3 (0.00-0.031); Immature Granulocyte Percent A 0.3 % (0-0.5); Lymphocytes Absolute Auto 1.89 K/mm3 (0.9-3.2); Mean Corpuscular HGB Conc 32.2 g/dl (32-36); Mean Corpuscular Volume 99.4 fl (80-100); Mean Platelet Volume 10.5 fl (7.4-10.4); Monocytes Absolute Auto 0.7 K/mm3 (0.1-0.6); Neutrophils Absolute Auto 3.3 K/mm3 (1.3-6.7); Neutrophils Percent Auto 53.9 % (45.5-73.1); Platelet Count Result 266 k/mm3 (150-375); Red Blood Count 3.19 M/mm3 (4.2-5.4); Red Cell Distribution Width 14.8 % (11.5-14.5); White Blood Count 6.1 K/mm3 (4.5-10.0)
[2021-10-09 22:51] LABS: Alanine Aminotransferase 12 U/L (4-35); Alkaline Phosphatase 88 U/L (38-126); Anion Gap 9 mmol/L (8-16); Aspartate Amino Transferase 32 U/L (14-36); Bilirubin,Total 0.8 mg/dL (0.2-1.3); Blood Urea Nitrogen 19 mg/dL (7-17); Calcium 9.1 mg/dL (8.4-10.2); Carbon Dioxide 23 mmol/L (22-30); Chloride 103 mmol/L (98-107); Estimated CRCL calculation 45 ml/min; Estimated Glomerular Filt Rate > 60; Glucose 86 mg/dL (65-110); INR 2.5; Potassium 3.7 mmol/L (3.4-5.0); Prothrombin Time 26.1 Seconds (11.1-14.7); Sodium 135 mmol/L (137-145)
[2021-10-09 22:52] LABS: Partial Thromboplastin Time 52.2 SECONDS (22.3-36.8)
--- NOTE | 2021-10-09 23:00 | PC.NURSE ---
Report from Sabrina LOPEZ
--- NOTE | 2021-10-09 23:09 | ED.GENADULT ---
HPI - General Adult General Chief complaint: GI Bleed Stated complaint: blood in stool Time Seen by Provider: 10/09/21 22:42 Source: patient and RN notes reviewed Mode of arrival: EMS Limitations: no limitations History of Present Illness HPI narrative: 76-year-old female presented to the emergency department for evaluation of blood in her stool. Patient states that she has had issues with constipation and describes her stool as rocks . Patient states that prior to arrival she had a hard bowel movement and had blood on the paper when she wiped. Patient denies passing any significant clots and denies any blood in the bowl. Patient denies any associate abdominal pain. Patient denied having any pain with the bowel movement. Patient states she was started on a blood thinner approximately [address] Almodovar. Related Data Home Medications Medication Instructions Recorded Confirmed allopurinol 100 mg PO DAILY 10/09/21 10/09/21 aspirin 325 mg PO DAILY 10/09/21 10/09/21 atorvastatin 20 mg PO HS 10/09/21 10/09/21 cefdinir 300 mg PO Q12H 10/09/21 10/09/21 digoxin 250 mcg PO DAILY 10/09/21 10/09/21 ferrous sulfate 325 mg PO BID 10/09/21 10/09/21 folic acid 1 mg PO TID 10/09/21 10/09/21 furosemide [Lasix] 20 mg PO DAILY 10/09/21 10/09/21 glatiramer 40 mg SUBCUT 3XW 10/09/21 10/09/21 metoprolol succinate 150 mg PO DAILY 10/09/21 10/09/21 Allergies Allergy/AdvReac Type Severity Reaction Status Date / Time codeine Allergy Confusion Verified 10/09/21 22:51 erythromycin base Allergy Difficulty Verified 10/09/21 22:51 Breathing Sulfa (Sulfonamide Allergy Itching Verified 10/09/21 22:51 Antibiotics) Review of Systems Review of Systems: CONSTITUTIONAL: Denies fever, chills, or sweats. EYES: Denies visual changes, redness, or discharge. ENT: Denies rhinorrhea, congestion, sore throat, or otalgia. CARDIOVASCULAR: Denies chest pain, palpitations, or edema. RESPIRATORY: Denies cough or dyspnea. GASTROINTESTINAL: See HPI GENITOURINARY: Denies dysuria or hematuria. SKIN: Denies rash or itching. MUSCULOSKELETAL: Denies back pain, joint pain, or myalgia. NEUROLOGIC: Denies headache, numbness, or weakness. All systems reviewed & are unremarkable except as noted in HPI and below Exam Narrative: APPEARANCE: Well appearing, no pain, no distress, well-nourished. HEAD: normocephalic, atraumatic. EYES: PERRLA/EOMI, conjunctivae clear. NOSE: Normal no drainage NECK: Supple. No adenopathy, no masses. RESPIRATORY: Airway patent, respirations nonlabored. Clear to auscultation bilaterally, no rales, rhonchi, wheezing. CARDIOVASCULAR: Regular rate and rhythm without murmurs rubs or gallops. ABDOMINAL: Soft, nontender, nondistended, normal bowel sounds. On digital rectal exam patient had formed stool in the vault. No external hemorrhoids. No blood in her diaper. Hemoccult negative, with brown nonmelanotic stool MUSCULOSKELETAL: Moves all extremities. Strength/ROM intact, No edema, No calf tenderness. NEURO: Alert. Cranial nerves II through XII intact. Good gait. Good coordination SKIN: Warm, dry. Normal Color Course Course Emergency Course: Patient's hemoglobin is 10.2. No prior hemoglobin on file. Patient's vital signs are within normal limits. Patient denies any pain. Patient was seen negative from below. No evidence of acute GI bleed. Patient describes blood on the toilet paper when she wiped. Story is most consistent with internal hemorrhoids secondary to constipation. Patient will be encouraged to take MiraLAX to help soften her stools. Vital Signs Vital signs: Vital Signs Temperature 97.2 F L 10/09/21 22:20 Respiratory Rate 14 10/09/21 22:20 Blood Pressure 140/77 10/09/21 22:20 Pulse Oximetry 98 10/09/21 22:20 Temperature 97.2 F L 10/09/21 22:20 Pulse Rate 104 H 10/10/21 02:30 Respiratory Rate 19 10/10/21 02:30 Blood Pressure 124/67 10/10/21 02:30 Pulse Oximetry 99 10/10/21 02:30 M
--- NOTE | 2021-10-09 23:13 | PC.NURSE ---
ERP performed rectal exam. RN in to assist. Pt tolerated well. Pts depens noted to be soiled. Pericare performed pt changed into new depens. Pt has no needs.
--- NOTE | 2021-10-09 23:52 | PC.NURSE ---
called [facility] to request transport. ETA [id number] called [facility], [facility], and [facility] to request transport. All declined.
[2021-10-10] VITALS (14 sets, daily range): BP systolic 121–136; BP diastolic 50–80; PULSE 90–123; RESP 15–22; O2SAT 98–100
--- NOTE | 2021-10-10 02:22 | PC.NURSE ---
called [facility] for ETA update. ETA [id number]
--- NOTE | 2021-10-10 03:20 | PC.NURSE ---
Pt called out stating she voided. RN changed pts depens. Pt tolerated well. No stool or blood noted.
== END 2021-10-10 03:35 ==
LOC: ANHED 23:42
PROVIDERS: Emergency Provider Emergency Medicine; PCP Family Medicine
DX: K62.5 Hemorrhage of anus and rectum (principal); K59.00 Constipation, unspecified; I48.91 Unspecified atrial fibrillation; E78.00 Pure hypercholesterolemia, unspecified; I10 Essential (primary) hypertension; K50.90 Crohn's disease, unspecified, without complications; G35 Multiple sclerosis; D64.9 Anemia, unspecified; Z87.440 Personal history of urinary (tract) infections; Z79.82 Long term (current) use of aspirin; Z79.01 Long term (current) use of anticoagulants
CPT/HCPCS: 36415; 80053; 85025; 85610; 85730; 86850; 86900; 86901; 99283

== ENCOUNTER 2021-12-20 10:04 | Outpatient (CLI) | payer MEDICARE, SELFPAY ==
--- NOTE | ~2021-12-20 | CT_ITS ---
EXAMINATION: CT diagnostic chest wo con DATE: 12/20/2021 10:53 INDICATION: Malignant neoplasm of the left upper lobe TECHNIQUE: Computed tomography (CT) of the chest was performed without intravenous contrast. The dose -length product (DLP) was 171.58 mGy-cm. Automated exposure control and iterative reconstruction tech nique were employed. COMPARISON: 09/15/2021 FINDINGS: There is a 2 cm nodule of the right lung apex which is not significant change since the com parison examination. Minimal surrounding airspace opacities have developed. There are no new pulmonar y nodules. There are small stable groundglass nodules of the right lung. No pleural effusion or pneum othorax. No pathologically enlarged thoracic lymph nodes are identified. The heart size is normal. Ca lcified coronary artery atherosclerosis is noted. There is severe thoracic spondylosis. IMPRESSION: 1. Stable right upper lobe nodule with surrounding airspace opacities, consistent with biopsy-proven malignancy and likely surrounding radiation change. Attention on subsequent examinations is recommend ed. Reviewed, dictated and finalized at location A. IMPRESSION: 1. Stable right upper lobe nodule with surrounding airspace opacities, consiste nt with biopsy-proven malignancy and likely surrounding radiation change. Atten tion on subsequent examinations is recommended.
--- NOTE | ~2021-12-20 | US_ITS ---
EXAMINATION: US soft tissue head and neck DATE: 12/20/2021 11:23 INDICATION: Thyroid nodule. TECHNIQUE: Multiple ultrasound images of the thyroid were obtained. COMPARISON: Thyroid ultrasound 07/04/2013 FINDINGS: The right thyroid lobe measures 3.9 x 1.8 x 1.8 cm. The left thyroid lobe measures 5.6 x 2.5 x 3.5 c m. In the left thyroid lobe, there is a 3.6 cm solid, hypoechoic, taller than wide nodule with rohit h margin without echogenic foci (TI-RADS TR5), increased in size from 07/12/13 when biopsy was benign. In the left thyroid lobe, there is a 9 mm mixed cystic and solid, isoechoic, wider than tall nodule with smooth margin without echogenic foci (TR2). IMPRESSION: 1. Multinodular goiter. Consider ultrasound-guided fine-needle aspiration of the larger left thyroid lobe nodule if clinically indicated given the patient's comorbidities. Reviewed, dictated and finalized at location A. IMPRESSION: 1. Multinodular goiter. Consider ultrasound-guided fine-needle aspiration of th e larger left thyroid lobe nodule if clinically indicated given the patient's c omorbidities.
== END 2021-12-20 10:05 | disposition home or self-care (01) ==
PROVIDERS: PCP Family Medicine; Visit Provider Internal Medicine Hematology & Oncology
DX: C34.12 Malignant neoplasm of upper lobe, left bronchus or lung (principal); E04.2 Nontoxic multinodular goiter
CPT/HCPCS: 71250; 76536

== ENCOUNTER 2021-12-31 10:14 | Outpatient (CLI) | payer MEDICARE, SELFPAY ==
[2021-12-31 10:37] LABS: Basophils Percent Auto 0.5 % (0.2-1.2); Eosinophils Absolute Auto 0.1 K/mm3 (0-0.3); Eosinophils Percent Auto 1.1 % (0-4.4); Hematocrit 33.9 % (37.0-47.0); Hemoglobin 10.8 g/dL (12.0-15.0); Immature Granulocyte Absolute 0.03 K/mm3 (0.00-0.031); Immature Granulocyte Percent A 0.4 % (0-0.5); Lymphocytes Percent Auto 21.1 % (18.3-44.2); Mean Corpuscular HGB Conc 31.9 g/dl (32-36); Mean Corpuscular Volume 97.4 fl (80-100); Mean Platelet Volume 10.3 fl (7.4-10.4); Monocytes Absolute Auto 0.7 K/mm3 (0.1-0.6); Monocytes Percent Auto 8.4 % (2.6-8.5); Neutrophils Absolute Auto 5.5 K/mm3 (1.3-6.7); Neutrophils Percent Auto 68.5 % (45.5-73.1); Platelet Count Result 280 k/mm3 (150-375); Red Blood Count 3.48 M/mm3 (4.2-5.4); White Blood Count 8.1 K/mm3 (4.5-10.0)
[2021-12-31 10:41] LABS: Blood Urea Nitrogen 22 mg/dL (8-26); Carbon Dioxide 25 mmol/L (22-30); Chloride 100 mmol/L (98-109); Estimated Glomerular Filt Rate > 60; Glucose 98 mg/dL (70-105); Ionized Calcium (POC) 1.06 mmol/L (1.11-1.31); Sodium 135 mmol/L (138-146)
[2021-12-31 14:51] LABS: Alanine Aminotransferase 14 U/L (6-35); Alkaline Phosphatase 70 U/L (38-126); Anion Gap 8 mmol/L (8-16); Aspartate Amino Transferase 28 U/L (14-36); Bilirubin,Total 0.4 mg/dL (0.2-1.3); Blood Urea Nitrogen 24 mg/dL (7-17); Carbon Dioxide 25 mmol/L (22-30); Chloride 100 mmol/L (98-107); Estimated Glomerular Filt Rate > 60; Glucose 96 mg/dL (65-110); Potassium 4.2 mmol/L (3.4-5.0); Sodium 133 mmol/L (137-145)
[2021-12-31 15:24] LABS: Thyroid Stimulating Hormone 0.681 uIU/mL (0.465-4.680)
[2022-01-04 20:53] LABS: Triiodothyronine T3 Free 2.7 pg/mL (2.3-4.2)
== END 2021-12-31 10:15 | disposition home or self-care (01) ==
PROVIDERS: PCP Family Medicine; Visit Provider Internal Medicine Hematology & Oncology
DX: E04.1 Nontoxic single thyroid nodule (principal); C34.12 Malignant neoplasm of upper lobe, left bronchus or lung
CPT/HCPCS: 36415; 80047; 80053; 84439; 84443; 84481; 85025

== ENCOUNTER 2022-02-10 12:40 | Inpatient (IN) | payer MEDICARE, SELFPAY ==
[2022-02-10] VITALS (15 sets, daily range): BP systolic 102–128; BP diastolic 43–76; PULSE 66–92; RESP 15–25; TEMP 36.4–36.6; O2SAT 97–100; BMI 20.7
--- NOTE | ~2022-02-10 | CT_ITS ---
EXAMINATION: CT brain wo con DATE: 02/10/2022 13:46 INDICATION: Worsening weakness. TECHNIQUE: Computed tomography (CT) of the head was performed without intravenous contrast. The mA wa s adjusted according to patient size. Iterative reconstruction technique was employed. The dose-lengt h product was 315.48 mGy-cm. COMPARISON: Head CT 04/13/2021 FINDINGS: There are scattered areas of low attenuation in the cerebral white matter. There is no intr acranial hemorrhage, acute infarction, or abnormal intracranial mass lesion. The ventricles are isma l in size. The mastoid air cells are normal. The paranasal sinuses are clear. There are likely change s of ocular lens replacement surgeries. IMPRESSION: 1. Stable moderate nonspecific cerebral white matter disease, which likely represents chronic small v essel ischemic disease. Reviewed, dictated and finalized at location A. IMPRESSION: 1. Stable moderate nonspecific cerebral white matter disease, which likely repr esents chronic small vessel ischemic disease.
--- NOTE | ~2022-02-10 | CT_ITS ---
EXAMINATION: CT abdomen pelvis wo/w con DATE: 02/11/2022 10:57 INDICATION: Microhematuria. Chronic urinary tract infection. TECHNIQUE: Computed tomography (CT) of the abdomen and pelvis was performed without and with intraven ous contrast using a total of 130 mL Omnipaque-350 intravenous contrast with a double-bolus technique for simultaneous opacification of the renal parenchyma and renal collecting system. Automated exposu re control and iterative reconstruction technique were employed. The dose-length product was 754.88 m Gy-cm. COMPARISON: Chest CT 12/20/2021 FINDINGS: The visualized portions of the lung bases demonstrate small pleural effusions, right worse than left. There is mild dependent atelectasis on the right. The heart size is normal. No pericardial effusion. There are coronary artery calcifications. There are cysts in the liver measuring up to 6 mm. The gal lbladder is normal. Calcifications in the spleen are consistent with old granulomatous disease. The p ancreas and adrenal glands are normal. There are cysts in the kidneys measuring up to 17 mm on the ri ght. There is no urolithiasis. The right ureter is not well opacified distally, but is normal. The le ft ureter is not well opacified distally, but is normal. The bladder is not well distended. There are small masses within the urine in the bladder, consistent with hematoma. There are no dilated loops o f bowel. The appendix is normal. There are no pathologically enlarged lymph nodes. There is no free i ntraperitoneal fluid. There is thoracolumbar levoscoliosis and severe lumbar spondylosis. There is mi ld chronic height loss of multiple vertebral bodies. IMPRESSION: 1. Small volume of hematoma in the bladder. Reviewed, dictated and finalized at location A.
--- NOTE | ~2022-02-10 | XR_ITS ---
XR chest 1V DATE: 02/10/2022 13:47 INDICATION: Weakness. Smoker. Malignant neoplasm of left upper lobe TECHNIQUE: AP view COMPARISON: 12/20/2021 CT chest FINDINGS: Persistent mass density and infiltrate is noted in the left apical area; history of biopsy- proven adenocarcinoma of the lung. The lungs otherwise appear clear. No pleural effusion or pulmonary vascular congestion or pneumothora x. Normal heart size. Aortic calcification and mild unfolding. IMPRESSION: Left apical lung mass consistent with biopsy-proven adenocarcinoma Reviewed, dictated and finalized at location B.
--- NOTE | 2022-02-10 12:46 | ECG_ITS ---
Measurements Intervals [place] Rate: 71 P: [place]: 0 QRS: 59 QRSD: 84 T: 40 QT: 378 QTc: 411 Interpretive Statements ATRIAL FIBRILLATION POSSIBLE RIGHT VENTRICULAR CONDUCTION DELAY [RSR (QR) IN V1/V2] ABNORMAL RHYTHM ECG COMPARED TO ECG 09/15/2021 06:01:01 THE RATE IS SLOWER Electronically Signed On 02-10-2022 18:33:26 CDT by Cynthia Butt M.D.
--- NOTE | 2022-02-10 12:58 | PC.NURSE ---
Dr. Atwood at bedside to assess pt.
[2022-02-10 13:03] LABS: Basophils Percent Auto 0.5 % (0.2-1.2); Eosinophils Absolute Auto 0.2 K/mm3 (0-0.3); Eosinophils Percent Auto 3.2 % (0-4.4); Hematocrit 28.7 % (37.0-47.0); Hemoglobin 8.6 g/dL (12.0-15.0); Immature Granulocyte Absolute 0.02 K/mm3 (0.00-0.031); Immature Granulocyte Percent A 0.3 % (0-0.5); Lymphocytes Percent Auto 23.9 % (18.3-44.2); Mean Corpuscular Hemoglobin 29.8 pg (26-34); Mean Corpuscular Volume 99.3 fl (80-100); Mean Platelet Volume 9.9 fl (7.4-10.4); Monocytes Absolute Auto 0.8 K/mm3 (0.1-0.6); Monocytes Percent Auto 10.5 % (2.6-8.5); Neutrophils Absolute Auto 4.6 K/mm3 (1.3-6.7); Neutrophils Percent Auto 61.6 % (45.5-73.1); Platelet Count Result 518 k/mm3 (150-375); Red Blood Count 2.89 M/mm3 (4.2-5.4); White Blood Count 7.5 K/mm3 (4.5-10.0)
[2022-02-10 13:17] LABS: Alanine Aminotransferase 26 U/L (6-35); Albumin Level 4.1 g/dL (3.5-5.1); Alkaline Phosphatase 80 U/L (38-126); Anion Gap 8 mmol/L (8-16); Aspartate Amino Transferase 44 U/L (14-36); Bilirubin,Total 0.5 mg/dL (0.2-1.3); Blood Urea Nitrogen 11 mg/dL (7-17); Calcium 8.8 mg/dL (8.4-10.2); Carbon Dioxide 28 mmol/L (22-30); Chloride 98 mmol/L (98-107); Estimated CRCL calculation 55 ml/min; Estimated Glomerular Filt Rate > 60; Glucose 83 mg/dL (65-110); Potassium 3.8 mmol/L (3.4-5.0); Sodium 134 mmol/L (137-145)
--- NOTE | 2022-02-10 13:30 | ED.GENADULT ---
HPI - General Adult General Chief complaint: Urogenital-Female Stated complaint: UTI Time Seen by Provider: 02/10/22 12:44 Source: patient, family, RN notes reviewed and old records reviewed Mode of arrival: wheelchair History of Present Illness HPI narrative: This is a 76 year old female with history of Multiple sclerosis, atrial fibrillation on chronic anticoagulation who presents with family for concern of antibiotic resistant UTI. Patient's family states starting 4 weeks ago patient had brief episode of confusion so they requested urinalysis to be performed. They states her confusion has resolved. Her son states that patient seems to be getting progressively weaker on past 4 weeks. She is having difficulty transferred herself now.She has been on 2 rounds of antibiotics. It is reports she was on antibiotics that were initially sensitive but most recent urine is EBSL klebsiella. Patient denies nausea, vomiting, abdominal pain, back pain, dysuria. Related Data Home Medications Medication Instructions Recorded Confirmed rivaroxaban 20 mg tablet (Xarelto) 20 mg PO DAILY 09/21/21 02/10/22 digoxin 250 mcg (0.25 mg) tablet 125 mcg PO DAILY 10/09/21 02/10/22 ferrous sulfate 325 mg (65 mg 65 mg PO DAILY 10/09/21 02/10/22 iron) tablet glatiramer 40 mg/mL subcutaneous 40 mg subcut QMWF 10/09/21 02/10/22 syringe acetaminophen 325 mg tablet 500 mg PO DAILY 02/10/22 02/10/22 (Tylenol) allopurinol 100 mg tablet 100 mg PO HS 02/10/22 02/10/22 ammonium lactate 5 % lotion 1 applic topical PRN PRN Dry Skin 02/10/22 02/10/22 atorvastatin 20 mg tablet 20 mg PO HS 02/10/22 02/10/22 cholecalciferol (vitamin D3) 50 50 mcg PO DAILY 02/10/22 02/10/22 mcg (2,000 unit) tablet cyanocobalamin (vitamin B-12) 250 250 mcg PO DAILY 02/10/22 02/10/22 mcg tablet metoprolol succinate 50 mg 150 mg PO DAILY 02/10/22 02/10/22 tablet,extended release 24 hr sulfasalazine 500 mg tablet 0.5 g PO DAILY 02/10/22 02/10/22 thiamine HCl (vitamin B1) 100 mg 100 mg PO DAILY 02/10/22 02/10/22 tablet verapamil 240 mg tablet,extended 240 mg PO DAILY 02/10/22 02/10/22 release Allergies Allergy/AdvReac Type Severity Reaction Status Date / Time codeine Allergy Unknown Unknown Verified 02/09/22 08:53 erythromycin base Allergy Unknown Unknown Verified 02/09/22 08:53 nitrofurantoin Allergy Unknown Unknown Verified 02/09/22 08:53 sulfisoxazole Allergy Unknown Unknown Verified 02/09/22 08:53 Sulfa (Sulfonamide Allergy Itching Verified 02/09/22 08:53 Antibiotics) Review of Systems Review of Systems: All systems reviewed & are unremarkable except as noted in HPI and below Constitutional: Constitutional: Denies chills, Reports fatigue and Denies fever(s) Cardiovascular: Cardiovascular: Denies chest pain and Denies rapid heart rate Gastrointestinal: Gastrointestinal: Denies abdominal pain and Denies nausea Genitourinary: Genitourinary: Denies hematuria, Denies nocturia and Denies dysuria Musculoskeletal: Musculoskeletal: Denies back pain Neurologic: Denies headache(s) [facility] Past Medical History Medical History Anemia, unspecified Crohn's disease Degenerative joint disease Essential (primary) hypertension FH: radiation therapy Malignant neoplasm of upper lobe, left bronchus or lung Mixed hyperlipidemia Multiple sclerosis Spinal stenosis, lumbar Vancomycin resistant Enterococcus Weight loss Surgical History Surgical History History of carpal tunnel release History of cataract extraction History of colonoscopy Family History Family History Son Diabetes mellitus Father Hypertension Mother Emphysema lung Sibling Heart disease History of quadruple bypass Social History Social History (Updated 02/10/22 @ 15:0
[2022-02-10 13:33] LABS: Appearance Urine Clear (Clear); Bilirubin Urine Negative (Negative); Blood Urine Trace-lysed (Negative); Color Urine Yellow (Yellow); Glucose Urine UA Negative (Negative); Ketones Urine Negative (Negative); Leukocyte Esterase Ur Trace LEU/UL (Negative); Nitrate Urine Negative (Negative); Protein Urine Negative (Negative); Specific Grav Ur 1.015 (1.001-1.035); Urobilinogen Urine 0.2 mg/dL (<2.0); pH Urine 5.5 (5.0-9.0)
--- NOTE | 2022-02-10 13:39 | PC.NURSE ---
Patient off unit to CT.
[2022-02-10 13:41] LABS: Mucus Urine Rare /lpf; WBC Clumps Urine Present /HPF
[2022-02-10 13:43] LABS: Add Urine Microscopic? YES
[2022-02-10 13:45] LABS: Digoxin 1.3 ng/mL (0.8-2.0)
[2022-02-10] MEDS: PANTOPRAZOLE SODIUM IV 40 MG VIAL IV PUSH ×2 (14:41→16:57)
--- NOTE | 2022-02-10 14:41 | PC.NURSE ---
Per patient's family she wears dentures and they need to be removed at night.
--- NOTE | 2022-02-10 15:00 | PM.IMHP ---
H&P: HPI History of Present Illness Date/Time: 02/10/22 15:00 Chief Complaint: Weakness. Narrative: This is a 76-year-old female with multiple sclerosis, atrial fibrillation on long-term anticoagulation, hypertension, Crohn's disease, and anemia who presented to the ED via EMS from [facility] for evaluation of weakness. Nearly 4 weeks ago she was treated with antibiotics for urinary tract infection with improvement in her symptoms though she has remained weaker than normal. A repeat UA and culture were obtained a week or so thereafter to ensure that the infection had resolved and it is my understanding that the urine was still abnormal and she was started on a another antibiotic. 2 days ago a urine culture (obtained on 02/02/2022) came back positive for ESBL Klebsiella oxytoca sensitive only to imipenem and she was sent to the ER today. She has been afebrile and her other vital signs have been stable. Her hemoglobin and hematocrit were 8.6 and 28.7% respectively, and that hemoglobin is 2.2 g lower than on labs drawn just over a month ago. With further questioning she does mention that she had issues with her hemorrhoids a couple of weeks ago with a small amount of bleeding only, however. She has not noticed any dark stools though her stool was Hemoccult positive on rectal exam done in the emergency department. At the time my evaluation she reports that she just has no energy and in fact she is not even able to participate much in her PT/OT due to fatigue. She denies syncope, presyncope, chest pain, pleuritic pain, shortness of breath, abdominal/epigastric pain, nausea, vomiting, blowing, and diarrhea. Review of Systems Review of Systems: Twelve systems were reviewed and are negative except for as per HPI. [facility] Past Medical History Medical History (Updated 02/10/22 @ 21:09 by Xochitl Howard PA-C) Anemia, unspecified Arthritis Atrial fibrillation Chronic anticoagulation Crohn's disease Degenerative joint disease Essential (primary) hypertension Malignant neoplasm of upper lobe, left bronchus or lung Status post radiation. Patient of Dr. Almodovar and Dr. Latif. Mixed hyperlipidemia Multiple sclerosis Spinal stenosis, lumbar Vancomycin resistant Enterococcus Surgical History Surgical History History of carpal tunnel release History of cataract extraction History of colonoscopy Family History Family History Son Diabetes mellitus Father Hypertension Mother Emphysema lung Sibling Heart disease History of quadruple bypass Social History Social History (Updated 02/10/22 @ 21:06 by Xochitl Howard PA-C) Social History: Surrogate medical decision maker: Braden Pineda, son. Code status: Full code. Smoking packs per day: 1 Smoking cigarettes per day: 20.0 Years smoked: 30 Smoking pack-years: 30.00 Smoking status: Former smoker Tobacco type: cigarettes Second hand tobacco smoke exposure: Yes Alcohol intake: never Substance use: never Substance use type: marijuana Additional living arrangements comments: Assisted living at [facility]. 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 Spiritual care concerns: No Meds Home Medications and Allergies Home Medications Medication Instructions Recorded Confirmed Type rivaroxaban 20 mg tablet (Xarelto) 20 mg PO DAILY 09/21/21 02/10/22 History digoxin 250 mcg (0.25 mg) tablet 125 mcg PO DAILY 10/09/21 02/10/22 History ferrous sulfate 325 mg (65 mg 65 mg PO DAILY 10/09/21 02/10/22 History iron) tablet glatiramer 40 mg/mL subcutaneous 40 mg subcut QMWF 10/09/21 02/10/22 History syringe pantoprazole 40 mg tablet,delayed 40 mg PO HS 4 weeks #30 tabs 12/03/21 02/10/22 Rx release folic acid 1 mg tablet 1 mg PO TID #27
[2022-02-10 15:17] LABS: Hematocrit 26.2 % (37.0-47.0); Hemoglobin 8.2 g/dL (12.0-15.0)
[2022-02-10 15:18] LABS: SARS-CoV-2 RNA PCR Negative
--- NOTE | 2022-02-10 15:35 | PC.NURSE ---
This patient, Radha Pineda, was admitted to [facility] Surg Room 326-01. Patient/family oriented to hospital policies and general routines including ID bracelet, bed and alarms, visiting hours, pain management, procedures, bathroom and other care routines, personal items, smoking policy, room service/diet, and visiting hours. Information on how to activate the Rapid Response Team has been discussed. Patient/Family are encouraged to report perceived risks to care and to ask questions if they do not understand what they are told or what they should do. arrived at 1535, report received from [facility].
--- NOTE | 2022-02-10 16:33 | PC.NURSE ---
family report pt uses w/c at assisted living
--- NOTE | 2022-02-10 16:34 | PC.NURSE ---
Braden Pineda POQuynh to bring in Copaxone Sq injections tomorrow 02/11/22 all with living well paperwork
--- NOTE | 2022-02-10 17:55 | PC.NURSE ---
pt reported L toe nail removed by at [place].
[2022-02-10 19:41] LABS: Iron 43 ug/dL (37-170)
[2022-02-10 19:51] LABS: Percent Iron Saturation 21 % (20-50)
[2022-02-10 20:09] LABS: Folic Acid > 20.0 ng/mL (2.76->20)
[2022-02-10 20:13] LABS: Thyroid Stimulating Hormone Reflex 0.559 uIU/mL (0.465-4.68)
[2022-02-10 20:47] LABS: Hematocrit 25.1 % (37.0-47.0); Hemoglobin 7.7 g/dL (12.0-15.0)
[2022-02-11] VITALS (8 sets, daily range): BP systolic 100–136; BP diastolic 46–86; PULSE 50–110; RESP 16–20; TEMP 36.2–36.9; O2SAT 93–99; BMI 21.7
[2022-02-11 02:30] LABS: Hematocrit 26.6 % (37.0-47.0); Hemoglobin 8.2 g/dL (12.0-15.0); Mean Corpuscular HGB Conc 30.8 g/dl (32-36); Mean Corpuscular Hemoglobin 29.9 pg (26-34); Mean Corpuscular Volume 97.1 fl (80-100); Mean Platelet Volume 9.4 fl (7.4-10.4); Platelet Count Result 430 k/mm3 (150-375); Red Blood Count 2.74 M/mm3 (4.2-5.4); Red Cell Distribution Width 17.9 % (11.5-14.5); White Blood Count 6.7 K/mm3 (4.5-10.0)
[2022-02-11 02:38] LABS: Alanine Aminotransferase 25 U/L (6-35); Albumin Level 3.7 g/dL (3.5-5.1); Alkaline Phosphatase 83 U/L (38-126); Anion Gap 9 mmol/L (8-16); Aspartate Amino Transferase 46 U/L (14-36); Bilirubin,Total 0.5 mg/dL (0.2-1.3); Blood Urea Nitrogen 10 mg/dL (7-17); Calcium 8.7 mg/dL (8.4-10.2); Carbon Dioxide 26 mmol/L (22-30); Chloride 100 mmol/L (98-107); Estimated CRCL calculation 49 ml/min; Estimated Glomerular Filt Rate > 60; Glucose 94 mg/dL (65-110); Magnesium 1.8 mg/dL (1.6-2.3); Potassium 3.8 mmol/L (3.4-5.0); Sodium 135 mmol/L (137-145)
[2022-02-11 08:37] LABS: Hematocrit 27.7 % (37.0-47.0); Hemoglobin 8.8 g/dL (12.0-15.0)
--- NOTE | 2022-02-11 10:35 | PC.NURSE ---
Pt's son, Braden Pineda, called asking for an update. I answered his questions. Braden stated that he is going to be bringing a copy of the POA with him to put in pt's chart when he visits this evening. Braden further stated that he was going to be bringing pt's Copaxone shot from the assisted living facility where pt resides so that it can be administered this evening. Braden clarified that Copaxone must be refrigerated and pt takes it sub-q on Monday, Monday, and Monday.
[2022-02-11] MEDS: DIGOXIN TAB 125 MCG TABLET PO (11:42)
[2022-02-11] MEDS: CHOLECALCIFEROL 1,000 UNITS TABLET 2000 UNITS PO (11:43)
[2022-02-11] MEDS: POTASSIUM CHLORIDE 10 MEQ TABLET.ER PO (11:43)
[2022-02-11] MEDS: CYANOCOBALAMIN 250 MCG TABLET PO (11:43)
[2022-02-11] MEDS: sulfaSALAzine 500 MG TABLET PO (11:43)
[2022-02-11] MEDS: FUROSEMIDE 20 MG TABLET PO (11:43)
[2022-02-11] MEDS: FERROUS SULFATE 324 MG TABLET PO (11:44)
[2022-02-11] MEDS: PANTOPRAZOLE 40 MG TABLET PO (11:44)
[2022-02-11] MEDS: METOPROLOL SUCCINATE EXT REL 50 MG TABCR 150 MG PO (11:44)
[2022-02-11] MEDS: THIAMINE HCL 100 MG TABLET PO (11:44)
[2022-02-11] MEDS: FOLIC ACID 1 MG TABLET PO ×2 (11:44→16:51)
[2022-02-11] MEDS: VERAPAMIL HCL ER 240 MG TABLET.ER PO (11:45)
--- NOTE | 2022-02-11 12:00 | WPDGICN ---
Assessment and Plan Assessment and plan (1) Anemia: Code(s): D64.9 - Anemia, unspecified Status: Acute Assessment and Plan: although her hemoglobin has dropped from 10.8-7.7, she has had no gross bleeding except that she said about a month ago she saw a large amount of red blood in her diaper that she had assumed was because a hemorrhoid had ruptured. Otherwise she does not have blood in her stools on a regular basis. Hemoccult done in the emergency room was positive. (2) Guaiac positive stools: Code(s): R19.5 - Other fecal abnormalities Status: Acute Assessment and Plan: This was done in the ER and was positive. She will be scheduled for EGD and colonoscopy. I will prep her over the weekend and anticipate procedure done Monday morning (3) Chronic anticoagulation: Code(s): Z79.01 - long-term (current) use of anticoagulants Status: Acute Assessment and Plan: Because of atrial fibrillation she has been on a Xarelto 20 mg daily (4) Atrial fibrillation: Code(s): I48.91 - Unspecified atrial fibrillation Status: Acute Assessment and Plan: she is not symptomatic now. She is on Xarelto daily she is also on metoprolol, 150 mg per day (5) Crohn's disease: Code(s): K50.90 - Crohn's disease, unspecified, without complications Status: Acute Assessment and Plan: by her history, it does not sound like she has had a significant flare up of Crohn's disease process SPECT this may contribute to her anemia. (6) Multiple sclerosis: Code(s): G35 - Multiple sclerosis Status: Chronic Assessment and Plan: This has impaired her speech to some extent but she has seems fairly alert. GI Consult Note Consult date/time: 02/11/22 12:00 HPI: Radha Pineda is a 76 year old female Who presented to the emergency room yesterday because of increasing weakness, fatigue and felt that it was actually difficult for her to walk around. She had recently been treated for urinary tract infection with 2 rounds of antibiotics. She did have diarrhea with the 2nd round but normally her bowel movements are fairly regular. He has not seen blood in her stools recently. She does take Xarelto for chronic atrial fibrillation. Her hemoglobin was 10.8 month ago it dropped to 8.2 and then 7.7 on this hospitalization. She states that she has a long history of Crohn's disease she had originally been under the care of Dr. Jignesh Fabian; her last colonoscopy was at least [address] Alas. She has been on sulfasalazine for many years and she was told never to stop it. She has not had recent abdominal pain weight loss nausea vomiting dysphagia or heartburn. She denies any history of liver disease or pancreatic disease. She is a resident of [facility] living in [place]. Review of Systems Review of Systems: All systems reviewed & are unremarkable except as noted in HPI and below PMFSH Past Medical History Medical History Anemia, unspecified Arthritis Atrial fibrillation Chronic anticoagulation Crohn's disease Degenerative joint disease Essential (primary) hypertension Malignant neoplasm of upper lobe, left bronchus or lung Status post radiation. Patient of Dr. Almodovar and Dr. Latif. Mixed hyperlipidemia Multiple sclerosis Spinal stenosis, lumbar Vancomycin resistant Enterococcus Surgical History Surgical History History of carpal tunnel release History of cataract extraction History of colonoscopy Family History Family History Son Diabetes mellitus Father Hypertension Mother Emphysema lung Sibling Heart disease History of quadruple bypass Social History Social History (Reviewed 02/11/22 @ 12:
--- NOTE | 2022-02-11 12:21 | PM.IMPN ---
Progress Note: A&P Assessment and Plan (1) Anemia: Code(s): D64.9 - Anemia, unspecified Status: Acute Assessment and Plan: Hemoglobin is 2.2 g lower when compared to labs drawn just 5 weeks ago. I suspect this may be the cause of her lack of energy and fatigue. Iron studies have been obtained and they are pending. Trend hemoglobin and hematocrit and consider transfusion given her symptomatology. (2) Guaiac positive stools: Code(s): R19.5 - Other fecal abnormalities Status: Acute Assessment and Plan: Aside from a small amount of bright red blood per rectum a couple of weeks ago due to hemorrhoids, she has not noticed any gross blood though stool was positive for occult blood on rectal exam done per ED physician. Rivaroxaban will be placed on hold and we will consult GI for further recommendations. (3) Atrial fibrillation: Code(s): I48.91 - Unspecified atrial fibrillation Status: Acute Assessment and Plan: Rate controlled with metoprolol and digoxin (therapeutic level today). Continue. (4) Chronic anticoagulation: Code(s): Z79.01 - half-way (current) use of anticoagulants Status: Acute Assessment and Plan: Rivaroxaban on hold in light of the above. (5) Crohn's disease: Code(s): K50.90 - Crohn's disease, unspecified, without complications Status: Chronic Assessment and Plan: No recent issues according to the patient. Continue sulfasalazine. (6) Essential (primary) hypertension: Code(s): I10 - Essential (primary) hypertension Status: Chronic Assessment and Plan: Blood pressures were reviewed and they are stable. Antihypertensives will be reviewed and resumed as appropriate. (7) Multiple sclerosis: Code(s): G35 - Multiple sclerosis Status: Chronic Assessment and Plan: Subcutaneous glatiramer 3 times weekly. (8) Abnormal urinalysis: Code(s): R82.90 - Unspecified abnormal findings in urine Status: Acute Assessment and Plan: She has completed 2 rounds of antibiotics in the last month and she has no further symptoms to suggest active UTI. Urine culture obtained last week did grew out ESBL Klebsiella oxytoca. This is either a colonizer or a contaminated specimen (patient is incontinent and wears briefs which are frequently saturated; it does not sound as though she receives good yuri care). Long discussion with the patient and her family regarding yuri care. Due to her multiple sclerosis and bladder issues, she has had recurrent UTIs in the past and family requests urology consultation. Subjective Date/time seen: 02/11/22 12:21 no complaints Exam Narrative: General: Thin, frail, chronically ill-appearing female in the semi-Taylor position in bed in no acute distress. She is nontoxic in appearance. Weight: 54.8 kg. BMI: 20.7. HEENT: Wearing glasses. PERRL, EOMI. Tacky mucous membranes. Neck: Supple. Respiratory: Respirations are nonlabored. Lungs are clear to auscultation bilaterally. Cardiovascular: Irregularly irregular rate and rhythm. Gastrointestinal: Abdomen is soft, nontender, and nondistended with positive bowel sounds. No CVA tenderness. Skin: Warm and dry. No rash or lesions on limited exam. Extremities: No cyanosis, clubbing, or edema. Radial and pedal pulses intact. Neurological: Alert and oriented Cranial nerves 2-12 are grossly intact. No gross focal deficits to casual conversation. Psychiatric: Pleasant and cooperative with appropriate mood and affect. Objective Data Vital Signs Vital Signs: Vital Signs - 24 hr 02/10/22 12:48 02/10/22 12:47 02/10/22 12:48 Temperature 97.9 F Pulse Rate 73 Respiratory Rate 16 Blood Pressure 128/76 128/67 Pulse Oximetry 100 98 Oxygen Delivery Room Air 02/10/22 13:00 02/10/22 13:01 02/10/22 13:15 Temperature Pulse Rate 81 92 Respiratory Rate 17 22 H Blood Pressure
[2022-02-11 12:57] LABS: IFOB Positive Control Positive; Immunochemical Fecal Occult Bl Negative (N)
--- NOTE | 2022-02-11 15:24 | PHAR ---
HOME MED VERIFIED GLATIRAMER ACETATE 40MG/ML SUBQ ON MONDAY, MONDAY AND FRIDAYS
--- NOTE | 2022-02-11 16:25 | WPDURCON ---
Assessment and Plan Assessment and plan (1) Infection with ESBL Klebsiella oxytoca: Code(s): A49.8 - Other bacterial infections of unspecified site; Z16.12 - Extended spectrum beta lactamase (ESBL) resistance Status: Acute Assessment and Plan: Repeat culture is pending, however patient is asymptomatic. I would not recommend treating her unless she becomes symptomatic as she likely just has asymptomatic bacteruria. We had a long discussion about this, if she has symptoms of a UTI in the future, d/t her incontinence, I would recommend a straight cath sample for less likeliness of contamination. Since this has only been a short term problem, I would not recommend prophylaxis. Increase water intake, as dehydration can be a contributor and she admits to not drinking enough fluids. (2) Recurrent UTI: Code(s): N39.0 - Urinary tract infection, site not specified Status: Acute Assessment and Plan: CT scan shows no abnormalities or sources of infections. She has a small bladder hematoma which may be from her previous infection and will resolve over a few weeks time. We can get a JUAN in a month to ensure it resolves. Patient is wheelchair bound, but we can set up a Cysto in the OR as an outpatient after discharge to finish workup for recurrent UTI. (3) Urinary incontinence: Code(s): R32 - Unspecified urinary incontinence Status: Acute Assessment and Plan: Bladder Scan to ensure proper emptying and no retention is present as a source of infection, although CT doesn't show any hydronephrosis or bladder distention. If her residuals are >350cc, insert a catheter, otherwise ok to remain in depends. (4) Hematoma of bladder wall: Code(s): S37.22XA - Contusion of bladder, initial encounter Status: Acute Assessment and Plan: Repeat JUAN in one month to ensure resolution. (5) Renal cyst: Code(s): N28.1 - Cyst of kidney, acquired Status: Acute Assessment and Plan: Benign, not of concern. Urology Consult Note HPI Date Seen: 02/11/22 Time Seen: 16:25 Requesting Physician: Waqas Burgos MD Primary Care Provider: Jerome Owusu MD Consult Narrative Reason for consult: Chronic UTI's. Narrative: Radha Pineda is a 76 year old female who presented to the hospital ER yesterday for increasing weakness and confusion after two failed antibiotic courses to treat an antibiotic resistant UTI. Her Culture grew Klebsiella ESBL a few weeks ago. She is now asymptomatic, but reports dysuria, confusion, weakness and urine malodor during infection. She no longer has those symptoms. Her WBC is 6.7, creatinine is 0.70. A CT scan was ordered today that showed a few benign renal cysts and a small hematoma in the bladder. She denies feeling of incomplete emptying and has total incontinence of urine d/t history of MS. She states her UTI has been a problem for the last six weeks and before that she hasn't had an infection for years. She denies gross hematuria, difficulty with urination or fevers. Her family has requested that we see her for her recent persistent UTI. Her UA does show some RBC's and leukocytes but a urine culture is pending and she is asymptomatic at this time. Review of Systems Constitutional: Constitutional: Reports fatigue Cardiovascular: Cardiovascular: Denies chest pain Respiratory: Respiratory: Reports no additional respiratory complaints Gastrointestinal: Gastrointestinal: Denies abdominal pain, Denies nausea and Denies vomiting Genitourinary: Genitourinary: Denies hematuria, Denies dysuria, Denies pelvic pain, Denies flank pain, Reports urinary incontinence, Denies urinary hesitancy and Denies urinary urgency [facility] Past Medical History Medical History Anemia, unspecified Arthritis Atrial fibrillation Chronic anticoagulation Crohn's disease Degenerative joint disease Essential (primary) h
[2022-02-11] MEDS: ATORVASTATIN 20 MG TABLET PO (21:01)
[2022-02-11] MEDS: allopurinoL 100 MG TABLET PO (21:01)
[2022-02-12 05:41] VITALS: BP 122/58; PULSE 77; RESP 14; TEMP 37.4; O2SAT 97
[2022-02-12 08:00] VITALS: BP 114/71; PULSE 94; RESP 16; TEMP 37; O2SAT 97
--- NOTE | 2022-02-12 08:55 | WPDGIPROGNO ---
Progress Note: A&P Assessment and Plan (1) Anemia: Code(s): D64.9 - Anemia, unspecified Status: Acute Assessment and Plan: although her hemoglobin has dropped from 10.8-7.7, she has had no gross bleeding except that she said about a month ago she saw a large amount of red blood in her diaper that she had assumed was because a hemorrhoid had ruptured. Otherwise she does not have blood in her stools on a regular basis. Hemoccult done in the emergency room was positive. She will be scheduled for EGD and colonoscopy on Monday (2) Guaiac positive stools: Code(s): R19.5 - Other fecal abnormalities Status: Acute Assessment and Plan: This was done in the ER and was positive. She will be scheduled for EGD and colonoscopy. I will prep her over the weekend and anticipate procedure done Monday morning (3) Chronic anticoagulation: Code(s): Z79.01 - intermediate manager (current) use of anticoagulants Status: Acute Assessment and Plan: Because of atrial fibrillation she has been on a Xarelto 20 mg daily. This is being held at the present time. (4) Atrial fibrillation: Code(s): I48.91 - Unspecified atrial fibrillation Status: Acute Assessment and Plan: she is not symptomatic now. She is on Xarelto daily she is also on metoprolol, 150 mg per day (5) Crohn's disease: Code(s): K50.90 - Crohn's disease, unspecified, without complications Status: Acute Assessment and Plan: by her history, it does not sound like she has had a significant flare up of Crohn's disease process SPECT this may contribute to her anemia. (6) Multiple sclerosis: Code(s): G35 - Multiple sclerosis Status: Chronic Assessment and Plan: This has impaired her speech to some extent but she has seems fairly alert. Subjective Date/time seen: Radha Pineda is a 76 year old female ? who presented to the emergency room Two days ago because of increasing weakness, fatigue and felt that it was actually difficult for her to walk around.? She had recently been treated for urinary tract infection with 2 rounds of antibiotics.? She did have diarrhea with the 2nd round but normally her bowel movements are fairly regular.? She has not seen blood in her stools recently.? She does take Xarelto for chronic atrial fibrillation.? Her hemoglobin was 10.8 month ago it dropped to 8.2 and then 7.7 on this hospitalization.? She states that she has a long history of Crohn's disease she had originally been under the care of Dr. Jignesh Fabian;? her last colonoscopy was at least 20 years? ago? by Dr. Alas.? She has been on sulfasalazine for many years and she was told never to stop it.? She has not had recent abdominal pain weight loss nausea vomiting dysphagia or heartburn.? She denies any history of liver disease or pancreatic disease.? She is a resident of [facility] living in [place]. 02/12/22 08:55 there are no new complaints. Urology has seen her regarding her recurrent urinary tract infections. Exam Const: General: alert Orientation/consciousness: patient oriented x3 HENMT: Teeth and gingiva: dentures Resp: Auscultation: clear to auscultation bilaterally Cardio: Rhythm: regular rhythm GI: Auscultation: normal bowel sounds Neuro: General: patient oriented x3 Objective Data Vital Signs Vital Signs: Vital Signs - 24 hr 02/11/22 09:39 02/11/22 11:42 02/11/22 11:44 Temperature Pulse Rate 76 76 Respiratory Rate Blood Pressure 132/58 L Pulse Oximetry Oxygen Delivery 02/11/22 14:00 02/11/22 21:27 02/11/22 21:00 Temperature 36.2 C L 36.9 C Pulse Rate 110 H 50 L Respiratory Rate 20 16 Blood Pressure 136/86 114/50 L Pulse Oximetry 93 99 Oxygen Delivery Room Air 02/12/22 05:41 Temperature 37.4 C Pulse Rate 77 Respiratory Rate 14 Blood Pressure 122/58 L Pulse Oximetry 97 Oxygen Delivery Intake/Output Intak
[2022-02-12 09:47] VITALS: PULSE 76
[2022-02-12] MEDS: CHOLECALCIFEROL 1,000 UNITS TABLET 2000 UNITS PO (09:47)
[2022-02-12] MEDS: METOPROLOL SUCCINATE EXT REL 50 MG TABCR 150 MG PO (09:47)
[2022-02-12] MEDS: FOLIC ACID 1 MG TABLET PO ×3 (09:47→17:05)
[2022-02-12] MEDS: DIGOXIN TAB 125 MCG TABLET PO (09:47)
[2022-02-12] MEDS: VERAPAMIL HCL ER 240 MG TABLET.ER PO (09:48)
[2022-02-12] MEDS: FUROSEMIDE 20 MG TABLET PO (09:48)
[2022-02-12] MEDS: PANTOPRAZOLE 40 MG TABLET PO (09:48)
--- NOTE | 2022-02-12 10:58 | PM.IMPN ---
Progress Note: A&P Assessment and Plan (1) Anemia: Code(s): D64.9 - Anemia, unspecified Status: Acute Assessment and Plan: Plan for scope on Monday (2) Guaiac positive stools: Code(s): R19.5 - Other fecal abnormalities Status: Acute Assessment and Plan: See above (3) Atrial fibrillation: Code(s): I48.91 - Unspecified atrial fibrillation Status: Acute Assessment and Plan: Rate controlled with metoprolol and digoxin (therapeutic level today). Continue. (4) Chronic anticoagulation: Code(s): Z79.01 - custodial (current) use of anticoagulants Status: Acute Assessment and Plan: Rivaroxaban on hold in light of the above. (5) Crohn's disease: Code(s): K50.90 - Crohn's disease, unspecified, without complications Status: Chronic Assessment and Plan: No recent issues according to the patient. Continue sulfasalazine. (6) Essential (primary) hypertension: Code(s): I10 - Essential (primary) hypertension Status: Chronic Assessment and Plan: Blood pressures were reviewed and they are stable. Antihypertensives will be reviewed and resumed as appropriate. (7) Multiple sclerosis: Code(s): G35 - Multiple sclerosis Status: Chronic Assessment and Plan: Subcutaneous glatiramer 3 times weekly. (8) Abnormal urinalysis: Code(s): R82.90 - Unspecified abnormal findings in urine Status: Acute Assessment and Plan: She has completed 2 rounds of antibiotics in the last month and she has no further symptoms to suggest active UTI. Urine culture obtained last week did grew out ESBL Klebsiella oxytoca. This is either a colonizer or a contaminated specimen (patient is incontinent and wears briefs which are frequently saturated; it does not sound as though she receives good yuri care). Long discussion with the patient and her family regarding yuri care. Due to her multiple sclerosis and bladder issues, she has had recurrent UTIs in the past and family requests urology consultation. Subjective Date/time seen: 02/12/22 10:58 No complaints Exam Narrative: General: Thin, frail, chronically ill-appearing female in the semi-Taylor position in bed in no acute distress. She is nontoxic in appearance. Weight: 54.8 kg. BMI: 20.7. HEENT: Wearing glasses. PERRL, EOMI. Tacky mucous membranes. Neck: Supple. Respiratory: Respirations are nonlabored. Lungs are clear to auscultation bilaterally. Cardiovascular: Irregularly irregular rate and rhythm. Gastrointestinal: Abdomen is soft, nontender, and nondistended with positive bowel sounds. No CVA tenderness. Skin: Warm and dry. No rash or lesions on limited exam. Extremities: No cyanosis, clubbing, or edema. Radial and pedal pulses intact. Neurological: Alert and oriented Cranial nerves 2-12 are grossly intact. No gross focal deficits to casual conversation. Psychiatric: Pleasant and cooperative with appropriate mood and affect. Objective Data Vital Signs Vital Signs: Vital Signs - 24 hr 02/11/22 11:42 02/11/22 11:44 02/11/22 14:00 Temperature 97.2 F L Pulse Rate 76 76 110 H Respiratory Rate 20 Blood Pressure 136/86 Pulse Oximetry 93 Oxygen Delivery 02/11/22 21:27 02/11/22 21:00 02/12/22 05:41 Temperature 98.5 F 99.3 F Pulse Rate 50 L 77 Respiratory Rate 16 14 Blood Pressure 114/50 L 122/58 L Pulse Oximetry 99 97 Oxygen Delivery Room Air 02/12/22 08:00 02/12/22 09:47 02/12/22 09:47 Temperature 98.6 F Pulse Rate 94 76 76 Respiratory Rate 16 Blood Pressure 114/71 Pulse Oximetry 97 Oxygen Delivery Intake/Output Intake/Output: Intake & Output 02/09/22 02/10/22 02/11/22 02/12/22 23:59 23:59 23:59 23:59 Intake Total 240 1260 972 Balance 240 1260 972 Meds/Results Medications: Active Medications Generic Name Dose Route Start Last Admin Trade Name Freq PRN Re
[2022-02-12] MEDS: POTASSIUM CHLORIDE 10 MEQ TABLET.ER PO (12:28)
[2022-02-12] MEDS: sulfaSALAzine 500 MG TABLET PO (12:28)
[2022-02-12] MEDS: CYANOCOBALAMIN 250 MCG TABLET PO (12:28)
[2022-02-12] MEDS: THIAMINE HCL 100 MG TABLET PO (12:28)
--- NOTE | 2022-02-12 12:39 | PCPTNOTE ---
Attempted physical therapy initial evaluation, per chart review, discussion with patient, and discussion with nurse, pt is dependent with transfers at baseline. Due to medial status pt is not appropriate for skilled therapy services. Discussed with nurse and hospitalist about d/c'ing therapy orders, that will be done at this time.
--- NOTE | 2022-02-12 13:46 | PC.NURSE ---
I contacted Dr. Winston regarding the bowel prep for pt's colonoscopy on Wednesday 02/14. Dr. Winston had it divided between two days. I made him aware of pt being bedbound and will have to be using the bed allison; additionally, pt yells in pain anytime she is moved. I expressed concern over having to put pt through this for two days. Dr. Winston instructed me to change the orders to have bowel prep for Monday only.
[2022-02-12 14:00] VITALS: BP 121/50; PULSE 67; RESP 16; TEMP 36.8; O2SAT 98
[2022-02-12 20:00] VITALS: PULSE 67; RESP 16; O2SAT 98
[2022-02-12] MEDS: allopurinoL 100 MG TABLET PO (20:31)
[2022-02-12] MEDS: ATORVASTATIN 20 MG TABLET PO (20:31)
[2022-02-12 22:00] VITALS: BP 121/55; PULSE 96; RESP 14; TEMP 36.3; O2SAT 96
[2022-02-13] VITALS (7 sets, daily range): BP systolic 106–127; BP diastolic 48–63; PULSE 59–83; RESP 14–18; TEMP 36.1–36.9; O2SAT 96–100
[2022-02-13] MEDS: ACETAMINOPHEN 325 MG TABLET 650 MG PO (01:00)
[2022-02-13] MEDS: METOPROLOL SUCCINATE EXT REL 50 MG TABCR 150 MG PO (09:11)
[2022-02-13] MEDS: FOLIC ACID 1 MG TABLET PO ×3 (09:13→16:43)
[2022-02-13] MEDS: PANTOPRAZOLE 40 MG TABLET PO (09:13)
[2022-02-13] MEDS: FUROSEMIDE 20 MG TABLET PO (09:13)
[2022-02-13] MEDS: CHOLECALCIFEROL 1,000 UNITS TABLET 2000 UNITS PO (09:13)
[2022-02-13] MEDS: DIGOXIN TAB 125 MCG TABLET PO (09:14)
[2022-02-13] MEDS: VERAPAMIL HCL ER 240 MG TABLET.ER PO (09:14)
--- NOTE | 2022-02-13 09:48 | WPDGIPROGNO ---
Progress Note: A&P Assessment and Plan (1) Anemia: Code(s): D64.9 - Anemia, unspecified Status: Acute Assessment and Plan: although her hemoglobin has dropped from 10.8-7.7, she has had no gross bleeding except that she said about a month ago she saw a large amount of red blood in her diaper that she had assumed was because a hemorrhoid had ruptured. Otherwise she does not have blood in her stools on a regular basis. Hemoccult done in the emergency room was positive. She will be scheduled for EGD and colonoscopy on Monday02/13/2022 after her hemoglobin dropped down to 7.7, it has been gradually increasing and now is 8.8 (2) Guaiac positive stools: Code(s): R19.5 - Other fecal abnormalities Status: Acute Assessment and Plan: This was done in the ER and was positive. She will be scheduled for EGD and colonoscopy. I will prep her over the weekend and anticipate procedure done Monday02/13/2022 I discussed the prep with her. She has had endoscopic procedures in the past and is familiar with them. (3) Chronic anticoagulation: Code(s): Z79.01 - senior care (current) use of anticoagulants Status: Acute Assessment and Plan: Because of atrial fibrillation she has been on a Xarelto 20 mg daily. This is being held at the present time. (4) Atrial fibrillation: Code(s): I48.91 - Unspecified atrial fibrillation Status: Acute Assessment and Plan: she is not symptomatic now. She is on Xarelto daily she is also on metoprolol, 150 mg per day (5) Crohn's disease: Code(s): K50.90 - Crohn's disease, unspecified, without complications Status: Acute Assessment and Plan: by her history, it does not sound like she has had a significant flare up of Crohn's disease however I suspect this may contribute to her anemia. (6) Multiple sclerosis: Code(s): G35 - Multiple sclerosis Status: Chronic Assessment and Plan: This has impaired her speech to some extent but she has seems fairly alert. Subjective Date/time seen: Radha Pineda is a 76 year old female ? who presented to the emergency room ? Two days ago because of increasing weakness, fatigue and felt that it was actually difficult for her to walk around.? She had recently been treated for urinary tract infection with 2 rounds of antibiotics.? She did have diarrhea with the 2nd round but normally her bowel movements are fairly regular.? She has not seen blood in her stools recently.? She does take Xarelto for chronic atrial fibrillation.? Her hemoglobin was 10.8 month ago it dropped to 8.2 and then 7.7 on this hospitalization.? She states that she has a long history of Crohn's disease she had originally been under the care of Dr. Jignesh young? Rui;? her last colonoscopy was at least 20 years? ago? by Dr. Alas.? She has been on sulfasalazine for many years and she was told never to stop it.? She has not had recent abdominal pain weight loss nausea vomiting dysphagia or heartburn.? She denies any history of liver disease or pancreatic disease.? She is a resident of [facility] living in [place]. 02/13/22 09:48 she is feeling good today. She has no complaints. She will be prepped today for endoscopy and colonoscopy to be done tomorrow to investigate her gastrointestinal blood loss. Exam Narrative: General: Thin, frail, chronically ill-appearing female in the semi-Taylor position in bed in no acute distress. She is nontoxic in appearance. Weight: 54.8 kg. BMI: 20.7. HEENT: Wearing glasses. PERRL, EOMI. Tacky mucous membranes. Neck: Supple. Respiratory: Respirations are nonlabored. Lungs are clear to auscultation bilaterally. Cardiovascular: Irregularly irregular rate and rhythm. Gastrointestinal: Abdomen is soft, nontender, and nondistended with positive bowel sounds. No CVA tenderness. Skin: Warm and dry. No rash or lesions on limited exam. Extremities
--- NOTE | 2022-02-13 10:17 | PM.IMPN ---
Progress Note: A&P Assessment and Plan (1) Anemia: Code(s): D64.9 - Anemia, unspecified Status: Acute Assessment and Plan: Plan for scope on Monday (2) Guaiac positive stools: Code(s): R19.5 - Other fecal abnormalities Status: Acute Assessment and Plan: See above (3) Atrial fibrillation: Code(s): I48.91 - Unspecified atrial fibrillation Status: Acute Assessment and Plan: Rate controlled with metoprolol and digoxin (therapeutic level today). Continue. (4) Chronic anticoagulation: Code(s): Z79.01 - nursing home (current) use of anticoagulants Status: Acute Assessment and Plan: Rivaroxaban on hold in light of the above. (5) Crohn's disease: Code(s): K50.90 - Crohn's disease, unspecified, without complications Status: Chronic Assessment and Plan: No recent issues according to the patient. Continue sulfasalazine. (6) Essential (primary) hypertension: Code(s): I10 - Essential (primary) hypertension Status: Chronic Assessment and Plan: Blood pressures were reviewed and they are stable. Antihypertensives will be reviewed and resumed as appropriate. (7) Multiple sclerosis: Code(s): G35 - Multiple sclerosis Status: Chronic Assessment and Plan: Subcutaneous glatiramer 3 times weekly. (8) Abnormal urinalysis: Code(s): R82.90 - Unspecified abnormal findings in urine Status: Acute Assessment and Plan: She has completed 2 rounds of antibiotics in the last month and she has no further symptoms to suggest active UTI. Urine culture obtained last week did grew out ESBL Klebsiella oxytoca. This is either a colonizer or a contaminated specimen (patient is incontinent and wears briefs which are frequently saturated; it does not sound as though she receives good yuri care). Long discussion with the patient and her family regarding yuri care. Due to her multiple sclerosis and bladder issues, she has had recurrent UTIs in the past and family requests urology consultation. Subjective Date/time seen: 02/13/22 10:17 No complaints, no bleeding Exam Narrative: General: Thin, frail, chronically ill-appearing female in the semi-Taylor position in bed in no acute distress. She is nontoxic in appearance. Weight: 54.8 kg. BMI: 20.7. HEENT: Wearing glasses. PERRL, EOMI. Tacky mucous membranes. Neck: Supple. Respiratory: Respirations are nonlabored. Lungs are clear to auscultation bilaterally. Cardiovascular: Irregularly irregular rate and rhythm. Gastrointestinal: Abdomen is soft, nontender, and nondistended with positive bowel sounds. No CVA tenderness. Skin: Warm and dry. No rash or lesions on limited exam. Extremities: No cyanosis, clubbing, or edema. Radial and pedal pulses intact. Neurological: Alert and oriented Cranial nerves 2-12 are grossly intact. No gross focal deficits to casual conversation. Psychiatric: Pleasant and cooperative with appropriate mood and affect. Objective Data Vital Signs Vital Signs: Vital Signs - 24 hr 02/12/22 14:00 02/12/22 20:00 02/12/22 22:00 Temperature 98.3 F 97.3 F L Pulse Rate 67 67 96 Respiratory Rate 16 16 14 Blood Pressure 121/50 L 121/55 L Pulse Oximetry 98 98 96 Oxygen Delivery Room Air 02/13/22 05:54 02/13/22 09:11 02/13/22 09:14 Temperature 96.9 F L Pulse Rate 69 83 83 Respiratory Rate 14 Blood Pressure 127/63 Pulse Oximetry 96 Oxygen Delivery 02/13/22 09:31 Temperature Pulse Rate Respiratory Rate Blood Pressure Pulse Oximetry 96 Oxygen Delivery Room Air Intake/Output Intake/Output: Intake & Output 02/10/22 02/11/22 02/12/22 02/13/22 23:59 23:59 23:59 23:59 Intake Total 240 1260 1332 620 Balance 240 1260 1332 620 Meds/Results Medications: Active Medications Generic Name Dose Route Start Last Admin Trade Name Freq PRN Reason Stop Dose Admin Acetaminop
[2022-02-13] MEDS: BISACODYL 5 MG TABLET EC 20 MG PO (13:25)
[2022-02-13] MEDS: POTASSIUM CHLORIDE 10 MEQ TABLET.ER PO (13:25)
[2022-02-13] MEDS: CYANOCOBALAMIN 250 MCG TABLET PO (13:25)
[2022-02-13] MEDS: polyethylene glycoL 3350 238 GM BOTTLE PO (13:26)
[2022-02-13] MEDS: THIAMINE HCL 100 MG TABLET PO (13:26)
[2022-02-13] MEDS: sulfaSALAzine 500 MG TABLET PO (13:26)
[2022-02-13] MEDS: polyethylene glycoL 3350 238 GM BOTTLE 119 GM PO (19:51)
[2022-02-13] MEDS: allopurinoL 100 MG TABLET PO (22:13)
[2022-02-13] MEDS: ATORVASTATIN 20 MG TABLET PO (22:13)
[2022-02-14] VITALS (9 sets, daily range): BP systolic 91–121; BP diastolic 43–59; PULSE 69–114; RESP 17–25; TEMP 36.4–36.9; O2SAT 94–100
[2022-02-14 06:25] LABS: Hematocrit 29.4 % (37.0-47.0); Hemoglobin 9.2 g/dL (12.0-15.0); Mean Corpuscular HGB Conc 31.3 g/dl (32-36); Mean Corpuscular Hemoglobin 30.2 pg (26-34); Mean Corpuscular Volume 96.4 fl (80-100); Platelet Count Result 447 k/mm3 (150-375); Red Blood Count 3.05 M/mm3 (4.2-5.4); Red Cell Distribution Width 18.7 % (11.5-14.5); White Blood Count 8.2 K/mm3 (4.5-10.0)
[2022-02-14] MEDS: DIGOXIN TAB 125 MCG TABLET PO (08:49)
[2022-02-14] MEDS: VERAPAMIL HCL ER 240 MG TABLET.ER PO (08:49)
[2022-02-14] MEDS: CHOLECALCIFEROL 1,000 UNITS TABLET 2000 UNITS PO (08:49)
[2022-02-14] MEDS: METOPROLOL SUCCINATE EXT REL 50 MG TABCR 150 MG PO (08:50)
[2022-02-14] MEDS: FUROSEMIDE 20 MG TABLET PO (08:50)
[2022-02-14] MEDS: FOLIC ACID 1 MG TABLET PO ×2 (08:50→17:02)
[2022-02-14] MEDS: PANTOPRAZOLE 40 MG TABLET PO (08:51)
--- NOTE | 2022-02-14 10:22 | PM.IMPN ---
Progress Note: A&P Assessment and Plan (1) Anemia: Code(s): D64.9 - Anemia, unspecified Status: Acute Assessment and Plan: Plan for scope on Monday (2) Guaiac positive stools: Code(s): R19.5 - Other fecal abnormalities Status: Acute Assessment and Plan: See above (3) Atrial fibrillation: Code(s): I48.91 - Unspecified atrial fibrillation Status: Acute Assessment and Plan: Rate controlled with metoprolol and digoxin (therapeutic level today). Continue. (4) Chronic anticoagulation: Code(s): Z79.01 - senior care (current) use of anticoagulants Status: Acute Assessment and Plan: Rivaroxaban on hold in light of the above. (5) Crohn's disease: Code(s): K50.90 - Crohn's disease, unspecified, without complications Status: Chronic Assessment and Plan: No recent issues according to the patient. Continue sulfasalazine. (6) Essential (primary) hypertension: Code(s): I10 - Essential (primary) hypertension Status: Chronic Assessment and Plan: Blood pressures were reviewed and they are stable. Antihypertensives will be reviewed and resumed as appropriate. (7) Multiple sclerosis: Code(s): G35 - Multiple sclerosis Status: Chronic Assessment and Plan: Subcutaneous glatiramer 3 times weekly. (8) Abnormal urinalysis: Code(s): R82.90 - Unspecified abnormal findings in urine Status: Acute Assessment and Plan: She has completed 2 rounds of antibiotics in the last month and she has no further symptoms to suggest active UTI. Urine culture obtained last week did grew out ESBL Klebsiella oxytoca. This is either a colonizer or a contaminated specimen (patient is incontinent and wears briefs which are frequently saturated; it does not sound as though she receives good yuri care). Long discussion with the patient and her family regarding yuri care. Due to her multiple sclerosis and bladder issues, she has had recurrent UTIs in the past and family requests urology consultation. Subjective Date/time seen: 02/14/22 10:22 No complaints Exam Narrative: General: Thin, frail, chronically ill-appearing female in the semi-Taylor position in bed in no acute distress. She is nontoxic in appearance. Weight: 54.8 kg. BMI: 20.7. HEENT: Wearing glasses. PERRL, EOMI. Tacky mucous membranes. Neck: Supple. Respiratory: Respirations are nonlabored. Lungs are clear to auscultation bilaterally. Cardiovascular: Irregularly irregular rate and rhythm. Gastrointestinal: Abdomen is soft, nontender, and nondistended with positive bowel sounds. No CVA tenderness. Skin: Warm and dry. No rash or lesions on limited exam. Extremities: No cyanosis, clubbing, or edema. Radial and pedal pulses intact. Neurological: Alert and oriented Cranial nerves 2-12 are grossly intact. No gross focal deficits to casual conversation. Psychiatric: Pleasant and cooperative with appropriate mood and affect. Objective Data Vital Signs Vital Signs: Vital Signs - 24 hr 02/13/22 14:00 02/13/22 22:00 02/13/22 20:00 Temperature 98.0 F 98.5 F Pulse Rate 67 59 L 59 L Respiratory Rate 18 17 17 Blood Pressure 106/48 L 108/54 L Pulse Oximetry 100 96 96 Oxygen Delivery Room Air 02/14/22 05:55 02/14/22 08:49 02/14/22 08:50 Temperature 97.6 F Pulse Rate 100 110 H 114 H Respiratory Rate 17 Blood Pressure 107/48 L Pulse Oximetry 94 Oxygen Delivery Intake/Output Intake/Output: Intake & Output 02/11/22 02/12/22 02/13/22 02/14/22 23:59 23:59 23:59 23:59 Intake Total 1260 1332 620 240 Balance 1260 1332 620 240 Meds/Results Medications: Active Medications Generic Name Dose Route Start Last Admin Trade Name Freq PRN Reason Stop Dose Admin Acetaminophen 650 mg 02/10/22 21:17 02/13/22 01:00 Acetaminophen 325 Mg Tablet PO 650 mg Q6H PRN Administration Mild Pain (1
--- NOTE | 2022-02-14 12:54 | PC.NURSE ---
To GI Lab per [stretcher ], IV [ ]. Report given.
[2022-02-14] MEDS: LACTATED RINGERS 1,000 ML 150 ML IV CONT (13:11)
--- NOTE | 2022-02-14 13:13 | WPDANESEPPF ---
Anes - Initial Pre Proc Eval Procedure: Operation Date: 02/14/22 14:00 Proposed Procedures p Esophagogastroduodenoscopy & Colonoscopy - Rey Winston MD Date/Time: 02/14/22 13:13 Surgeon: Waqas Burgos MD Pre Op Diagnosis: weakness,anemia,abnormal urinalysis Patient Data Age: 76 Gender: F Height: 1.63 m Weight: 54.8 kg Last Vital Signs Temp 36.9 C 02/14/22 13:00 Pulse 81 02/14/22 13:00 Resp 18 02/14/22 13:00 BP 121/46 L 02/14/22 13:00 Pulse Ox 98 02/14/22 13:00 O2 Del Method Room Air 02/14/22 13:00 Allergies Allergy/AdvReac Type Severity Reaction Status Date / Time codeine Allergy Unknown Unknown Verified 02/14/22 13:06 erythromycin base Allergy Unknown Unknown Verified 02/14/22 13:06 nitrofurantoin Allergy Unknown Unknown Verified 02/14/22 13:06 sulfisoxazole Allergy Unknown Unknown Verified 02/14/22 13:06 Sulfa (Sulfonamide Allergy Itching Verified 02/14/22 13:06 Antibiotics) Home Medications Medication Instructions Recorded Confirmed Type rivaroxaban 20 mg tablet (Xarelto) 20 mg PO DAILY 09/21/21 02/14/22 History digoxin 250 mcg (0.25 mg) tablet 125 mcg PO DAILY 10/09/21 02/14/22 History ferrous sulfate 325 mg (65 mg 65 mg PO DAILY 10/09/21 02/14/22 History iron) tablet glatiramer 40 mg/mL subcutaneous 40 mg subcut QMWF 10/09/21 02/14/22 History syringe pantoprazole 40 mg tablet,delayed 40 mg PO HS 4 weeks #30 tabs 12/03/21 02/14/22 Rx release folic acid 1 mg tablet 1 mg PO TID #270 tabs 12/08/21 02/14/22 Rx furosemide 20 mg tablet (Lasix) 20 mg PO QAM #90 tabs 01/11/22 02/14/22 Rx potassium chloride 10 mEq 10 meq PO DAILY #90 tabs 02/07/22 02/14/22 Rx tablet,extended release (Klor-Con) acetaminophen 325 mg tablet 500 mg PO DAILY 02/10/22 02/14/22 History (Tylenol) allopurinol 100 mg tablet 100 mg PO HS 02/10/22 02/14/22 History ammonium lactate 5 % lotion 1 applic topical PRN PRN Dry Skin 02/10/22 02/14/22 History atorvastatin 20 mg tablet 20 mg PO HS 02/10/22 02/14/22 History cholecalciferol (vitamin D3) 50 50 mcg PO DAILY 02/10/22 02/14/22 History mcg (2,000 unit) tablet cyanocobalamin (vitamin B-12) 250 250 mcg PO DAILY 02/10/22 02/14/22 History mcg tablet metoprolol succinate 50 mg 150 mg PO DAILY 02/10/22 02/14/22 History tablet,extended release 24 hr sulfasalazine 500 mg tablet 0.5 g PO DAILY 02/10/22 02/14/22 History thiamine HCl (vitamin B1) 100 mg 100 mg PO DAILY 02/10/22 02/14/22 History tablet verapamil 240 mg tablet,extended 240 mg PO DAILY 02/10/22 02/14/22 History release Laboratory Tests 02/10/22 02/14/22 18:34 05:46 WBC 8.2 K/mm3 K/mm3 (4.5-10.0) RBC 3.05 M/mm3 L M/mm3 (4.2-5.4) Hgb 9.2 g/dL L g/dL (12.0-15.0) Hct 29.4 % L % (37.0-47.0) MCV 96.4 fl fl (80-100) MCH 30.2 pg pg (26-34) MCHC 31.3 g/dl L g/dl (32-36) RDW 18.7 % H % (11.5-14.5) Plt Count 447 k/mm3 H k/mm3 (150-375) MPV 10.0 fl fl (7.4-10.4) Crossmatch See Detail Patient hx anesthesia problems: none Family hx anesthesia problems: none Results Review: All pre-operative results and documents have been reviewed as part of the pre-operative evaluation. FOR[facility]LY [facility] Past Medical History Medical History Anemia, unspecified Arthritis Atrial fibrillation Chronic anticoagulation Crohn's disease Degenerative joint disease Essential (primary) hypertension Malignant neoplasm of upper lobe, left bronchus or lung Status post radiation. Patient of Dr. Almodovar and Dr. Latif. Mixed hyperlipidemia Multiple sclerosis Spinal stenosis, lumbar Vancomycin resistant Enterococcus Surgical History Surgical History History of carpal tunnel release History of cataract extraction History of colonoscopy Family History Family History (Review
[2022-02-14] MEDS: ATORVASTATIN 20 MG TABLET PO (21:35)
[2022-02-14] MEDS: allopurinoL 100 MG TABLET PO (21:35)
[2022-02-15 05:44] VITALS: BP 100/49; PULSE 100; RESP 18; TEMP 36.4; O2SAT 100
--- NOTE | 2022-02-15 07:03 | WPDGIPROGNO ---
Progress Note: A&P Assessment and Plan (1) Anemia: Code(s): D64.9 - Anemia, unspecified Status: Acute Assessment and Plan: although her hemoglobin has dropped from 10.8-7.7, she has had no gross bleeding except that she said about a month ago she saw a large amount of red blood in her diaper that she had assumed was because a hemorrhoid had ruptured. Otherwise she does not have blood in her stools on a regular basis. Hemoccult done in the emergency room was positive. She will be scheduled for EGD and colonoscopy on Monday02/13/2022 after her hemoglobin dropped down to 7.7, it has been gradually increasing and now is 8.8 02/15/22 07:03 no complaints this morning. She has had no stool since the procedures yesterday. I discussed with her the findings, specifically the fact that she had a fairly good size gastric AVM which was cauterized. This was most likely the source of her recent bleeding and her anemia. She is tolerating regular diet. She can be discharged from my perspective. I would like to hold off on restarting Xarelto until tomorrow at the earliest. (2) Guaiac positive stools: Code(s): R19.5 - Other fecal abnormalities Status: Acute Assessment and Plan: This was done in the ER and was positive. She will be scheduled for EGD and colonoscopy. I will prep her over the weekend and anticipate procedure done Monday02/13/2022 I discussed the prep with her. She has had endoscopic procedures in the past and is familiar with them. 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 This is being held at the present time. 02/15/2022 okay to restart Xarelto tomorrow (4) Atrial fibrillation: Code(s): I48.91 - Unspecified atrial fibrillation Status: Acute Assessment and Plan: she is not symptomatic now. She is on Xarelto daily she is also on metoprolol, 150 mg per day (5) Crohn's disease: Code(s): K50.90 - Crohn's disease, unspecified, without complications Status: Acute Assessment and Plan: by her history, it does not sound like she has had a significant flare up of Crohn's disease however I suspect this may contribute to her anemia. 02/16/2020 to colonoscopy did not reveal any evidence of active Crohn's disease. (6) Multiple sclerosis: Code(s): G35 - Multiple sclerosis Status: Chronic Assessment and Plan: This has impaired her speech to some extent but she has seems fairly alert. Subjective Date/time seen: Radha Pineda is a 76 year old female ? who presented to the emergency room ? Two days ago because of increasing weakness, fatigue and felt that it was actually difficult for her to walk around.? She had recently been treated for urinary tract infection with 2 rounds of antibiotics.? She did have diarrhea with the 2nd round but normally her bowel movements are fairly regular.? She has not seen blood in her stools recently.? She does take Xarelto for chronic atrial fibrillation.? Her hemoglobin was 10.8 month ago it dropped to 8.2 and then 7.7 on this hospitalization.? She states that she has a long history of Crohn's disease she had originally been under the care of Dr. Jignesh Fabian;? her last colonoscopy was at least 20 years? ago? by Dr. Alas.? She has been on sulfasalazine for many years and she was told never to stop it.? She has not had recent abdominal pain weight loss nausea vomiting dysphagia or heartburn.? She denies any history of liver disease or pancreatic disease.? She is a resident of [facility] living in [place]. 02/13/22? 09:48? she is feeling good today.? She has no complaints.? She will be prepped today for endoscopy and colonoscopy to be done tomorrow to investigate her gastrointestinal blood loss. 02/15/22 07:0
--- NOTE | 2022-02-15 08:56 | WPDANESPN ---
Anes - Prog Note Post-Op Date/Time: 02/15/22 08:56 Vital Signs: Last Vital Signs Temp 36.4 C 02/15/22 05:44 Pulse 100 02/15/22 05:44 Resp 18 02/15/22 05:44 BP 100/49 L 02/15/22 05:44 Pulse Ox 100 02/15/22 05:44 O2 Del Method Room Air 02/14/22 20:00 Pain Score (VAS): 0 I/O: Intake & Output 02/14/22 02/15/22 02/15/22 23:59 07:59 15:59 Intake Total 340 50 0 Balance 340 50 0 Laboratory Tests 02/14/22 05:46 02/11/22 02:23 Patient Feedback: Patient satisfied with anesthetic care.
[2022-02-15 10:07] VITALS: PULSE 102
[2022-02-15] MEDS: METOPROLOL SUCCINATE EXT REL 50 MG TABCR 150 MG PO (10:07)
[2022-02-15] MEDS: PANTOPRAZOLE 40 MG TABLET PO (10:07)
[2022-02-15] MEDS: FOLIC ACID 1 MG TABLET PO ×2 (10:07→11:59)
--- NOTE | 2022-02-15 10:07 | PM.DS ---
DS: Admitting Diagnosis Discharge Date February 15, 2022 Admitting Diagnosis GI bleed DS: Discharge Diagnosis Discharge Diagnosis (1) Anemia: Code(s): D64.9 - Anemia, unspecified Status: Acute Assessment and Plan: C scope results. (2) Guaiac positive stools: Code(s): R19.5 - Other fecal abnormalities Status: Acute Assessment and Plan: See above (3) Atrial fibrillation: Code(s): I48.91 - Unspecified atrial fibrillation Status: Acute Assessment and Plan: Rate controlled with metoprolol and digoxin (therapeutic level today). Continue. (4) Chronic anticoagulation: Code(s): Z79.01 - alf (current) use of anticoagulants Status: Acute Assessment and Plan: Rivaroxaban on hold in light of the above. (5) Crohn's disease: Code(s): K50.90 - Crohn's disease, unspecified, without complications Status: Chronic Assessment and Plan: No recent issues according to the patient. Continue sulfasalazine. (6) Essential (primary) hypertension: Code(s): I10 - Essential (primary) hypertension Status: Chronic Assessment and Plan: Blood pressures were reviewed and they are stable. Antihypertensives will be reviewed and resumed as appropriate. (7) Multiple sclerosis: Code(s): G35 - Multiple sclerosis Status: Chronic Assessment and Plan: Subcutaneous glatiramer 3 times weekly. (8) Abnormal urinalysis: Code(s): R82.90 - Unspecified abnormal findings in urine Status: Acute Assessment and Plan: She has completed 2 rounds of antibiotics in the last month and she has no further symptoms to suggest active UTI. Urine culture obtained last week did grew out ESBL Klebsiella oxytoca. This is either a colonizer or a contaminated specimen (patient is incontinent and wears briefs which are frequently saturated; it does not sound as though she receives good yuri care). Long discussion with the patient and her family regarding yuri care. Due to her multiple sclerosis and bladder issues, she has had recurrent UTIs in the past and family requests urology consultation. DS: Summary Hospital Course Hospital Course: Patient is a 76-year-old female came into the hospital with dropped hemoglobin and found have positive stool blood. She underwent EGD and colonoscopy which only showed an AVM which is likely the source of her bleeding. This was cauterized. Her GI notes patient can be resumed on her Xarelto and be sent home. She has no complaints and is otherwise stable Time Spent with Patient Time attestation: Total time spent providing and/or coordinating discharge services: Exam Narrative: General: Thin, frail, chronically ill-appearing female in the semi-Taylor position in bed in no acute distress. She is nontoxic in appearance. Weight: 54.8 kg. BMI: 20.7. HEENT: Wearing glasses. PERRL, EOMI. Tacky mucous membranes. Neck: Supple. Respiratory: Respirations are nonlabored. Lungs are clear to auscultation bilaterally. Cardiovascular: Irregularly irregular rate and rhythm. Gastrointestinal: Abdomen is soft, nontender, and nondistended with positive bowel sounds. No CVA tenderness. Skin: Warm and dry. No rash or lesions on limited exam. Extremities: No cyanosis, clubbing, or edema. Radial and pedal pulses intact. Neurological: Alert and oriented Cranial nerves 2-12 are grossly intact. No gross focal deficits to casual conversation. Psychiatric: Pleasant and cooperative with appropriate mood and affect. Discharge Plan Discharge Attending physician on discharge: Waqas Burgos Consulting providers: Rey Winston ; Nelson Baker Discharging Clinician: Waqas Burgos Patient Disposition: [facility] Activity: no preference Diet: as tolerated Discharge Instructions: Urology Instructions: Call the office to schedule your Cystoscopy in th
[2022-02-15 10:08] VITALS: PULSE 102
[2022-02-15] MEDS: FUROSEMIDE 20 MG TABLET PO (10:08)
[2022-02-15] MEDS: DIGOXIN TAB 125 MCG TABLET PO (10:08)
[2022-02-15] MEDS: VERAPAMIL HCL ER 240 MG TABLET.ER PO (10:08)
[2022-02-15] MEDS: CHOLECALCIFEROL 1,000 UNITS TABLET 2000 UNITS PO (10:08)
[2022-02-15] MEDS: POTASSIUM CHLORIDE 10 MEQ TABLET.ER PO (11:58)
[2022-02-15] MEDS: sulfaSALAzine 500 MG TABLET PO (11:58)
[2022-02-15] MEDS: THIAMINE HCL 100 MG TABLET PO (11:59)
[2022-02-15] MEDS: CYANOCOBALAMIN 250 MCG TABLET PO (11:59)
== END 2022-02-15 14:10 | DRG 378 ==
LOC: ANHED 13:06 → ANH3MEDSUR 15:09
PROVIDERS: Internal Medicine Gastroenterology; Physician Assistant; Admitting Provider Chiropractor; Emergency Provider General Practice; PCP Family Medicine; Visit Provider Chiropractor
PROC: 0DJ08ZZ Inspection of Upper Intestinal Tract, Via Natural or Artificial Opening Endoscopic (ICD-10-PCS; CPT 43235; principal; 2022-02-14 14:00)
DX: K31.811 Angiodysplasia of stomach and duodenum with bleeding (principal); D62 Acute posthemorrhagic anemia; K50.90 Crohn's disease, unspecified, without complications; I48.20 Chronic atrial fibrillation, unspecified; S37.22XA Contusion of bladder, initial encounter; Z16.12 Extended spectrum beta lactamase (ESBL) resistance; Z20.822 Contact with and (suspected) exposure to COVID-19; K64.8 Other hemorrhoids; K57.30 Diverticulosis of large intestine without perforation or abscess without bleeding; K21.9 Gastro-esophageal reflux disease without esophagitis; G35 Multiple sclerosis; I10 Essential (primary) hypertension; N28.1 Cyst of kidney, acquired; R32 Unspecified urinary incontinence; R82.90 Unspecified abnormal findings in urine; M19.90 Unspecified osteoarthritis, unspecified site; E78.2 Mixed hyperlipidemia; M48.061 Spinal stenosis, lumbar region without neurogenic claudication; X58.XXXA Exposure to other specified factors, initial encounter; Z22.39 Carrier of other specified bacterial diseases; Z85.118 Personal history of other malignant neoplasm of bronchus and lung; Z79.01 Long term (current) use of anticoagulants; Z87.891 Personal history of nicotine dependence
CPT/HCPCS: 36415; 51701; 70450; 71045; 74178; 80053; 80162; 81001; 82274; 82607; 82728; 82746; 83540; 83550; 83735; 84443; 85014; 85018; 85025; 85027; 86850; 86900; 86901; 86920; 87086; 93005; 96374; 96375; 97166; 99285; A9270; C9113; C9803; G0378; J2704; J7120; Q9967; U0003; U0005

== ENCOUNTER 2022-05-17 09:18 | Outpatient (CLI) | payer MEDICARE, SELFPAY ==
--- NOTE | ~2022-05-17 | CT_ITS ---
EXAMINATION: CT diagnostic chest wo con DATE: 05/17/2022 09:49 INDICATION: Malignant neoplasm of the left upper lobe TECHNIQUE: Computed tomography (CT) of the chest was performed without intravenous contrast. The dose -length product (DLP) was 148.52 mGy-cm. Automated exposure control iterative reconstruction techniqu e were employed. COMPARISON: 12/20/2021 FINDINGS: There are increasing airspace opacities of the left lung apex. A confluent masslike opacity measures 4.4 x 3.3 cm now crosses the major fissure, involving the superior segment of the left lowe r lobe. There are stable small groundglass nodules of the right lung. There is a small right pleural effusion. No pathologically enlarged thoracic lymph nodes are identified. The heart size is normal. T here is a multinodular goiter. There is no pneumothorax. There is severe thoracic spondylosis. IMPRESSION: 1. Confluent left upper lobe airspace opacities with interval increase, likely worsening malignancy. Reviewed, dictated and finalized at location F. CAL OFFICE RECEPTIONIST
== END 2022-05-17 09:19 | disposition home or self-care (01) ==
PROVIDERS: PCP Family Medicine; Visit Provider Internal Medicine Hematology & Oncology
DX: C34.12 Malignant neoplasm of upper lobe, left bronchus or lung (principal)
CPT/HCPCS: 71250

== ENCOUNTER 2022-05-27 08:56 | Emergency (ER) | payer MEDICARE, SELFPAY ==
[2022-05-27] VITALS (10 sets, daily range): BP systolic 125–137; BP diastolic 62–74; PULSE 83–121; RESP 14–23; TEMP 37; O2SAT 97–100
--- NOTE | ~2022-05-27 | XR_ITS ---
XR chest 1V portable DATE: 05/27/2022 09:49 INDICATION: Weakness. History of left lung cancer, hypertension TECHNIQUE: Portable AP chest on 05/27/2022 at 0939 hours COMPARISON: 05/17/2022 CT chest FINDINGS: Ill-defined pulmonary mass density, left upper lobe, likely corresponding to clinically reported lung cancer. The lungs are clear of infiltrate or consolidation otherwise. No pleural effusion or pulmonary vascul ar congestion or pneumothorax. There is thoracic aortic calcification and mild unfolding. No hilar or mediastinal enlargement is evident. No suspicious osteolytic or osteoblastic lesions are noted. IMPRESSION: Left upper lobe lung mass, likely due to lung cancer Reviewed, dictated and finalized at location A. FEEDER
--- NOTE | 2022-05-27 09:03 | ECG_ITS ---
Measurements Intervals [place] Rate: 110 P: DE: 0 QRS: 31 QRSD: 78 T: -35 QT: 285 QTc: 387 Interpretive Statements ATRIAL FIBRILLATION WITH RAPID VENTRICULAR RESPONSE RSR' IN V1 OR V2, CONSIDER RIGHT VENTRICULAR HYPERTROPHY OR RIGHT VCD NONSPECIFIC ST & T-WAVE ABNORMALITY- INF/LAT LEADS BASELINE ARTIFACT- I, II, III, AVR, AVF, V1 ABNORMAL ECG COMPARED TO ECG 02/10/2022 13:51:39 HEART RATE HAS INCREASED Electronically Signed On 05-27-2022 9:57:14 CIVIL RIGHTS INVESTIGATOR by Gunnar Aguilar D.O.
--- NOTE | 2022-05-27 09:10 | PC.NURSE ---
pt. stuck multiple times for blood, unsuccessful
[2022-05-27 10:03] LABS: Basophils Percent Auto 0.6 % (0.2-1.2); Eosinophils Percent Auto 0.2 % (0-4.4); Hematocrit 35.5 % (37.0-47.0); Hemoglobin 11.2 g/dL (12.0-15.0); Immature Granulocyte Absolute 0.01 K/mm3 (0.00-0.031); Immature Granulocyte Percent A 0.2 % (0-0.5); Lymphocytes Absolute Auto 1.01 K/mm3 (0.9-3.2); Lymphocytes Percent Auto 20.7 % (18.3-44.2); Mean Corpuscular HGB Conc 31.5 g/dl (32-36); Mean Corpuscular Hemoglobin 30.7 pg (26-34); Mean Corpuscular Volume 97.3 fl (80-100); Monocytes Absolute Auto 0.4 K/mm3 (0.1-0.6); Monocytes Percent Auto 7.2 % (2.6-8.5); Neutrophils Absolute Auto 3.5 K/mm3 (1.3-6.7); Neutrophils Percent Auto 71.1 % (45.5-73.1); Platelet Count Result 201 k/mm3 (150-375); Red Blood Count 3.65 M/mm3 (4.2-5.4); Red Cell Distribution Width 17.5 % (11.5-14.5); White Blood Count 4.9 K/mm3 (4.5-10.0)
--- NOTE | 2022-05-27 10:10 | ED.ARRPALP ---
HPI - Arrhythmia/Palpitations General Chief Complaint: Arrhythmia/Palpitations Stated Complaint: elevated HR Time Seen by Provider: 05/27/22 09:09 Source: patient, family, EMS, RN notes reviewed and old records reviewed Mode of arrival: EMS History of Present Illness HPI narrative: This is a 76 year old female with history of atrial fibrillation, MS, Uti who presents from [facility] for evaluation of an elevated heart rate. PAtient states this morning when they checked her vitals her heart rate was bouncing around and it was high. She does not feel like her heart is racing. She has not taken any of her morning medications. 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 Her director of digital technology is Dr. Diaz. She denies chest pain or sob or dizziness. She denies nausea, vomiting, diarrhea. She does report poor appetite Related Data Home Medications Medication Instructions Recorded Confirmed rivaroxaban 20 mg tablet (Xarelto) 20 mg PO DAILY 09/21/21 02/14/22 digoxin 250 mcg (0.25 mg) tablet 125 mcg PO DAILY 10/09/21 02/14/22 ferrous sulfate 325 mg (65 mg 65 mg PO DAILY 10/09/21 02/14/22 iron) tablet glatiramer 40 mg/mL subcutaneous 40 mg subcut QMWF 10/09/21 02/14/22 syringe acetaminophen 325 mg tablet 500 mg PO DAILY 02/10/22 02/14/22 (Tylenol) ammonium lactate 5 % lotion 1 applic topical PRN PRN Dry Skin 02/10/22 02/14/22 cholecalciferol (vitamin D3) 50 50 mcg PO DAILY 02/10/22 02/14/22 mcg (2,000 unit) tablet cyanocobalamin (vitamin B-12) 250 250 mcg PO DAILY 02/10/22 02/14/22 mcg tablet thiamine HCl (vitamin B1) 100 mg 100 mg PO DAILY 02/10/22 02/14/22 tablet Allergies Allergy/AdvReac Type Severity Reaction Status Date / Time codeine Allergy Unknown Unknown Verified 05/27/22 09:02 erythromycin base Allergy Unknown Unknown Verified 05/27/22 09:02 nitrofurantoin Allergy Unknown Unknown Verified 05/27/22 09:02 sulfisoxazole Allergy Unknown Unknown Verified 05/27/22 09:02 Sulfa (Sulfonamide Allergy Itching Verified 05/27/22 09:02 Antibiotics) Review of Systems Review of Systems: All systems reviewed & are unremarkable except as noted in HPI and below Constitutional: Constitutional: Denies chills, Reports fatigue and Denies fever(s) ENT: Denies nasal congestion Cardiovascular: Cardiovascular: Denies chest pain and Denies radiating jaw, neck or arm pain Respiratory: Respiratory: Denies chest congestion, Denies cough and Denies dyspnea Gastrointestinal: Gastrointestinal: Denies abdominal pain, Denies bloating, Denies nausea and Denies vomiting Genitourinary: Genitourinary: Denies genital lesions and Denies dysuria [facility] Past Medical History Medical History Anemia, unspecified Arthritis Atrial fibrillation Chronic anticoagulation Crohn's disease Degenerative joint disease Essential (primary) hypertension Malignant neoplasm of upper lobe, left bronchus or lung Status post radiation. Patient of Dr. Almodovar and Dr. Latif. Mixed hyperlipidemia Multiple sclerosis Spinal stenosis, lumbar Vancomycin resistant Enterococcus Surgical History Surgical History History of carpal tunnel release History of cataract extraction History of colonoscopy Family History Family History Son Diabetes mellitus Father Hypertension Mother Emphysema lung Sibling Heart disease History of quadruple bypass Social History Social History Social History: Surrogate medical decision maker: Braden Pineda, son. Code status: Full code. Smoking packs per day: 1 Smoking cigarettes per day: 20.0 Years smoked: 30 Smoking pack-years: 30.00 Smoking s
[2022-05-27 10:13] LABS: Alanine Aminotransferase 22 U/L (6-35); Albumin Level 4.2 g/dL (3.5-5.1); Alkaline Phosphatase 91 U/L (38-126); Anion Gap 10 mmol/L (8-16); Aspartate Amino Transferase 40 U/L (14-36); Bilirubin,Total 0.6 mg/dL (0.2-1.3); Blood Urea Nitrogen 12 mg/dL (7-17); Calcium 9.4 mg/dL (8.4-10.2); Carbon Dioxide 25 mmol/L (22-30); Chloride 101 mmol/L (98-107); Estimated Glomerular Filt Rate > 60; Glucose 88 mg/dL (65-110); Lipase 88 U/L (23-300); Potassium 4.5 mmol/L (3.4-5.0); Sodium 136 mmol/L (137-145)
[2022-05-27 10:17] LABS: INR 1.6; Prothrombin Time 18.4 Seconds (11.1-14.7)
[2022-05-27 10:18] LABS: Partial Thromboplastin Time 38.6 SECONDS (22.3-36.8)
[2022-05-27 10:25] LABS: NT Pro B Type Natriuretic Pept 4020 pg/mL (5-100); Troponin I < 0.012 ng/mL (0.000-0.034)
[2022-05-27 11:00] LABS: Digoxin 0.8 ng/mL (0.8-2.0)
[2022-05-27] MEDS: METOPROLOL SUCCINATE EXT REL 100 MG TABCR PO (12:24)
[2022-05-27] MEDS: DIGOXIN TAB 125 MCG TABLET PO (12:27)
[2022-05-27] MEDS: VERAPAMIL HCL ER 240 MG TABLET.ER PO (12:39)
[2022-05-27 13:41] LABS: Troponin I < 0.012 ng/mL (0.000-0.034)
[2022-05-27] MEDS: METOPROLOL SUCCINATE EXT REL 50 MG TABCR PO (14:18)
[2022-05-27] MEDS: METOPROLOL TARTRATE INJ 5 MG/5 ML VIAL IV PUSH (15:45)
== END 2022-05-27 17:45 ==
PROVIDERS: Emergency Provider General Practice; PCP Family Medicine
DX: I48.20 Chronic atrial fibrillation, unspecified (principal); E78.2 Mixed hyperlipidemia; G35 Multiple sclerosis; D64.9 Anemia, unspecified; I10 Essential (primary) hypertension; M19.90 Unspecified osteoarthritis, unspecified site; K50.90 Crohn's disease, unspecified, without complications; Z85.118 Personal history of other malignant neoplasm of bronchus and lung; Z98.49 Cataract extraction status, unspecified eye; Z87.891 Personal history of nicotine dependence; Z79.01 Long term (current) use of anticoagulants; R94.31 Abnormal electrocardiogram [ECG] [EKG]; R91.8 Other nonspecific abnormal finding of lung field
CPT/HCPCS: 36415; 71045; 80053; 80162; 83690; 83880; 84484; 85025; 85610; 85730; 93005; 96374; 99284; A9270

== ENCOUNTER 2022-06-17 12:51 | Outpatient (CLI) | payer MEDICARE, SELFPAY ==
[2022-06-17 13:05] LABS: Basophils Percent Auto 0.7 % (0.2-1.2); Eosinophils Absolute Auto 0.1 K/mm3 (0-0.3); Eosinophils Percent Auto 2.2 % (0-4.4); Hematocrit 34.6 % (37.0-47.0); Hemoglobin 10.8 g/dL (12.0-15.0); Immature Granulocyte Absolute 0.01 K/mm3 (0.00-0.031); Immature Granulocyte Percent A 0.2 % (0-0.5); Lymphocytes Absolute Auto 1.84 K/mm3 (0.9-3.2); Lymphocytes Percent Auto 30.6 % (18.3-44.2); Mean Corpuscular HGB Conc 31.2 g/dl (32-36); Mean Corpuscular Hemoglobin 30.9 pg (26-34); Mean Corpuscular Volume 98.9 fl (80-100); Mean Platelet Volume 12.8 fl (7.4-10.4); Monocytes Absolute Auto 0.6 K/mm3 (0.1-0.6); Monocytes Percent Auto 9.5 % (2.6-8.5); Neutrophils Absolute Auto 3.4 K/mm3 (1.3-6.7); Neutrophils Percent Auto 56.8 % (45.5-73.1); Platelet Count Result 76 k/mm3 (150-375); Red Cell Distribution Width 16.6 % (11.5-14.5)
[2022-06-17 13:10] LABS: Blood Urea Nitrogen 16 mg/dL (8-26); Carbon Dioxide 24 mmol/L (22-30); Chloride 102 mmol/L (98-109); Estimated Glomerular Filt Rate > 60; Glucose 131 mg/dL (70-105); Ionized Calcium (POC) 1.07 mmol/L (1.11-1.31); Potassium 3.9 mmol/L (3.5-4.9); Sodium 136 mmol/L (138-146)
[2022-06-17 15:19] LABS: Alanine Aminotransferase 39 U/L (6-35); Albumin Level 4.3 g/dL (3.5-5.1); Alkaline Phosphatase 82 U/L (38-126); Anion Gap 11 mmol/L (8-16); Aspartate Amino Transferase 53 U/L (14-36); Bilirubin,Total 0.5 mg/dL (0.2-1.3); Blood Urea Nitrogen 16 mg/dL (7-17); Calcium 8.5 mg/dL (8.4-10.2); Carbon Dioxide 22 mmol/L (22-30); Chloride 103 mmol/L (98-107); Estimated Glomerular Filt Rate > 60; Glucose 128 mg/dL (65-110); Potassium 3.9 mmol/L (3.4-5.0); Sodium 136 mmol/L (137-145)
== END 2022-06-17 12:52 | disposition home or self-care (01) ==
LOC: ANHLAB 12:53
PROVIDERS: PCP Family Medicine; Visit Provider Internal Medicine Hematology & Oncology
DX: C34.12 Malignant neoplasm of upper lobe, left bronchus or lung (principal)
CPT/HCPCS: 36415; 80047; 80053; 85025

== ENCOUNTER 2022-06-28 07:56 | Outpatient (CLI) | payer MEDICARE, SELFPAY ==
--- NOTE | ~2022-06-28 | PE_ITS ---
EXAMINATION: PET skull to mid thigh DATE: 06/28/2022 11:06 INDICATION: Malignant neoplasm of the left upper lobe TECHNIQUE: Blood glucose level was 90 mg/dL. 8.833 mCi of 18-fluorodeoxyglucose (18-FDG) was administ ered i.v. Low dose computed tomography (CT) images were acquired from the base of the brain to the pr oximal thighs for attenuation correction and anatomic localization. Positron emission tomography (PET ) images were acquired in the same distribution beginning 59 minutes after injection. The dose-length product (DLP) was 271.05 mGy-cm. COMPARISON: 05/04/[address] of the chest dated 05/17/2022 and 12/20/2021 FINDINGS: Head/neck: No abnormal FDG uptake is identified. Minimal FDG uptake in the oral cavity and vocal cord s is likely physiologic. Chest: There is a 4.4 x 3.5 cm masslike opacity in the left upper lobe. There is more confluent area of subpleural soft tissue density which crosses the major fissure, involving the superior segment of the left lower lobe. There is associated FDG uptake, particularly in the subpleural component, with a n SUV max of 3.2. A stable 4 mm groundglass nodule of the right upper lobe does not demonstrate defin ite FDG uptake. There is a small right pleural effusion. No pneumothorax is identified. No pathologic ally enlarged thoracic lymph nodes are identified. The heart size is normal. There is calcified coron bharath artery atherosclerosis. Multinodular goiter is noted. Abdomen/pelvis/proximal thighs: Physiologic FDG activity is present in the bowel and urinary tract. N o abnormal FDG uptake is identified. There is calcified atherosclerosis of the aorta and many of the other arteries. The liver, spleen, pancreas, gallbladder, and adrenal glands are normal. No pathologi tommy enlarged abdominal or pelvic lymph nodes are identified. There is no free intraperitoneal gas o r evidence of bowel obstruction. Musculoskeletal: No abnormal FDG uptake is identified. There is severe thoracic and lumbar spondylosi s. IMPRESSION: 1. Masslike opacity of the left lung apex with mild associated FDG uptake, likely treated malignancy and radiation change. Reviewed, dictated and finalized at location L. ETIC RESONANCE IMAGING COORDINATOR IMPRESSION: 1. Masslike opacity of the left lung apex with mild associated FDG uptake, like ly treated malignancy and radiation change.
[2022-06-28 08:14] LABS: Glucose Point of Care 90 mg/dl (65-105)
== END 2022-06-28 07:57 | disposition home or self-care (01) ==
LOC: ANHIMG 07:57
PROVIDERS: PCP Family Medicine; Visit Provider Internal Medicine Hematology & Oncology
DX: C34.12 Malignant neoplasm of upper lobe, left bronchus or lung (principal)
CPT/HCPCS: 78815; A9552

== ENCOUNTER 2022-07-20 11:46 | Emergency (ER) | payer MEDICARE, SELFPAY ==
[2022-07-20 12:10] VITALS: BP 135/70; PULSE 77; RESP 16; TEMP 36.6; O2SAT 98
[2022-07-20 13:24] LABS: Appearance Urine Cloudy (Clear); Bilirubin Urine Negative (Negative); Blood Urine 2+ (Negative); Color Urine Yellow (Yellow); Glucose Urine UA Negative (Negative); Ketones Urine Negative (Negative); Leukocyte Esterase Ur 3+ LEU/UL (Negative); Nitrate Urine Negative (Negative); Protein Urine 1+ mg/dL (Negative); Urobilinogen Urine 0.2 mg/dL (<2.0); pH Urine 5.5 (5.0-9.0)
[2022-07-20 13:31] LABS: Add Urine Microscopic? YES; Mucus Urine Rare /lpf; RBC Urine >75 /hpf (0-2); WBC Urine >75 /hpf
--- NOTE | 2022-07-20 15:24 | ED.FEMALEGU ---
HPI - Female Genitourinary General Chief complaint: Urogenital-Female Stated complaint: hematuria X1-2 weeks-denies pain Time Seen by Provider: 07/20/22 15:20 Source: patient Mode of arrival: EMS Limitations: no limitations History of Present Illness HPI Narrative: Patient is 76 years old white female came from custodial because of blood in urine with dysuria for a while. Patient denies any fever, chills, nausea, vomiting, diarrhea, constipation, abdominal pain, chest pain, shortness of breath, headache, lightheadedness or dizziness. Related Data Home Medications Medication Instructions Recorded Confirmed rivaroxaban 20 mg tablet (Xarelto) 20 mg PO DAILY 09/21/21 07/14/22 digoxin 250 mcg (0.25 mg) tablet 125 mcg PO DAILY 10/09/21 07/14/22 ferrous sulfate 325 mg (65 mg 65 mg PO DAILY 10/09/21 07/14/22 iron) tablet glatiramer 40 mg/mL subcutaneous 40 mg subcut QMWF 10/09/21 07/14/22 syringe acetaminophen 325 mg tablet 500 mg PO DAILY 02/10/22 07/14/22 (Tylenol) ammonium lactate 5 % lotion 1 applic topical PRN PRN Dry Skin 02/10/22 07/14/22 cholecalciferol (vitamin D3) 50 50 mcg PO DAILY 02/10/22 07/14/22 mcg (2,000 unit) tablet cyanocobalamin (vitamin B-12) 250 250 mcg PO DAILY 02/10/22 07/14/22 mcg tablet thiamine HCl (vitamin B1) 100 mg 100 mg PO DAILY 02/10/22 07/14/22 tablet Allergies Allergy/AdvReac Type Severity Reaction Status Date / Time codeine Allergy Unknown Unknown Verified 07/20/22 15:30 erythromycin base Allergy Unknown Unknown Verified 07/20/22 15:30 nitrofurantoin Allergy Unknown Unknown Verified 07/20/22 15:30 sulfisoxazole Allergy Unknown Unknown Verified 07/20/22 15:30 Sulfa (Sulfonamide Allergy Itching Verified 07/20/22 15:30 Antibiotics) Review of Systems Review of Systems: All systems reviewed & are unremarkable except as noted in HPI and below PMFSH Past Medical History Medical History Anemia, unspecified Arthritis Atrial fibrillation Chronic anticoagulation Crohn's disease Degenerative joint disease Essential (primary) hypertension Malignant neoplasm of upper lobe, left bronchus or lung Status post radiation. Patient of Dr. Almodovar and Dr. Latif. Mixed hyperlipidemia Multiple sclerosis Spinal stenosis, lumbar Vancomycin resistant Enterococcus Surgical History Surgical History History of carpal tunnel release History of cataract extraction History of colonoscopy Family History Family History Son Diabetes mellitus Father Hypertension Mother Emphysema lung Sibling Heart disease History of quadruple bypass Social History Social History Social History: Surrogate medical decision maker: Braden iPneda, son. Code status: Full code. Smoking packs per day: 1 Smoking cigarettes per day: 20.0 Years smoked: 30 Smoking pack-years: 30.00 Smoking status: Former smoker Tobacco type: cigarettes Second hand tobacco smoke exposure: Yes Alcohol intake: never Substance use: never Substance use type: marijuana Additional living arrangements comments: Assisted living at [facility]. 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 Spiritual care concerns: No Exam Narrative: General appearance: Well-developed, well-nourished Skin: Normal color Head: Normocephalic, nontraumatic Eyes: Clear conjunctiva ENT: Oropharynx normal, ears normal, nose normal Neck: Supple, nontender Chest and respiratory: Airway patent, no respiratory distress, no accessory muscle use Heart: Regular rate/rhythm Abdomen: Soft, nontender, no organomegaly, quiet bowel sounds Vascular: Normal peripheral pulses, normal capillary refill. Musculoskeletal: Normal range of motion, nontender back
[2022-07-20 15:30] VITALS: BP 125/53; PULSE 91; RESP 18; O2SAT 99
[2022-07-20] MEDS: CIPROFLOXACIN 500 MG TAB PO (15:30)
[2022-07-20 15:46] LABS: Basophils Absolute Auto 0.1 K/mm3 (0.0-0.1); Basophils Percent Auto 0.8 % (0.2-1.2); Eosinophils Absolute Auto 0.1 K/mm3 (0-0.3); Eosinophils Percent Auto 1.7 % (0-4.4); Hematocrit 36.4 % (37.0-47.0); Hemoglobin 11.4 g/dL (12.0-15.0); Immature Granulocyte Absolute 0.02 K/mm3 (0.00-0.031); Immature Granulocyte Percent A 0.3 % (0-0.5); Lymphocytes Absolute Auto 2.07 K/mm3 (0.9-3.2); Mean Corpuscular HGB Conc 31.3 g/dl (32-36); Mean Corpuscular Hemoglobin 30.1 pg (26-34); Mean Platelet Volume 9.6 fl (7.4-10.4); Monocytes Absolute Auto 0.5 K/mm3 (0.1-0.6); Monocytes Percent Auto 8.4 % (2.6-8.5); Neutrophils Absolute Auto 3.7 K/mm3 (1.3-6.7); Neutrophils Percent Auto 56.8 % (45.5-73.1); Platelet Count Result 276 k/mm3 (150-375); Red Blood Count 3.79 M/mm3 (4.2-5.4); Red Cell Distribution Width 16.5 % (11.5-14.5); White Blood Count 6.5 K/mm3 (4.5-10.0)
[2022-07-20 15:56] LABS: Anion Gap 5 mmol/L (8-16); Blood Urea Nitrogen 16 mg/dL (7-17); Calcium 9.1 mg/dL (8.4-10.2); Carbon Dioxide 33 mmol/L (22-30); Chloride 100 mmol/L (98-107); Estimated Glomerular Filt Rate > 60; Glucose 88 mg/dL (65-110); Potassium 3.8 mmol/L (3.4-5.0); Sodium 138 mmol/L (137-145)
[2022-07-20 16:58] VITALS: BP 130/66; PULSE 61; RESP 18; O2SAT 99
== END 2022-07-20 17:36 ==
PROVIDERS: Family Medicine; Emergency Provider Emergency Medicine; PCP Family Medicine
DX: N39.0 Urinary tract infection, site not specified (principal); I48.91 Unspecified atrial fibrillation; I10 Essential (primary) hypertension; E78.2 Mixed hyperlipidemia; Z85.118 Personal history of other malignant neoplasm of bronchus and lung; Z79.01 Long term (current) use of anticoagulants; Z87.891 Personal history of nicotine dependence
CPT/HCPCS: 36415; 51701; 80048; 81001; 85025; 87086; 87088; 96365; 99284; A9270; J0696

== ENCOUNTER 2022-10-10 08:20 | Outpatient (CLI) | payer MEDICARE, SELFPAY ==
--- NOTE | ~2022-10-10 | CT_ITS ---
EXAMINATION: CT diagnostic chest wo con DATE: 10/10/2022 08:53 INDICATION: Malignant neoplasm of the upper lobe. TECHNIQUE: Computed tomography (CT) of the chest was performed without intravenous contrast. The dose -length product was 166.49 mGy-cm. Automated exposure control and iterative reconstruction technique were employed. COMPARISON: CT dated 05/17/2022 FINDINGS: Small right pleural effusion. Heart size normal. No significant pericardial effusion. No th oracic lymphadenopathy. Trace left pleural effusion. No significant change to left upper lobe mass me asuring 4.4 x 3.3 cm. There are are internal air bronchograms. There are small upper lobe nodules juju suring 3 mm or less. Moderate thoracic and upper lumbar spondylosis. Chronic L1 superior endplate com pression deformity. No focal lytic or blastic lesions. No endobronchial lesions. No pneumothorax. IMPRESSION: 1. No significant change to left upper lobe mass, likely known treated malignancy. Stable small bilat eral pulmonary nodules measuring 3 mm or less. 2: Stable small pleural effusions. Reviewed, dictated and finalized at location B. IMPRESSION: 1. No significant change to left upper lobe mass, likely known treated malignan cy. Stable small bilateral pulmonary nodules measuring 3 mm or less. 2: Stable small pleural effusions.
== END 2022-10-10 08:21 | disposition home or self-care (01) ==
LOC: ANHIMG 08:25
PROVIDERS: PCP Family Medicine; Visit Provider Radiology Radiation Oncology
DX: C34.12 Malignant neoplasm of upper lobe, left bronchus or lung (principal); J90 Pleural effusion, not elsewhere classified
CPT/HCPCS: 71250

== ENCOUNTER 2022-10-14 16:22 | Emergency (ER) | payer MEDICARE, SELFPAY ==
[2022-10-14 16:23] VITALS: BP 118/53; PULSE 51; RESP 16; TEMP 36.7; O2SAT 100
--- NOTE | 2022-10-14 17:32 | ED.FEMALEGU ---
HPI - Female Genitourinary General Chief complaint: Urogenital-Female Stated complaint: blood in urine Time Seen by Provider: 10/14/22 16:55 Source: patient Mode of arrival: ambulatory Limitations: no limitations History of Present Illness HPI Narrative: This is a 77-year-old female with PMH of lumbar stenosis, multiple sclerosis, lung cancer, A-fib who presents to the ED via EMS from her assisted living facility for hematuria. They spotted puddles of blood in her seat. Her son is here and supplementing history. Patient tells me that she is asymptomatic at this time. She denies any urinary frequency or burning. Patient denies abdominal pain, chest pain, shortness of breath, fevers, new onset fatigue. States she is always tired with her MS. Family states that she is completely at her mental status baseline. Related Data Home Medications Medication Instructions Recorded Confirmed rivaroxaban 20 mg tablet (Xarelto) 20 mg PO DAILY 09/21/21 10/13/22 digoxin 250 mcg (0.25 mg) tablet 125 mcg PO DAILY 10/09/21 10/13/22 ferrous sulfate 325 mg (65 mg 65 mg PO DAILY 10/09/21 10/13/22 iron) tablet glatiramer 40 mg/mL subcutaneous 40 mg subcut QMWF 10/09/21 10/13/22 syringe acetaminophen 325 mg tablet 500 mg PO DAILY 02/10/22 10/13/22 (Tylenol) ammonium lactate 5 % lotion 1 applic topical PRN PRN Dry Skin 02/10/22 10/13/22 cyanocobalamin (vitamin B-12) 250 250 mcg PO DAILY 02/10/22 10/13/22 mcg tablet thiamine HCl (vitamin B1) 100 mg 100 mg PO DAILY 02/10/22 10/13/22 tablet ascorbic acid (vitamin C) 500 mg 500 mg PO .QD 07/25/22 10/13/22 tablet cholecalciferol (vitamin D3) 125 125 mcg PO .QD 07/25/22 10/13/22 mcg (5,000 unit) capsule Allergies Allergy/AdvReac Type Severity Reaction Status Date / Time codeine Allergy Unknown Unknown Verified 10/13/22 10:15 erythromycin base Allergy Unknown Unknown Verified 10/13/22 10:15 nitrofurantoin Allergy Unknown Unknown Verified 10/13/22 10:15 sulfisoxazole Allergy Unknown Unknown Verified 10/13/22 10:15 Sulfa (Sulfonamide Allergy Itching Verified 10/13/22 10:15 Antibiotics) Review of Systems Review of Systems: CONSTITUTIONAL: Denies fever, chills, or sweats. EYES: Denies visual changes, redness, or discharge. ENT: Denies rhinorrhea, congestion, sore throat, or otalgia. CARDIOVASCULAR: Denies chest pain, palpitations, or edema. RESPIRATORY: Denies cough or dyspnea. GASTROINTESTINAL: Denies abdominal pain, nausea, vomiting, or diarrhea. GENITOURINARY: See HPI SKIN: Denies rash or itching. MUSCULOSKELETAL: Denies back pain, joint pain, or myalgia. NEUROLOGIC: Denies headache, numbness, dizziness, or weakness. PSYCHIATRIC: Denies anxiety or depression. [facility] Past Medical History Medical History (Updated 10/14/22 @ 18:03 by Matheus Rodriguez PA-C) Anemia, unspecified Arthritis Atrial fibrillation Chronic anticoagulation Crohn's disease Degenerative joint disease Dysphagia Essential (primary) hypertension Malignant neoplasm of upper lobe, left bronchus or lung Status post radiation. Patient of Dr. Almodovar and Dr. Latif. Mixed hyperlipidemia Multiple sclerosis Spinal stenosis, lumbar Vancomycin resistant Enterococcus Surgical History Surgical History History of carpal tunnel release History of cataract extraction History of colonoscopy Family History Family History Son Diabetes mellitus Father Hypertension Mother Emphysema lung Sibling Heart disease History of quadruple bypass Social History Social History Social History: Surrogate medical decision maker: Braden Pineda, son. Code status: Full code. Smoking packs per day: 1 Smoking cigarettes per day: 20.0 Years smoked: 30 Smoking pack-years: 30.00 Smoking status: Former smoker Tobacco type:
[2022-10-14 17:42] LABS: Appearance Urine Turbid (Clear); Bacteria Urine None Seen /hpf; Bilirubin Urine 1+ (Negative); Blood Urine 3+ (Negative); Color Urine Dark Yellow (Yellow); Glucose Urine UA Negative (Negative); Ketones Urine Negative (Negative); Leukocyte Esterase Ur 2+ LEU/UL (Negative); Need Manual Microscopic Reviewed; Nitrate Urine Negative (Negative); Protein Urine 2+ mg/dL (Negative); RBC Urine >100 /hpf (0-2); Specific Grav Ur 1.019 (1.001-1.035); Squamous Epithelial Cell Urine Occasional /hpf (Few)
[2022-10-14 17:46] LABS: Add Urine Microscopic? YES
== END 2022-10-14 20:05 ==
PROVIDERS: Emergency Provider Physician Assistant; PCP Family Medicine
DX: N30.01 Acute cystitis with hematuria (principal); G35 Multiple sclerosis; I48.91 Unspecified atrial fibrillation; I10 Essential (primary) hypertension; E78.2 Mixed hyperlipidemia; K50.90 Crohn's disease, unspecified, without complications; Z86.2 Personal history of diseases of the blood and blood-forming organs and certain disorders involving the immune mechanism; Z85.118 Personal history of other malignant neoplasm of bronchus and lung; Z87.891 Personal history of nicotine dependence; Z98.49 Cataract extraction status, unspecified eye; Z79.01 Long term (current) use of anticoagulants
CPT/HCPCS: 81001; 87086; 99283

== ENCOUNTER 2022-11-05 11:20 | Emergency (ER) | payer MEDICARE, SELFPAY ==
[2022-11-05] VITALS (9 sets, daily range): BP systolic 101–127; BP diastolic 48–68; PULSE 92–130; RESP 12–17; TEMP 36.5; O2SAT 96–99
--- NOTE | ~2022-11-05 | CT_ITS ---
EXAMINATION: CT abdomen pelvis w con DATE: 11/05/2022 14:24 INDICATION: Hematuria. TECHNIQUE: Computed tomography (CT) of the abdomen and pelvis was performed with 100 mL Omnipaque 350 intravenous contrast. Automated exposure control and iterative reconstruction technique were employe d. The dose-length product was 539.28 mGy-cm. COMPARISON: CT abdomen and pelvis 02/11/2022 FINDINGS: The visualized portions of the lung bases demonstrate small pleural effusions, right worse than left. There is dependent atelectasis bilaterally. Cardiomegaly is noted. There are coronary moiz ry calcifications. No pericardial effusion. There are cysts in the liver measuring up to 3 mm. The ga llbladder, spleen, pancreas, and adrenal glands are normal. There are cysts in the kidneys measuring up to 11 mm on the right. There is no urolithiasis. There is a large volume of stool in the colon. Th ere are no dilated loops of bowel. The appendix is not visualized. There is calcified atherosclerosis of the aorta and many of the other arteries. There are no pathologically enlarged lymph nodes. There is no free intraperitoneal fluid. There is severe lumbar spondylosis. IMPRESSION: 1. Small pleural effusions. Reviewed, dictated and finalized at location A. IMPRESSION: 1. Small pleural effusions.
--- NOTE | 2022-11-05 12:04 | ED.FEMALEGU ---
HPI - Female Genitourinary General Chief complaint: Urogenital-Female <Evon Mac PA-C - Last Filed: 11/05/22 18:44> Stated complaint: hematuria <Evon Mac PA-C - Last Filed: 11/05/22 18:44> Time Seen by Provider: 11/05/22 11:46 <Evon Mac PA-C - Last Filed: 11/05/22 18:44> History of Present Illness HPI Narrative: Patient is a 77-year-old female with a history of MS here for evaluation of hematuria x1 day. Patient states that while staff was changing her diaper this morning they noticed a small amount of blood in her urine. Has a history of self-reported UTIs that have presented with hematuria, most recently at the beginning of October. Per chart review her cultures have never grown any bacteria. She states that she seen Dr. Baxter, urology, in the past and was told that her hematuria/frequent UTI may be due to MS. She does take Xarelto for A-fib. She denies any back pain, abdominal pain, fevers, chills, nausea or vomiting. No chest pain, shortness of breath, fevers or chills. She feels well. <Evon Mac PA-C - Last Filed: 11/05/22 18:44> Related Data Home medications: Home Medications Medication Instructions Recorded Confirmed rivaroxaban 20 mg tablet (Xarelto) 20 mg PO DAILY 09/21/21 10/13/22 digoxin 250 mcg (0.25 mg) tablet 125 mcg PO DAILY 10/09/21 10/13/22 ferrous sulfate 325 mg (65 mg 65 mg PO DAILY 10/09/21 10/13/22 iron) tablet glatiramer 40 mg/mL subcutaneous 40 mg subcut QMWF 10/09/21 10/13/22 syringe acetaminophen 325 mg tablet 500 mg PO DAILY 02/10/22 10/13/22 (Tylenol) ammonium lactate 5 % lotion 1 applic topical PRN PRN Dry Skin 02/10/22 10/13/22 cyanocobalamin (vitamin B-12) 250 250 mcg PO DAILY 02/10/22 10/13/22 mcg tablet thiamine HCl (vitamin B1) 100 mg 100 mg PO DAILY 02/10/22 10/13/22 tablet ascorbic acid (vitamin C) 500 mg 500 mg PO .QD 07/25/22 10/13/22 tablet cholecalciferol (vitamin D3) 125 125 mcg PO .QD 07/25/22 10/13/22 mcg (5,000 unit) capsule <Evon Mac PA-C - Last Filed: 11/05/22 18:44> Allergies/Adverse reactions: Allergies Allergy/AdvReac Type Severity Reaction Status Date / Time codeine Allergy Unknown Unknown Verified 10/13/22 10:15 erythromycin base Allergy Unknown Unknown Verified 10/13/22 10:15 nitrofurantoin Allergy Unknown Unknown Verified 10/13/22 10:15 sulfisoxazole Allergy Unknown Unknown Verified 10/13/22 10:15 Sulfa (Sulfonamide Allergy Itching Verified 10/13/22 10:15 Antibiotics) <Evon Mac PA-C - Last Filed: 11/05/22 18:44> Review of Systems Review of Systems: Gen.: Denies fevers or chills Eyes: Denies eye pain or visual change ENT: Denies congestion Respiratory: Denies shortness of breath or cough CV: Denies chest pain or palpitations GI: Denies abdominal pain nausea, emesis or diarrhea reports hematuria. Denies burning, urgency, frequency or hematuria Musculoskeletal: Denies back pain or muscle pain Neuro: Denies numbness, tingling, weakness or focal weakness Skin: Denies rash Except as documented, all other systems reviewed and negative <Evon Mac PA-C - Last Filed: 11/05/22 18:44> [facility] Past Medical History Medical History: Medical History Anemia, unspecified Arthritis Atrial fibrillation Chronic anticoagulation Crohn's disease Degenerative joint disease Dysphagia Essential (primary) hypertension Malignant neoplasm of upper lobe, left bronchus or lung Status post radiation. Patient of Dr. Almodovar and Dr. Latif. Mixed hyperlipidemia Multiple sclerosis Spinal stenosis, lumbar Vancomycin resistant Enterococcus <Evon Mac PA-C - Last Filed: 11/05/22 18:44> Surgical History Surgical History: Surgical History History of carpal tunnel release History of c
[2022-11-05 12:31] LABS: Appearance Urine Clear (Clear); Bacteria Urine None Seen /hpf; Bilirubin Urine Negative (Negative); Blood Urine 3+ (Negative); Color Urine Yellow (Yellow); Glucose Urine UA Negative (Negative); Ketones Urine Negative (Negative); Leukocyte Esterase Ur Trace LEU/UL (Negative); Need Manual Microscopic Reviewed; Nitrate Urine Negative (Negative); Non Pathogenic Casts 0-2; Protein Urine Trace mg/dL (Negative); RBC Urine >100 /hpf (0-2); Specific Grav Ur 1.007 (1.001-1.035); Squamous Epithelial Cell Urine None seen /hpf (Few); Urobilinogen Urine 0.2 mg/dL (<2.0); WBC Urine 0-5 /hpf
[2022-11-05 12:44] LABS: Basophils Percent Auto 0.7 % (0.2-1.2); Eosinophils Absolute Auto 0.1 K/mm3 (0-0.3); Hematocrit 33.9 % (37.0-47.0); Hemoglobin 10.7 g/dL (12.0-15.0); Immature Granulocyte Absolute 0.01 K/mm3 (0.00-0.031); Immature Granulocyte Percent A 0.2 % (0-0.5); Lymphocytes Absolute Auto 1.29 K/mm3 (0.9-3.2); Lymphocytes Percent Auto 21.6 % (18.3-44.2); Mean Corpuscular HGB Conc 31.6 g/dl (32-36); Mean Corpuscular Hemoglobin 32.3 pg (26-34); Mean Corpuscular Volume 102.4 fl (80-100); Mean Platelet Volume 10.4 fl (7.4-10.4); Monocytes Absolute Auto 0.6 K/mm3 (0.1-0.6); Monocytes Percent Auto 10.5 % (2.6-8.5); Platelet Count Result 282 k/mm3 (150-375); Red Blood Count 3.31 M/mm3 (4.2-5.4); Red Cell Distribution Width 17.8 % (11.5-14.5)
[2022-11-05 12:44] LABS: Add Urine Microscopic? YES
--- NOTE | 2022-11-05 12:54 | PC.NURSE ---
lab called for redraw of green and woo top.
[2022-11-05 12:55] LABS: INR 1.3; Prothrombin Time 17.4 Seconds (11.1-14.7)
[2022-11-05 12:56] LABS: Partial Thromboplastin Time 37.3 SECONDS (22.3-36.8)
[2022-11-05] MEDS: HYDROcodone/acetaminophen (*CRX) 5-325 MG TABLET 1 TAB PO (13:01)
[2022-11-05] MEDS: SODIUM CHLORIDE 0.9% IV 1,000 ML 999 ML IV CONT (13:03)
[2022-11-05 13:26] LABS: Alanine Aminotransferase 29 U/L (6-35); Albumin Level 3.7 g/dL (3.5-5.1); Alkaline Phosphatase 73 U/L (38-126); Anion Gap 6 mmol/L (8-16); Aspartate Amino Transferase 57 U/L (14-36); Bilirubin,Total 0.7 mg/dL (0.2-1.3); Blood Urea Nitrogen 14 mg/dL (7-17); Calcium 8.4 mg/dL (8.4-10.2); Carbon Dioxide 27 mmol/L (22-30); Chloride 103 mmol/L (98-107); Creatine Kinase 121 U/L (30-135); Estimated CRCL calculation 53 ml/min; Estimated Glomerular Filt Rate > 60; Glucose 101 mg/dL (65-110); Potassium 3.7 mmol/L (3.4-5.0); Sodium 136 mmol/L (137-145)
[2022-11-05 13:30] LABS: Lactic Acid Reflex 2.3 mmol/L (0.7-2.0)
--- NOTE | 2022-11-05 14:28 | ECG_ITS ---
Measurements Intervals [place] Rate: 98 P: MO: 0 QRS: 66 QRSD: 83 T: 9 QT: 328 QTc: 420 Interpretive Statements ATRIAL FIBRILLATION LOW QRS VOLTAGE IN PRECORDIAL LEADS CANNOT RULE OUT SEPTAL INFARCT, AGE INDETERMINATE BORDERLINE ST-T WAVE ABNORMALITY- ANT/INF LEADS BASELINE ARTIFACT- I, II, III, AVR, AVL, AVF, V1-V4 ABNORMAL ECG COMPARED TO ECG 05/27/2022 09:02:24 HEART RATE HAS DECREASED Electronically Signed On 11-05-2022 16:01:04 CDT by Gunnar Aguilar D.O.
--- NOTE | 2022-11-05 15:11 | PC.NURSE ---
[facility] return to [facility] eta 17p trip # [phone]
[2022-11-05] MEDS: METOPROLOL TARTRATE INJ 5 MG/5 ML VIAL IV PUSH ×2 (15:21→15:36)
[2022-11-05] MEDS: METOPROLOL SUCCINATE EXT REL 50 MG TABCR PO (16:13)
[2022-11-05 16:18] LABS: Reflex Lactic Acid Yes or No Add Lactic
--- NOTE | 2022-11-05 16:35 | PC.NURSE ---
[facility] Trip # [id number] cancelled per Bhavana pt may be admitted
[2022-11-05 16:39] LABS: Magnesium 1.7 mg/dL (1.6-2.3)
--- NOTE | 2022-11-05 16:50 | PC.NURSE ---
[facility] to [facility] ETA 1730 Trip # [id number]
[2022-11-05 16:55] LABS: Digoxin < 0.5 ng/mL (0.8-2.0)
== END 2022-11-05 18:09 ==
PROVIDERS: Emergency Provider Physician Assistant; PCP Family Medicine
DX: R31.9 Hematuria, unspecified (principal); G35 Multiple sclerosis; I48.91 Unspecified atrial fibrillation; D64.9 Anemia, unspecified; K50.90 Crohn's disease, unspecified, without complications; I10 Essential (primary) hypertension; E78.2 Mixed hyperlipidemia; M19.90 Unspecified osteoarthritis, unspecified site; Z98.49 Cataract extraction status, unspecified eye; Z85.118 Personal history of other malignant neoplasm of bronchus and lung; Z87.891 Personal history of nicotine dependence; Z79.01 Long term (current) use of anticoagulants
CPT/HCPCS: 36415; 74177; 80053; 80162; 81001; 82550; 83605; 83735; 85025; 85610; 85730; 93005; 96361; 96374; 96375; 99284; A9270; J7030; Q9967

== ENCOUNTER 2022-12-06 20:54 | Inpatient (IN) | payer MEDICARE, SELFPAY ==
--- NOTE | ~2022-12-06 | XR_ITS ---
EXAMINATION: XR chest 1V portable INDICATION: Chest pain TECHNIQUE: Portable AP chest at 2148 hours COMPARISON: 05/27/2022 FINDINGS: There is a stable mass of the left upper lobe, consistent with known malignancy. No acute a irspace opacities are identified. No pleural effusion or pneumothorax. The cardiomediastinal silhouet te is normal. IMPRESSION: 1. No acute cardiopulmonary abnormality. 2. Stable left upper lobe mass. Reviewed, dictated and finalized at location F.
[2022-12-06 21:00] VITALS: BP 105/60; PULSE 91; RESP 20; TEMP 36.4; O2SAT 100
--- NOTE | 2022-12-06 21:28 | PC.NURSE ---
Pt has a history of afib and takes blood thinners. media monitor shows afib with a rate between 110-130.
[2022-12-06 21:31] VITALS: BP 101/73; PULSE 132; RESP 20; O2SAT 99
--- NOTE | 2022-12-06 21:34 | ECG_ITS ---
Measurements Intervals [place] Rate: 137 P: [place]: 0 QRS: 80 QRSD: 96 T: 7 QT: 298 QTc: 451 Interpretive Statements ATRIAL FIBRILLATION WITH RAPID VENTRICULAR RESPONSE INCOMPLETE RIGHT BUNDLE BRANCH BLOCK [90+ ms QRS DURATION, TERMINAL R IN V1/V2, 40+ ms S IN I/aVL/V4/V5/V6] ABNORMAL RHYTHM ECG COMPARED TO ECG 11/05/2022 14:45:56 INCOMPLETE RIGHT BUNDLE-BRANCH BLOCK NOW PRESENT Electronically Signed On 12-07-2022 9:37:30 CDT by Santana Newman M.D.
[2022-12-06 21:40] LABS: Appearance Urine Turbid (Clear); Bacteria Urine 4+ /hpf; Bilirubin Urine Negative (Negative); Blood Urine 3+ (Negative); Color Urine Dark Yellow (Yellow); Glucose Urine UA Negative (Negative); Ketones Urine Negative (Negative); Leukocyte Esterase Ur 3+ LEU/UL (Negative); Need Manual Microscopic Reviewed; Nitrate Urine Negative (Negative); Protein Urine 3+ mg/dL (Negative); RBC Urine >100 /hpf (0-2); Squamous Epithelial Cell Urine Moderate /hpf (Few); Urobilinogen Urine 0.2 mg/dL (<2.0); WBC Urine >100 /hpf; pH Urine 5.5 (5.0-9.0)
[2022-12-06 21:41] LABS: Add Urine Microscopic? YES
[2022-12-06] MEDS: SODIUM CHLORIDE 0.9% IV 1,000 ML 999 ML IV CONT (22:01)
[2022-12-06 22:02] VITALS: BP 148/84; PULSE 133; RESP 16; O2SAT 97
[2022-12-06 22:12] LABS: Basophils Absolute Auto 0.1 K/mm3 (0.0-0.1); Basophils Percent Auto 0.8 % (0.2-1.2); Eosinophils Absolute Auto 0.2 K/mm3 (0-0.3); Eosinophils Percent Auto 2.7 % (0-4.4); Hematocrit 36.2 % (37.0-47.0); Hemoglobin 11.6 g/dL (12.0-15.0); Immature Granulocyte Absolute 0.02 K/mm3 (0.00-0.031); Immature Granulocyte Percent A 0.3 % (0-0.5); Lymphocytes Absolute Auto 1.66 K/mm3 (0.9-3.2); Lymphocytes Percent Auto 26.5 % (18.3-44.2); Mean Corpuscular Hemoglobin 30.6 pg (26-34); Mean Corpuscular Volume 95.5 fl (80-100); Mean Platelet Volume 10.1 fl (7.4-10.4); Monocytes Absolute Auto 0.8 K/mm3 (0.1-0.6); Monocytes Percent Auto 12.6 % (2.6-8.5); Neutrophils Absolute Auto 3.6 K/mm3 (1.3-6.7); Neutrophils Percent Auto 57.1 % (45.5-73.1); Platelet Count Result 233 k/mm3 (150-375); Red Blood Count 3.79 M/mm3 (4.2-5.4); Red Cell Distribution Width 15.7 % (11.5-14.5); White Blood Count 6.3 K/mm3 (4.5-10.0)
[2022-12-06 22:14] LABS: Glucose Point of Care 80 mg/dl (65-105)
--- NOTE | 2022-12-06 22:17 | PC.NURSE ---
Lab rejected one set of blood cultures. Called phlebotomy for redraw d/t pt is a difficult stick. States they will come draw it.
[2022-12-06 22:31] LABS: NT Pro B Type Natriuretic Pept 2310 pg/mL (19.9-100)
[2022-12-06 22:32] VITALS: BP 91/38; PULSE 130; RESP 20; O2SAT 98
[2022-12-06 22:33] LABS: Alanine Aminotransferase 25 U/L (6-35); Albumin Level 4.3 g/dL (3.5-5.1); Alkaline Phosphatase 98 U/L (38-126); Anion Gap 10 mmol/L (8-16); Aspartate Amino Transferase 39 U/L (14-36); Bilirubin,Total 0.5 mg/dL (0.2-1.3); Blood Urea Nitrogen 25 mg/dL (7-17); Calcium 9.2 mg/dL (8.4-10.2); Carbon Dioxide 27 mmol/L (22-30); Chloride 101 mmol/L (98-107); Creatine Kinase 91 U/L (30-135); Estimated CRCL calculation 46 ml/min; Estimated Glomerular Filt Rate > 60; Glucose 81 mg/dL (65-110); Lipase 151 U/L (23-300); Magnesium 1.9 mg/dL (1.6-2.3); Phosphorus 4.2 mg/dL (2.5-4.5); Potassium 3.8 mmol/L (3.4-5.0); Sodium 138 mmol/L (137-145)
[2022-12-06 22:43] LABS: Troponin I < 0.012 ng/mL (0.000-0.034)
[2022-12-06 22:54] LABS: Influenza A QL RT-PCR Negative (Negative); Influenza B QL RT-PCR Negative (Negative); RSV RNA, RT-PCR Negative (Negative); SARS-CoV-2 RNA PCR Negative (Negative)
--- NOTE | 2022-12-06 23:27 | ED.GENADULT ---
HPI - General Adult General Chief complaint: Urogenital-Female Stated complaint: BURNING W/ URINATION, BLOOD IN URINE Time Seen by Provider: 12/06/22 21:07 History of Present Illness HPI narrative: This is a 77-year-old female with history of MS presenting to the ED with dysuria. Patient has severe MS and is debilitated. She lives in assisted living. She denies fever/chills/nausea/vomiting/ chest pain/difficulty breathing or diarrhea. Related Data Home Medications Medication Instructions Recorded Confirmed rivaroxaban 20 mg tablet (Xarelto) 20 mg PO DAILY 09/21/21 10/13/22 digoxin 250 mcg (0.25 mg) tablet 125 mcg PO DAILY 10/09/21 10/13/22 ferrous sulfate 325 mg (65 mg 65 mg PO DAILY 10/09/21 10/13/22 iron) tablet glatiramer 40 mg/mL subcutaneous 40 mg subcut QMWF 10/09/21 10/13/22 syringe acetaminophen 325 mg tablet 500 mg PO DAILY 02/10/22 10/13/22 (Tylenol) ammonium lactate 5 % lotion 1 applic topical PRN PRN Dry Skin 02/10/22 10/13/22 cyanocobalamin (vitamin B-12) 250 250 mcg PO DAILY 02/10/22 10/13/22 mcg tablet thiamine HCl (vitamin B1) 100 mg 100 mg PO DAILY 02/10/22 10/13/22 tablet ascorbic acid (vitamin C) 500 mg 500 mg PO .QD 07/25/22 10/13/22 tablet cholecalciferol (vitamin D3) 125 125 mcg PO .QD 07/25/22 10/13/22 mcg (5,000 unit) capsule Allergies Allergy/AdvReac Type Severity Reaction Status Date / Time codeine Allergy Unknown Unknown Verified 10/13/22 10:15 erythromycin base Allergy Unknown Unknown Verified 10/13/22 10:15 nitrofurantoin Allergy Unknown Unknown Verified 10/13/22 10:15 sulfisoxazole Allergy Unknown Unknown Verified 10/13/22 10:15 Sulfa (Sulfonamide Allergy Itching Verified 10/13/22 10:15 Antibiotics) PMFSH Past Medical History Medical History Anemia, unspecified Arthritis Atrial fibrillation Chronic anticoagulation Crohn's disease Degenerative joint disease Dysphagia Essential (primary) hypertension Malignant neoplasm of upper lobe, left bronchus or lung Status post radiation. Patient of Dr. Almodovar and Dr. Latif. Mixed hyperlipidemia Multiple sclerosis Spinal stenosis, lumbar Vancomycin resistant Enterococcus Surgical History Surgical History History of carpal tunnel release History of cataract extraction History of colonoscopy Family History Family History Son Diabetes mellitus Father Hypertension Mother Emphysema lung Sibling Heart disease History of quadruple bypass Social History Social History Social History: Surrogate medical decision maker: Braden Pineda, son. Code status: Full code. Smoking packs per day: 1 Smoking cigarettes per day: 20.0 Years smoked: 30 Smoking pack-years: 30.00 Smoking status: Former smoker Tobacco type: cigarettes Second hand tobacco smoke exposure: Yes Alcohol intake: never Substance use: never Substance use type: marijuana Living arrangements: with family Additional living arrangements comments: Assisted living at [facility]. 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 EYES: EOMI, NOSE: Atraumatic NECK: Trachea midline RESPIRATORY: No increased rate of breathing, clear to auscultation CARDIOVASCULAR: RRR, ABDOMINAL: Non-distended, soft nontender no guarding or rebound MUSCULOSKELETAl: contracted NEURO: Alert. Moving 4/4 extremities SKIN:: Warm, dry. Normal color PSYCHIATRIC: Normal affect Course Vital Signs Vital signs: Vital Signs Temperature 97.6 F 12/06/22 21:00 Pulse Ra
[2022-12-07] VITALS (22 sets, daily range): BP systolic 95–123; BP diastolic 47–78; PULSE 84–145; RESP 16–20; TEMP 36.4–36.9; O2SAT 96–99; BMI 21.9
--- NOTE | 2022-12-07 | ECHO_ITS ---
Patient Info Name: Radha Pineda Age: 77 years : 1945 Gender: Female Ht: 64 in Wt: 127 lbs BSA: 1.62 m2 HR: 112 bpm BP: 95 / 72 mmHg Heart Rhythm: Atrial Fibrillation Technical Quality: Good Exam Date: 12/07/2022 10:41 AM Exam Location: [facility] Pulmonary Exam Room: [facility] Patient Status: Outpatient Admit Date: 12/07/2022 Staff Ordering Physician: Arnaldo Smith MD Cyber Engineer: Carolina Hopkins RDCS Attending Provider: Pily Byers MD Exam Type: CA echo doppler color flow Study Info Indications - AFIB RVR Complete two-dimensional, color flow and Doppler transthoracic echocardiogram is performed. Summary 1. Complete two-dimensional, color flow and Doppler transthoracic echocardiogram is performed. 2. Left ventricular chamber dimension is normal. 3. Left ventricular systolic function is normal, estimated at 55-60%. 4. The left ventricular diastolic function is abnormal. 5. E/e' 15 is elevated. 6. Atrial fibrillation. 7. Left atrial chamber dimension is severely enlarged. 8. Right atrial chamber dimension is severely enlarged. 9. There is mild aortic valve sclerosis. 10. There is mild mitral valve regurgitation. 11. There is trace tricuspid valve regurgitation. 12. No pulmonary hypertension, estimated pulmonary arterial systolic pressure is 34 mmHg. Left Ventricle E/e' 15 is elevated. Atrial fibrillation. Left ventricular chamber dimension is normal. Left ventricular systolic function is normal, estimated at 55-60%. The left ventricular diastolic function is abnormal. Right Ventricle Right ventricular chamber dimension is normal. Right ventricular systolic function is normal. Left Atria Left atrial chamber dimension is severely enlarged. Right Atria Right atrial chamber dimension is severely enlarged. Aortic Valve The aortic valve is trileaflet. There is mild aortic valve sclerosis. There is no aortic valve stenosis. There is no aortic valve regurgitation. Pulmonic Valve There is no pulmonic regurgitation. Mitral Valve There is no mitral valve stenosis. There is mild mitral valve regurgitation. Tricuspid Valve There is trace tricuspid valve regurgitation. No pulmonary hypertension, estimated pulmonary arterial systolic pressure is 34 mmHg. Pericardium/Pleural There is no pericardial effusion. Inferior Vena Cava Normal inferior vena cava with >50% collapse upon inspiration consistent with normal right atrial pressure, 5 mmHg. Aorta The aortic root size at the sinus of Valsalva is normal. Left Ventricular Outflow Tract Name Value Normal LVOT 2D LVOT Diameter 2.0 cm LVOT Doppler LVOT Peak Gradient 4 mmHg LVOT Mean Gradient 2 mmHg LVOT VTI 19 cm LVOT VTI/AV VTI Ratio 0.8 LVOT Stroke Volume 60 ml LVOT CO 13.8 l/min LVOT CI 8.5 l/min/m2 Pulmonic Valve Name Value Normal
[2022-12-07] MEDS: SODIUM CHLORIDE 0.9% IV 1,000 ML 999 ML IV CONT (00:06)
[2022-12-07] MEDS: dilTIAZem HCl INJ 25 MG/5 ML VIAL 10 MG IV PUSH ×2 (00:25→00:48)
[2022-12-07 00:45] LABS: Troponin I < 0.012 ng/mL (0.000-0.034)
[2022-12-07] MEDS: dilTIAZem 100 MG/100 ML 100 MG/100 ML BAG IV CONT (00:55)
--- NOTE | 2022-12-07 01:01 | PM.IMHP ---
H&P: HPI History of Present Illness Date/Time: 12/07/22 01:01 Chief Complaint: Dysuria Narrative: This is a 77-year-old female with past medical history significant for MS, atrial fibrillation, rate controlled anticoagulated, hypertension, spinal stenosis, VRE, left upper low lung cancer undergoing radiation, Crohn's disease. Patient presents to the emergency room due to discomfort with urination, hematuria. Patient has a speech disturbance secondary to her MS as well. Preliminary workup was significant for urinalysis with numerous WBCs present. While in the emergency room patient had episode of atrial fibrillation with rapid ventricular response. Patient is been admitted for further evaluation management and treatment. EXAMINATION: XR chest 1V portable INDICATION: Chest pain TECHNIQUE: Portable AP chest at 2148 hours COMPARISON: 05/27/2022 FINDINGS: There is a stable mass of the left upper lobe, consistent with known malignancy. No acute airspace opacities are identified. No pleural effusion or pneumothorax. The cardiomediastinal silhouette is normal. IMPRESSION: 1. No acute cardiopulmonary abnormality. 2. Stable left upper lobe mass. Review of Systems Review of Systems: ROS unobtainable: Yes unobtainable due to medical condition (Speech disturbance) [facility] Past Medical History Medical History Anemia, unspecified Arthritis Atrial fibrillation Chronic anticoagulation Crohn's disease Degenerative joint disease Dysphagia Essential (primary) hypertension Malignant neoplasm of upper lobe, left bronchus or lung Status post radiation. Patient of Dr. Almodovar and Dr. Latif. Mixed hyperlipidemia Multiple sclerosis Spinal stenosis, lumbar Vancomycin resistant Enterococcus Surgical History Surgical History History of carpal tunnel release History of cataract extraction History of colonoscopy Family History Family History Son Diabetes mellitus Father Hypertension Mother Emphysema lung Sibling Heart disease History of quadruple bypass Social History Social History Social History: Surrogate medical decision maker: ilan Leon. Code status: Full code. Smoking packs per day: 1 Smoking cigarettes per day: 20.0 Years smoked: 30 Smoking pack-years: 30.00 Smoking status: Former smoker Second hand tobacco smoke exposure: Yes Alcohol intake: never Substance use: never Substance use type: marijuana Lack of Transportation: No Lack of Food: Never True Current Housing: I Have Housing Concerned About Future Housing: No Difficulty Paying Gas/Electric Bills: No Difficulty Paying for Meds: No Currently Unemployed: No Education: Don't Know Difficulty w/ Childcare or Family Care: No Living arrangements: with family Additional living arrangements comments: Assisted living at [facility]. 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 Spiritual care concerns: No Meds Home Medications and Allergies Home Medications Medication Instructions Recorded Confirmed Type rivaroxaban 20 mg tablet (Xarelto) 20 mg PO DAILY 09/21/21 12/07/22 History acetaminophen 325 mg tablet 500 mg PO DAILY 02/10/22 12/07/22 History (Tylenol) sulfasalazine 500 mg tablet 0.5 g PO DAILY #360 tabs 09/05/22 12/07/22 Rx atorvastatin 20 mg tablet 20 mg PO HS #90 tabs 11/03/22 12/07/22 Rx furosemide 20 mg tablet (Lasix) 20 mg PO QAM #90 tabs 11/03/22 12/07/22 Rx pantoprazole 40 mg tablet,delayed 40 mg PO HS 4 weeks #30 tabs 11/03/22 12/07/22 Rx release potassium chloride 10 mEq 10 meq PO DAILY #90 tabs 11/03/22 12/07/22 Rx tablet,extended release (Klor-Con) metoprolol west
--- NOTE | 2022-12-07 02:11 | ADMGEN ---
This patient, Radha Pineda, was admitted to IMU Room 204-01 at 0130 on 12/07/2022. Patient/family oriented to hospital policies and general routines including ID bracelet, bed and alarms, visiting hours, pain management, procedures, bathroom and other care routines, personal items, smoking policy, room service/diet, and visiting hours. Information on how to activate the Rapid Response Team has been discussed. Patient/Family are encouraged to report perceived risks to care and to ask questions if they do not understand what they are told or what they should do.
[2022-12-07 08:46] LABS: Hematocrit 32.7 % (37.0-47.0); Hemoglobin 10.4 g/dL (12.0-15.0); Mean Corpuscular HGB Conc 31.8 g/dl (32-36); Mean Corpuscular Hemoglobin 30.9 pg (26-34); Mean Platelet Volume 9.9 fl (7.4-10.4); Platelet Count Result 200 k/mm3 (150-375); Red Blood Count 3.37 M/mm3 (4.2-5.4); Red Cell Distribution Width 15.8 % (11.5-14.5); White Blood Count 5.1 K/mm3 (4.5-10.0)
[2022-12-07 09:02] LABS: Anion Gap 7 mmol/L (8-16); Blood Urea Nitrogen 19 mg/dL (7-17); Calcium 8.4 mg/dL (8.4-10.2); Carbon Dioxide 23 mmol/L (22-30); Chloride 106 mmol/L (98-107); Estimated CRCL calculation 56 ml/min; Estimated Glomerular Filt Rate > 60; Glucose 102 mg/dL (65-110); Magnesium 1.7 mg/dL (1.6-2.3); Potassium 3.6 mmol/L (3.4-5.0); Sodium 136 mmol/L (137-145)
[2022-12-07] MEDS: ACETAMINOPHEN 500 MG TABLET PO (09:56)
[2022-12-07] MEDS: traMADol HCL (*CRX) 25 MG TABLET PO ×2 (09:56→22:58)
[2022-12-07] MEDS: sulfaSALAzine 500 MG TABLET PO ×2 (09:57→14:39)
[2022-12-07] MEDS: FOLIC ACID 1 MG TABLET PO ×3 (09:57→17:43)
[2022-12-07] MEDS: METOPROLOL SUCCINATE EXT REL 25 MG TABCR PO (09:58)
[2022-12-07] MEDS: METOPROLOL SUCCINATE EXT REL 50 MG TABCR 150 MG PO (09:58)
[2022-12-07] MEDS: VERAPAMIL HCL ER 240 MG TABLET.ER PO (09:59)
[2022-12-07] MEDS: allopurinoL 100 MG TABLET PO (09:59)
--- NOTE | 2022-12-07 10:10 | PHAR ---
HOME MED (Glatiramer 40 mg/mL Syringe) INJECT 1ML SUBQ EVERY Monday AND MONDAY HOME MED VERIFIED
--- NOTE | 2022-12-07 13:23 | PC.NURSE ---
daughter in law called and updated medication list previous obtained earlier today- changes made
[2022-12-07 13:47] LABS: Glucose Point of Care 90 mg/dl (65-105)
--- NOTE | 2022-12-07 14:01 | WPDPN ---
Progress Note: A&P Assessment and Plan (1) Acute UTI: Code(s): N39.0 - Urinary tract infection, site not specified Status: Acute Assessment and Plan: Admit to IMU Started on Rocephin Cultures in progress Supportive care Continue to monitor 12/07/2022 interval history: 77-year-old female with history of MS and history of atrial fibrillation on metoprolol and Xarelto presented with a dysuria patient found to have atrial fibrillation with RVR most likely triggered by dysuria and frequency of urination, patient is placed on diltiazem drip rates are trending down, unfortunately patient is poor historian difficulty with speaking. will resume patient home medications, patient is being treated (2) Atrial fibrillation with rapid ventricular response: Code(s): I48.91 - Unspecified atrial fibrillation Status: Acute Assessment and Plan: Started on Cardizem drip Restart home meds Anticoagulated (3) Multiple sclerosis: Code(s): G35 - Multiple sclerosis Status: Acute Assessment and Plan: Continue glatiramer Supportive care (4) Malignant neoplasm of upper lobe, left bronchus or lung: Code(s): C34.12 - Malignant neoplasm of upper lobe, left bronchus or lung Status: Acute Assessment and Plan: Undergoing radiation Not a candidate for lobectomy (5) Impaired mobility and ADLs: Code(s): Z74.09 - Other reduced mobility; Z78.9 - Other specified health status Status: Acute Assessment and Plan: Supportive care (6) Spinal stenosis, lumbar: Qualifiers: Neurogenic claudication status: with neurogenic claudication Qualified Code(s): M48.062 - Spinal stenosis, lumbar region with neurogenic claudication Code(s): M48.061 - Spinal stenosis, lumbar region without neurogenic claudication Status: Chronic Assessment and Plan: Unchanged Subjective Date/time seen: 12/07/22 14:01 Interval history: Dysuria Narrative: This is a 77-year-old female with past medical history significant for MS, atrial fibrillation, rate controlled anticoagulated, hypertension, spinal stenosis, VRE, left upper low lung cancer undergoing radiation, Crohn's disease.? Patient presents to the emergency room due to discomfort with urination, hematuria.? Patient has a speech disturbance secondary to her MS as well.? Preliminary workup was significant for urinalysis with numerous WBCs present.? While in the emergency room patient had episode of atrial fibrillation with rapid ventricular response.? Patient is been admitted for further evaluation management and treatment. 12/07/2022 interval history: 77-year-old female with history of MS and history of atrial fibrillation on metoprolol and Xarelto presented with a dysuria patient found to have atrial fibrillation with RVR most likely triggered by dysuria and frequency of urination, patient is placed on diltiazem drip rates are trending down, unfortunately patient is poor historian difficulty with speaking. will resume patient home medications, patient is being treated Review of Systems Review of Systems: ROS unobtainable: Yes unobtainable due to medical condition Exam Narrative: Elderly frail Patient is comfortable, NAD HEENT: eyes are clear and none icteric LUNGS: Normal respiratory effort ABD: Not distended Lower extremities: no edema SKIN: nonjaundiced Neuro: grossly intact. Objective Data Vital Signs Vital Signs: Vital Signs - 24 hr 12/06/22 21:00 12/06/22 21:31 12/06/22 22:02 Temperature 97.6 F Pulse Rate 91 132 H 133 H Respiratory Rate 20 20 16 Blood Pressure 105/60 101/73 148/84 H Pulse Oximetry 100 99 97 Oxygen Delivery Room Air 12/06/22 22:32 12/07/22 00:47 12/07/22 00:31 Temperature Pulse Rate 130 H 121 H 120 H Respiratory Rate 20 20 20 Blood Pressure 91/38 L 103/78 111/70 Pulse Oximetry 98 97 99 Oxygen Delivery 12/07/22 00:45 12/07/22 00:55 06
--- NOTE | 2022-12-07 15:16 | PCCCNOTE ---
On 12/07/22, the student, Gail Salazar, provided care and completed [facility] documentation on this patient. I have reviewed the student's documentation and agree with the findings.
[2022-12-07] MEDS: RIVAROXABAN 20 MG TABLET PO (17:43)
[2022-12-07] MEDS: ACETAMINOPHEN 500 MG TABLET 1000 MG PO (21:06)
[2022-12-07] MEDS: sulfaSALAzine 500 MG TABLET 1000 MG PO (21:06)
[2022-12-07] MEDS: ATORVASTATIN 20 MG TABLET PO (21:07)
[2022-12-07] MEDS: PANTOPRAZOLE 40 MG TABLET PO (21:07)
[2022-12-07] MEDS: BACLOFEN 5 MG TABLET PO (21:07)
[2022-12-07] MEDS: DIGOXIN INJ 250 MCG/ML 2 ML AMP (*BKC) 125 MCG IV PUSH (21:42)
[2022-12-08] VITALS (16 sets, daily range): BP systolic 100–126; BP diastolic 48–85; PULSE 76–140; RESP 14–20; TEMP 36.3–37.3; O2SAT 92–99
[2022-12-08 04:33] LABS: Hematocrit 33.3 % (37.0-47.0); Hemoglobin 10.7 g/dL (12.0-15.0); Mean Corpuscular HGB Conc 32.1 g/dl (32-36); Mean Corpuscular Hemoglobin 30.7 pg (26-34); Mean Corpuscular Volume 95.4 fl (80-100); Platelet Count Result 194 k/mm3 (150-375); Red Blood Count 3.49 M/mm3 (4.2-5.4); Red Cell Distribution Width 15.7 % (11.5-14.5); White Blood Count 6.9 K/mm3 (4.5-10.0)
[2022-12-08 05:06] LABS: Alanine Aminotransferase 28 U/L (6-35); Albumin Level 3.5 g/dL (3.5-5.1); Alkaline Phosphatase 75 U/L (38-126); Anion Gap 7 mmol/L (8-16); Aspartate Amino Transferase 43 U/L (14-36); Bilirubin,Total 0.5 mg/dL (0.2-1.3); Blood Urea Nitrogen 13 mg/dL (7-17); Calcium 8.8 mg/dL (8.4-10.2); Carbon Dioxide 23 mmol/L (22-30); Chloride 105 mmol/L (98-107); Estimated CRCL calculation 56 ml/min; Estimated Glomerular Filt Rate > 60; Glucose 88 mg/dL (65-110); Magnesium 1.7 mg/dL (1.6-2.3); Potassium 3.7 mmol/L (3.4-5.0); Sodium 135 mmol/L (137-145)
[2022-12-08] MEDS: sulfaSALAzine 500 MG TABLET PO ×2 (07:51→11:49)
[2022-12-08] MEDS: ACETAMINOPHEN 500 MG TABLET PO (07:51)
[2022-12-08] MEDS: BACLOFEN 5 MG TABLET PO ×2 (07:52→22:16)
[2022-12-08] MEDS: FOLIC ACID 1 MG TABLET PO ×3 (07:52→17:17)
[2022-12-08] MEDS: METOPROLOL SUCCINATE EXT REL 25 MG TABCR PO (07:53)
[2022-12-08] MEDS: VERAPAMIL HCL ER 240 MG TABLET.ER PO (07:53)
[2022-12-08] MEDS: METOPROLOL SUCCINATE EXT REL 50 MG TABCR 150 MG PO (07:54)
[2022-12-08] MEDS: POTASSIUM CHLORIDE 10 MEQ TABLET.ER PO (11:49)
[2022-12-08] MEDS: CYANOCOBALAMIN 250 MCG TABLET PO (11:49)
[2022-12-08] MEDS: FERROUS SULFATE 324 MG TABLET PO (11:49)
[2022-12-08] MEDS: THIAMINE HCL 100 MG TABLET PO (11:50)
[2022-12-08] MEDS: VITAMIN B COMPLEX/VIT C CAPSULE 1 EACH PO (11:50)
[2022-12-08] MEDS: ERTAPENEM 1 GM/NS 50 ML 1 GM/50 ML BAG IVPB (11:54)
[2022-12-08] MEDS: CHOLECALCIFEROL 1,000 UNITS TABLET 2000 UNITS PO (11:56)
--- NOTE | 2022-12-08 12:28 | PM.CNCAR ---
Assessment and Plan Assessment and plan (1) Atrial fibrillation with rapid ventricular response: Code(s): I48.91 - Unspecified atrial fibrillation Status: Acute Assessment and Plan: Persistent atrial fibrillation managed with rate control on metoprolol and verapamil. She had RVR in the setting of acute illness with UTI. Her heart rate is currently in normal range on her home medication regimen. Therefore, will not make any alterations to her current regimen. Suspect her heart rate will remain controlled with ongoing treatment for her UTI. She is anticoagulated with Xarelto. No new cardiac recommendations to make at this time. She can be downgraded from IMU to med/tele status from my point of view. Cardiology will sign off. Please call with questions. History of Present Illness History of Present Illness Consult date/time: 12/08/22 12:28 Requesting physician: Arnlado Smith MD Consult reason: atrial fibrillation Reason For Visit: UTI/Afib/RVR Narrative: Radha Pineda is a 77 year old female with a history of atrial fibrillation and mild MR. She presents to the hospital with a complaint of pain with urination and blood in the urine. She was noted to be in atrial fibrillation with rapid ventricular response which is why cardiology has been asked to see her. She had heart rates in the 160's. She denies feeling any palpitations, chest pain, shortness of breath. At the time of my interview her heart rate is in the 70's and on telemetry review it looks like her rate has been down around this range for a couple of hours. Currently, she is complaining of some right shoulder pain and luke on her sacrum but has no cardiovascular complaints. Review of Systems Review of Systems: All systems reviewed & are unremarkable except as noted in HPI and below PMFSH Past Medical History Medical History Anemia, unspecified Arthritis Atrial fibrillation Chronic anticoagulation Crohn's disease Degenerative joint disease Dysphagia Essential (primary) hypertension Malignant neoplasm of upper lobe, left bronchus or lung Status post radiation. Patient of Dr. Almodovar and Dr. Latif. Mixed hyperlipidemia Multiple sclerosis Spinal stenosis, lumbar Vancomycin resistant Enterococcus Surgical History Surgical History History of carpal tunnel release History of cataract extraction History of colonoscopy Family History Family History Son Diabetes mellitus Father Hypertension Mother Emphysema lung Sibling Heart disease History of quadruple bypass Social History Social History Social History: Surrogate medical decision maker: Braden Pineda, son. Code status: Full code. Smoking packs per day: 1 Smoking cigarettes per day: 20.0 Years smoked: 30 Smoking pack-years: 30.00 Smoking status: Former smoker Second hand tobacco smoke exposure: Yes Alcohol intake: never Substance use: never Substance use type: marijuana Lack of Transportation: No Lack of Food: Never True Current Housing: I Have Housing Concerned About Future Housing: No Difficulty Paying Gas/Electric Bills: No Difficulty Paying for Meds: No Currently Unemployed: No Education: Don't Know Difficulty w/ Childcare or Family Care: No Living arrangements: with family Additional living arrangements comments: Assisted living at [facility]. 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
[2022-12-08] MEDS: traMADol HCL (*CRX) 25 MG TABLET PO ×2 (13:45→22:15)
--- NOTE | 2022-12-08 15:19 | PC.NURSE ---
orders for med tele- report given to Elyse LOPEZ- pt moved to room 254 via bed accompanied by staff-belongings with pt- son aware of transfer of room
--- NOTE | 2022-12-08 15:39 | ADMGEN ---
This patient, Radha Pineda, was admitted to Medical Room 254-01. Patient/family oriented to hospital policies and general routines including ID bracelet, bed and alarms, visiting hours, pain management, procedures, bathroom and other care routines, personal items, smoking policy, room service/diet, and visiting hours. Information on how to activate the Rapid Response Team has been discussed. Patient/Family are encouraged to report perceived risks to care and to ask questions if they do not understand what they are told or what they should do.
--- NOTE | 2022-12-08 15:44 | WPDPN ---
Progress Note: A&P Assessment and Plan (1) Acute UTI: Code(s): N39.0 - Urinary tract infection, site not specified Status: Acute Assessment and Plan: Admit to IMU Started on Rocephin Cultures in progress Supportive care Continue to monitor 12/08/2022 interval history:??77-year-old female with history of MS and history of atrial fibrillation on metoprolol, verapmil and Xarelto presented with a dysuria patient found to have atrial fibrillation with RVR most likely triggered by dysuria and frequency of urination, urine culture is growing Klebsiella pneumonia ESBL, started the patient on meropenem, patient was placed on diltiazem drip rates are trending down, stop the drip and continue home regimen with a metoprolol and verapamil, unfortunately patient is poor historian difficulty with speaking. will resume patient home medications, patient is being treated (2) Atrial fibrillation with rapid ventricular response: Code(s): I48.91 - Unspecified atrial fibrillation Status: Acute Assessment and Plan: Started on Cardizem drip Restart home meds Anticoagulated (3) Multiple sclerosis: Code(s): G35 - Multiple sclerosis Status: Acute Assessment and Plan: Continue glatiramer Supportive care (4) Malignant neoplasm of upper lobe, left bronchus or lung: Code(s): C34.12 - Malignant neoplasm of upper lobe, left bronchus or lung Status: Acute Assessment and Plan: Undergoing radiation Not a candidate for lobectomy (5) Impaired mobility and ADLs: Code(s): Z74.09 - Other reduced mobility; Z78.9 - Other specified health status Status: Acute Assessment and Plan: Supportive care (6) Spinal stenosis, lumbar: Qualifiers: Neurogenic claudication status: with neurogenic claudication Qualified Code(s): M48.062 - Spinal stenosis, lumbar region with neurogenic claudication Code(s): M48.061 - Spinal stenosis, lumbar region without neurogenic claudication Status: Chronic Assessment and Plan: Unchanged Subjective Date/time seen: 12/08/22 15:44 Interval history: Dysuria HPI-Narrative: This is a 77-year-old female with past medical history significant for MS, atrial fibrillation, rate controlled anticoagulated, hypertension, spinal stenosis, VRE, left upper low lung cancer undergoing radiation, Crohn's disease.? Patient presents to the emergency room due to discomfort with urination, hematuria.? Patient has a speech disturbance secondary to her MS as well.? Preliminary workup was significant for urinalysis with numerous WBCs present.? While in the emergency room patient had episode of atrial fibrillation with rapid ventricular response.? Patient is been admitted for further evaluation management and treatment. 12/08/2022 interval history:??77-year-old female with history of MS and history of atrial fibrillation on metoprolol, verapmil and Xarelto presented with a dysuria patient found to have atrial fibrillation with RVR most likely triggered by dysuria and frequency of urination, urine culture is growing Klebsiella pneumonia ESBL, started the patient on meropenem, patient was placed on diltiazem drip rates are trending down, stop the drip and continue home regimen with a metoprolol and verapamil, unfortunately patient is poor historian difficulty with speaking. will resume patient home medications, patient is being treated Exam Narrative: Elderly frail Patient is comfortable, NAD HEENT: eyes are clear and none icteric LUNGS: Normal respiratory effort ABD: Not distended Lower extremities: no edema SKIN: nonjaundiced Neuro: grossly intact. Objective Data Vital Signs Vital Signs: Vital Signs - 24 hr 12/07/22 16:00 12/07/22 16:00 12/07/22 18:00 Temperature 98.1 F Pulse Rate 114 H 111 H 108 H Respiratory Rate 16 Blood Pressure 95/60 L Pulse Oximetry 97 Oxygen Delivery 12/07/22 19:45 12/07/22
[2022-12-08] MEDS: RIVAROXABAN 20 MG TABLET PO (17:17)
[2022-12-08] MEDS: METOPROLOL TARTRATE INJ 5 MG/5 ML VIAL IV PUSH (20:58)
[2022-12-08] MEDS: ACETAMINOPHEN 500 MG TABLET 1000 MG PO (22:17)
[2022-12-08] MEDS: PANTOPRAZOLE 40 MG TABLET PO (22:18)
[2022-12-08] MEDS: ATORVASTATIN 20 MG TABLET PO (22:19)
[2022-12-08] MEDS: DOCUSATE SODIUM 100 MG CAPSULE PO (22:20)
[2022-12-08] MEDS: sulfaSALAzine 500 MG TABLET 1000 MG PO (22:20)
[2022-12-08] MEDS: allopurinoL 100 MG TABLET PO (22:20)
[2022-12-09] VITALS (14 sets, daily range): BP systolic 103–111; BP diastolic 48–72; PULSE 81–141; RESP 16–18; TEMP 36.1–36.8; O2SAT 98–100
[2022-12-09 05:19] LABS: Hematocrit 34.2 % (37.0-47.0); Hemoglobin 10.8 g/dL (12.0-15.0); Mean Corpuscular HGB Conc 31.6 g/dl (32-36); Mean Corpuscular Hemoglobin 29.8 pg (26-34); Mean Corpuscular Volume 94.2 fl (80-100); Mean Platelet Volume 10.4 fl (7.4-10.4); Platelet Count Result 201 k/mm3 (150-375); Red Blood Count 3.63 M/mm3 (4.2-5.4); Red Cell Distribution Width 15.4 % (11.5-14.5); White Blood Count 5.4 K/mm3 (4.5-10.0)
[2022-12-09 05:43] LABS: Alanine Aminotransferase 32 U/L (6-35); Albumin Level 3.5 g/dL (3.5-5.1); Alkaline Phosphatase 81 U/L (38-126); Anion Gap 7 mmol/L (8-16); Aspartate Amino Transferase 48 U/L (14-36); Bilirubin,Total 0.5 mg/dL (0.2-1.3); Blood Urea Nitrogen 13 mg/dL (7-17); Calcium 8.9 mg/dL (8.4-10.2); Carbon Dioxide 23 mmol/L (22-30); Chloride 104 mmol/L (98-107); Estimated CRCL calculation 56 ml/min; Estimated Glomerular Filt Rate > 60; Glucose 91 mg/dL (65-110); Magnesium 1.7 mg/dL (1.6-2.3); Potassium 3.9 mmol/L (3.4-5.0); Sodium 134 mmol/L (137-145)
[2022-12-09] MEDS: traMADol HCL (*CRX) 25 MG TABLET PO ×2 (05:58→18:31)
[2022-12-09] MEDS: BACLOFEN 5 MG TABLET PO ×2 (08:03→21:02)
[2022-12-09] MEDS: METOPROLOL SUCCINATE EXT REL 50 MG TABCR 150 MG PO (08:03)
[2022-12-09] MEDS: METOPROLOL SUCCINATE EXT REL 25 MG TABCR PO (08:03)
[2022-12-09] MEDS: DOCUSATE SODIUM 100 MG CAPSULE PO ×2 (08:04→21:01)
[2022-12-09] MEDS: FOLIC ACID 1 MG TABLET PO ×3 (08:04→17:27)
[2022-12-09] MEDS: ACETAMINOPHEN 500 MG TABLET PO (08:04)
[2022-12-09] MEDS: sulfaSALAzine 500 MG TABLET PO ×2 (08:17→12:44)
[2022-12-09] MEDS: VERAPAMIL HCL ER 240 MG TABLET.ER PO (08:17)
[2022-12-09] MEDS: DIGOXIN TAB 125 MCG TABLET PO (09:50)
--- NOTE | 2022-12-09 10:05 | PM.PNCARD ---
Progress Note: A&P Assessment and Plan (1) Atrial fibrillation with rapid ventricular response: Code(s): I48.91 - Unspecified atrial fibrillation Status: Acute Assessment and Plan: Persistent atrial fibrillation managed with rate control on metoprolol and verapamil. She had RVR in the setting of acute illness with UTI. Suspect her heart rate will be better controlled with ongoing treatment for her UTI. She has had persistent heart rates in the 130s - 160's overnight and this morning. Will give digoxin 125mcg x 1 now and observe her response. Her atrial fibrillation had previously been managed with metoprolol, verapamil, and digoxin as an outpatient and did not have any issues with bradycardia. She is anticoagulated with Xarelto. Continue telemetry. Subjective Date/time seen: 12/09/22 10:05 Cardiology follow up for atrial fibrillation Interval history: She became tachycardic again last evening and remains tachycardic this morning. She is asymptomatic. She does say she is feeling better today and has less pain in her shoulder. Review of Systems Review of Systems: All systems reviewed & are unremarkable except as noted in HPI and below Exam Const: General: comfortable, no acute distress, alert and awake Orientation/consciousness: patient oriented x3 HENMT: Head: normal to inspection Eyes: General: appearance normal, both eyes and all related structures Pupils: Equal, round and reactive pupils present Neck: Neck: normal visual inspection, supple and no JVD Carotids: normal carotid upstroke Resp: Effort & Inspection: normal respiratory effort Auscultation: clear to auscultation bilaterally Cardio: Rate: tachycardic Rhythm: abnormal rhythm irregularly irregular Heart sounds: S1 normal heart sound present, S2 normal heart sound present and Murmur heart sound present GI: Auscultation: normal bowel sounds Skin: General skin exam: normal color Neuro: General: patient oriented x3 Cranial nerves: Yes Equal, round and reactive pupils present Extrem: General: normal to inspection Other: no edema Psych: Appearance: grossly normal Mental Status: mental status grossly normal Objective Data Vital Signs Vital Signs: Vital Signs - 24 hr 12/08/22 12:00 12/08/22 12:00 12/08/22 15:49 Temperature 37.3 C 36.6 C Pulse Rate 97 82 76 Respiratory Rate 16 14 Blood Pressure 110/48 L 118/51 L Pulse Oximetry 99 97 Oxygen Delivery 12/08/22 16:00 12/08/22 19:42 12/08/22 20:58 Temperature 36.7 C Pulse Rate 77 107 H 140 H Respiratory Rate 16 Blood Pressure 126/81 Pulse Oximetry 96 Oxygen Delivery 12/08/22 20:00 12/09/22 00:00 12/09/22 04:00 Temperature Pulse Rate 106 H 129 H 130 H Respiratory Rate Blood Pressure Pulse Oximetry Oxygen Delivery 12/08/22 22:08 12/09/22 06:57 12/09/22 08:03 Temperature 36.4 C Pulse Rate 112 H 128 H Respiratory Rate 16 Blood Pressure 106/63 Pulse Oximetry 96 100 Oxygen Delivery Room Air 12/09/22 08:03 12/09/22 09:50 Temperature Pulse Rate 128 H 141 H Respiratory Rate Blood Pressure Pulse Oximetry Oxygen Delivery Intake/Output Intake/Output: Intake & Output 12/06/22 12/07/22 12/08/22 12/09/22 23:59 23:59 23:59 23:59 Intake Total 1000 1930 1180 220 Output Total 400 300 100 Balance 1000 1530 880 120 Meds/Results Medications: Active Medications Generic Name Dose Route Start Last Admin Trade Name Freq PRN Reason Stop Dose Admin Acetaminophen 500 mg 12/08/22 09:00 12/09/22 08:04 Acetaminophen 500 Mg Tablet PO 500 mg DAILY YO Administration Acetaminophen 1,000 mg 12/07/22 21:00 12/08/22 22:17 Acetaminophen 500 Mg Tablet PO 1,000 mg HS YO Administration Allopurinol 100 mg 12/08/22 21:00 12/08/22 22:20 Allopurinol 100 Mg Tablet PO 100 mg HS YO Administration Atorvastatin Calcium 20 mg 12/07/22 21:00 12/08/22 22:19 Atorvastat
[2022-12-09] MEDS: FERROUS SULFATE 324 MG TABLET PO (12:43)
[2022-12-09] MEDS: POTASSIUM CHLORIDE 10 MEQ TABLET.ER PO (12:43)
[2022-12-09] MEDS: CHOLECALCIFEROL 1,000 UNITS TABLET 2000 UNITS PO (12:43)
[2022-12-09] MEDS: THIAMINE HCL 100 MG TABLET PO (12:44)
[2022-12-09] MEDS: ERTAPENEM 1 GM/NS 50 ML 1 GM/50 ML BAG IVPB (12:46)
[2022-12-09] MEDS: CYANOCOBALAMIN 250 MCG TABLET PO (12:46)
[2022-12-09] MEDS: VITAMIN B COMPLEX/VIT C CAPSULE 1 EACH PO (12:47)
--- NOTE | 2022-12-09 13:22 | WPDPN ---
Progress Note: A&P Assessment and Plan (1) Acute UTI: Code(s): N39.0 - Urinary tract infection, site not specified Status: Acute Assessment and Plan: Admit to IMU Started on Rocephin Cultures in progress Supportive care Continue to monitor 12/09/2022 interval history:??77-year-old female with history of MS and history of atrial fibrillation on metoprolol, verapmil and Xarelto presented with a dysuria patient found to have atrial fibrillation with RVR most likely triggered by dysuria and frequency of urination, urine culture is growing Klebsiella pneumonia ESBL, started the patient on meropenem,? patient was placed on diltiazem drip rates was trending down, stopped the drip and continue home regimen with a metoprolol 175mg qd, and verapamil 240mg , however her HR is high this morning in 130s seen by senior business architect and added digoxin 125mcg, will monitor, patient has not symptoms, unfortunately patient is poor historian difficulty with speaking. will resume patient home medications, patient is being treated (2) Atrial fibrillation with rapid ventricular response: Code(s): I48.91 - Unspecified atrial fibrillation Status: Acute Assessment and Plan: Started on Cardizem drip Restart home meds Anticoagulated (3) Multiple sclerosis: Code(s): G35 - Multiple sclerosis Status: Acute Assessment and Plan: Continue glatiramer Supportive care (4) Malignant neoplasm of upper lobe, left bronchus or lung: Code(s): C34.12 - Malignant neoplasm of upper lobe, left bronchus or lung Status: Acute Assessment and Plan: Undergoing radiation Not a candidate for lobectomy (5) Impaired mobility and ADLs: Code(s): Z74.09 - Other reduced mobility; Z78.9 - Other specified health status Status: Acute Assessment and Plan: Supportive care (6) Spinal stenosis, lumbar: Qualifiers: Neurogenic claudication status: with neurogenic claudication Qualified Code(s): M48.062 - Spinal stenosis, lumbar region with neurogenic claudication Code(s): M48.061 - Spinal stenosis, lumbar region without neurogenic claudication Status: Chronic Assessment and Plan: Unchanged Subjective Date/time seen: 12/09/22 13:22 Interval history: 12/09/2022 interval history:??77-year-old female with history of MS and history of atrial fibrillation on metoprolol, verapmil and Xarelto presented with a dysuria patient found to have atrial fibrillation with RVR most likely triggered by dysuria and frequency of urination, urine culture is growing Klebsiella pneumonia ESBL, started the patient on meropenem,? patient was placed on diltiazem drip rates was trending down, stopped the drip and continue home regimen with a metoprolol 175mg qd, and verapamil 240mg , however her HR is high this morning in 130s seen by senior business architect and added digoxin 125mcg, will monitor, patient has not symptoms, unfortunately patient is poor historian difficulty with speaking. will resume patient home medications, patient is being treated Review of Systems Review of Systems: ROS unobtainable: Yes unobtainable due to medical condition Exam Narrative: Elderly frail Patient is comfortable, NAD HEENT: eyes are clear and none icteric LUNGS: Normal respiratory effort ABD: Not distended Lower extremities: no edema SKIN: nonjaundiced Neuro: grossly intact. Objective Data Vital Signs Vital Signs: Vital Signs - 24 hr 12/08/22 15:49 12/08/22 16:00 12/08/22 19:42 Temperature 97.8 F 98.1 F Pulse Rate 76 77 107 H Respiratory Rate 14 16 Blood Pressure 118/51 L 126/81 Pulse Oximetry 97 96 Oxygen Delivery 12/08/22 20:58 12/08/22 20:00 12/09/22 00:00 Temperature Pulse Rate 140 H 106 H 129 H Respiratory Rate Blood Pressure Pulse Oximetry Oxygen Delivery 12/09/22 04:00 12/08/22 22:08 12/09/22 06:57 Temperature 97.6 F Pulse Rate 130 H 112 H
--- NOTE | 2022-12-09 15:58 | PC.NURSE ---
BP 103/52 and HR 110s-140 after metoprolol, verapamil, and Digoxin. Pt nonsymptomatic. Notified Melissa Conde with cardiology of A-fib RVR post rate-control medications this AM. Per Melissa: -No new medication needed currently. -Give ordered IV Lopressor 5mg PRN if HR gets worse and systolic BP >105.
[2022-12-09] MEDS: RIVAROXABAN 20 MG TABLET PO (17:27)
[2022-12-09] MEDS: METOPROLOL TARTRATE INJ 5 MG/5 ML VIAL IV PUSH ×2 (18:15→23:30)
[2022-12-09] MEDS: ACETAMINOPHEN 500 MG TABLET 1000 MG PO (20:54)
[2022-12-09] MEDS: ATORVASTATIN 20 MG TABLET PO (21:01)
[2022-12-09] MEDS: allopurinoL 100 MG TABLET PO (21:01)
[2022-12-09] MEDS: sulfaSALAzine 500 MG TABLET 1000 MG PO (21:02)
[2022-12-09] MEDS: PANTOPRAZOLE 40 MG TABLET PO (21:02)
[2022-12-09] MEDS: DIGOXIN INJ 250 MCG/ML 2 ML AMP (*BKC) 125 MCG IV PUSH (23:30)
[2022-12-10] VITALS (14 sets, daily range): BP systolic 101–125; BP diastolic 54–69; PULSE 84–126; RESP 14–18; TEMP 36.4–36.6; O2SAT 93–98
--- NOTE | 2022-12-10 01:13 | PC.NURSE ---
Pt. heart rate was between [address] Butt got orders for Digoxin and metoprolol. HR is now between 96 and 115.
[2022-12-10] MEDS: traMADol HCL (*CRX) 25 MG TABLET PO ×2 (05:15→15:46)
[2022-12-10 06:24] LABS: Hematocrit 33.5 % (37.0-47.0); Hemoglobin 10.8 g/dL (12.0-15.0); Mean Corpuscular HGB Conc 32.2 g/dl (32-36); Mean Corpuscular Hemoglobin 30.4 pg (26-34); Mean Corpuscular Volume 94.4 fl (80-100); Platelet Count Result 219 k/mm3 (150-375); Red Blood Count 3.55 M/mm3 (4.2-5.4); Red Cell Distribution Width 15.3 % (11.5-14.5); White Blood Count 5.8 K/mm3 (4.5-10.0)
[2022-12-10 06:39] LABS: Alanine Aminotransferase 27 U/L (6-35); Albumin Level 3.4 g/dL (3.5-5.1); Alkaline Phosphatase 78 U/L (38-126); Anion Gap 6 mmol/L (8-16); Aspartate Amino Transferase 34 U/L (14-36); Bilirubin,Total 0.5 mg/dL (0.2-1.3); Blood Urea Nitrogen 12 mg/dL (7-17); Calcium 8.8 mg/dL (8.4-10.2); Carbon Dioxide 25 mmol/L (22-30); Chloride 103 mmol/L (98-107); Estimated CRCL calculation 56 ml/min; Estimated Glomerular Filt Rate > 60; Glucose 86 mg/dL (65-110); Magnesium 1.8 mg/dL (1.6-2.3); Sodium 134 mmol/L (137-145)
--- NOTE | 2022-12-10 09:13 | WPDPN ---
Progress Note: A&P Assessment and Plan (1) Acute UTI: Code(s): N39.0 - Urinary tract infection, site not specified Status: Acute Assessment and Plan: Admit to IMU Started on Rocephin Cultures in progress Supportive care Continue to monitor 12/10/2022 interval history:??77-year-old female with history of MS and history of atrial fibrillation on metoprolol, verapmil and Xarelto presented with a dysuria patient found to have atrial fibrillation with RVR most likely triggered by dysuria and frequency of urination, urine culture is growing Klebsiella pneumonia ESBL, started the patient on meropenem, 08/09, for A. Fib RVR, ? patient was placed on diltiazem drip rates was trending down, stopped the drip and continued home regimen with a metoprolol 175mg qd, and verapamil 240mg , on 12/09 however her HR was high in 130s seen by assembler lay ups and added digoxin 125mcg, today patient HR is trending down, will monitor, patient has no symptoms, unfortunately patient is poor historian difficulty with speaking. will resume patient home medications, patient is being treated (2) Atrial fibrillation with rapid ventricular response: Code(s): I48.91 - Unspecified atrial fibrillation Status: Acute Assessment and Plan: Started on Cardizem drip Restart home meds Anticoagulated (3) Multiple sclerosis: Code(s): G35 - Multiple sclerosis Status: Acute Assessment and Plan: Continue glatiramer Supportive care (4) Malignant neoplasm of upper lobe, left bronchus or lung: Code(s): C34.12 - Malignant neoplasm of upper lobe, left bronchus or lung Status: Acute Assessment and Plan: Undergoing radiation Not a candidate for lobectomy (5) Impaired mobility and ADLs: Code(s): Z74.09 - Other reduced mobility; Z78.9 - Other specified health status Status: Acute Assessment and Plan: Supportive care (6) Spinal stenosis, lumbar: Qualifiers: Neurogenic claudication status: with neurogenic claudication Qualified Code(s): M48.062 - Spinal stenosis, lumbar region with neurogenic claudication Code(s): M48.061 - Spinal stenosis, lumbar region without neurogenic claudication Status: Chronic Assessment and Plan: Unchanged Subjective Date/time seen: 12/10/22 09:13 Interval history: 12/10/2022 interval history:??77-year-old female with history of MS and history of atrial fibrillation on metoprolol, verapmil and Xarelto presented with a dysuria patient found to have atrial fibrillation with RVR most likely triggered by dysuria and frequency of urination, urine culture is growing Klebsiella pneumonia ESBL, started the patient on meropenem, 08/09, for A. Fib RVR, ? patient was placed on diltiazem drip rates was trending down, stopped the drip and continued home regimen with a metoprolol 175mg qd, and verapamil 240mg , on 12/09 however her HR was high in 130s seen by assembler lay ups and added digoxin 125mcg, today patient HR is trending down, will monitor, patient has no symptoms, unfortunately patient is poor historian difficulty with speaking. will resume patient home medications, patient is being treated Review of Systems Review of Systems: ROS unobtainable: Yes unobtainable due to medical condition Exam Narrative: Elderly frail Patient is comfortable, NAD HEENT: eyes are clear and none icteric LUNGS: Normal respiratory effort ABD: Not distended Lower extremities: no edema SKIN: nonjaundiced Neuro: grossly intact. Objective Data Vital Signs Vital Signs: Vital Signs - 24 hr 12/09/22 09:50 12/09/22 12:00 12/09/22 14:00 Temperature 97.0 F L Pulse Rate 141 H 101 H 82 Respiratory Rate 18 Blood Pressure 103/52 L Pulse Oximetry 98 12/09/22 16:00 12/09/22 18:10 12/09/22 18:15 Temperature Pulse Rate 106 H 136 H Respiratory Rate Blood Pressure 111/72 Pulse Oximetry 12/09/22 19:24 12/09/22 23:30 12/09/22
[2022-12-10] MEDS: DIGOXIN TAB 125 MCG TABLET PO (10:02)
[2022-12-10] MEDS: BACLOFEN 5 MG TABLET PO ×2 (10:02→20:21)
[2022-12-10] MEDS: ACETAMINOPHEN 500 MG TABLET PO (10:02)
[2022-12-10] MEDS: VERAPAMIL HCL ER 240 MG TABLET.ER PO (10:03)
[2022-12-10] MEDS: sulfaSALAzine 500 MG TABLET PO ×2 (10:03→13:02)
[2022-12-10] MEDS: FOLIC ACID 1 MG TABLET PO ×3 (10:03→16:42)
[2022-12-10] MEDS: METOPROLOL SUCCINATE EXT REL 50 MG TABCR 150 MG PO (10:03)
[2022-12-10] MEDS: DOCUSATE SODIUM 100 MG CAPSULE PO ×2 (10:03→20:21)
[2022-12-10] MEDS: METOPROLOL SUCCINATE EXT REL 25 MG TABCR PO (10:03)
[2022-12-10] MEDS: ERTAPENEM 1 GM/NS 50 ML 1 GM/50 ML BAG IVPB (13:02)
[2022-12-10] MEDS: POTASSIUM CHLORIDE 10 MEQ TABLET.ER PO (13:02)
[2022-12-10] MEDS: FERROUS SULFATE 324 MG TABLET PO (13:02)
[2022-12-10] MEDS: THIAMINE HCL 100 MG TABLET PO (13:02)
[2022-12-10] MEDS: CYANOCOBALAMIN 250 MCG TABLET PO (13:02)
[2022-12-10] MEDS: VITAMIN B COMPLEX/VIT C CAPSULE 1 EACH PO (13:02)
[2022-12-10] MEDS: CHOLECALCIFEROL 1,000 UNITS TABLET 2000 UNITS PO (13:02)
[2022-12-10] MEDS: METOPROLOL TARTRATE INJ 5 MG/5 ML VIAL IV PUSH (13:04)
--- NOTE | 2022-12-10 13:24 | PM.PNCARD ---
Progress Note: A&P Assessment and Plan (1) Atrial fibrillation with rapid ventricular response: Code(s): I48.91 - Unspecified atrial fibrillation Status: Acute Assessment and Plan: Her atrial fibrillation has been managed as an OPT with metoprolol, verapamil, and previously digoxin , and did not have any issues with bradycardia. Heart rate is coming under control. Tolerating the RVR well w/o CHF. -- She is anticoagulated with Xarelto. --Continue telemetry. --Cont metoprolol XL 175 mg qd + verapamil 240 mg qd + digoxin 0.125 mg qd --Change metop 5 mg IVP to q 4 Hr prn (2) Acute UTI: Code(s): N39.0 - Urinary tract infection, site not specified Status: Acute Subjective Date/time seen: 12/10/22 13:24 Interval history: FU for debilitated pt with multiple sclerosis, w/ persistent atrial fib, treated w/ metoprolol and verapamil as OPT. She developed a fib RVR during this hospital stay for a UTI. 12/09/2022: She became tachycardic again last evening and remains tachycardic this morning. She is asymptomatic. She does say she is feeling better today and has less pain in her shoulder. Started digoxin 0.125 mg qd. Date of service 12/10/2022: Pt had a fib HR 140-150's last night; given digoxin 0.125 mg IVP X 1 and prn metoprolol 5 mg IVP in addition to her metoprolol XL 175 mg qd and verapamil 240 mg qd. She was also given a dose of IV metoprolol 5 mg at 6 pm yesterday and at 1 pm today. Currently HR around 100 BPM. Review of Systems Review of Systems: Denies CP, soB palpitations, abdom pain. C/o leg pain. Exam Const: General: cooperative, comfortable and confusion Orientation/consciousness: oriented to person and confusion HENMT: Mouth: Yes moist mucous membranes Eyes: EOM: EOMs intact bilaterally Resp: Effort & Inspection: normal respiratory effort Auscultation: clear to auscultation bilaterally Cardio: Rate: regular rate Rhythm: regular rhythm and abnormal rhythm irregularly irregular GI: Inspection: normal to inspection GI Palp: No abdominal tenderness Skin: General skin exam: normal color and no rashes or lesions noted Neuro: General: oriented to person and confusion Extrem: Right lower extremity: no edema Left lower extremity: no edema Other: Contractures of lower extremities Psych: Appearance: grossly abnormal Mental Status: mental status grossly abnormal Other: Alert, answers questions Objective Data Vital Signs Vital Signs: Vital Signs - 24 hr 12/09/22 14:00 12/09/22 16:00 12/09/22 18:10 Temperature 97.0 F L Pulse Rate 82 106 H Respiratory Rate 18 Blood Pressure 103/52 L 111/72 Pulse Oximetry 98 Oxygen Delivery 12/09/22 18:15 12/09/22 19:24 12/09/22 23:30 Temperature 98.2 F Pulse Rate 136 H 81 122 H Respiratory Rate 16 Blood Pressure 108/48 L Pulse Oximetry 99 Oxygen Delivery 12/09/22 23:30 12/09/22 20:00 12/10/22 00:00 Temperature Pulse Rate 122 H 113 H 95 Respiratory Rate Blood Pressure Pulse Oximetry Oxygen Delivery 12/10/22 04:02 12/10/22 04:00 12/10/22 10:00 Temperature 97.5 F L Pulse Rate 89 116 H 110 H Respiratory Rate 14 18 Blood Pressure 101/56 L 125/69 Pulse Oximetry 96 98 Oxygen Delivery 12/10/22 10:02 12/10/22 10:03 12/10/22 10:03 Temperature Pulse Rate 112 H 112 H 112 H Respiratory Rate Blood Pressure Pulse Oximetry Oxygen Delivery 12/10/22 08:00 12/10/22 10:00 12/10/22 12:00 Temperature Pulse Rate 85 109 H Respiratory Rate Blood Pressure Pulse Oximetry Oxygen Delivery Room Air 12/10/22 12:58 12/10/22 13:04 Temperature 97.9 F Pulse Rate 120 H 126 H Respiratory Rate 16 Blood Pressure 108/54 L Pulse Oximetry 96 Oxygen Delivery Intake/Output Intake/Output: Intake & Output 12/07/22 12/08/22 12/09/22 12/10/22 23:59 23:59 23:59 23:59 Intake Total 1930 1180 1320 640 Output Total 400 300 35
[2022-12-10] MEDS: GABAPENTIN 100 MG CAPSULE PO ×2 (16:42→20:21)
[2022-12-10] MEDS: RIVAROXABAN 20 MG TABLET PO (16:42)
[2022-12-10] MEDS: allopurinoL 100 MG TABLET PO (20:20)
[2022-12-10] MEDS: ACETAMINOPHEN 500 MG TABLET 1000 MG PO (20:20)
[2022-12-10] MEDS: ATORVASTATIN 20 MG TABLET PO (20:21)
[2022-12-10] MEDS: PANTOPRAZOLE 40 MG TABLET PO (20:22)
[2022-12-10] MEDS: sulfaSALAzine 500 MG TABLET 1000 MG PO (20:23)
[2022-12-11] VITALS (12 sets, daily range): BP systolic 110–121; BP diastolic 40–73; PULSE 40–114; RESP 16–18; TEMP 36.2–36.6; O2SAT 95–98
[2022-12-11 05:34] LABS: Hematocrit 34.1 % (37.0-47.0); Hemoglobin 10.9 g/dL (12.0-15.0); Mean Corpuscular Hemoglobin 30.1 pg (26-34); Mean Corpuscular Volume 94.2 fl (80-100); Mean Platelet Volume 10.2 fl (7.4-10.4); Platelet Count Result 230 k/mm3 (150-375); Red Blood Count 3.62 M/mm3 (4.2-5.4); Red Cell Distribution Width 15.3 % (11.5-14.5); White Blood Count 5.6 K/mm3 (4.5-10.0)
[2022-12-11 05:44] LABS: Alanine Aminotransferase 26 U/L (6-35); Albumin Level 3.4 g/dL (3.5-5.1); Alkaline Phosphatase 75 U/L (38-126); Anion Gap 5 mmol/L (8-16); Aspartate Amino Transferase 35 U/L (14-36); Bilirubin,Total 0.4 mg/dL (0.2-1.3); Blood Urea Nitrogen 12 mg/dL (7-17); Calcium 8.9 mg/dL (8.4-10.2); Carbon Dioxide 27 mmol/L (22-30); Chloride 104 mmol/L (98-107); Estimated CRCL calculation 48 ml/min; Estimated Glomerular Filt Rate > 60; Glucose 83 mg/dL (65-110); Magnesium 1.8 mg/dL (1.6-2.3); Potassium 4.1 mmol/L (3.4-5.0); Sodium 136 mmol/L (137-145)
--- NOTE | 2022-12-11 09:05 | PC.NURSE ---
called pharmacy for missing 0900 sulfasalazine. will give when received
[2022-12-11] MEDS: DIGOXIN TAB 125 MCG TABLET PO (09:09)
[2022-12-11] MEDS: ACETAMINOPHEN 500 MG TABLET PO (09:09)
[2022-12-11] MEDS: BACLOFEN 5 MG TABLET PO ×2 (09:10→21:58)
[2022-12-11] MEDS: METOPROLOL SUCCINATE EXT REL 50 MG TABCR 150 MG PO (09:10)
[2022-12-11] MEDS: VERAPAMIL HCL ER 240 MG TABLET.ER PO (09:10)
[2022-12-11] MEDS: FOLIC ACID 1 MG TABLET PO ×3 (09:10→17:14)
[2022-12-11] MEDS: METOPROLOL SUCCINATE EXT REL 25 MG TABCR PO (09:10)
[2022-12-11] MEDS: GABAPENTIN 100 MG CAPSULE PO ×3 (09:10→17:14)
[2022-12-11] MEDS: DOCUSATE SODIUM 100 MG CAPSULE PO ×2 (09:10→21:58)
[2022-12-11] MEDS: sulfaSALAzine 500 MG TABLET PO ×2 (09:22→13:53)
--- NOTE | 2022-12-11 10:20 | PM.PNCARD ---
Progress Note: A&P Assessment and Plan (1) Atrial fibrillation with rapid ventricular response: Code(s): I48.91 - Unspecified atrial fibrillation Status: Acute Assessment and Plan: Her atrial fibrillation has been managed as an OPT with metoprolol, verapamil, and previously digoxin, and did not have any issues with bradycardia. Heart rate is coming under control. Tolerated the RVR well w/o CHF. -- She is anticoagulated with Xarelto, appropriate dose. --Continue telemetry. --Cont metoprolol XL 175 mg qd + verapamil 240 mg qd + digoxin 0.125 mg qd --Parameters written in case pt becomes bradycardic --Increase activity; Up to chair --Will need digoxin level after discharge --Discharge soon? (2) Acute UTI: Code(s): N39.0 - Urinary tract infection, site not specified Status: Acute Subjective Date/time seen: 12/11/22 10:20 Interval history: FU for debilitated pt with multiple sclerosis, w/ persistent atrial fib, treated w/ metoprolol and verapamil as OPT. She developed a fib RVR during this hospital stay for a UTI. 12/09/2022: She became tachycardic again last evening and remains tachycardic this morning. She is asymptomatic. She does say she is feeling better today and has less pain in her shoulder. Started digoxin 0.125 mg qd. Date of service 12/10/2022: Pt had a fib HR 140-150's last night; given digoxin 0.125 mg IVP X 1 and prn metoprolol 5 mg IVP in addition to her metoprolol XL 175 mg qd and verapamil 240 mg qd. She was also given a dose of IV metoprolol 5 mg at 6 pm yesterday and at 1 pm today. Currently HR around 100 BPM. Date of service 12/11/2022: Remains in AFib, heart rate 80-110 BPMon tele, on room air. Does not look like she has required any additional IV metoprolol. Review of Systems Review of Systems: Denies CP, soB palpitations, abdom pain. C/o leg pain. Would like to sit up in a chair. Exam Const: General: cooperative and comfortable; No confusion Orientation/consciousness: oriented to person and confusion Other: Conversant, NAD, watching TV.. HENMT: Mouth: Yes moist mucous membranes Eyes: EOM: EOMs intact bilaterally Neck: Thyroid: thyroid normal Resp: Effort & Inspection: normal respiratory effort Auscultation: clear to auscultation bilaterally Cardio: Rate: regular rate Rhythm: regular rhythm and abnormal rhythm irregularly irregular GI: Inspection: normal to inspection Skin: General skin exam: normal color and no rashes or lesions noted Neuro: General: oriented to person (place and situation) Extrem: Right lower extremity: no edema Left lower extremity: no edema Other: Contractures of lower extremities Psych: Appearance: grossly abnormal Mental Status: mental status grossly abnormal Other: Alert, answers questions Objective Data Vital Signs Vital Signs: Vital Signs - 24 hr 12/10/22 12:00 12/10/22 12:58 12/10/22 13:04 Temperature 97.9 F Pulse Rate 109 H 120 H 126 H Respiratory Rate 16 Blood Pressure 108/54 L Pulse Oximetry 96 Oxygen Delivery 12/10/22 14:00 12/10/22 16:00 12/10/22 22:00 Temperature 97.7 F 97.9 F Pulse Rate 88 121 H 84 Respiratory Rate 18 14 Blood Pressure 118/57 L 119/55 L Pulse Oximetry 93 93 Oxygen Delivery 12/10/22 20:00 12/10/22 20:00 12/11/22 00:00 Temperature Pulse Rate 115 H 111 H Respiratory Rate Blood Pressure Pulse Oximetry Oxygen Delivery Room Air 12/11/22 04:00 12/11/22 07:00 12/11/22 09:08 Temperature 97.9 F Pulse Rate 85 84 110 H Respiratory Rate 16 17 Blood Pressure 121/62 118/73 Pulse Oximetry 96 97 Oxygen Delivery 12/11/22 09:09 12/11/22 09:10 12/11/22 09:10 Temperature Pulse Rate 114 H 114 H 114 H Respiratory Rate Blood Pressure Pulse Oximetry Oxygen Delivery Intake/Output Intake/Output: Intake & Output 12/08/22 12/09/22 12/10/22 12/11/22 23:59 23:59 23:59 23:59 Intake Tota
--- NOTE | 2022-12-11 10:43 | WPDPN ---
Progress Note: A&P Assessment and Plan (1) Acute UTI: Code(s): N39.0 - Urinary tract infection, site not specified Status: Acute Assessment and Plan: Admit to IMU Started on Rocephin Cultures in progress Supportive care Continue to monitor 12/11/2022 interval history:??77-year-old female with history of MS and history of atrial fibrillation on metoprolol, verapmil and Xarelto presented with a dysuria patient found to have atrial fibrillation with RVR most likely triggered by dysuria and frequency of urination, urine culture is growing Klebsiella pneumonia ESBL, started the patient on meropenem, 08/09, for A. Fib RVR, ? patient was placed on diltiazem drip rates was trending down, stopped the drip and continued home regimen with a metoprolol 175mg qd, and verapamil 240mg , on 12/09 however her HR was high in 130s seen by quarter folder and added digoxin 125mcg, again on 12/10 patient HR was trending high above 100s, added metoprolol 5mg IV PRN q4 to HR below 100, will monitor, today patient has no symptoms, unfortunately patient is poor historian difficulty with speaking. will resume patient home medications, patient is being treated (2) Atrial fibrillation with rapid ventricular response: Code(s): I48.91 - Unspecified atrial fibrillation Status: Acute Assessment and Plan: Started on Cardizem drip Restart home meds Anticoagulated (3) Multiple sclerosis: Code(s): G35 - Multiple sclerosis Status: Acute Assessment and Plan: Continue glatiramer Supportive care (4) Malignant neoplasm of upper lobe, left bronchus or lung: Code(s): C34.12 - Malignant neoplasm of upper lobe, left bronchus or lung Status: Acute Assessment and Plan: Undergoing radiation Not a candidate for lobectomy (5) Impaired mobility and ADLs: Code(s): Z74.09 - Other reduced mobility; Z78.9 - Other specified health status Status: Acute Assessment and Plan: Supportive care (6) Spinal stenosis, lumbar: Qualifiers: Neurogenic claudication status: with neurogenic claudication Qualified Code(s): M48.062 - Spinal stenosis, lumbar region with neurogenic claudication Code(s): M48.061 - Spinal stenosis, lumbar region without neurogenic claudication Status: Chronic Assessment and Plan: Unchanged Subjective Date/time seen: 12/11/22 10:43 Interval history: Admit to IMU Started on Rocephin Cultures in progress Supportive care Continue to monitor 12/11/2022 interval history:??77-year-old female with history of MS and history of atrial fibrillation on metoprolol, verapmil and Xarelto presented with a dysuria patient found to have atrial fibrillation with RVR most likely triggered by dysuria and frequency of urination, urine culture is growing Klebsiella pneumonia ESBL, started the patient on meropenem, 08/09, for A. Fib RVR, ? patient was placed on diltiazem drip rates was trending down, stopped the drip and continued home regimen with a metoprolol 175mg qd, and verapamil 240mg , on 12/09 however her HR was high in 130s seen by quarter folder and added digoxin 125mcg, again on 12/10 patient HR was trending high above 100s, added metoprolol 5mg IV PRN q4 to HR below 100, will monitor, today patient has no symptoms, unfortunately patient is poor historian difficulty with speaking. will resume patient home medications, patient is being treated Review of Systems Review of Systems: ROS unobtainable: Yes unobtainable due to medical condition Exam Narrative: Elderly frail Patient is comfortable, NAD HEENT: eyes are clear and none icteric LUNGS: Normal respiratory effort ABD: Not distended Lower extremities: no edema SKIN: nonjaundiced Neuro: grossly intact. Objective Data Vital Signs Vital Signs: Vital Signs - 24 hr 12/10/22 12:00 12/10/22 12:58 12/10/22 13:04 Temperature 97.9 F Pulse Rate 109 H 120 H 126 H Respiratory Rate 16
[2022-12-11] MEDS: VITAMIN B COMPLEX/VIT C CAPSULE 1 EACH PO (13:52)
[2022-12-11] MEDS: CYANOCOBALAMIN 250 MCG TABLET PO (13:52)
[2022-12-11] MEDS: THIAMINE HCL 100 MG TABLET PO (13:52)
[2022-12-11] MEDS: POTASSIUM CHLORIDE 10 MEQ TABLET.ER PO (13:52)
[2022-12-11] MEDS: FERROUS SULFATE 324 MG TABLET PO (13:52)
[2022-12-11] MEDS: CHOLECALCIFEROL 1,000 UNITS TABLET 2000 UNITS PO (13:52)
[2022-12-11] MEDS: ERTAPENEM 1 GM/NS 50 ML 1 GM/50 ML BAG IVPB (13:53)
[2022-12-11] MEDS: RIVAROXABAN 20 MG TABLET PO (17:14)
[2022-12-11] MEDS: allopurinoL 100 MG TABLET PO (21:57)
[2022-12-11] MEDS: ATORVASTATIN 20 MG TABLET PO (21:57)
[2022-12-11] MEDS: ACETAMINOPHEN 500 MG TABLET 1000 MG PO (21:57)
[2022-12-11] MEDS: sulfaSALAzine 500 MG TABLET 1000 MG PO (21:58)
[2022-12-11] MEDS: PANTOPRAZOLE 40 MG TABLET PO (21:59)
[2022-12-12] VITALS (13 sets, daily range): BP systolic 107–115; BP diastolic 48–68; PULSE 48–126; RESP 16–18; TEMP 36.6–37.1; O2SAT 94–99
[2022-12-12 05:10] LABS: Hematocrit 33.4 % (37.0-47.0); Hemoglobin 10.9 g/dL (12.0-15.0); Mean Corpuscular HGB Conc 32.6 g/dl (32-36); Mean Corpuscular Hemoglobin 30.3 pg (26-34); Mean Corpuscular Volume 92.8 fl (80-100); Mean Platelet Volume 10.1 fl (7.4-10.4); Platelet Count Result 235 k/mm3 (150-375); Red Cell Distribution Width 15.3 % (11.5-14.5); White Blood Count 6.1 K/mm3 (4.5-10.0)
[2022-12-12 05:20] LABS: Alanine Aminotransferase 27 U/L (6-35); Albumin Level 3.4 g/dL (3.5-5.1); Alkaline Phosphatase 79 U/L (38-126); Anion Gap 4 mmol/L (8-16); Aspartate Amino Transferase 39 U/L (14-36); Bilirubin,Total 0.4 mg/dL (0.2-1.3); Blood Urea Nitrogen 12 mg/dL (7-17); Calcium 8.8 mg/dL (8.4-10.2); Carbon Dioxide 28 mmol/L (22-30); Chloride 100 mmol/L (98-107); Estimated CRCL calculation 56 ml/min; Estimated Glomerular Filt Rate > 60; Glucose 83 mg/dL (65-110); Magnesium 1.7 mg/dL (1.6-2.3); Potassium 4.2 mmol/L (3.4-5.0); Sodium 132 mmol/L (137-145)
[2022-12-12] MEDS: METOPROLOL SUCCINATE EXT REL 50 MG TABCR 150 MG PO (09:31)
[2022-12-12] MEDS: BACLOFEN 5 MG TABLET PO ×2 (09:32→22:00)
[2022-12-12] MEDS: METOPROLOL SUCCINATE EXT REL 25 MG TABCR PO (09:33)
[2022-12-12] MEDS: sulfaSALAzine 500 MG TABLET PO ×2 (09:33→12:38)
[2022-12-12] MEDS: ACETAMINOPHEN 500 MG TABLET PO (09:33)
[2022-12-12] MEDS: GABAPENTIN 100 MG CAPSULE PO ×3 (09:34→17:58)
[2022-12-12] MEDS: DIGOXIN TAB 125 MCG TABLET PO (09:34)
[2022-12-12] MEDS: DOCUSATE SODIUM 100 MG CAPSULE PO ×2 (09:34→22:00)
[2022-12-12] MEDS: VERAPAMIL HCL ER 240 MG TABLET.ER PO (09:34)
[2022-12-12] MEDS: FOLIC ACID 1 MG TABLET PO ×3 (09:34→17:58)
--- NOTE | 2022-12-12 11:53 | WPDPN ---
Progress Note: A&P Assessment and Plan (1) Acute UTI: Code(s): N39.0 - Urinary tract infection, site not specified Status: Acute Assessment and Plan: Admit to IMU Started on Rocephin Cultures in progress Supportive care Continue to monitor 12/12/2022 interval history:??77-year-old female with history of MS and history of atrial fibrillation on metoprolol, verapmil and Xarelto presented with a dysuria patient found to have atrial fibrillation with RVR most likely triggered by dysuria and frequency of urination, urine culture is growing Klebsiella pneumonia ESBL, started the patient on Ertapenem, 10/07. For A. Fib RVR, ? patient was placed on diltiazem drip rates was trending down, stopped the drip and continued home regimen with a metoprolol 175mg qd, and verapamil 240mg , on 12/09 however her HR was high in 130s seen by sharepoint administrator and added digoxin 125mcg, again on 12/10 patient HR was trending high above 100s, added metoprolol 5mg IV PRN q4 to HR below 100, Patient will remain in the hospital for IV abx until 12/14, will monitor, today patient has no symptoms, unfortunately patient is poor historian difficulty with speaking. will resume patient home medications, patient is being treated. (2) Atrial fibrillation with rapid ventricular response: Code(s): I48.91 - Unspecified atrial fibrillation Status: Acute Assessment and Plan: Started on Cardizem drip Restart home meds Anticoagulated (3) Multiple sclerosis: Code(s): G35 - Multiple sclerosis Status: Acute Assessment and Plan: Continue glatiramer Supportive care (4) Malignant neoplasm of upper lobe, left bronchus or lung: Code(s): C34.12 - Malignant neoplasm of upper lobe, left bronchus or lung Status: Acute Assessment and Plan: Undergoing radiation Not a candidate for lobectomy (5) Impaired mobility and ADLs: Code(s): Z74.09 - Other reduced mobility; Z78.9 - Other specified health status Status: Acute Assessment and Plan: Supportive care (6) Spinal stenosis, lumbar: Qualifiers: Neurogenic claudication status: with neurogenic claudication Qualified Code(s): M48.062 - Spinal stenosis, lumbar region with neurogenic claudication Code(s): M48.061 - Spinal stenosis, lumbar region without neurogenic claudication Status: Chronic Assessment and Plan: Unchanged Subjective Date/time seen: 12/12/22 11:53 Interval history: Admit to IMU Started on Rocephin Cultures in progress Supportive care Continue to monitor 12/12/2022 interval history:??77-year-old female with history of MS and history of atrial fibrillation on metoprolol, verapmil and Xarelto presented with a dysuria patient found to have atrial fibrillation with RVR most likely triggered by dysuria and frequency of urination, urine culture is growing Klebsiella pneumonia ESBL, started the patient on Ertapenem, 10/07. For A. Fib RVR, ? patient was placed on diltiazem drip rates was trending down, stopped the drip and continued home regimen with a metoprolol 175mg qd, and verapamil 240mg , on 12/09 however her HR was high in 130s seen by sharepoint administrator and added digoxin 125mcg, again on 12/10 patient HR was trending high above 100s, added metoprolol 5mg IV PRN q4 to HR below 100, Patient will remain in the hospital for IV abx until 12/14, will monitor, today patient has no symptoms, unfortunately patient is poor historian difficulty with speaking. will resume patient home medications, patient is being treated. Review of Systems Review of Systems: ROS unobtainable: Yes unobtainable due to medical condition Exam Narrative: Elderly frail Patient is comfortable, NAD HEENT: eyes are clear and none icteric LUNGS: Normal respiratory effort ABD: Not distended Lower extremities: no edema SKIN: nonjaundiced Neuro: grossly intact. Objective Data Vital Signs Vital Signs: Vital Signs - 24 hr
[2022-12-12] MEDS: POTASSIUM CHLORIDE 10 MEQ TABLET.ER PO (12:37)
[2022-12-12] MEDS: CHOLECALCIFEROL 1,000 UNITS TABLET 2000 UNITS PO (12:37)
[2022-12-12] MEDS: FERROUS SULFATE 324 MG TABLET PO (12:38)
[2022-12-12] MEDS: THIAMINE HCL 100 MG TABLET PO (12:38)
[2022-12-12] MEDS: CYANOCOBALAMIN 250 MCG TABLET PO (12:38)
[2022-12-12] MEDS: VITAMIN B COMPLEX/VIT C CAPSULE 1 EACH PO (12:38)
[2022-12-12] MEDS: ERTAPENEM 1 GM/NS 50 ML 1 GM/50 ML BAG IVPB (12:41)
[2022-12-12] MEDS: RIVAROXABAN 20 MG TABLET PO (17:58)
[2022-12-12] MEDS: traMADol HCL (*CRX) 25 MG TABLET PO (18:00)
[2022-12-12] MEDS: METOPROLOL TARTRATE INJ 5 MG/5 ML VIAL IV PUSH (19:50)
[2022-12-12] MEDS: ACETAMINOPHEN 500 MG TABLET 1000 MG PO (22:00)
[2022-12-12] MEDS: ATORVASTATIN 20 MG TABLET PO (22:01)
[2022-12-12] MEDS: PANTOPRAZOLE 40 MG TABLET PO (22:01)
[2022-12-12] MEDS: sulfaSALAzine 500 MG TABLET 1000 MG PO (22:01)
[2022-12-12] MEDS: allopurinoL 100 MG TABLET PO (22:01)
[2022-12-13] VITALS (11 sets, daily range): BP systolic 93–129; BP diastolic 44–60; PULSE 60–101; RESP 16–18; TEMP 36.6–36.8; O2SAT 95–98
[2022-12-13 05:26] LABS: Hematocrit 34.4 % (37.0-47.0); Hemoglobin 11.2 g/dL (12.0-15.0); Mean Corpuscular HGB Conc 32.6 g/dl (32-36); Mean Corpuscular Hemoglobin 30.4 pg (26-34); Mean Corpuscular Volume 93.5 fl (80-100); Platelet Count Result 251 k/mm3 (150-375); Red Blood Count 3.68 M/mm3 (4.2-5.4); Red Cell Distribution Width 15.3 % (11.5-14.5); White Blood Count 6.6 K/mm3 (4.5-10.0)
[2022-12-13 05:37] LABS: Alanine Aminotransferase 32 U/L (6-35); Albumin Level 3.5 g/dL (3.5-5.1); Alkaline Phosphatase 92 U/L (38-126); Anion Gap 4 mmol/L (8-16); Aspartate Amino Transferase 47 U/L (14-36); Bilirubin,Total 0.4 mg/dL (0.2-1.3); Blood Urea Nitrogen 14 mg/dL (7-17); Calcium 8.7 mg/dL (8.4-10.2); Carbon Dioxide 30 mmol/L (22-30); Chloride 99 mmol/L (98-107); Estimated CRCL calculation 56 ml/min; Estimated Glomerular Filt Rate > 60; Glucose 85 mg/dL (65-110); Magnesium 1.8 mg/dL (1.6-2.3); Potassium 4.4 mmol/L (3.4-5.0); Sodium 133 mmol/L (137-145)
[2022-12-13] MEDS: METOPROLOL SUCCINATE EXT REL 50 MG TABCR 150 MG PO (09:11)
[2022-12-13] MEDS: GABAPENTIN 100 MG CAPSULE PO ×3 (09:15→17:47)
[2022-12-13] MEDS: METOPROLOL SUCCINATE EXT REL 25 MG TABCR PO (09:15)
[2022-12-13] MEDS: sulfaSALAzine 500 MG TABLET PO ×2 (09:15→12:58)
[2022-12-13] MEDS: FOLIC ACID 1 MG TABLET PO ×3 (09:15→17:47)
[2022-12-13] MEDS: ACETAMINOPHEN 500 MG TABLET PO (09:15)
[2022-12-13] MEDS: DOCUSATE SODIUM 100 MG CAPSULE PO ×2 (09:15→21:28)
[2022-12-13] MEDS: DIGOXIN TAB 125 MCG TABLET PO (09:15)
[2022-12-13] MEDS: BACLOFEN 5 MG TABLET PO ×2 (09:16→21:29)
[2022-12-13] MEDS: VERAPAMIL HCL ER 240 MG TABLET.ER PO (09:16)
[2022-12-13] MEDS: ERTAPENEM 1 GM/NS 50 ML 1 GM/50 ML BAG IVPB (12:30)
--- NOTE | 2022-12-13 12:35 | WPDPN ---
Progress Note: A&P Assessment and Plan (1) Acute UTI: Code(s): N39.0 - Urinary tract infection, site not specified Status: Acute Assessment and Plan: Admit to IMU Started on Rocephin Cultures in progress Supportive care Continue to monitor 12/13/2022 interval history:??77-year-old female with history of MS and history of atrial fibrillation on metoprolol, verapmil and Xarelto presented with a dysuria patient found to have atrial fibrillation with RVR most likely triggered by dysuria and frequency of urination, urine culture is growing Klebsiella pneumonia ESBL, started the patient on Ertapenem, 10/07. For A. Fib RVR, ? patient was placed on diltiazem drip rates was trending down, stopped the drip and continued home regimen with a metoprolol 175mg qd, and verapamil 240mg , on 12/09 however her HR was high in 130s seen by digital pre press operator and added digoxin 125mcg, again on 12/10 patient HR was trending high above 100s, added metoprolol 5mg IV PRN q4 to HR is close to 80s, , Patient will remain in the hospital for IV abx until 12/14, will monitor, today patient has no symptoms, unfortunately patient is poor historian difficulty with speaking. will resume patient home medications, patient is being treated. (2) Atrial fibrillation with rapid ventricular response: Code(s): I48.91 - Unspecified atrial fibrillation Status: Acute Assessment and Plan: Started on Cardizem drip Restart home meds Anticoagulated (3) Multiple sclerosis: Code(s): G35 - Multiple sclerosis Status: Acute Assessment and Plan: Continue glatiramer Supportive care (4) Malignant neoplasm of upper lobe, left bronchus or lung: Code(s): C34.12 - Malignant neoplasm of upper lobe, left bronchus or lung Status: Acute Assessment and Plan: Undergoing radiation Not a candidate for lobectomy (5) Impaired mobility and ADLs: Code(s): Z74.09 - Other reduced mobility; Z78.9 - Other specified health status Status: Acute Assessment and Plan: Supportive care (6) Spinal stenosis, lumbar: Qualifiers: Neurogenic claudication status: with neurogenic claudication Qualified Code(s): M48.062 - Spinal stenosis, lumbar region with neurogenic claudication Code(s): M48.061 - Spinal stenosis, lumbar region without neurogenic claudication Status: Chronic Assessment and Plan: Unchanged Subjective Date/time seen: 12/13/22 12:35 Interval history: Admit to IMU Started on Rocephin Cultures in progress Supportive care Continue to monitor 12/13/2022 interval history:??77-year-old female with history of MS and history of atrial fibrillation on metoprolol, verapmil and Xarelto presented with a dysuria patient found to have atrial fibrillation with RVR most likely triggered by dysuria and frequency of urination, urine culture is growing Klebsiella pneumonia ESBL, started the patient on Ertapenem, 10/07. For A. Fib RVR, ? patient was placed on diltiazem drip rates was trending down, stopped the drip and continued home regimen with a metoprolol 175mg qd, and verapamil 240mg , on 12/09 however her HR was high in 130s seen by digital pre press operator and added digoxin 125mcg, again on 12/10 patient HR was trending high above 100s, added metoprolol 5mg IV PRN q4 to HR is close to 80s, , Patient will remain in the hospital for IV abx until 12/14, will monitor, today patient has no symptoms, unfortunately patient is poor historian difficulty with speaking. will resume patient home medications, patient is being treated. Review of Systems Review of Systems: ROS unobtainable: Yes unobtainable due to medical condition Exam Narrative: Elderly frail Patient is comfortable, NAD HEENT: eyes are clear and none icteric LUNGS: Normal respiratory effort ABD: Not distended Lower extremities: no edema SKIN: nonjaundiced Neuro: grossly intact. Objective Data Vital Signs Vital Signs: Vital
[2022-12-13] MEDS: VITAMIN B COMPLEX/VIT C CAPSULE 1 EACH PO (12:58)
[2022-12-13] MEDS: FERROUS SULFATE 324 MG TABLET PO (12:58)
[2022-12-13] MEDS: POTASSIUM CHLORIDE 10 MEQ TABLET.ER PO (12:58)
[2022-12-13] MEDS: CYANOCOBALAMIN 250 MCG TABLET PO (12:58)
[2022-12-13] MEDS: THIAMINE HCL 100 MG TABLET PO (12:58)
--- NOTE | 2022-12-13 14:40 | PM.PNCARD ---
Progress Note: A&P Assessment and Plan (1) Atrial fibrillation with rapid ventricular response: Code(s): I48.91 - Unspecified atrial fibrillation Status: Acute Assessment and Plan: Her atrial fibrillation has been managed as an OPT with metoprolol, verapamil, and previously digoxin, and did not have any issues with bradycardia. Heart rate is under control. Tolerated the RVR well w/o CHF. -- She is anticoagulated with Xarelto, appropriate dose. --Continue telemetry. --Cont metoprolol XL 175 mg qd + verapamil 240 mg qd + digoxin 0.125 mg qd --Parameters written in case pt becomes bradycardic --Increase activity; Up to chair. PT/OT --Will need digoxin level after discharge --Discharge soon? OK for discharge from cardiac standpoint --Cardiology will sign off. Please call with questions (2) Acute UTI: Code(s): N39.0 - Urinary tract infection, site not specified Status: Acute Subjective Date/time seen: 12/13/22 14:40 Interval history: FU for debilitated pt with multiple sclerosis, w/ persistent atrial fib, treated w/ metoprolol and verapamil as OPT. She developed a fib RVR during this hospital stay for a UTI. 12/09/2022: She became tachycardic again last evening and remains tachycardic this morning. She is asymptomatic. She does say she is feeling better today and has less pain in her shoulder. Started digoxin 0.125 mg qd. Date of service 12/10/2022: Pt had a fib HR 140-150's last night; given digoxin 0.125 mg IVP X 1 and prn metoprolol 5 mg IVP in addition to her metoprolol XL 175 mg qd and verapamil 240 mg qd. She was also given a dose of IV metoprolol 5 mg at 6 pm yesterday and at 1 pm today. Currently HR around 100 BPM. Date of service 12/11/2022: Remains in AFib, heart rate 80-110 BPMon tele, on room air. Does not look like she has required any additional IV metoprolol. Date of service 12/13/2022: Rate controlled in Afib. No chest pain, shortness of breath, palpitations. She complains of pain in bilateral heels. Review of Systems Review of Systems: All systems reviewed & are unremarkable except as noted in HPI and below Neurologic: Denies confusion Psychiatric: Psychiatric: Denies confusion Exam Const: General: cooperative, comfortable, no acute distress, alert and awake; No confusion Orientation/consciousness: oriented to person (place and situation) and No confusion HENMT: Head: normal to inspection Mouth: Yes moist mucous membranes Eyes: General: appearance normal, both eyes and all related structures Pupils: Equal, round and reactive pupils present EOM: EOMs intact bilaterally Neck: Neck: normal visual inspection, supple and no JVD Thyroid: thyroid normal Carotids: normal carotid upstroke Resp: Effort & Inspection: normal respiratory effort Auscultation: clear to auscultation bilaterally Cardio: Rate: regular rate Rhythm: regular rhythm and abnormal rhythm irregularly irregular Heart sounds: S1 normal heart sound present, S2 normal heart sound present and Murmur heart sound present GI: Inspection: normal to inspection Auscultation: normal bowel sounds Skin: General skin exam: normal color and no rashes or lesions noted Neuro: General: oriented to person (place and situation), patient oriented x3 and No confusion Cranial nerves: Yes Equal, round and reactive pupils present Extrem: General: normal to inspection Right lower extremity: no edema Left lower extremity: no edema Other: Contractures of lower extremities Psych: Appearance: grossly abnormal Mental Status: mental status grossly abnormal Other: Alert, answers questions Objective Data Vital Signs Vital Signs: Vital Signs - 24 hr 12/12/22 16:00 12/12/22 19:29 12/12/22 19:50 Temperature Pulse Rate 96 126 H Respiratory Rate Blood Pressure Pulse Oximetry Oxygen Delivery Room Air 12/12/22 20:07 12/12/22 20:00 12/13/22 00:00 Temperature 37.1 C Pulse Rate 48 L 9
[2022-12-13] MEDS: RIVAROXABAN 20 MG TABLET PO (17:47)
[2022-12-13] MEDS: ACETAMINOPHEN 500 MG TABLET 1000 MG PO (21:28)
[2022-12-13] MEDS: PANTOPRAZOLE 40 MG TABLET PO (21:28)
[2022-12-13] MEDS: ATORVASTATIN 20 MG TABLET PO (21:28)
[2022-12-13] MEDS: sulfaSALAzine 500 MG TABLET 1000 MG PO (21:28)
[2022-12-13] MEDS: allopurinoL 100 MG TABLET PO (21:28)
[2022-12-13] MEDS: traMADol HCL (*CRX) 25 MG TABLET PO (22:59)
--- NOTE | 2022-12-14 10:20 | PCNWS ---
Weekly nutritional screen. Patient is tolerating current diet with adequate intake. Food preferences taken and given to diet office to encourage intake. No weight loss reported. No nutritional needs at this time.
[2022-12-14 20:00] VITALS: PULSE 126; PULSE 88; RESP 16; O2SAT 95
[2022-12-14] MEDS: allopurinoL 100 MG TABLET PO (20:00)
[2022-12-14] MEDS: DOCUSATE SODIUM 100 MG CAPSULE PO (20:00)
[2022-12-14] MEDS: sulfaSALAzine 500 MG TABLET 1000 MG PO (20:07)
[2022-12-14] MEDS: BACLOFEN 5 MG TABLET PO (20:08)
[2022-12-14] MEDS: ACETAMINOPHEN 500 MG TABLET 1000 MG PO (20:08)
[2022-12-14] MEDS: PANTOPRAZOLE 40 MG TABLET PO (20:08)
[2022-12-14] MEDS: ATORVASTATIN 20 MG TABLET PO (20:08)
[2022-12-14 20:58] VITALS: BP 103/62
[2022-12-14 20:59] VITALS: PULSE 127
[2022-12-14] MEDS: METOPROLOL TARTRATE INJ 5 MG/5 ML VIAL IV PUSH (20:59)
--- NOTE | 2022-12-14 21:35 | PC.NURSE ---
Paper documentation exists on this patient due to [employer] downtime on 12/14/22 from 0030 to [1930] .
[2022-12-14] MEDS: traMADol HCL (*CRX) 25 MG TABLET PO (21:41)
[2022-12-14 22:10] VITALS: BP 97/50; PULSE 76; RESP 18; TEMP 36.7; O2SAT 95
[2022-12-14 23:58] VITALS: BP 118/71
[2022-12-15] VITALS (8 sets, daily range): BP systolic 117–136; BP diastolic 56–72; PULSE 79–122; RESP 18; TEMP 36.2; O2SAT 95–96
[2022-12-15] MEDS: METOPROLOL TARTRATE INJ 5 MG/5 ML VIAL IV PUSH (01:39)
[2022-12-15 05:24] LABS: Hematocrit 35.9 % (37.0-47.0); Hemoglobin 11.7 g/dL (12.0-15.0); Mean Corpuscular HGB Conc 32.6 g/dl (32-36); Mean Corpuscular Hemoglobin 30.5 pg (26-34); Mean Corpuscular Volume 93.7 fl (80-100); Mean Platelet Volume 9.8 fl (7.4-10.4); Platelet Count Result 261 k/mm3 (150-375); Red Blood Count 3.83 M/mm3 (4.2-5.4); Red Cell Distribution Width 15.2 % (11.5-14.5); White Blood Count 6.6 K/mm3 (4.5-10.0)
[2022-12-15 05:36] LABS: Alanine Aminotransferase 36 U/L (6-35); Albumin Level 3.7 g/dL (3.5-5.1); Alkaline Phosphatase 97 U/L (38-126); Anion Gap 5 mmol/L (8-16); Aspartate Amino Transferase 51 U/L (14-36); Bilirubin,Total 0.4 mg/dL (0.2-1.3); Blood Urea Nitrogen 19 mg/dL (7-17); Calcium 8.9 mg/dL (8.4-10.2); Carbon Dioxide 29 mmol/L (22-30); Chloride 98 mmol/L (98-107); Estimated CRCL calculation 56 ml/min; Estimated Glomerular Filt Rate > 60; Glucose 89 mg/dL (65-110); Magnesium 1.9 mg/dL (1.6-2.3); Potassium 4.5 mmol/L (3.4-5.0); Sodium 132 mmol/L (137-145)
[2022-12-15] MEDS: DOCUSATE SODIUM 100 MG CAPSULE PO (09:18)
[2022-12-15] MEDS: DIGOXIN TAB 125 MCG TABLET PO (09:18)
[2022-12-15] MEDS: sulfaSALAzine 500 MG TABLET PO ×2 (09:18→12:46)
[2022-12-15] MEDS: ACETAMINOPHEN 500 MG TABLET PO (09:18)
[2022-12-15] MEDS: FOLIC ACID 1 MG TABLET PO ×2 (09:18→12:45)
[2022-12-15] MEDS: GABAPENTIN 100 MG CAPSULE PO ×2 (09:18→12:45)
[2022-12-15] MEDS: BACLOFEN 5 MG TABLET PO (09:19)
[2022-12-15] MEDS: VERAPAMIL HCL ER 240 MG TABLET.ER PO (09:19)
[2022-12-15] MEDS: METOPROLOL SUCCINATE EXT REL 25 MG TABCR PO (09:19)
[2022-12-15] MEDS: METOPROLOL SUCCINATE EXT REL 50 MG TABCR 150 MG PO (09:46)
[2022-12-15] MEDS: THIAMINE HCL 100 MG TABLET PO (12:45)
[2022-12-15] MEDS: CHOLECALCIFEROL 1,000 UNITS TABLET 2000 UNITS PO (12:45)
[2022-12-15] MEDS: FERROUS SULFATE 324 MG TABLET PO (12:46)
[2022-12-15] MEDS: VITAMIN B COMPLEX/VIT C CAPSULE 1 EACH PO (12:46)
[2022-12-15] MEDS: POTASSIUM CHLORIDE 10 MEQ TABLET.ER PO (12:46)
[2022-12-15] MEDS: CYANOCOBALAMIN 250 MCG TABLET PO (12:46)
--- NOTE | 2022-12-15 13:21 | PM.DS ---
DS: Admitting Diagnosis Discharge Date 12/15/22 Admitting Diagnosis Dysuria, hematuria DS: Discharge Diagnosis Discharge Diagnosis (1) Acute UTI: Code(s): N39.0 - Urinary tract infection, site not specified Status: Acute (2) Atrial fibrillation with rapid ventricular response: Code(s): I48.91 - Unspecified atrial fibrillation Status: Acute (3) Multiple sclerosis: Code(s): G35 - Multiple sclerosis Status: Acute (4) Malignant neoplasm of upper lobe, left bronchus or lung: Code(s): C34.12 - Malignant neoplasm of upper lobe, left bronchus or lung Status: Acute (5) Impaired mobility and ADLs: Code(s): Z74.09 - Other reduced mobility; Z78.9 - Other specified health status Status: Acute (6) Spinal stenosis, lumbar: Qualifiers: Neurogenic claudication status: with neurogenic claudication Qualified Code(s): M48.062 - Spinal stenosis, lumbar region with neurogenic claudication Code(s): M48.061 - Spinal stenosis, lumbar region without neurogenic claudication Status: Chronic DS: Summary Hospital Course Hospital Course: This is a 77 year female with past medical history of MS, AFib on anticoagulation, hypertension, spinal stenosis, VRE, left lower lung cancer undergo radiation and Crohn's disease of presented to the ED due to dysuria and hematuria. While in emergency room patient had episode of AFib with RVR. Patient started on diltiazem drip and her heart rate trended downward. Patient was started on digoxin 125 mg due to sustained tachycardia. Metoprolol IV 5 mg q.4 hours as needed was also ordered. Patient eventually became rate controlled and it was recommended that she be sent home with 175 mg metoprolol XL, verapamil to 40 mg and digoxin 0.125 mg daily. UA suspicious for infection. Urine culture growing Klebsiella pneumoniae ESBL and she was started on meropenem. She completed the course on 12/14/2022. Patient's symptoms resolved, vital signs and labs are stable and she is medically cleared for discharge on 12/15/2022. Time Spent with Patient Time attestation: Total time spent providing and/or coordinating discharge services: Exam Narrative: GENERAL: Comfortable, no acute distress HENMT: moist mucous membranes EYES: EOM intact b/l NECK: no lymphadenopathy RESPIRATORY: clear to auscultation CARDIO: RRR GI: soft, nontender, bowel sounds present SKIN: no rashes EXTREMITIES: no edema, redness or tenderness DS: Data Data Completed and Pending Labs on day of discharge: Labs from last 24 hours 12/15/22 05:18 WBC 6.6 RBC 3.83 L Hgb 11.7 L Hct 35.9 L MCV 93.7 MCH 30.5 MCHC 32.6 RDW 15.2 H Plt Count 261 MPV 9.8 Sodium 132 L Potassium 4.5 Chloride 98 Carbon Dioxide 29 Anion Gap 5 L BUN 19 H Creatinine 0.60 L Estim Creat Clear Calc 56 Estimated GFR > 60 Glucose 89 Calcium 8.9 Magnesium 1.9 Total Bilirubin 0.4 AST 51 H ALT 36 H Alkaline Phosphatase 97 Total Protein 7.0 Albumin 3.7 Discharge Plan Discharge Attending physician on discharge: Remington Guadalupe Consulting providers: Melissa Conde Discharging Clinician: Maude Martinez Patient Disposition: [facility] Long Term/Asst Living Activity: as tolerated Diet: regular Discharge Instructions: AFib management Outpatient therapy with metoprolol, verapamil and digoxin Digoxin level after discharge recommended and ordered. UTI management Take all medications as prescribed even if feeling better Eat well balanced meals and stay hydrated Keep active to remain strong Avoid use of diapers or pads Good yuri Care every 2 hours Frequent toileting every 2 hours Trend urine output If you should experience any chest pain, shortness of breath, temps >100.4 or any other worrisome symptoms please follow up with your PCP come back to the hospital Follow up with your primary in 2-3 weeks It has been a pleasure taking c
[2022-12-15 13:22] LABS: Hematocrit 36.9 % (37.0-47.0); Hemoglobin 11.5 g/dL (12.0-15.0); Mean Corpuscular Hemoglobin 29.6 pg (26-34); Mean Corpuscular Volume 95.1 fl (80-100); Red Blood Count 3.88 M/mm3 (4.2-5.4); White Blood Count 6.1 K/mm3 (4.5-10.0)
[2022-12-15 13:23] LABS: Chloride 98 mmol/L (98-107); Mean Corpuscular HGB Conc 31.2 g/dl (32-36); Mean Platelet Volume 11.1 fl (7.4-10.4); Platelet Count Result 266 k/mm3 (150-375); Potassium 4.7 mmol/L (3.4-5.0); Red Cell Distribution Width 15.3 % (11.5-14.5); Sodium 133 mmol/L (137-145)
[2022-12-15 13:24] LABS: Alanine Aminotransferase 35 U/L (6-35); Albumin Level 3.5 g/dL (3.5-5.1); Alkaline Phosphatase 97 U/L (38-126); Anion Gap 2 mmol/L (8-16); Aspartate Amino Transferase 52 U/L (14-36); Bilirubin,Total 0.3 mg/dL (0.2-1.3); Blood Urea Nitrogen 21 mg/dL (7-17); Carbon Dioxide 33 mmol/L (22-30); Estimated CRCL calculation 56 ml/min; Estimated Glomerular Filt Rate > 60; Glucose 93 mg/dL (65-110); Total Protein 6.6 g/dL (6.3-8.2)
== END 2022-12-15 15:30 | DRG 690 ==
LOC: ANHED 12-07 00:52 → ANHIMU 12-07 01:21 → ANH2MED 12-08 15:20
PROVIDERS: Family Medicine; Admitting Provider Internal Medicine; Emergency Provider Emergency Medicine; PCP Family Medicine; Visit Provider Internal Medicine Critical Care Medicine
DX: N39.0 Urinary tract infection, site not specified (principal); I48.19 Other persistent atrial fibrillation; C34.12 Malignant neoplasm of upper lobe, left bronchus or lung; K50.90 Crohn's disease, unspecified, without complications; Z16.12 Extended spectrum beta lactamase (ESBL) resistance; B96.1 Klebsiella pneumoniae [K. pneumoniae] as the cause of diseases classified elsewhere; G35 Multiple sclerosis; Z20.822 Contact with and (suspected) exposure to COVID-19; M24.50 Contracture, unspecified joint; D64.9 Anemia, unspecified; E78.2 Mixed hyperlipidemia; M48.061 Spinal stenosis, lumbar region without neurogenic claudication; I10 Essential (primary) hypertension; M19.90 Unspecified osteoarthritis, unspecified site; Z74.09 Other reduced mobility; Z79.01 Long term (current) use of anticoagulants; Z87.891 Personal history of nicotine dependence
CPT/HCPCS: 36415; 71045; 80048; 80053; 81001; 82550; 82948; 83605; 83690; 83735; 83880; 84100; 84484; 85025; 85027; 87040; 87077; 87086; 87186; 87637; 93005; 93306; 96361; 96365; 96366; 96367; 96375; 99285; A9270; G0378; J0696; J1160; J1335; J7030

== ENCOUNTER 2022-12-17 14:39 | Emergency (ER) | payer MEDICARE, SELFPAY ==
--- NOTE | ~2022-12-17 | CT_ITS ---
EXAMINATION: CT brain wo con DATE: 12/17/2022 15:40 INDICATION: Head injury. TECHNIQUE: Computed tomography (CT) of the head was performed without intravenous contrast. The dose- length product was 681.00 mGy-cm. Automated exposure control and iterative reconstruction technique w ere employed. COMPARISON: CT dated 02/10/2022 FINDINGS: Generalized atrophy. There are scattered moderate periventricular and subcortical white mat ter changes, most likely related to small vessel ischemic disease (microangiopathy). No acute intracr anial hemorrhage, infarction, mass or mass effect. There is intracranial atherosclerosis. Paranasal s inuses and mastoids are pneumatized. No depressed skull fractures. IMPRESSION: 1. No acute intracranial abnormality. 2: Chronic age-related findings Reviewed, dictated and finalized at location A.
[2022-12-17 14:41] VITALS: BP 108/67; PULSE 112; RESP 18; TEMP 36.4; O2SAT 98
--- NOTE | 2022-12-17 14:50 | ED.FALL ---
HPI - Fall General Chief Complaint: Fall Stated Complaint: fall/head injury/blood thinners History of Present Illness HPI Narrative: 77-year-old female presented to the emergency department for evaluation after having a ground-level fall and striking her head. Patient does have history of MS and atrial fibrillation. Patient does take rivaroxaban. Patient reports that she was attempting to get out of her wheelchair when she fell and struck her head against her nightstand. Patient denies any loss of consciousness. Patient denies any pain from the injury. Related Data Home Medications Medication Instructions Recorded Confirmed rivaroxaban 20 mg tablet (Xarelto) 20 mg PO HS 09/21/21 12/07/22 B complex-C 500 mg-folic 400 1 tablet PO 1200 12/07/22 12/07/22 mcg-zinc 24 mg-copper 3 mg-vit E tablet (Stress B-Complex) acetaminophen 500 mg tablet 1,000 mg PO HS 12/07/22 12/07/22 acetaminophen 500 mg tablet 500 mg PO DAILY 12/07/22 12/07/22 allopurinol 100 mg tablet 100 mg PO HS 12/07/22 12/07/22 baclofen 10 mg tablet See Rx Instructions .Route .COMPLEX 12/07/22 12/07/22 cholecalciferol (vitamin D3) 50 50 mcg PO 1200 12/07/22 12/07/22 mcg (2,000 unit) capsule (Vitamin D3) cyanocobalamin (vitamin B-12) 250 250 mcg PO 1200 12/07/22 12/07/22 mcg tablet (Vitamin B-12) ferrous sulfate 325 mg (65 mg 325 mg PO 119912/07/22 12/07/22 iron) tablet folic acid 1 mg tablet 1 mg PO TID 12/07/22 12/07/22 glatiramer 40 mg/mL subcutaneous 40 mg subcut 3XW 12/07/22 12/07/22 syringe (Copaxone) potassium chloride 10 mEq 10 meq PO 119912/07/22 12/07/22 tablet,extended release thiamine HCl (vitamin B1) 100 mg 100 mg PO 1200 12/07/22 12/07/22 tablet (Vitamin B-1) tramadol 50 mg tablet 25 mg PO DAILY PRN Pain (Scale 12/07/22 12/07/22 Score 4-6) verapamil 240 mg tablet,extended 240 mg PO DAILY 12/07/22 12/07/22 release Allergies Allergy/AdvReac Type Severity Reaction Status Date / Time codeine Allergy Unknown Unknown Verified 12/17/22 14:51 erythromycin base Allergy Unknown Unknown Verified 12/17/22 14:51 nitrofurantoin Allergy Unknown Unknown Verified 12/17/22 14:51 sulfisoxazole Allergy Unknown Unknown Verified 12/17/22 14:51 Sulfa (Sulfonamide Allergy Itching Verified 12/17/22 14:51 Antibiotics) Review of Systems Review of Systems: All systems reviewed & are unremarkable except as noted in HPI and below PMFSH Past Medical History Medical History Anemia, unspecified Arthritis Atrial fibrillation Chronic anticoagulation Crohn's disease Degenerative joint disease Dysphagia Essential (primary) hypertension Malignant neoplasm of upper lobe, left bronchus or lung Status post radiation. Patient of Dr. Almodovar and Dr. Latif. Mixed hyperlipidemia Multiple sclerosis Spinal stenosis, lumbar Vancomycin resistant Enterococcus Surgical History Surgical History History of carpal tunnel release History of cataract extraction History of colonoscopy Family History Family History Son Diabetes mellitus Father Hypertension Mother Emphysema lung Sibling Heart disease History of quadruple bypass Social History Social History Social History: Surrogate medical decision maker: Braden Pineda, son. Code status: Full code. Smoking packs per day: 1 Smoking cigarettes per day: 20.0 Years smoked: 30 Smoking pack-years: 30.00 Smoking status: Former smoker Second hand tobacco smoke exposure: Yes Alcohol intake: never Substance use: never Substance use type: marijuana Lack of Transportation: No Lack of Food: Never True Current Housing: I Have Housing Concerned About Future Housing: No Difficulty Paying Gas/Electric Bills: No D
[2022-12-17 16:14] VITALS: BP 110/51; PULSE 102; RESP 19; O2SAT 98
[2022-12-17 19:14] VITALS: BP 106/58; PULSE 95; RESP 20; O2SAT 96
== END 2022-12-17 19:17 ==
PROVIDERS: Emergency Provider Emergency Medicine; PCP Family Medicine
DX: S09.90XA Unspecified injury of head, initial encounter (principal); G35 Multiple sclerosis; I48.91 Unspecified atrial fibrillation; I10 Essential (primary) hypertension; K50.90 Crohn's disease, unspecified, without complications; E78.2 Mixed hyperlipidemia; M19.90 Unspecified osteoarthritis, unspecified site; Z85.118 Personal history of other malignant neoplasm of bronchus and lung; Z86.2 Personal history of diseases of the blood and blood-forming organs and certain disorders involving the immune mechanism; Z87.891 Personal history of nicotine dependence; Z98.49 Cataract extraction status, unspecified eye; Z79.01 Long term (current) use of anticoagulants
CPT/HCPCS: 70450; 99284

== ENCOUNTER 2022-12-22 19:54 | Observation (INO) | payer MEDICARE, SELFPAY ==
--- NOTE | ~2022-12-22 | XR_ITS ---
EXAMINATION: XR chest 1V Exam Date/Time: 12/22/2022 21:17 CDT HISTORY: Fall. no chest complaints. Hx afib, htn Comparison: 12/06/2022. RESULT: Lines, tubes, and devices: None. Lungs and pleura: No focal consolidation, pneumothorax, or pleural effusion. Redemonstration of the known left upper lobe mass. Cardiomediastinal silhouette: Stable. Other: No acute osseous or upper abdominal finding. IMPRESSION: No acute cardiopulmonary process. Reviewed, dictated and finalized at location K.
--- NOTE | ~2022-12-22 | CT_ITS ---
EXAMINATION: CT cervical spine wo con DATE: 12/22/2022 21:17 INDICATION: Fall TECHNIQUE: Computed tomography (CT) of the cervical spine was performed without intravenous contrast. Automated exposure control and iterative reconstruction technique were employed. The dose-length pro duct was 124.89 mGy-cm. COMPARISON: X-ray chest, 12/06/2022; CT chest 10/10/2022. FINDINGS: Vertebral Body Alignment: Intact. Focal reversal of the cervical lordosis centered at C4. Stable grad e 1 anterolisthesis at C3-4. Craniocervical and atlantoaxial alignment: Moderate degenerative change. Alignment intact. Osseous structures/fracture: No evidence of a lytic or blastic process in the visualized spine. No e vidence of acute fracture. Bilateral C3-4 facet fusion. Cervical soft tissues: The paraspinal soft tissues planes are maintained. Left upper lobe mass, consi stent with history of known malignancy. Degenerative changes: Multilevel degenerative changes. No severe central canal narrowing. Multilevel severe bilateral neural foraminal narrowing. IMPRESSION: No acute fracture or traumatic malalignment in the cervical spine. Reviewed, dictated and finalized at location K.
--- NOTE | ~2022-12-22 | CT_ITS ---
EXAMINATION: CT brain wo con DATE: 12/22/2022 21:12 INDICATION: Fall . TECHNIQUE: Computed tomography (CT) of the head was performed without intravenous contrast. The mA wa s adjusted according to patient size. Iterative reconstruction technique was employed. The dose-lengt h product was 908.00 mGy-cm. COMPARISON: 12/17/2022. FINDINGS: No acute intracranial hemorrhage or extra-axial fluid collection. No hydrocephalus, mass, or herniation. No acute ischemic infarct. Unremarkable dural venous sinus attenuation. No acute osseous abnormality. Right frontal scalp contusion/laceration. Trace left mastoid fluid. Mild mucosal thickening in the right ethmoid air cells. The remaining aerat ed spaces are clear. Moderate-severe atrophy and moderate chronic white matter change. Atherosclerotic intracranial calcif ication. Bilateral lens replacements. IMPRESSION: No acute intracranial process. Reviewed, dictated and finalized at location K.
[2022-12-22 20:08] VITALS: BP 142/81; PULSE 106; RESP 18; TEMP 36.5; O2SAT 99
--- NOTE | 2022-12-22 20:59 | ECG_ITS ---
Measurements Intervals [place] Rate: 118 P: NE: 0 QRS: 62 QRSD: 87 T: 43 QT: 313 QTc: 439 Interpretive Statements ATRIAL FIBRILLATION WITH RAPID VENTRICULAR RESPONSE NONSPECIFIC ST AND T ABNORMALITY ABNORMAL ECG COMPARED TO ECG 12/06/2022 22:09:02 NO DIFFERENCE Electronically Signed On 12-23-2022 7:56:11 CDT by Waqas Diaz M.D.
[2022-12-22 21:43] LABS: Basophils Percent Auto 0.4 % (0.2-1.2); Eosinophils Absolute Auto 0.2 K/mm3 (0-0.3); Eosinophils Percent Auto 2.4 % (0-4.4); Hematocrit 35.5 % (37.0-47.0); Hemoglobin 11.5 g/dL (12.0-15.0); Immature Granulocyte Absolute 0.02 K/mm3 (0.00-0.031); Immature Granulocyte Percent A 0.2 % (0-0.5); Lymphocytes Percent Auto 17.5 % (18.3-44.2); Mean Corpuscular HGB Conc 32.4 g/dl (32-36); Mean Corpuscular Hemoglobin 29.7 pg (26-34); Mean Corpuscular Volume 91.7 fl (80-100); Mean Platelet Volume 10.2 fl (7.4-10.4); Monocytes Absolute Auto 0.7 K/mm3 (0.1-0.6); Neutrophils Absolute Auto 6.5 K/mm3 (1.3-6.7); Neutrophils Percent Auto 71.5 % (45.5-73.1); Platelet Count Result 311 k/mm3 (150-375); Red Blood Count 3.87 M/mm3 (4.2-5.4); Red Cell Distribution Width 15.3 % (11.5-14.5); White Blood Count 9.1 K/mm3 (4.5-10.0)
--- NOTE | 2022-12-22 21:50 | ED.GENADULT ---
HPI - General Adult General Chief complaint: Fall Stated complaint: fall from wheelchair Time Seen by Provider: 12/22/22 20:05 History of Present Illness HPI narrative: This is a 77-year-old woman with history of MS and severe debility presenting ED after a fall. She says that she was reaching down to pick something off the ground when she fell forward and struck her head. She denies loss of consciousness. She denies other injuries. She denies chest pain, difficulty breathing, belly pain or urinary symptoms. patient is contracted at baseline. patient is on Xarelto. Related Data Home Medications Medication Instructions Recorded Confirmed rivaroxaban 20 mg tablet (Xarelto) 20 mg PO HS 09/21/21 12/20/22 B complex-C 500 mg-folic 400 1 tablet PO 1200 12/07/22 12/20/22 mcg-zinc 24 mg-copper 3 mg-vit E tablet (Stress B-Complex) acetaminophen 500 mg tablet 1,000 mg PO HS 12/07/22 12/20/22 acetaminophen 500 mg tablet 500 mg PO DAILY 12/07/22 12/20/22 allopurinol 100 mg tablet 100 mg PO HS 12/07/22 12/20/22 cholecalciferol (vitamin D3) 50 50 mcg PO 1200 12/07/22 12/20/22 mcg (2,000 unit) capsule (Vitamin D3) cyanocobalamin (vitamin B-12) 250 250 mcg PO 1200 12/07/22 12/20/22 mcg tablet (Vitamin B-12) ferrous sulfate 325 mg (65 mg 325 mg PO 119912/07/22 12/20/22 iron) tablet folic acid 1 mg tablet 1 mg PO TID 12/07/22 12/20/22 glatiramer 40 mg/mL subcutaneous 40 mg subcut 3XW 12/07/22 12/20/22 syringe (Copaxone) potassium chloride 10 mEq 10 meq PO 1200 12/07/22 12/20/22 tablet,extended release thiamine HCl (vitamin B1) 100 mg 100 mg PO 1200 12/07/22 12/20/22 tablet (Vitamin B-1) tramadol 50 mg tablet 25 mg PO DAILY PRN Pain (Scale 12/07/22 12/20/22 Score 4-6) verapamil 240 mg tablet,extended 240 mg PO DAILY 12/07/22 12/20/22 release Allergies Allergy/AdvReac Type Severity Reaction Status Date / Time codeine Allergy Unknown Unknown Verified 12/20/22 13:12 erythromycin base Allergy Unknown Unknown Verified 12/20/22 13:12 nitrofurantoin Allergy Unknown Unknown Verified 12/20/22 13:12 sulfisoxazole Allergy Unknown Unknown Verified 12/20/22 13:12 Sulfa (Sulfonamide Allergy Itching Verified 12/20/22 13:12 Antibiotics) [facility] Past Medical History Medical History Anemia, unspecified Arthritis Atrial fibrillation Chronic anticoagulation Crohn's disease Degenerative joint disease Dysphagia Essential (primary) hypertension Malignant neoplasm of upper lobe, left bronchus or lung Status post radiation. Patient of Dr. Almodovar and Dr. Latif. Mixed hyperlipidemia Multiple sclerosis Spinal stenosis, lumbar Vancomycin resistant Enterococcus Surgical History Surgical History History of carpal tunnel release History of cataract extraction History of colonoscopy Family History Family History Son Diabetes mellitus Father Hypertension Mother Emphysema lung Sibling Heart disease History of quadruple bypass Social History Social History Social History: Surrogate medical decision maker: Braden Pineda, son. Code status: Full code. Smoking packs per day: 1 Smoking cigarettes per day: 20.0 Years smoked: 30 Smoking pack-years: 30.00 Smoking status: Former smoker Second hand tobacco smoke exposure: Yes Alcohol intake: never Substance use: never Substance use type: marijuana Lack of Transportation: No Lack of Food: Never True Current Housing: I Have Housing Concerned About Future Housing: No Difficulty Paying Gas/Electric Bills: No Difficulty Paying for Meds: No Currently Unemployed: No Education: Don't Know Difficulty w/ Childcare or Family Care: No Living arrangements: with family Farhan meneses
[2022-12-22 21:51] LABS: Lactic Acid Reflex 1.1 mmol/L (0.7-2.0)
[2022-12-22 21:52] LABS: Creatine Kinase 132 U/L (30-135); Magnesium 1.7 mg/dL (1.6-2.3); Phosphorus 3.1 mg/dL (2.5-4.5)
[2022-12-22 21:53] LABS: INR 2.2; Prothrombin Time 25.5 Seconds (11.1-14.7)
[2022-12-22 21:54] LABS: Alanine Aminotransferase 32 U/L (6-35); Albumin Level 4.1 g/dL (3.5-5.1); Alkaline Phosphatase 123 U/L (38-126); Anion Gap 7 mmol/L (8-16); Aspartate Amino Transferase 53 U/L (14-36); Bilirubin,Total 0.6 mg/dL (0.2-1.3); Blood Urea Nitrogen 27 mg/dL (7-17); Calcium 8.8 mg/dL (8.4-10.2); Carbon Dioxide 26 mmol/L (22-30); Chloride 101 mmol/L (98-107); Estimated Glomerular Filt Rate > 60; Glucose 118 mg/dL (65-110); Lipase 190 U/L (23-300); Partial Thromboplastin Time 46.4 SECONDS (22.3-36.8); Potassium 3.7 mmol/L (3.4-5.0); Sodium 134 mmol/L (137-145)
[2022-12-22 22:06] LABS: Troponin I < 0.012 ng/mL (0.000-0.034)
[2022-12-22] MEDS: SODIUM CHLORIDE 0.9% IV 1,000 ML 999 ML IV CONT (22:28)
[2022-12-22 23:00] LABS: Appearance Urine Turbid (Clear); Bacteria Urine None Seen /hpf; Bilirubin Urine Negative (Negative); Blood Urine 3+ (Negative); Color Urine Dark Yellow (Yellow); Glucose Urine UA Negative (Negative); Ketones Urine Negative (Negative); Leukocyte Esterase Ur 3+ LEU/UL (Negative); Need Manual Microscopic Reviewed; Nitrate Urine Negative (Negative); Protein Urine 2+ mg/dL (Negative); RBC Urine >100 /hpf (0-2); Squamous Epithelial Cell Urine Occasional /hpf (Few); Urobilinogen Urine 0.2 mg/dL (<2.0); WBC Urine >100 /hpf; pH Urine 5.5 (5.0-9.0)
[2022-12-22 23:03] LABS: Add Urine Microscopic? YES
[2022-12-23] VITALS (7 sets, daily range): BP systolic 110–136; BP diastolic 45–74; PULSE 87–101; RESP 14–20; TEMP 36.4–36.9; O2SAT 96–98; BMI 21.2
[2022-12-23] MEDS: PIPERACILLN/TAZ 3.375GM/NS50ML 3.375 GM/50 ML BAG IVPB ×5 (00:52→23:27)
[2022-12-23] MEDS: SODIUM CHLORIDE 0.9% IV 1,000 ML 999 ML IV CONT (00:53)
--- NOTE | 2022-12-23 01:14 | PC.NURSE ---
Patient care was taken over after patient had kush to the laceration of the head.
[2022-12-23 02:07] LABS: Troponin I < 0.012 ng/mL (0.000-0.034)
--- NOTE | 2022-12-23 02:17 | PM.IMHP ---
H&P: HPI History of Present Illness Date/Time: 12/23/22 02:17 Chief Complaint: Fall Narrative: This is a 77 year female with past medical history of MS, AFib on anticoagulation, hypertension, spinal stenosis, VRE, left lower lung cancer on radiation, recent uti and Crohn's disease of presented to the ED due to fall. Patient is wheelchair bound and was trying to reach for something on the floor when she fell and hit her head, sustaining a wound on her right upper forehead. She received care for her laceration in the ER and during workup was complaining of some dysuria. Patient was recently admitted to the hospital for hematuria and dysuria and was found to have ESBL Klebsiella. She was started on meropenem and completed her course on 12/14/2022. Patient again complaining of dysuria but no hematuria. She had dirty urine in the ER and was empirically started on Zosyn. She denies any headache, fever, nausea or vomiting. No recent diarrhea. No abdominal pain or coughing. Review of Systems Review of Systems: no fever or weight loss no vision changes, no eye discharge no throat pain, no hoarseness, no lymphadenopathy no chest pain, no palpitations no coughing, no wheezing no abdominal pain, no diarrhea, no nausea, no vomiting Positive dysuria, no vaginal discharge no leg swelling, no edema no suicidal or homicidal ideation PMFSH Past Medical History Medical History Anemia, unspecified Arthritis Atrial fibrillation Chronic anticoagulation Crohn's disease Degenerative joint disease Dysphagia Essential (primary) hypertension Malignant neoplasm of upper lobe, left bronchus or lung Status post radiation. Patient of Dr. Almodovar and Dr. Latif. Mixed hyperlipidemia Multiple sclerosis Spinal stenosis, lumbar Vancomycin resistant Enterococcus Surgical History Surgical History History of carpal tunnel release History of cataract extraction History of colonoscopy Family History Family History Son Diabetes mellitus Father Hypertension Mother Emphysema lung Sibling Heart disease History of quadruple bypass Social History Social History Social History: Surrogate medical decision maker: Braden Pineda, son. Code status: Full code. Smoking packs per day: 1 Smoking cigarettes per day: 20.0 Years smoked: 30 Smoking pack-years: 30.00 Smoking status: Former smoker Second hand tobacco smoke exposure: Yes Alcohol intake: never Substance use: never Substance use type: marijuana Lack of Transportation: No Lack of Food: Never True Current Housing: I Have Housing Concerned About Future Housing: No Difficulty Paying Gas/Electric Bills: No Difficulty Paying for Meds: No Currently Unemployed: No Education: Don't Know Difficulty w/ Childcare or Family Care: No Living arrangements: with family Additional living arrangements comments: Assisted living at [facility]. 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 Spiritual care concerns: No Meds Home Medications and Allergies Home Medications Medication Instructions Recorded Confirmed Type rivaroxaban 20 mg tablet (Xarelto) 20 mg PO HS 09/21/21 12/20/22 History atorvastatin 20 mg tablet 20 mg PO HS #90 tabs 11/03/22 12/20/22 Rx furosemide 20 mg tablet (Lasix) 20 mg PO QAM #90 tabs 11/03/22 12/20/22 Rx pantoprazole 40 mg tablet,delayed 40 mg PO HS 4 weeks #30 tabs 11/03/22 12/20/22 Rx release B complex-C 500 mg-folic 400 1 tablet PO 1200 12/07/22 12/20/22 History mcg-zinc 24 mg-copper 3 mg-vit E tablet (Stress B-Complex) acetaminophen 500 mg tablet 1,000 mg PO HS 12/07/22 12/20/22 History acetaminophen 5
[2022-12-23 02:52] LABS: Basophils Percent Auto 0.5 % (0.2-1.2); Eosinophils Absolute Auto 0.3 K/mm3 (0-0.3); Hematocrit 32.9 % (37.0-47.0); Hemoglobin 10.4 g/dL (12.0-15.0); Immature Granulocyte Absolute 0.03 K/mm3 (0.00-0.031); Immature Granulocyte Percent A 0.4 % (0-0.5); Lymphocytes Absolute Auto 1.34 K/mm3 (0.9-3.2); Lymphocytes Percent Auto 16.3 % (18.3-44.2); Mean Corpuscular HGB Conc 31.6 g/dl (32-36); Mean Corpuscular Hemoglobin 29.4 pg (26-34); Mean Corpuscular Volume 92.9 fl (80-100); Mean Platelet Volume 11.6 fl (7.4-10.4); Monocytes Absolute Auto 0.7 K/mm3 (0.1-0.6); Monocytes Percent Auto 8.6 % (2.6-8.5); Neutrophils Absolute Auto 5.9 K/mm3 (1.3-6.7); Neutrophils Percent Auto 71.2 % (45.5-73.1); Platelet Count Result 234 k/mm3 (150-375); Red Blood Count 3.54 M/mm3 (4.2-5.4); Red Cell Distribution Width 15.1 % (11.5-14.5); White Blood Count 8.2 K/mm3 (4.5-10.0)
[2022-12-23 03:02] LABS: Anion Gap 8 mmol/L (8-16); Blood Urea Nitrogen 21 mg/dL (7-17); Calcium 8.1 mg/dL (8.4-10.2); Carbon Dioxide 21 mmol/L (22-30); Chloride 106 mmol/L (98-107); Estimated CRCL calculation 63 ml/min; Estimated Glomerular Filt Rate > 60; Glucose 85 mg/dL (65-110); Magnesium 1.8 mg/dL (1.6-2.3); Potassium 3.6 mmol/L (3.4-5.0); Sodium 135 mmol/L (137-145)
[2022-12-23] MEDS: LACTATED RINGERS 1,000 ML 75 ML IV CONT ×2 (03:26→17:32)
[2022-12-23 03:52] LABS: Digoxin 0.5 ng/mL (0.8-2.0)
[2022-12-23] MEDS: ACETAMINOPHEN 325 MG TABLET 650 MG PO ×2 (08:26→17:32)
[2022-12-23] MEDS: VERAPAMIL HCL ER 240 MG TABLET.ER PO (08:26)
[2022-12-23] MEDS: DIGOXIN TAB 125 MCG TABLET PO (08:26)
[2022-12-23] MEDS: METOPROLOL SUCCINATE EXT REL 25 MG, METOPROLOL SUCCINATE EXT REL 50 MG 75 MG PO (08:27)
[2022-12-23] MEDS: METOPROLOL SUCCINATE EXT REL 100 MG TABCR PO (08:27)
[2022-12-23] MEDS: ERTAPENEM 1 GM/NS 50 ML 1 GM/50 ML BAG IVPB (09:40)
--- NOTE | 2022-12-23 13:54 | WPDPN ---
Progress Note: A&P Assessment and Plan (1) Acute UTI: Code(s): N39.0 - Urinary tract infection, site not specified Status: Acute Assessment and Plan: -patient again complaining of some dysuria, with dirty urine. She was recently admitted for ESBL Klebsiella and finished a course of meropenem. Patient now empirically started on Zosyn. Await culture results and adjust antibiotics based on sensitivities. Infectious Disease consult. 12/23/2022 interval history: patient is known to me as I discharged her recently after being treated for ESBL Klebsiella.?now presents concerning UTI suspect patient may have another ESBL, discussed with ID pharmacist will start patient on Ertapenem, will follow up on UTI, will monitor, will have PT/OT evaluate the patient. (2) Infection due to ESBL-producing Klebsiella pneumoniae: Code(s): A49.8 - Other bacterial infections of unspecified site; Z16.12 - Extended spectrum beta lactamase (ESBL) resistance Status: Acute Assessment and Plan: -patient with history of ESBL Klebsiella. Started on empiric Zosyn. Await final urine culture results. (3) Multiple sclerosis: Code(s): G35 - Multiple sclerosis Status: Acute Assessment and Plan: -patient with no acute worsening of symptoms. Continue home meds. (4) Head injury without concussion or intracranial hemorrhage: Qualifiers: Encounter type: initial encounter Qualified Code(s): S09.90XA - Unspecified injury of head, initial encounter Code(s): S09.90XA - Unspecified injury of head, initial encounter Status: Acute Assessment and Plan: -patient says her fall was a complete accident as she was reaching for an object that fell on the floor. She denies any loss of consciousness, chest pain or shortness of breath. Her laceration was sutured in the ER. (5) Atrial fibrillation with rapid ventricular response: Code(s): I48.91 - Unspecified atrial fibrillation Status: Acute Assessment and Plan: -patient with history of atrial fibrillation and had episodes of RVR during her last admission. She was referred to Cardiology at that time and recommendation was to send home on 175 mg metoprolol XL, verapamil 40 mg and digoxin 0.125 daily -check digoxin level -on anticoagulation with Xarelto Plan Patient wants her son to be POA -wants to be DNR/DNI Subjective Date/time seen: 12/23/22 13:54 Interval history: Fall Narrative: This is a 77 year female with past medical history of MS, AFib on anticoagulation, hypertension, spinal stenosis, VRE, left lower lung cancer on radiation, recent uti and Crohn's disease of presented to the ED due to fall.? Patient is wheelchair bound and was trying to reach for something on the floor when she fell and hit her head, sustaining a wound on her right upper forehead.? She received care for her laceration in the ER and during workup was complaining of some dysuria.? Patient was recently admitted to the hospital for hematuria and dysuria and was found to have ESBL Klebsiella.? She was started on meropenem and completed her course on 12/14/2022.? Patient again complaining of dysuria but no hematuria.? She had dirty urine in the ER and was empirically started on Zosyn. She denies any headache, fever, nausea or vomiting.? No recent diarrhea.? No abdominal pain or coughing. 12/23/2022 interval history: patient is known to me as I discharged her recently after being treated for ESBL Klebsiella.?now presents concerning UTI suspect patient may have another ESBL, discussed with ID pharmacist will start patient on Ertapenem, will follow up on UTI, will monitor, will have PT/OT evaluate the patient. Review of Systems Review of Systems: no fever or weight loss no vision changes, no eye discharge no throat pain, no hoarseness, no lymphadenopathy no chest pain, no palpitations no coughing, no wheezing no abdominal pain, no diarrhea, no nausea, n
[2022-12-24] VITALS (7 sets, daily range): BP systolic 102–126; BP diastolic 44–78; PULSE 83–111; RESP 14–16; TEMP 36.5–36.7; O2SAT 97–99
[2022-12-24] MEDS: ACETAMINOPHEN 325 MG TABLET 650 MG PO ×2 (04:33→09:00)
[2022-12-24] MEDS: LACTATED RINGERS 1,000 ML 75 ML IV CONT (04:33)
[2022-12-24] MEDS: PIPERACILLN/TAZ 3.375GM/NS50ML 3.375 GM/50 ML BAG IVPB ×2 (05:49→12:37)
[2022-12-24] MEDS: METOPROLOL SUCCINATE EXT REL 100 MG TABCR PO (09:07)
[2022-12-24] MEDS: VERAPAMIL HCL ER 240 MG TABLET.ER PO (09:08)
[2022-12-24] MEDS: DIGOXIN TAB 125 MCG TABLET PO (09:09)
[2022-12-24] MEDS: METOPROLOL SUCCINATE EXT REL 25 MG, METOPROLOL SUCCINATE EXT REL 50 MG 75 MG PO (09:10)
[2022-12-24] MEDS: ERTAPENEM 1 GM/NS 50 ML 1 GM/50 ML BAG IVPB (09:12)
--- NOTE | 2022-12-24 12:17 | PM.DS ---
DS: Admitting Diagnosis Discharge Date 12/24/2022 Admitting Diagnosis Fall DS: Discharge Diagnosis Discharge Diagnosis (1) Acute UTI: Code(s): N39.0 - Urinary tract infection, site not specified Status: Acute Assessment and Plan: -patient again complaining of some dysuria, with dirty urine. She was recently admitted for ESBL Klebsiella and finished a course of meropenem. Patient now empirically started on Zosyn. Await culture results and adjust antibiotics based on sensitivities. Infectious Disease consult. 12/23/2022 interval history: patient is known to me as I discharged her recently after being treated for ESBL Klebsiella.?now presents concerning UTI suspect patient may have another ESBL, discussed with ID pharmacist will start patient on Ertapenem, will follow up on UTI, will monitor, will have PT/OT evaluate the patient. (2) Infection due to ESBL-producing Klebsiella pneumoniae: Code(s): A49.8 - Other bacterial infections of unspecified site; Z16.12 - Extended spectrum beta lactamase (ESBL) resistance Status: Acute Assessment and Plan: -patient with history of ESBL Klebsiella. Started on empiric Zosyn. Await final urine culture results. (3) Multiple sclerosis: Code(s): G35 - Multiple sclerosis Status: Acute Assessment and Plan: -patient with no acute worsening of symptoms. Continue home meds. (4) Head injury without concussion or intracranial hemorrhage: Qualifiers: Encounter type: initial encounter Qualified Code(s): S09.90XA - Unspecified injury of head, initial encounter Code(s): S09.90XA - Unspecified injury of head, initial encounter Status: Acute Assessment and Plan: -patient says her fall was a complete accident as she was reaching for an object that fell on the floor. She denies any loss of consciousness, chest pain or shortness of breath. Her laceration was sutured in the ER. (5) Atrial fibrillation with rapid ventricular response: Code(s): I48.91 - Unspecified atrial fibrillation Status: Acute Assessment and Plan: -patient with history of atrial fibrillation and had episodes of RVR during her last admission. She was referred to Cardiology at that time and recommendation was to send home on 175 mg metoprolol XL, verapamil 40 mg and digoxin 0.125 daily -check digoxin level -on anticoagulation with Xarelto Plan Patient wants her son to be POA -wants to be DNR/DNI DS: Summary Hospital Course Reason for hospitalization: Fall Narrative: This is a 77 year female with past medical history of MS, AFib on anticoagulation, hypertension, spinal stenosis, VRE, left lower lung cancer on radiation, recent uti and Crohn's disease of presented to the ED due to fall.? Patient is wheelchair bound and was trying to reach for something on the floor when she fell and hit her head, sustaining a wound on her right upper forehead.? She received care for her laceration in the ER and during workup was complaining of some dysuria.? Patient was recently admitted to the hospital for hematuria and dysuria and was found to have ESBL Klebsiella.? She was started on meropenem and completed her course on 12/14/2022.? Patient again complaining of dysuria but no hematuria.? She had dirty urine in the ER and was empirically started on Zosyn. She denies any headache, fever, nausea or vomiting.? No recent diarrhea.? No abdominal pain or coughing. Hospital Course: ?patient is known to me as I discharged her recently after being treated for? ESBL Klebsiella.?now presents concerning UTI suspect patient may have another ESBL, discussed with ID pharmacist will start patient on Ertapenem, will follow up on UTI, will monitor, will have PT/OT evaluate the patient Patient urine culture no growth, patient is clinically baseline will discharge the patient today Time Spent with Patient Time attestation: Total time spent providing and/or coordinating
== END 2022-12-24 15:15 | disposition home or self-care (01) ==
LOC: ANHED 20:25 → ANH3MED 12-23 02:10
PROVIDERS: Admitting Provider Internal Medicine; Emergency Provider Emergency Medicine; PCP Family Medicine; Visit Provider Family Medicine
DX: A49.8 Other bacterial infections of unspecified site (principal); N39.0 Urinary tract infection, site not specified; G35 Multiple sclerosis; S01.81XA Laceration without foreign body of other part of head, initial encounter; W05.0XXA Fall from non-moving wheelchair, initial encounter; I48.91 Unspecified atrial fibrillation; R53.81 Other malaise; D64.9 Anemia, unspecified; K50.90 Crohn's disease, unspecified, without complications; M19.90 Unspecified osteoarthritis, unspecified site; I10 Essential (primary) hypertension; Z92.3 Personal history of irradiation; E78.5 Hyperlipidemia, unspecified; R94.31 Abnormal electrocardiogram [ECG] [EKG]; Z16.21 Resistance to vancomycin; Z85.118 Personal history of other malignant neoplasm of bronchus and lung; Z79.01 Long term (current) use of anticoagulants; Z79.1 Long term (current) use of non-steroidal anti-inflammatories (NSAID); Z79.891 Long term (current) use of opiate analgesic; Z79.899 Other long term (current) drug therapy
CPT/HCPCS: 12011; 36415; 70450; 71045; 72125; 80048; 80053; 80162; 81001; 82550; 83605; 83690; 83735; 84100; 84484; 85025; 85610; 85730; 87086; 93005; 96361; 96365; 96366; 96367; 96376; 97161; 97165; 99285; A9270; G0378; J1335; J2543; J7030; J7120